=== PATIENT | male | born 1960 | race Caucasian/White ===

== ENCOUNTER → 2016-08-19 | Outpatient (CLI) | payer OTHER ==
[~2016-08-19] MED LIST: ACET-24 PO; ASPEC81 PO; ASPI81TA28 PO; CARV25TA PO; CLB200 PO; CLX20 PO; FENO48TA9 PO; FRS/40 PO; GLC/500 PO; GLIM2TAB PO; LOSA1TAB PO; MELO7.5T5 PO; ONDA8TAB12 PO; OXYSR10 PO; RXC5 PO; SPIR25TA PO; ZCRT/40 PO
--- NOTE | 2016-08-19 11:11 | DIAGNOSTIC IMAGING REPORT ---
CHEST 5 VIEWS INCLUDING OBLIQUES CLINICAL HISTORY: Abnormal chest x-ray. Pulmonary nodule. COMPARISON STUDY: 07/27/2016 FINDINGS: The heart remains enlarged. The previously described 1 cm right lower lung zone nodule, appears to correspond to the patient's right nipple shadow. There is no focal pulmonary consolidation. There is no failure. There are no pleural effusions.[ IMPRESSION: Cardiomegaly. No active disease in the chest. The recently described 1 cm right lower lung zone opacity, is felt to represent the a nipple shadow. Electronically signed by: Davin Petit M.D. 08/19/2016 11:10 AM Dictated Date/Time: 08/19/2016 11:09 AM
== END | disposition home or self-care (01) ==
LOC: C.RAD 10:36
PROVIDERS: ATTEND Family Medicine
DX: R93.8 Abnormal findings on diagnostic imaging of other specified body structures (principal)

== ENCOUNTER 2016-09-12 07:48 | Inpatient (IN) | payer OTHER ==
[2016-07-29 11:11] VITALS: BMI 37.0
--- NOTE | 2016-07-29 11:43 | PAT Medication Instructions ---
Service Date July 29, 2016. Current Home Medication List Aspirin (Aspirin Ec), 81 MG PO QAM Carvedilol (Coreg), 25 MG PO BID Citalopram (Celexa *), 20 MG PO BID Fenofibrate (Tricor), 48 MG PO QPM Furosemide (Lasix), 40 MG PO DAILY PRN for EDEMA Glimepiride (Amaryl), 2 MG PO QAM Losartan Potassium (Cozaar), 100 MG PO QPM Meloxicam (Mobic), 15 MG PO QAM Metformin Hcl (Glucophage), 500 MG PO BID Simvastatin (Zocor), 40 MG PO QPM Spironolactone (Aldactone), 12.5 MG PO QAM Medication Instructions For Your Scheduled Surgery - Hold the following medications per surgeon's instructions: Meloxicam (Mobic), 15 MG PO QAM - Hold the following medications 48 hours prior to surgery: Metformin Hcl (Glucophage), 500 MG PO BID - Hold the following medications the morning of surgery: Glimepiride (Amaryl), 2 MG PO QAM Furosemide (Lasix), 40 MG PO DAILY PRN for EDEMA Spironolactone (Aldactone), 12.5 MG PO QAM - Take the following medications the morning of surgery with a sip of water OTHERWISE NOTHING TO EAT OR DRINK AFTER MIDNIGHT: Aspirin (Aspirin Ec), 81 MG PO QAM Carvedilol (Coreg), 25 MG PO BID Citalopram (Celexa *), 20 MG PO BID - Take the following medications as scheduled the night before surgery: Carvedilol (Coreg), 25 MG PO BID Citalopram (Celexa *), 20 MG PO BID Simvastatin (Zocor), 40 MG PO QPM - Do Not Take the following medications the night before surgery: Fenofibrate (Tricor), 48 MG PO QPM Losartan Potassium (Cozaar), 100 MG PO QPM If you have any questions please call us at [phone] or [phone] or [phone]
[2016-07-29 12:12] LABS: URINE APPEARANCE CLEAR (CLEAR); URINE BILIRUBIN NEG (NEG); URINE COLOR YELLOW; URINE NITRITE NEG (NEG); URINE SPECIFIC GRAVITY 1.023 (1.000-1.030); UROBILINOGEN NEG (NEG)
[2016-07-29 12:13] LABS: BASO % 0.3 %; BASO ABS # 0.03 K/uL (0-0.2); COMPLETE YES; EOS % 3.1 %; HEMATOCRIT 41.5 % (42-52); IG% 0.2 %; LYMPH % 19.8 %; LYMPH ABS # 1.75 K/uL (1.2-3.4); MEAN CELL VOLUME 94.5 fL (80-100); MEAN CORPUSCULAR HEMOGLOBIN 32.3 pg (25-34); MEAN CORPUSCULAR HGB CONC 34.2 g/dl (32-36); MEAN PLATELET VOLUME 11.9 fL (7.4-10.4); MONO % 5.8 %; NEUT % 70.8 %; PLATELET COUNT 196 K/uL (130-400); RED BLOOD COUNT 4.39 M/uL (4.7-6.1); WHITE BLOOD COUNT 8.85 K/uL (4.8-10.8)
[2016-07-29 12:24] LABS: INR 0.9 (0.9-1.1); PARTIAL THROMBOPLASTIN RATIO 1.1; PROTHROMBIN TIME (PATIENT) 10.1 SECONDS (9.0-12.0)
[2016-07-29 12:36] LABS: MANUAL MICROSCOPIC REQUIRED? NO; REVIEW REQ? NO
[2016-07-29 12:44] LABS: ESTIMATED AVERAGE GLUCOSE 154 mg/dl; HA1C FLAG Normal (Normal)
[2016-07-29 12:57] LABS: BUN/CREATININE RATIO 25.7 (10-20); CREATININE 1.2 mg/dl (0.60-1.40); POTASSIUM 5.1 mmol/L (3.5-5.1)
--- NOTE | 2016-07-29 12:57 | DIAGNOSTIC IMAGING REPORT ---
CHEST PREADMISSION(PA/LAT) CLINICAL HISTORY: Preoperative evaluation. COMPARISON STUDY: No previous studies for comparison. FINDINGS: Lung volumes are normal. There is no pneumothorax or pleural effusion. A 1 cm nodular density projects over the right lower lung. There is mild to moderate cardiomegaly. There is no evidence of pulmonary edema. There is no consolidation to suggest pneumonia. IMPRESSION: 1. No acute cardiopulmonary findings. 2. 1 cm nodular density which projects over the right lower lung. This likely reflects a nipple shadow but follow-up PA and shallow oblique radiographs of the chest with nipple markers are recommended. 3. Mild to moderate cardiomegaly. Electronically signed by: Miguel Angel Nicole M.D. 07/29/2016 12:56 PM Dictated Date/Time: 07/29/2016 12:54 PM
[2016-07-29 13:11] LABS: CALCIUM 9.7 mg/dl (8.5-10.1)
--- NOTE | 2016-09-11 12:50 | History and Physical ---
History & Physical Date Sep 11, 2016. Chief Complaint Left knee pain History of Present Illness The patient is a 55 year old male with complaints of Additional History Hepatic Disease: No Endocrine Disorder: Yes (Type II DM) Kidney Disease: Yes (Kidney stones) Hypertension: No Heart Disease: No Bleeding Tendencies: No Infectious Diseases: No Other: Depression, Obesity Allergies Coded Allergies: NO KNOWN DRUG ALLERGIES (Verified Allergy, Unknown, NKDA, 07/29/16) Home Medications Scheduled Aspirin (Aspirin Ec), 81 MG PO QAM Carvedilol (Coreg), 25 MG PO BID Citalopram (Celexa *), 20 MG PO BID Fenofibrate (Tricor), 48 MG PO QPM Glimepiride (Amaryl), 2 MG PO QAM Losartan Potassium (Cozaar), 100 MG PO QPM Meloxicam (Mobic), 15 MG PO QAM Metformin Hcl (Glucophage), 500 MG PO BID Simvastatin (Zocor), 40 MG PO QPM Spironolactone (Aldactone), 12.5 MG PO QAM Scheduled PRN Furosemide (Lasix), 40 MG PO DAILY PRN for EDEMA Physical Examination Skin: warm/dry Eyes: normal inspection, EOMI ENT: normal ENT inspection, pharynx normal Head: normocephalic Neck: supple, no adenopathy Respiratory/Chest: lungs clear Cardiovascular: regular rate, rhythm Abdomen / GI: normal bowel sounds, non tender Extremities: normal inspection, + pertinent finding (Left knee varus aligned, medial compartment pain, ROM ~ 0-120) Addiitonal Comments: Xrays: varus aligned knee, bone on bone arthritis medial compartment, diffuse osteophytes medial and PF compartments Diagnosis Left knee arthritis Plan of Treatment Left total knee arthroplasty
[2016-09-12] VITALS (8 sets, daily range): BP systolic 115–157; BP diastolic 56–87; PULSE 70–87; TEMP 36.4–36.8; O2SAT 94–98; Ht 182.9 cm; Wt 124.0 kg
[~2016-09-12] VITALS: Ht 182.9 cm; Wt 124.0 kg
[~2016-09-12 07:48] MED LIST changes: -ACET-24 PO; +ACETAMINOPHEN 500 MG TAB PO SCH; -ASPEC81 PO; +BUPIVACAINE 0.5 % 5 MG/1 ML PF 10ML VIAL ONE; +CEFAZOLIN 3000 MG/65 ML D5W 65 ML IV SCH; -CLB200 PO; +CeleBREX 200 MG CAP PO SCH; +DEXAMETHASONE 4 MG TAB PO SCH; +FAMOTIDINE 20 MG TAB PO SCH; +GABAPENTIN 300 MG CAP PO SCH; +LACTATED RINGER'S 1000ML 1,000 ML IV SCH; +LACTATED RINGER'S 1000ML IV SCH; +METOCLOPRAMIDE HCL 10 MG TAB PO SCH; -ONDA8TAB12 PO; -OXYSR10 PO; +ROPIVACAINE 5MG/ML 30 ML 150 MG, BUPIVACAINE/EPINEPHR 0.5% MPF 30 ML, KETOROLAC TROMETH... INFIL SCH; -RXC5 PO; +TRANEXAMIC ACID INJ 1,000 MG in SODIUM CHLORIDE 0.9% 100ML 100 ML IV SCH
[2016-09-12] MEDS ORDERED: LIDOCAINE HCL 2% 2 ML VIAL (20MG/ML) ONE (09:38)
[2016-09-12] MEDS ORDERED: PROPOFOL IV EMULSION 10 MG/ML 20 ML VIAL IV ONE (09:38)
[2016-09-12] MEDS ORDERED: FENTANYL CITRATE INJ 50 MCG/1 ML 2 ML VIAL ONE (09:38)
[2016-09-12] MEDS ORDERED: MIDAZOLAM HCL 1 MG/ML 2ML VIAL ONE ×2 (09:38)
[2016-09-12] MEDS ORDERED: ORTHO JOINT ANESTHETIC ONE (09:56)
[2016-09-12] MEDS ORDERED: BACITRACIN 50000 UNIT VIAL ONE (09:56)
[2016-09-12] MEDS ORDERED: POVIDONE-IODINE OP SOLN 30 ML BTL ONE (09:56)
--- NOTE | 2016-09-12 10:13 | History & Physical Bridge Note ---
H&P Re-Evaluation Bridge Note: I have examined the patient, reviewed the History & Physical and in the interval since the performance of the History & Physical I have noted the following changes of clinical significance: No changes noted
[2016-09-12] MEDS ORDERED: ATROPINE SULFATE 0.1 MG/ML 5ML SYR IV PRN (10:30)
[2016-09-12] MEDS ORDERED: EpHEDrine SULFATE INJ 50 MG/ML AMP IV PRN (10:30)
[2016-09-12] MEDS ORDERED: ONDANSETRON INJ 2 MG/ML 2 ML VIAL IV PRN ×2 (10:30→12:15)
[2016-09-12] MEDS ORDERED: FENTANYL CITRATE INJ 50 MCG/1 ML 2 ML VIAL IV PRN (10:30)
--- NOTE | 2016-09-12 11:45 | [facility] Operative Report ---
Operative Report Operative Date Sep 12, 2016. Pre-Operative Diagnosis Left Knee Osteoarthritis Post-Operative Diagnosis same Procedure(s) Performed Patient's left knee was prepped and draped in usual sterile manner. Limb was exsanguinated with Esmarch bandage and insufflated to 350 mmHg. Longitudinal incision made some retained sutures from faceted and electrocautery and outlandish were used for hemostasis. Median parapatellar incision was made patella was everted and the results. The patient ballard visualization and the medial place the tibia was cleared of soft tissue using a Bovie and a Arriaga. Block was placed exposed. External medullary alignment is used to perform the osteotomy at the appropriate level. The bone fragment was removed. This shows an axis to the femoral canal. The flexible guidewire was placed intramedullary and the distal femoral cut was made resecting 10 mm of distal bone. The milligrams then removed and the chamfer cut guide was placed satisfy the chosen size uterus. (Removed and the notch was prepared using the appropriate guide and dissection and large loose bodies posterolaterally were noted and removed. Trial femur was placed is used to exposed the proximal tibia and the size 5 tibia was chosen size to be used. A 9 Mayra gave good repair of soft tissue tension while allowing full extension. The patella was reamed with the patellar reaming blade and a size 39 toaster size views. All trials removed joint mix was injected with irrigated with pulsatile irrigation bone was dried while cement was mixed and the final components were cemented in position. Was held in extension while cement hardened. A Betadine soaked was placed and Hemovac drain was placed after was deflated and electrocautery was obtained for hemostasis and the wound was closed using #1 Vicryl 0 Dexon and halina. Sterile dressing with Adaptic 4 x 4's and sterile Webril and the length Dani was applied. Sagar Zi's assistance was essential throughout the case and positioning prepping draping surgical exposure wound closure and dressing application. Surgeon Dr. Daniel Copy Reader Surgeon(s) Tj Al PA-C Estimated Blood Loss 20 cc Findings Osteoarthritis Specimens A: Left knee bone and tissue Disposition Recovery Room / PACU I attest to the content of the Intraoperative Record and any orders documented therein. Any exceptions are noted below.
[2016-09-12] MEDS ORDERED: ALUMINUM/MAGNESIUM/SIMETH (MAALOX MAX) 30 ML UDC PO PRN (12:15)
[2016-09-12] MEDS ORDERED: TAMSULOSIN HCL 0.4 MG CAP PO PRN (12:15)
[2016-09-12] MEDS ORDERED: MAGNESIUM HYDROXIDE SUSP 30 ML UDC PO PRN (12:15)
[2016-09-12] MEDS ORDERED: MoRPHine SULFATE 2 MG/ML CARP IV PRN ×2 (12:15→15:30)
[2016-09-12] MEDS ORDERED: METOCLOPRAMIDE HCL INJ 5 MG/ML 2 ML VIAL IV PRN (12:15)
[2016-09-12] MEDS ORDERED: ZOLPIDEM TARTRATE 5 MG TAB PO PRN (12:15)
[2016-09-12] MEDS ORDERED: OXYCODONE HCL IR 5 MG TAB (IMMEDIATE RELEASE) PO PRN (12:15)
--- NOTE | 2016-09-12 12:44 | DIAGNOSTIC IMAGING REPORT ---
LEFT KNEE 1 OR 2 VIEWS ROUTINE CLINICAL HISTORY: Postoperative evaluation. COMPARISON: None FINDINGS: Alignment of the total left knee arthroplasty is anatomic. There is no fracture or unexpected radiopaque foreign body. Drains are in place. IMPRESSION: Expected findings following total left knee arthroplasty. Electronically signed by: Miguel Angel Nicole M.D. 09/12/2016 12:42 PM Dictated Date/Time: 09/12/2016 12:42 PM
--- NOTE | 2016-09-12 12:52 | Anesthesiology Progress Note ---
Anesthesia Post Op Note Date & Time Sep 12, 2016 at 12:51 Vital Signs Pain Intensity: 0 Vital Signs Past 12 Hours Date Time Temp Pulse Resp B/P (MAP) Pulse Ox O2 Delivery O2 Flow Rate FiO2 09/12/16 12:45 36.2 68 16 133/60 97 Nasal Cannula 2 09/12/16 12:35 36.2 69 16 126/61 94 Nasal Cannula 2 09/12/16 12:25 68 16 136/65 99 Oxymask 10 09/12/16 12:15 75 16 126/82 98 Oxymask 10 09/12/16 12:09 36.1 70 16 113/57 99 Oxymask 10 09/12/16 08:37 Room Air 97 09/12/16 08:35 36.7 73 20 153/87 Notes Mental Status: alert / awake / arousable, participated in evaluation Pt Amnestic to Procedure: Yes Nausea / Vomiting: adequately controlled Pain: adequately controlled Airway Patency, RR, SpO2: stable & adequate BP & HR: stable & adequate Hydration State: stable & adequate Neuraxial Anesthesia: was administered, sensory block is resolving Anesthetic Complications: no major complications apparent
[2016-09-12] MEDS ORDERED: PHARMACY GLYCEMIC MGMT CONSULT SCH (13:22)
[2016-09-12] MEDS: TRANEXAMIC ACID INJ 1,000 MG in SODIUM CHLORIDE 0.9% 100ML 100 ML IV SCH (14:14)
[2016-09-12] MEDS ORDERED: GLUCOSE 40% GEL 15 GM TUBE PO PRN (14:15)
[2016-09-12] MEDS ORDERED: GLUCOSE 10 TABS/TUBE PO PRN (14:15)
[2016-09-12] MEDS ORDERED: GLUCAGON FOR INJ 1 MG VIAL SQ PRN (14:15)
[2016-09-12] MEDS ORDERED: DEXTROSE 50% 50 ML SYR IV PRN (14:15)
--- NOTE | 2016-09-12 14:20 | Pharmacy Progress Note ---
Glycemic Control Intl Consult Date of Service Sep 12, 2016. Scope Glycemic Pharmacist consulted by Tj Al on 09/12/16 for glycemic control and to write orders per [facility] inpatient glycemic control protocol Objective Weight (Kilograms): 124.00 Accuchecks BSG (last 24hrs): Test 09/12/16 08:28 09/12/16 12:20 Bedside Glucose 155 mg/dl (70-99) 178 mg/dl (70-99) Recent Pertinent Medications Outpatient Anti-diabetic Regimen: * glimepiride 2mg PO daily * Metformin 500mg PO BID * A1c = 7 % 07/29/16 Risk Factors for Insulin Resistance: * Steroids: Dexamethasone 8mg PO pre-operatively, then dexamethasone 10mg IV x1 dose on 09/13/16 * Infection: cefazolin perioperatively * IVF: LR --> NSS * Recent Surgery: POD #0 for left TKA * Diet: T2DM Assessment & Plan ASSESSMENT: * ADA & AACE recommend a goal blood sugar range 140-180 mg/dl for the majority of critically ill & non-critically ill patients. However, more stringent targets may be selected in individual cases. Will utilize more stringent goal of 110-140mg/dl based on patient age & comorbidities. Additionally, tighter glycemic control is warranted to facilitate wound/infection healing. * 55 y/o type 2 diabetic admitted postoperatively * BSG on admission slightly elevated (155,178mg/dL) likely secondary to holding PO meds pre-op * PO steroids POD#0 and IV steroids POD#1 will likely drive BSGs upwards * begin basal/bolus insulin in addition to PO medications using weight-based dosing PLAN FOR INPATIENT GLYCEMIC CONTROL: * Basal insulin: * Lantus SQ BID - 0 units if BSG is below 100mg/dL - 10 units if BSG is 100-140mg/dL - 20 units if BSG is above 140mg/dL * Bolus insulin: * NovoLog SQ AC and HS - goal: 110-140mg/dL - correction factor: 20mg/dL/unit (may need tightened on 09/13 with IV dexamethasone) - carb ratio: 1 unit per 6g of CHO consumed * Oral medications: * glimepiride 2mg PO daily with breakfast (hold if not eating) * metformin 500mg PO BID with meals * A1c - current * 7%- add to discharge instructions RECOMMENDATIONS FOR DISCHARGE: * Continue home regimen * Please note that the plan above was derived based on current level of insulin resistance and hospital stress. These recommendations are appropriate for inpatient admission only. Plan of care upon discharge will need to be reassessed to avoid potential outpatient hypo/hyperglycemia. Thank you.
[2016-09-12] MEDS ORDERED: MoRPHine SULFATE 4 MG/ML 1 ML CARP\\VIAL IV PRN (15:30)
[2016-09-12] MEDS ORDERED: MoRPHine SULFATE 10 MG/ML CARP/VIAL IV PRN (15:30)
[2016-09-12] MEDS: SODIUM CHLORIDE 0.9% 1000ML 1,000 ML IV SCH ×2 (15:40→22:11)
[2016-09-12] MEDS: ACETAMINOPHEN 500 MG TAB PO SCH ×2 (16:40→23:47)
[2016-09-12] MEDS: KETOROLAC TROMETHAMINE 30 MG/ML VIAL IV. SCH ×2 (16:41→22:11)
[2016-09-12] MEDS: CEFAZOLIN IV 2,000 MG in DEXTROSE 5% 50ML 50 ML IV SCH ×2 (16:41→23:46)
[2016-09-12] MEDS: INSULIN ASPART 100 UNITS/ML 3 ML PEN SC SCH ×2 (17:41→21:42)
[2016-09-12] MEDS: FERROUS GLUCONATE 324 MG TAB PO SCH (17:44)
[2016-09-12] MEDS: CITALOPRAM 20 MG TAB PO SCH (21:34)
[2016-09-12] MEDS: DOCUSATE SODIUM 100 MG CAP PO SCH (21:34)
[2016-09-12] MEDS: ASPIRIN 81 MG ECTAB PO SCH (21:37)
[2016-09-12] MEDS: LOSARTAN POTASSIUM 50 MG TAB PO SCH (21:37)
[2016-09-12] MEDS: OXYCODONE HCL 10 MG TABCR (OXYCONTIN) PO SCH (21:38)
[2016-09-12] MEDS: FENOFIBRATE 48 MG TAB PO SCH (21:38)
[2016-09-12] MEDS: SIMVASTATIN 40 MG TAB PO SCH (21:38)
[2016-09-12] MEDS: INSULIN GLARGINE SOLOSTAR 100 UNITS/ML 3 ML PEN SC SCH (21:43)
[2016-09-12] MEDS: CARVEDILOL 25 MG TAB PO SCH (21:43)
[2016-09-13] MEDS ORDERED: INSULIN ASPART 100 UNITS/ML 3 ML PEN SC SCH (02:00)
[2016-09-13 02:51] VITALS: BP 133/65; PULSE 74; TEMP 36.5; O2SAT 96
[2016-09-13] MEDS: KETOROLAC TROMETHAMINE 30 MG/ML VIAL IV. SCH ×2 (04:17→10:01)
[2016-09-13 06:02] LABS: HEMATOCRIT 35.1 % (42-52); MEAN CELL VOLUME 94.6 fL (80-100); MEAN CORPUSCULAR HEMOGLOBIN 32.6 pg (25-34); MEAN CORPUSCULAR HGB CONC 34.5 g/dl (32-36); MEAN PLATELET VOLUME 11.8 fL (7.4-10.4); PLATELET COUNT 179 K/uL (130-400); RED BLOOD COUNT 3.71 M/uL (4.7-6.1); WHITE BLOOD COUNT 15.33 K/uL (4.8-10.8)
[2016-09-13 06:37] LABS: BUN/CREATININE RATIO 25.6 (10-20); CALCIUM 8.2 mg/dl (8.5-10.1); CREATININE 1.1 mg/dl (0.60-1.40)
[2016-09-13] MEDS ORDERED: DEXAMETHASONE INJ 10 MG in SYRINGE 0 ML IV ONE (07:30)
--- NOTE | 2016-09-13 07:39 | Orthopedic Progress Note ---
Orthopedic Progress Note Date of Service Sep 13, 2016. Subjective Post OP Day: 1 Reports: feeling well Objective N/V intact, dressing C/D/I (Hemovac in place), toes mobile Date Time Temp Pulse Resp B/P (MAP) Pulse Ox O2 Delivery O2 Flow Rate FiO2 09/13/16 02:51 36.5 74 16 133/65 (87) 96 Room Air 09/12/16 23:40 Room Air 09/12/16 22:48 36.7 87 16 157/78 (104) 94 Room Air 09/12/16 19:09 36.4 86 18 123/66 (85) 96 Nasal Cannula 2.0 09/12/16 16:00 36.6 72 18 147/75 (99) 97 Nasal Cannula 2.0 09/12/16 15:40 97 Nasal Cannula 2.0 09/12/16 15:20 36.8 75 17 135/76 (95) 97 Nasal Cannula 2.0 09/12/16 13:37 76 19 115/56 (75) 97 Nasal Cannula 2.0 09/12/16 13:05 36.4 70 16 118/66 (83) 98 Nasal Cannula 2.0 09/12/16 13:05 98 Nasal Cannula 2.0 09/12/16 12:45 36.2 68 16 133/60 97 Nasal Cannula 2 09/12/16 12:35 36.2 69 16 126/61 94 Nasal Cannula 2 09/12/16 12:25 68 16 136/65 99 Oxymask 10 09/12/16 12:15 75 16 126/82 98 Oxymask 10 09/12/16 12:09 36.1 70 16 113/57 99 Oxymask 10 09/12/16 08:37 Room Air 97 09/12/16 08:35 36.7 73 20 153/87 Laboratory Results 24 Hours: Test 09/13/16 05:24 Hematocrit 35.1 % Hemoglobin 12.1 g/dL Assessment & Plan Assessment: 55 yo male stable POD #1 s/p left TKA Plan: 1. Med management 2. DVT prophylaxis- ASA, SCDs 3. PT/OT 4. D/C planning- home with OPPT
--- NOTE | 2016-09-13 07:42 | Discharge Instructions ---
Discharge Instructions Date of Service Sep 13, 2016. Admission Reason for Admission: Left Knee Osteoarthritis Discharge Discharge Diagnosis / Problem: Left knee arthritis Discharge Goals Goal(s): Decrease discomfort, Improve function Activity Recommendations Activity Limitations: as noted below Weightbearing Status: Left weightbearing (as tolerated) . Instructions / Follow-Up Instructions / Follow-Up ACTIVITY RECOMMENDATIONS: SELF CARE INSTRUCTIONS AFTER TOTAL KNEE REPLACEMENT A. You may need to continue a physical therapy program after discharge from the hospital. There are several options available to you. Your doctor will assist you in selecting the best one for you. 1. An out-patient facility 2 to 3 times a week for therapy or home therapy. 2. Continue working on all exercises taught to you in the hospital. Your goals should be to increase bending of your knee to 90 degrees and beyond and to fully straighten your knee. B. You may progress at your own pace from walking with a walker or crutches to a cane; then to no assistive devices. C. Make walking a part of your daily routine. Be up as much as comfortable with rest periods throughout the day. Rest with leg elevation is very important. Use the ice wrap frequently for the first 3-4 weeks. D. There are no restrictions on activities. You may ride in a car, shop, participate in machine fastener and all social activities. E. Wear the long elastic stockings (MIRANDA hose) 20 hours a day for 2 weeks after surgery. They can be removed several times a day for laundering and for a bath. F. You may shower, no tub baths until cleared by your doctor. SPECIAL CARE INSTRUCTIONS: VERY IMPORTANT TO READ AND REVIEW A. There are a few signs you need to watch for after you are home. Call [facility] if you notice any of the followin. Increased severe knee pain. Some pain is expected especially when you exercise. 2. Increased swelling in your leg or knee; pain or swelling of the calf muscle in either lower leg. 3. Any fluid drainage from the incision. 4. Shortness of breath or chest pain. B. Please call [facility] at if you have any concerns or questions about your operation or recovery. The doctor or his nurse will return your call promptly. C. You must take antibiotics before dental work, bladder, bowel or other surgery. Your doctor will provide you with a permanent care to carry describing this precaution. IMPORTANT: * REMEMBER TO TAKE ASPIRIN, 81 MG, TWICE DAILY FOR 4 WEEKS UNLESS OTHERWISE DIRECTED. THIS IS YOUR BLOOD THINNER. * HIGH RISK PATIENTS MAY BE PRESCRIBED A STRONGER BLOOD THINNER. THIS WILL BE PROVIDED AT DISCHARGE. * CALL IF INCREASED PAIN, REDNESS, DRAINAGE OR FEVER GREATER THAT 101. * WEAR MIRANDA HOSE 20 HOURS PER DAY FOR 2 WEEKS. Silverlon- This is a large adhesive bandage that contains silver ions. This helps your incision heal by fighting off bacteria and protecting it from the outside environment. You are permitted to shower with this dressing. This will remain on your incision for 7 days and then should be removed. Some visible blood or drainage through the dressing window is normal. If there is significant drainage or leaking noted before the 7 days notify your doctor's office immediately. Once removed, keep incision clean and dry. If there is any drainage or redness noted, please call your surgeon. FOLLOW UP VISIT: If appointment is not already scheduled: Please call [facility] to make a follow-up appointment for 2 weeks after your surgery at . Current Hospital Diet Patient's current hospital diet: Diabetes Type 2 Diet Discharge Diet Recommended Diet: Diabetes Type 2 Diet Procedures Procedures Performed: Left Total Knee Arthroplasty Pending Studies Studies pending at discharge: no Laboratory Results Hemoglobin A1c Test 07/29/16 11:46 Range/Units Estimated Average Glucose 154 mg/dl Hemoglobin A1c 7.0 H 4.5-5.6 % Medical Emergencies . Who to Call and When: Medical Emergencies: If at any time you feel your situation is an emergency, please call 911 immediately. . Non-Emergent Contact Non-Emergency issues call your: Surgeon Call Non-Emergent contact if: temperature is above 101.5, your pain is not controlled, wound has increased drainage, wound has increased redness . "Provider Documentation" section prepared by Tj Al PA-C. . VTE Core Measure Inpt VTE Proph given/why not?: Other Anticoagulation (ASA 81mg bid), T.E.D. Stockings, SCD's [place] Drug Monitoring Program Search Results: patient reviewed within database, no issues identified
[2016-09-13 07:58] VITALS: BP 150/82; PULSE 67; TEMP 36.6; O2SAT 98
[2016-09-13 08:06] VITALS: O2SAT 98
[2016-09-13] MEDS: ACETAMINOPHEN 500 MG TAB PO SCH ×3 (08:09→23:54)
[2016-09-13] MEDS: CITALOPRAM 20 MG TAB PO SCH ×2 (08:56→21:33)
[2016-09-13] MEDS: DOCUSATE SODIUM 100 MG CAP PO SCH ×2 (08:57→21:32)
[2016-09-13] MEDS: SPIRONOLACTONE 25 MG TAB PO SCH (08:57)
[2016-09-13] MEDS: FERROUS GLUCONATE 324 MG TAB PO SCH ×3 (08:58→18:10)
[2016-09-13] MEDS: MULTIVITAMIN TAB PO SCH (08:58)
[2016-09-13] MEDS: GLIMEPIRIDE 2 MG TAB PO SCH (08:59)
[2016-09-13] MEDS: CARVEDILOL 25 MG TAB PO SCH ×2 (08:59→21:32)
[2016-09-13] MEDS: METFORMIN HCL 500 MG TAB PO SCH ×2 (09:00→18:10)
[2016-09-13] MEDS: PANTOprazole SOD 40 MG TAB PO SCH (09:00)
[2016-09-13] MEDS: ASPIRIN 81 MG ECTAB PO SCH ×2 (09:01→21:33)
[2016-09-13] MEDS: OXYCODONE HCL 10 MG TABCR (OXYCONTIN) PO SCH ×2 (09:04→21:33)
[2016-09-13] MEDS: INSULIN ASPART 100 UNITS/ML 3 ML PEN SC SCH ×4 (09:09→21:41)
[2016-09-13] MEDS: INSULIN GLARGINE SOLOSTAR 100 UNITS/ML 3 ML PEN SC SCH ×2 (09:10→21:42)
[2016-09-13 11:34] VITALS: BP 152/74; PULSE 71; TEMP 36.8; O2SAT 95
--- NOTE | 2016-09-13 13:49 | Pharmacy Progress Note ---
Glycemic Control Progress Note Date of Service Sep 13, 2016. Scope Glycemic Pharmacist consulted for glycemic control to write orders per [facility] inpatient glycemic control protocol. Objective Accuchecks BSG (last 24hrs): Test 09/12/16 17:11 09/12/16 17:13 09/12/16 17:19 09/12/16 20:42 Bedside Glucose 358 mg/dl (70-99) 278 mg/dl (70-99) 293 mg/dl (70-99) 266 mg/dl (70-99) Test 09/13/16 02:24 09/13/16 05:24 09/13/16 08:04 09/13/16 12:03 Bedside Glucose 180 mg/dl (70-99) 168 mg/dl (70-99) 283 mg/dl (70-99) Random Glucose 169 mg/dl (70-99) Recent Pertinent Medications Outpatient Anti-diabetic Regimen: * glimepiride 2mg PO daily * Metformin 500mg PO BID * A1c = 7 % 07/29/16 Risk Factors for Insulin Resistance: * Steroids: Dexamethasone 8mg PO pre-operatively, then dexamethasone 10mg IV x1 dose on 09/13/16 * Recent Surgery: POD #1 for left TKA * Diet: T2DM Assessment & Plan ASSESSMENT: 09/12/16 * ADA & AACE recommend a goal blood sugar range 140-180 mg/dl for the majority of critically ill & non-critically ill patients. However, more stringent targets may be selected in individual cases. Will utilize more stringent goal of 110-140mg/dl based on patient age & comorbidities. Additionally, tighter glycemic control is warranted to facilitate wound/infection healing. * 55 y/o type 2 diabetic admitted postoperatively * BSG on admission slightly elevated (155,178mg/dL) likely secondary to holding PO meds pre-op * PO steroids POD#0 and IV steroids POD#1 will likely drive BSGs upwards * begin basal/bolus insulin in addition to PO medications using weight-based dosing 09/13/16 * Hyperglycemia postoperatively requiring a increase in correctional insulin. * Steroids now discontinued * loosen NovoLog parameters back to a stress of 2 after lunch * Lantus this PM PLAN FOR INPATIENT GLYCEMIC CONTROL: * Basal insulin: * Lantus SQ BID - 0 units if BSG is below 140mg/dL - 10 units if BSG is 140mg/dL or above * Bolus insulin: * NovoLog SQ AC and HS - goal: 100-140mg/dL - correction factor: 20mg/dL/unit - carb ratio: 1 unit per 6g of CHO consumed * Oral medications: * glimepiride 2mg PO daily with breakfast (hold if not eating) * metformin 500mg PO BID with meals * A1c - current * 7%- add to discharge instructions RECOMMENDATIONS FOR DISCHARGE: * Continue home regimen * Please note that the plan above was derived based on current level of insulin resistance and hospital stress. These recommendations are appropriate for inpatient admission only. Plan of care upon discharge will need to be reassessed to avoid potential outpatient hypo/hyperglycemia. Thank you.
[2016-09-13 15:02] VITALS: BP 156/71; PULSE 67; TEMP 36.6; O2SAT 93
[2016-09-13] MEDS: CeleBREX 200 MG CAP PO SCH (21:32)
[2016-09-13] MEDS: SIMVASTATIN 40 MG TAB PO SCH (21:32)
[2016-09-13] MEDS: LOSARTAN POTASSIUM 50 MG TAB PO SCH (21:33)
[2016-09-13] MEDS: FENOFIBRATE 48 MG TAB PO SCH (21:34)
[2016-09-13 23:15] VITALS: BP 152/81; PULSE 68; TEMP 36.7; O2SAT 95
[2016-09-14] MEDS ORDERED: INSULIN ASPART 100 UNITS/ML 3 ML PEN SC SCH (02:00)
[2016-09-14 06:38] VITALS: BP 154/77; PULSE 68; TEMP 36.3; O2SAT 96
[2016-09-14] MEDS: ACETAMINOPHEN 500 MG TAB PO SCH (07:37)
[2016-09-14] MEDS: MULTIVITAMIN TAB PO SCH (07:37)
[2016-09-14] MEDS: CeleBREX 200 MG CAP PO SCH (07:38)
[2016-09-14] MEDS: FERROUS GLUCONATE 324 MG TAB PO SCH ×2 (07:39→12:29)
[2016-09-14] MEDS: CARVEDILOL 25 MG TAB PO SCH (07:39)
[2016-09-14] MEDS: GLIMEPIRIDE 2 MG TAB PO SCH (07:39)
[2016-09-14] MEDS: METFORMIN HCL 500 MG TAB PO SCH (07:40)
[2016-09-14] MEDS: PANTOprazole SOD 40 MG TAB PO SCH (07:40)
[2016-09-14] MEDS: ASPIRIN 81 MG ECTAB PO SCH (07:41)
[2016-09-14] MEDS: INSULIN ASPART 100 UNITS/ML 3 ML PEN SC SCH ×2 (07:43→12:34)
[2016-09-14] MEDS: SPIRONOLACTONE 25 MG TAB PO SCH (07:44)
[2016-09-14] MEDS: CITALOPRAM 20 MG TAB PO SCH (07:45)
[2016-09-14] MEDS: OXYCODONE HCL 10 MG TABCR (OXYCONTIN) PO SCH (07:49)
--- NOTE | 2016-09-14 08:06 | Orthopedic Progress Note ---
Orthopedic Progress Note Date of Service Sep 14, 2016. Subjective Post OP Day: 2 Reports: feeling well Objective calves soft nontender, N/V intact, dressing C/D/I (Silverlon in place), toes mobile Date Time Temp Pulse Resp B/P (MAP) Pulse Ox O2 Delivery O2 Flow Rate FiO2 09/14/16 06:38 36.3 68 16 154/77 (102) 96 Room Air 09/13/16 23:45 Room Air 09/13/16 23:15 36.7 68 16 152/81 (104) 95 Room Air 09/13/16 16:35 Room Air 09/13/16 15:02 36.6 67 16 156/71 (99) 93 Room Air 09/13/16 11:34 36.8 71 14 152/74 (100) 95 Room Air 09/13/16 08:06 98 Room Air Assessment & Plan Assessment: 55 yo male stable POD #2 s/p left TKA Plan: 1. Med management 2. DVT prophylaxis- ASA, SCDs 3. PT/OT 4. D/C planning- home with OPPT
[2016-09-14] MEDS ORDERED: CLB200 PO (08:09)
[2016-09-14] MEDS ORDERED: ONDA8TAB12 PO (08:09)
[2016-09-14] MEDS ORDERED: OXYSR10 PO (08:09)
[2016-09-14] MEDS ORDERED: RXC5 PO (08:09)
[2016-09-14] MEDS ORDERED: ASPEC81 PO (08:09)
[2016-09-14] MEDS ORDERED: ACET-24 PO (08:09)
[2016-09-14] MEDS: DOCUSATE SODIUM 100 MG CAP PO SCH (09:00)
[2016-09-14 11:13] VITALS: BP 154/77; PULSE 68; TEMP 36.3; O2SAT 96
--- NOTE | 2016-09-18 17:30 | Discharge Summary ---
Orthopedic Discharge Summary Admission Date/Reason Sep 12, 2016 at 12:19 Left Knee Osteoarthritis. Discharge Date/Disposition Sep 14, 2016 Home Diagnosis Principal Diagnosis: Left knee arthritis Procedure(s) Performed Left total knee arthroplasty Medication Reconciliation New Medications: Ondansetron Hcl (Zofran) 8 Mg Tab 8 MG PO Q8 PRN for Nausea or Vomiting, #20 TAB Acetaminophen (Sb Non-Aspirin Extra Stre) 500 Mg Tab 1000 MG PO Q8H for 30 Days, TAB Aspirin (Aspirin EC Low Dose) 81 Mg Ectab 81 MG PO BID for 30 Days Celecoxib (Celebrex) 200 Mg Cap 200 MG PO BID, #60 CAP Oxycodone HCl (Oxycontin) 10 Mg Tabcr 10 MG PO Q12, #20 Oxycodone HCl (Oxycodone HCl) 5 Mg Tab 5-10 MG PO Q4H PRN for Pain, #60 TAB Continued Medications: Carvedilol (Coreg) 25 Mg Tab 25 MG PO BID, TAB Citalopram (Celexa *) 20 Mg Tab 20 MG PO BID, TAB Fenofibrate (Tricor) 48 Mg Tab 48 MG PO QPM, TAB Furosemide (Lasix) 40 Mg Tab 40 MG PO DAILY PRN for EDEMA, TAB Glimepiride (Amaryl) 2 Mg Tab 2 MG PO QAM, TAB Losartan Potassium (Cozaar) 25 Mg Tab 100 MG PO QPM, TAB Metformin Hcl (Glucophage) 500 Mg Tab 500 MG PO BID, TAB Simvastatin (Zocor) 40 Mg Tab 40 MG PO QPM, TAB Spironolactone (Aldactone) 25 Mg Tab 12.5 MG PO QAM, TAB Discontinued Medications: Aspirin (Aspirin Ec) 81 Mg Tab 81 MG PO QAM Meloxicam (Mobic) 7.5 Mg Tab 15 MG PO QAM, TAB Admission Physical Exam As per Admitting History & Physical. Hospital Course Pt underwent left total knee arthroplasty(TKA) without complication. He tolerated the procedure well and was discharged to the recovery room. His post- operative course was uneventful. His post-op pain was well controlled by combination of spinal anesthesia, adductor canal block, intra-op injection, IV, and oral pain medications. He was started on Aspirin for DVT prophylaxis. He also utilized SCDs for additional prophylaxis. His hemovac drain was discontinued on post-op day #2 and his dressing will remain in place for 7 days post-op. His H/H was stable and did not require transfusion. He tolerated post -op PT well. He was discharged home on post-op day #2 and will follow-up in our office in ~ 10-14 days. Discharge Instructions Please refer to the electronic Patient Visit Report (Discharge Instructions) for additional information.
== END 2016-09-14 13:47 | disposition home or self-care (01) | DRG 470 ==
LOC: C.ACU 07:48 → C.3E 12:19 → ENRESERV 12:49
PROC: 0SRD0J9 Replacement of Left Knee Joint with Synthetic Substitute, Cemented, Open Approach (ICD-10-PCS; principal; 2016-09-12 10:30)
DX: M17.12 Unilateral primary osteoarthritis, left knee (principal); M21.162 Varus deformity, not elsewhere classified, left knee; G47.33 Obstructive sleep apnea (adult) (pediatric); I11.0 Hypertensive heart disease with heart failure; I50.9 Heart failure, unspecified; E78.5 Hyperlipidemia, unspecified; I44.7 Left bundle-branch block, unspecified; E11.9 Type 2 diabetes mellitus without complications; F41.9 Anxiety disorder, unspecified; F32.9 Major depressive disorder, single episode, unspecified; E66.9 Obesity, unspecified; Z68.37 Body mass index [BMI] 37.0-37.9, adult; Z79.82 Long term (current) use of aspirin; Z79.84 Long term (current) use of oral hypoglycemic drugs; Z79.1 Long term (current) use of non-steroidal anti-inflammatories (NSAID); Z79.899 Other long term (current) drug therapy

== ENCOUNTER → 2017-04-26 | Outpatient (CLI) | payer OTHER ==
[~2017-04-26] MED LIST changes: +ACET-24 PO; -ACETAMINOPHEN 500 MG TAB PO SCH; +ASPEC81 PO; -ASPI81TA28 PO; -BUPIVACAINE 0.5 % 5 MG/1 ML PF 10ML VIAL ONE; -CEFAZOLIN 3000 MG/65 ML D5W 65 ML IV SCH; +CLB200 PO; -CeleBREX 200 MG CAP PO SCH; -DEXAMETHASONE 4 MG TAB PO SCH; -FAMOTIDINE 20 MG TAB PO SCH; -GABAPENTIN 300 MG CAP PO SCH; -LACTATED RINGER'S 1000ML 1,000 ML IV SCH; -LACTATED RINGER'S 1000ML IV SCH; -MELO7.5T5 PO; -METOCLOPRAMIDE HCL 10 MG TAB PO SCH; +OXYSR10 PO; -ROPIVACAINE 5MG/ML 30 ML 150 MG, BUPIVACAINE/EPINEPHR 0.5% MPF 30 ML, KETOROLAC TROMETH... INFIL SCH; +RXC5 PO; -TRANEXAMIC ACID INJ 1,000 MG in SODIUM CHLORIDE 0.9% 100ML 100 ML IV SCH
[2017-04-28 07:58] LABS: HEMOGLOBIN A1C 8.3 % (4.5-5.6)
== END | disposition home or self-care (01) ==
LOC: C.LAB 14:31
PROVIDERS: ATTEND Neuromusculoskeletal Medicine & OMM
DX: E11.9 Type 2 diabetes mellitus without complications (principal); J06.9 Acute upper respiratory infection, unspecified

== ENCOUNTER → 2017-07-28 | Outpatient (CLI) | payer OTHER ==
[~2017-07-28] MED LIST changes: -ASPEC81 PO; +ASPI-320 PO
[2017-07-28 11:06] LABS: BASO % 0.6 %; BASO ABS # 0.04 K/uL (0-0.2); EOS % 2.8 %; EOS ABS # 0.19 K/uL (0-0.5); HEMATOCRIT 41.5 % (42-52); HEMOGLOBIN 14.4 g/dL (14.0-18.0); IG# 0.02 K/uL (0.00-0.02); LYMPH % 22.2 %; LYMPH ABS # 1.48 K/uL (1.2-3.4); MEAN CORPUSCULAR HEMOGLOBIN 32.3 pg (25-34); MEAN CORPUSCULAR HGB CONC 34.7 g/dl (32-36); MEAN PLATELET VOLUME 11.6 fL (7.4-10.4); MONO % 10.6 %; MONO ABS # 0.71 K/uL (0.11-0.59); NEUT % 63.5 %; NEUT ABS # 4.24 K/uL (1.4-6.5); PLATELET COUNT 201 K/uL (130-400); RED CELL DISTRIBUTION WIDTH CV 13.3 % (11.5-14.5); RED CELL DISTRIBUTION WIDTH SD 45.3 fL (36.4-46.3); WHITE BLOOD COUNT 6.68 K/uL (4.8-10.8)
[2017-07-28 11:27] LABS: ALBUMIN 4.1 gm/dl (3.4-5.0); ALKALINE PHOSPHATASE 57 U/L (45-117); ALT/SGPT 30 U/L (12-78); AST/SGOT 21 U/L (15-37); BLOOD UREA NITROGEN 22 mg/dl (7-18); CARBON DIOXIDE 30 mmol/L (21-32); CHOLESTEROL 98 mg/dl (0-200); CREATININE 1.16 mg/dl (0.60-1.40); GLUCOSE 164 mg/dl (70-99); LDL CHOLESTEROL CALCULATED 48 mg/dl; POTASSIUM 4.7 mmol/L (3.5-5.1); SODIUM 141 mmol/L (136-145); TOTAL PROTEIN 7.2 gm/dl (6.4-8.2)
[2017-07-28 11:31] LABS: HEMOGLOBIN A1C 8.5 % (4.5-5.6)
== END | disposition home or self-care (01) ==
LOC: C.LAB 09:52
PROVIDERS: ATTEND Neuromusculoskeletal Medicine & OMM
DX: E11.9 Type 2 diabetes mellitus without complications (principal); E78.5 Hyperlipidemia, unspecified; I10 Essential (primary) hypertension

== ENCOUNTER → 2017-10-27 | Outpatient (CLI) | payer OTHER ==
[2017-10-27 15:00] LABS: HEMOGLOBIN A1C 7.5 % (4.5-5.6)
== END | disposition home or self-care (01) ==
LOC: C.LAB 13:37
PROVIDERS: ATTEND Neuromusculoskeletal Medicine & OMM
DX: E11.9 Type 2 diabetes mellitus without complications (principal)

== ENCOUNTER 2022-07-22 12:18 | Inpatient (IN) ==
--- NOTE | 2022-07-22 12:45 | Emergency Department Note ---
Impression & Plan Atrial fibrillation with RVR, Wide-complex tachycardia, CKD (chronic kidney disease) ED Provider Note NAME: KLAUDIA GABRIEL III AGE: 61 SEX: M : 1960 ARRIVES VIA: Walk-In INFORMANT: Patient, ED PROVIDER(S): Daryl Candelario MD CHIEF COMPLAINT: Shortness of breath MEDICAL DECISION MAKING: Patient presents due to concern for shortness of breath and exertional dyspnea. Patient was noted to be in a wide-complex tachycardia. Patient does have a known history of a left bundle branch block. IV was established blood was obtained along with an EKG. Morphology does not appear grossly unchanged after obtaining an out patient EKG through [facility]. I did speak with on-call cardiology Dr. Baez and the patient was seen and ev aluated the bedside. Patient was given adenosine IV 6 mg and appears that the patient does have an underlying A-fib. Patient has never had A-fib before. The patient was already receiving IV fluids with the patient was ordered heparin. Patient was also ordered Lopressor for rate control. The patient's blood work shows normal white count mild anemia hemoglobin 11.8 with normal platelet count. Kidney function with a creat of 1.78. Most recent was 1.57 in April 2020. Patient's troponin is not elevated but BNP is elevated. This is likely secondary to diastolic dysfunction and the A-fib with RVR. I did speak with the on-call hospitalist service Tiffani Singh PA-C and the patient was admitted by Dr. Link. Critical Care: I have personally spent 43 minutes of critical care time in direct management of this patient. This includes bedside care, interpretation of diagnostic studies, and testing, discussion with consultants, patient, and family members, and other require inpatient management activities. This 43 minutes is in excess of all separately billable procedures. Prior /Outside records reviewed: I did review an echocardiogram completed in September 2020. Patient had normal LV chamber size with moderate left ventricular systolic function is mildly reduced. EF of 45%. Grade 2 diastolic dysfunction. I did review a wellness visit from May 2020 with Lalo Ladd. Known history of type 2 diabetes hyperlipidemia hypertension anxiety Differential diagnosis: Reactive airway disease, pneumonia, pneumothorax, COPD, CHF, infections, cardiac ischemia, pulmonary embolism, musculoskeletal, gastrointestinal, as well as other pathologies. Diagnostics, as interpreted by me: ECG: Wide-complex tachycardia, rate of 122, left axis deviation with left bundle branch block pattern. Morphology appears grossly unchanged but rate is increased from comparison EKG through epic in the [employer] system from October 15, 2021 Cardiac monitoring: An order was placed for continuous cardiac monitoring. The monitor shows a rate of 122 with tachycardic and regular rhythm. Patient was placed on pulse oximetry Medical decision rules: none Imaging studies: See below I informally reviewed the patient's chest x-ray which does show likely pulmonary edema. HPI: Patient presents for feeling unwell since Friday with associated shortness of breath and dyspnea on exertion. The patient denies any leg swelling or calf pain. No history of DVT or PE no history of arrhythmia. Patient was seen in the outpatient setting referred here due to tachycardia. Patient denies any prior history of arrhythmia or A-fib. No falls or trauma. Patient does not take any blood thinners. The patient denies any recent surgeries procedures hospitalizations. No vomiting or diarrhea. PAST MEDICAL HISTORY: See Below PAST SURGICAL HISTORY: See Below SOCIAL HISTORY: See Below HOME MEDICATIONS: See Below ALLERGIES: See Below VITALS: See Below PHYSICAL EXAMINATION: GENERAL: NAD, wearing a mask, non-toxic. EYE EXAM: Normal conjunctiva. PERRL, no anisocoria and EOM's grossly intact w/o pain. NECK: Supple, no nuchal rigidity, no adenopathy, non-tender. No signs of meningismus. FROM of the neck with good chin to chest and neck extension. No stridor. LUNGS: Clear to auscultation. Normal chest wall mechanics. HEART: Tachycardic and regular, no MRG. ABDOMEN: Abdomen soft, non-tender, no masses, no rebound or guarding. BACK: No CVA TTP. SKIN: No rashes and no bruising. UPPER EXTREMITIES: Upper extremities are grossly normal. LOWER EXTREMITIES: Grossly normal, trace pretibial edema without any calf pain NEURO EXAM: A&O x3, cranial nerves II-XII grossly intact, normal speech, moves all 4 extremities. Past Med/Surg History Medical History Anxiety Chronic right shoulder pain Chronic systolic (congestive) heart failure Depression Diabetes mellitus Diabetes mellitus, type 2 Erectile dysfunction Hyperlipidemia Hypertension Left bundle branch block Obesity, unspecified Obstructive sleep apnea Osteoarthritis Pancreatitis HX CAUSED BY A MEDICATION Paroxysmal SVT (supraventricular tachycardia) Sleep apnea CPAP Spinal stenosis Surgical History H/O Spinal surgery LUMBAR LAZER PROCEDURE History of anesthesia reaction WITH LAST COLONOSCOPY-COULD FEEL PROCEDURE "WAS NOT FULLY ASLEEP" History of arthroscopy RT/LEFT KNEE History of cardiac cath "A WHILE AGO/NO STENTS" History of colonoscopy History of hernia repair History of tonsillectomy History of tooth extraction History of total knee replacement LEFT Family History Mother Family history of diabetes mellitus Myocardial infarction Grandfather (Paternal) Family history of diabetes mellitus Grandmother (Maternal) Family history of diabetes mellitus Father Prostate cancer Other Hypertension Denies family history of Ovarian cancer Breast cancer Colorectal cancer Social History Smoking Status: Never smoker Second Hand Exposure: No; Do You Dip or Chew Tobacco: No; Hx Alcohol Use: No Hx Substance Use: No Preferred Language: Bermudian Communication Ability: Effective Intelligence Senior Sergeant Required: No Beliefs That Will Affect Care: None marital status: Current Living Situation: Spouse current occupational status: employed 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 [employer] Feels Safe at Home: Yes Childhood Exposure to Second-Hand Smoke: Yes Dental Care, Regularly: Yes Physical Activity Frequency: Does not Exercise Seatbelt Use: always Sunscreen Use: No Assistive Devices: None Allergies Allergies Allergy/AdvReac Type Severity Reaction Status Date / Time lisinopril AdvReac Intermediate Vomiting Verified 07/22/22 15:15 Home Meds Home Medications Medication Instructions Recorded Confirmed dulaglutide 4.5 mg/0.5 mL 4.5 mg subcut WK 07/22/22 07/22/22 subcutaneous pen injector (Trulicity) empagliflozin 25 mg tablet 25 mg PO DAILY 07/22/22 07/22/22 (Jardiance) furosemide 40 mg tablet (Lasix) 40 mg PO 3XWK 07/22/22 07/22/22 insulin degludec 100 unit/mL (3 20 unit subcut HS 07/22/22 07/22/22 mL) subcutaneous pen (Tresiba FlexTouch U-100 insulin) rosuvastatin 40 mg tablet 40 mg PO DAILY 07/22/22 07/22/22 spironolactone 25 mg tablet 12.5 mg PO 3XWK 07/22/22 07/22/22 Previous Rx's Medication Instructions Recorded fenofibrate nanocrystallized 48 mg 48 mg PO DAILY #90 tabs 06/13/20 tablet albuterol sulfate 90 mcg/actuation 2 puff inhalation QID PRN 06/29/20 aerosol inhaler shortness of breath or wheezing #54 grams citalopram 20 mg tablet (Celexa) 20 mg PO BID #180 tabs 07/04/20 losartan 25 mg tablet 25 mg PO DAILY #90 tabs 07/12/20 carvedilol 25 mg tablet 25 mg PO BID #180 tabs 07/25/20 metformin 1,000 mg tablet 1,000 mg PO BID #180 tabs 07/25/20 diclofenac sodium 75 mg 75 mg PO BID #180 tabs 06/11/21 tablet,delayed release Results & Data (ED) Vital Signs Vital Signs - 24 hr 07/22/22 12:28 07/22/22 12:49 07/22/22 12:48 Temperature 36.7 C Temperature Source Temporal Artery Scan Pulse Rate 122 H 121 H Pulse Rate from SpO2 Sensor Respiratory Rate 18 Respiratory Effort / Characteristics Non-Labored Spontaneous Respiratory Depth Normal Respiratory Pattern Blood Pressure 90/57 L Blood Pressure Mean 68 Blood Pressure Position Sitting Pulse Oximetry 97 Oxygen Delivery Method Room Air Room Air Sepsis Recent Fever Within 48 Hours No Sepsis New/Unexplained Change in Mental Status N/A Sepsis Action Taken by Nursing No Action Required 07/22/22 12:48 07/22/22 12:48 07/22/22 12:46 Temperature Temperature Source Pulse Rate Pulse Rate from SpO2 Sensor Respiratory Rate Respiratory Effort / Characteristics Non-Labored Spontaneous Respiratory Depth Normal Respiratory Pattern Regular Blood Pressure 101/66 Blood Pressure Mean 77 Blood Pressure Position Pulse Oximetry Oxygen Delivery Method Room Air Sepsis Recent Fever Within 48 Hours Sepsis New/Unexplained Change in Mental Status Sepsis Action Taken by Nursing 07/22/22 12:46 07/22/22 13:00 07/22/22 13:00 Temperature Temperature Source Pulse Rate 122 H 122 H Pulse Rate from SpO2 Sensor 121 H 121 H Respiratory Rate 34 H 0 L Respiratory Effort / Characteristics Respiratory Depth Respiratory Pattern Blood Pressure 96/55 L Blood Pressure Mean 68 Blood Pressure Position Pulse Oximetry 93 93 Oxygen Delivery Method Sepsis Recent Fever Within 48 Hours Sepsis New/Unexplained Change in Mental Status Sepsis Action Taken by Nursing 07/22/22 13:15 07/22/22 13:15 07/22/22 13:30 Temperature Temperature Source Pulse Rate 122 H Pulse Rate from SpO2 Sensor 122 H Respiratory Rate 1 L Respiratory Effort / Characteristics Respiratory Depth Respiratory Pattern Blood Pressure 96/65 L 108/64 Blood Pressure Mean 75 78 Blood Pressure Position Pulse Oximetry 91 Oxygen Delivery Method Sepsis Recent Fever Within 48 Hours Sepsis New/Unexplained Change in Mental Status Sepsis Action Taken by Nursing 07/22/22 13:30 07/22/22 13:45 07/22/22 13:45 Temperature Temperature Source Pulse Rate 121 H 122 H Pulse Rate from SpO2 Sensor 122 H 122 H Respiratory Rate 18 10 L Respiratory Effort / Characteristics Respiratory Depth Respiratory Pattern Blood Pressure 124/78 Blood Pressure Mean 93 Blood Pressure Position Pulse Oximetry 95 95 Oxygen Delivery Method Sepsis Recent Fever Within 48 Hours Sepsis New/Unexplained Change in Mental Status Sepsis Action Taken by Nursing 07/22/22 14:00 07/22/22 14:01 07/22/22 14:01 Temperature Temperature Source Pulse Rate 122 H 122 H Pulse Rate from SpO2 Sensor 122 H 123 H Respiratory Rate 15 14 Respiratory Effort / Characteristics Respiratory Depth Respiratory Pattern Blood Pressure 93/74 L Blood Pressure Mean 80 Blood Pressure Position Pulse Oximetry 96 94 Oxygen Delivery Method Sepsis Recent Fever Within 48 Hours Sepsis New/Unexplained Change in Mental Status Sepsis Action Taken by Nursing 07/22/22 14:15 07/22/22 14:15 07/22/22 14:30 Temperature Temperature Source Pulse Rate 122 H Pulse Rate from SpO2 Sensor 122 H Respiratory Rate 20 Respiratory Effort / Characteristics Respiratory Depth Respiratory Pattern Blood Pressure 115/69 109/74 Blood Pressure Mean 84 85 Blood Pressure Position Pulse Oximetry 90 Oxygen Delivery Method Sepsis Recent Fever Within 48 Hours Sepsis New/Unexplained Change in Mental Status Sepsis Action Taken by Nursing 07/22/22 14:30 07/22/22 14:45 07/22/22 14:45 Temperature Temperature Source Pulse Rate 122 H 122 H Pulse Rate from SpO2 Sensor 122 H 122 H Respiratory Rate 19 16 Respiratory Effort / Characteristics Respiratory Depth Respiratory Pattern Blood Pressure 93/71 L Blood Pressure Mean 78 Blood Pressure Position Pulse Oximetry 92 98 Oxygen Delivery Method Sepsis Recent Fever Within 48 Hours Sepsis New/Unexplained Change in Mental Status Sepsis Action Taken by Nursing 07/22/22 15:00 Temperature Temperature Source Pulse Rate 123 H Pulse Rate from SpO2 Sensor 123 H Respiratory Rate 3 L Respiratory Effort / Characteristics Respiratory Depth Respiratory Pattern Blood Pressure Blood Pressure Mean Blood Pressure Position Pulse Oximetry 93 Oxygen Delivery Method Sepsis Recent Fever Within 48 Hours Sepsis New/Unexplained Change in Mental Status Sepsis Action Taken by [facility] Medications Current Medication List: was personally reviewed by me Laboratory Data Attestation: I reviewed the patient's lab results. 07/22/22 12:47 07/22/22 12:47 Lab Results 07/22/22 07/22/22 07/22/22 Range/Units 12:47 12:47 12:47 WBC 9.54 (4.8-10.8) K/ul RBC 3.68 L (4.70-6.10) M/uL Hgb 11.8 L (14.0-18.0) g/dl POC Hgb (14.0-18.0) g/dl Hct 36.0 L (42.0-52.0) % POC Hct (42-52) % MCV 97.8 (80.0-100.0) fL MCH 32.1 (25.0-34.0) pg MCHC 32.8 (32.0-36.0) g/dL RDW Std Deviation 49.9 H (36.4-46.3) fL RDW Coeff of Raj 13.9 (11.5-14.5) % Plt Count 175 (130-400) K/uL MPV 12.7 H (9.4-12.4) fL Immature Gran % (Auto) 0.4 % Neut % (Auto) 75.5 % Lymph % (Auto) 12.8 % [place] % (Auto) 9.7 % Eos % (Auto) 1.2 % Baso % (Auto) 0.4 % Neut # (Auto) 7.20 H (1.40-6.50) K/uL Lymph # (Auto) 1.22 (1.2-3.4) K/uL [place] # (Auto) 0.93 H (0.11-0.59) K/uL Eos # (Auto) 0.11 (0-0.50) K/uL Baso # (Auto) 0.04 (0-0.2) K/uL Immature Gran # (Auto) 0.04 (0.01-0.20) K/uL PT 11.1 (9.0-12.0) Seconds INR 1.0 (0.9-1.1) APTT 27.6 (21.0-31.0) Seconds PTT Ratio 1.0 POC Sodium (135-144) mmol/L Sodium 137 (136-145) mmol/L POC Potassium (3.3-5.0) mmol/L Potassium 4.4 (3.5-5.1) mmol/L POC Chloride (101-112) mmol/L Chloride 104 (98-107) mmol/L Carbon Dioxide 23 (21-32) mmol/L POC Total CO2 (24-31) mmol/L Anion Gap 10 (3-11) POC Anion Gap (16-25) mmol/L POC BUN (7-18) mg/dl BUN 36 H (6-23) mg/dl Creatinine 1.78 H (0.6-1.4) mg/dl POC Creatinine (0.6-1.3) mg/dl Est Cr Clr Drug Dosing Not Reportable Est GFR ( Amer) 46.0 ml/min Est GFR (Non-Af Amer) 39.7 ml/min BUN/Creatinine Ratio 20.2 H (10-20) Glucose 273 H (70-99(Fasting)) mg/dl POC Glucose (other) (70-99) mg/dl Calcium 9.0 (8.6-10.3) mg/dl POC Ioniz Calcium Aron (1.12-1.32) mmol/l Magnesium 1.7 (1.7-2.4) mg/dl Total Bilirubin 0.5 (0.2-1.0) mg/dl AST 25 (13-39) U/L ALT 28 (7-52) U/L Alkaline Phosphatase 48 (34-104) U/L Troponin I High Sens 13.2 (0-20) pg/ml B-Natriuretic Peptide (0-100) pg/ml Total Protein 6.3 (6.0-8.3) gm/dl Albumin 3.6 (3.4-5.0) gm/dl Globulin 2.7 (2.5-4.0) gm/dl Albumin/Globulin Ratio 1.3 (0.9-2) SARS-CoV-2, RNA, NAAT (NEGATIVE) 07/22/22 07/22/22 07/22/22 Range/Units 12:47 12:54 13:55 WBC (4.8-10.8) K/ul RBC (4.70-6.10) M/uL Hgb (14.0-18.0) g/dl POC Hgb 12.2 L (14.0-18.0) g/dl Hct (42.0-52.0) % POC Hct 36 L (42-52) % MCV (80.0-100.0) fL MCH (25.0-34.0) pg MCHC (32.0-36.0) g/dL RDW Std Deviation (36.4-46.3) fL RDW Coeff of Raj (11.5-14.5) % Plt Count (130-400) K/uL MPV (9.4-12.4) fL Immature Gran % (Auto) % Neut % (Auto) % Lymph % (Auto) % [place] % (Auto) % Eos % (Auto) % Baso % (Auto) % Neut # (Auto) (1.40-6.50) K/uL Lymph # (Auto) (1.2-3.4) K/uL [place] # (Auto) (0.11-0.59) K/uL Eos # (Auto) (0-0.50) K/uL Baso # (Auto) (0-0.2) K/uL Immature Gran # (Auto) (0.01-0.20) K/uL PT (9.0-12.0) Seconds INR (0.9-1.1) APTT (21.0-31.0) Seconds PTT Ratio POC Sodium 137 (135-144) mmol/L Sodium (136-145) mmol/L POC Potassium 4.3 (3.3-5.0) mmol/L Potassium (3.5-5.1) mmol/L POC Chloride 103 (101-112) mmol/L Chloride (98-107) mmol/L Carbon Dioxide (21-32) mmol/L POC Total CO2 22 L (24-31) mmol/L Anion Gap (3-11) POC Anion Gap 18.0 (16-25) mmol/L POC BUN 33 H (7-18) mg/dl BUN (6-23) mg/dl Creatinine (0.6-1.4) mg/dl POC Creatinine 1.7 H (0.6-1.3) mg/dl Est Cr Clr Drug Dosing Est GFR ( Amer) ml/min Est GFR (Non-Af Amer) ml/min BUN/Creatinine Ratio (10-20) Glucose (70-99(Fasting)) mg/dl POC Glucose (other) 271 H (70-99) mg/dl Calcium (8.6-10.3) mg/dl POC Ioniz Calcium Aron 1.07 L (1.12-1.32) mmol/l Magnesium (1.7-2.4) mg/dl Total Bilirubin (0.2-1.0) mg/dl AST (13-39) U/L ALT (7-52) U/L Alkaline Phosphatase (34-104) U/L Troponin I High Sens (0-20) pg/ml B-Natriuretic Peptide 217 H (0-100) pg/ml Total Protein (6.0-8.3) gm/dl Albumin (3.4-5.0) gm/dl Globulin (2.5-4.0) gm/dl Albumin/Globulin Ratio (0.9-2) SARS-CoV-2, RNA, NAAT NEGATIVE (NEGATIVE) Administered Medications Heparin Sodium/Dextrose (Heparin Sodium/Dextrose) 25,000 units in 500 mls @ 34 mls/hr IV .[id number] MADELINE; Protocol Stop: 08/21/22 13:44 Last Admin: 07/22/22 13:58 Dose: 1,700 units/hr, 34 mls/hr Documented By: KOJO Co-signed By: KV Discontinued Medications Adenosine (Adenosine Iv Soln 3 Mg/Ml 2 Ml Vial) 6 mg IV NOW STA Stop: 07/22/22 13:07 Last Admin: 07/22/22 13:16 Dose: 6 mg Documented By: KOJO Heparin Sodium/Dextrose (Heparin Iv Adult Wt-Based Standard *No* Bolus Protocol) 1 each IV ONE ONE; Protocol Stop: 07/22/22 13:26 Last Admin: 07/22/22 14:33 Dose: Not Given Documented By: KOJO Sodium Chloride (Nss 1000ml) 500 mls @ 999 mls/hr IV .Q31M ONE Stop: 07/22/22 13:37 Last Infusion: 07/22/22 14:01 Dose: 0 mls/hr Documented By: Admin: 07/22/22 13:17 Dose: 999 mls/hr Documented By: KOJO Imaging Data Radiologist's Impression: Chest X-Ray 07/22/22 12:48 XR chest 1V portable CLINICAL HISTORY: Dyspnea TECHNIQUE: Single frontal radiograph of the chest was obtained. Comparison: Comparison is made to chest radiograph 07/29/2016 FINDINGS: No lines and tubes are seen. Cardiomegaly is noted. Prominence and cephalization of the vasculature is seen. No evidence of pleural effusion or pneumothorax. Previously noted 1 cm nodular density in the right lower lung is no longer seen and may have represented a nipple shadow. IMPRESSION: Cardiomegaly and mild pulmonary edema. ACT 112: Negative or not required by law. Electronically signed by: Shane Ramirez M.D. 07/22/2022 1:52 PM Discharge Plan Visit Data Chief Complaint: Shortness of Breath/Dyspnea Stated Complaint: SOB ED Provider: Daryl Candelario Discharge Problem: Atrial fibrillation with RVR, Wide-complex tachycardia, CKD (chronic kidney disease) Patient Disposition: Admitted As Inpatient Discharge Instructions Interventions: ED Discharge Assessment Last Done: 07/22/22 15:15
[2022-07-22] MEDS ORDERED: ADENOSINE IV SOLN 3 MG/ML 2 ML VIAL IV STA (13:06)
[2022-07-22 13:07] LABS: iSTAT Creatinine 1.7 mg/dl (0.6-1.3); iSTAT Hemoglobin 12.2 g/dl (14.0-18.0); iSTAT Ionized Calcium 1.07 mmol/l (1.12-1.32); iSTAT Potassium 4.3 mmol/L (3.3-5.0)
[2022-07-22] MEDS ORDERED: SODIUM CHLORIDE 0.9% 1000ML 500 ML IV ONE (13:07)
[2022-07-22 13:15] LABS: Basophils # (auto) 0.04 K/uL (0-0.2); Basophils % (auto) 0.4 %; Eosinophils # (auto) 0.11 K/uL (0-0.50); Eosinophils % (auto) 1.2 %; Hemoglobin 11.8 g/dl (14.0-18.0); Immature Granulocytes # (auto) 0.04 K/uL (0.01-0.20); Immature Granulocytes % (auto) 0.4 %; Lymphocytes # (auto) 1.22 K/uL (1.2-3.4); Lymphocytes % (auto) 12.8 %; Mean Corpuscular Hemoglobin 32.1 pg (25.0-34.0); Mean Corpuscular Hgb Conc 32.8 g/dL (32.0-36.0); Mean Corpuscular Volume 97.8 fL (80.0-100.0); Mean Platelet Volume 12.7 fL (9.4-12.4); Monocytes # (auto) 0.93 K/uL (0.11-0.59); Monocytes % (auto) 9.7 %; Neutrophils % (auto) 75.5 %; Platelet Count 175 K/uL (130-400); RDW Coefficient of Variation 13.9 % (11.5-14.5); RDW Standard Deviation 49.9 fL (36.4-46.3); Red Blood Count 3.68 M/uL (4.70-6.10); White Blood Count 9.54 K/ul (4.8-10.8)
[2022-07-22] MEDS ORDERED: Heparin IV Adult Wt-Based Standard *NO* Bolus Protocol IV ONE (13:25)
[2022-07-22] MEDS ORDERED: METOPROLOL TARTRATE 1 MG/ML VIAL IV PRN (13:25)
[2022-07-22 13:30] LABS: Alanine Aminotransferase 28 U/L (7-52); Albumin Globulin Ratio 1.3 (0.9-2); Albumin Level 3.6 gm/dl (3.4-5.0); Alkaline Phosphatase 48 U/L (34-104); Anion Gap 10 (3-11); Aspartate Aminotransferase 25 U/L (13-39); BUN Creatinine Ratio 20.2 (10-20); Bilirubin,Total 0.5 mg/dl (0.2-1.0); Blood Urea Nitrogen 36 mg/dl (6-23); Carbon Dioxide 23 mmol/L (21-32); Chloride 104 mmol/L (98-107); Est GFR (Non-African American) 39.7 ml/min; Globulin 2.7 gm/dl (2.5-4.0); Glucose 273 mg/dl (70-99(Fasting)); Magnesium 1.7 mg/dl (1.7-2.4); Potassium 4.4 mmol/L (3.5-5.1); Sodium 137 mmol/L (136-145); Total Protein 6.3 gm/dl (6.0-8.3)
[2022-07-22 13:35] LABS: Troponin I High Sensitivity 13.2 pg/ml (0-20)
[2022-07-22 13:43] LABS: Partial Thromboplastin Time 27.6 Seconds (21.0-31.0); Prothrombin Time 11.1 Seconds (9.0-12.0)
--- NOTE | 2022-07-22 13:43 | Cardiology Consultation ---
Date of Consultation July 22, 2022 Assessment & Plan (1) New onset atrial fibrillation: (2) Nonischemic congestive cardiomyopathy: (3) Left bundle branch block: (4) Hypertension: Plan IMPRESSION: 61-year-old male with history of nonischemic cardiomyopathy, LVEF reduced at 45 to 49% on recent echo 06/2022 referred to the [facility] emergency department due to new onset atrial fibrillation. [id number] score of 3 (HTN, CHF, DM) making stroke risk about 3.2 % per year. PLAN: 1. Give 5 mg of IV Lopressor NOW to slow down rates, will stop home dose carvedilol (25 mg BID) and transition patient to metoprolol succinate 50 mg twice daily starting this evening. Patient will likely require higher doses- will titrate pending telemetry findings. 2. Start IV heparin for stroke prevention, will discuss DOAC vs Coumadin as clinic course progresses. 3. Update resting echocardiogram to reassess LV systolic function and wall motion. 4. Renal dysfunction noted on blood work, baseline scr around 1.2-1.3. Will hold spironolactone and Lasix at this time due to borderline hypotension. Advise caution with IV hydration given reduced LV systolic function. Repeat BMP in the morning. Case discussed with Dr. Baez. Will follow. Supervising Physician Co-Signing Physician Notes Patient was seen and personally examined. He is a 61-year-old male with known nonischemic cardiomyopathy with mild to moderate reduced ejection fraction who presents now noting having had new onset of tachyarrhythmias beginning on 07/19/2022. Patient wears a heart rate monitor watch and noted heart rates in the 140s since that time. Has noted some mild lightheadedness and fatigue. No chest pain or discomfort mild increase in lower extremity edema but no orthopnea. ER evaluation revealed chronic left bundle branch block with elevated response rate to atrial fibrillation confirmed by IV adenosine administration Exam: Heart rate 120s blood pressure 90/70, neck thick no distinct jugular venous distention lungs diminished breath sounds but no rhonchi or wheeze cardiovascular Alberto's irregular regular and tachycardic extremities 1+ edema Impression: 61-year-old male with new onset atrial fibrillation of 3 to 4 days duration with objective evidence by heart rate monitor watch. Underlying issues include nonischemic cardiomyopathy, chronic left bundle branch block Conduction abnormalities confound treatment we will begin with as above metoprolol succinate for heart rate control. Patient minimally symptomatic more importantly will require anticoagulation and initiated in ER with IV heparin with ultimate goals anticoagulation for at least 3 weeks before considering return to sinus rhythm unless blood pressure or heart rate issues preclude. KIMANI guided cardioversion may be considered . Patient relative hypotension would exclude infection etc. Echocardiogram will be reviewed Continue obstructive sleep apnea treatments History of Present Illness Reason for Consultation: New onset atrial fibrillation Requesting Physician: [facility] caleb History of Present Illness 61-year-old male with a past medical history of nonischemic cardiomyopathy and left bundle branch block presented to his PCP office today for routine appointment. However, he was having concerns regarding, chest tightness, shortness of breath and tachycardia since last Friday (07/19). An EKG was done showing a wide-complex tachycardia, long first-degree AV block with left bundle branch block (known). Heart rates were in the 120-130s. Blood pressure was soft in the 90s systolic patient was directed to the ED. Patient was given 6 mg IV adenosine- rates lowered into the 70s and rhythm revealed atrial fibrillation (new finding). Started on IV heparin drip and given 5 mg of IV Lopressor. Normally maintains on carvedilol 25 mg twice daily at home. 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 Does have obstructive sleep apnea and wears a CPAP. He also has type 2 diabetes and uses insulin. Past medical history Nonischemic cardiomyopathy, LVEF as low as 32% (05/2016), improved to 45-49% per echo 09/2020. Left bundle branch block Hypertension Hyperlipidemia with elevated triglycerides Type 2 diabetes GER, on CPAP Allergies Allergy/AdvReac Type Severity Reaction Status Date / Time No Known Allergies Allergy Verified 07/22/22 15:10 Home Medications Medication Instructions Recorded Confirmed Type fenofibrate nanocrystallized 48 mg 48 mg PO DAILY #90 tabs 06/13/20 07/22/22 Rx tablet albuterol sulfate 90 mcg/actuation 2 puff inhalation QID PRN 06/29/20 07/22/22 Rx aerosol inhaler shortness of breath or wheezing #54 grams citalopram 20 mg tablet (Celexa) 20 mg PO BID #180 tabs 07/04/20 07/22/22 Rx losartan 25 mg tablet 25 mg PO DAILY #90 tabs 07/12/20 07/22/22 Rx carvedilol 25 mg tablet 25 mg PO BID #180 tabs 07/25/20 07/22/22 Rx metformin 1,000 mg tablet 1,000 mg PO BID #180 tabs 07/25/20 07/22/22 Rx diclofenac sodium 75 mg 75 mg PO BID #180 tabs 06/11/21 07/22/22 Rx tablet,delayed release dulaglutide 4.5 mg/0.5 mL 4.5 mg subcut WK 07/22/22 07/22/22 History subcutaneous pen injector (Trulicity) empagliflozin 25 mg tablet 25 mg PO DAILY 07/22/22 07/22/22 History (Jardiance) furosemide 40 mg tablet (Lasix) 40 mg PO 3XWK 07/22/22 07/22/22 History insulin degludec 100 unit/mL (3 20 unit subcut HS 07/22/22 07/22/22 History mL) subcutaneous pen (Tresiba FlexTouch U-100 insulin) rosuvastatin 40 mg tablet 40 mg PO DAILY 07/22/22 07/22/22 History spironolactone 25 mg tablet 12.5 mg PO 3XWK 07/22/22 07/22/22 History Patient History Medical History (Updated 07/22/22 @ 14:30 by Dana Richardson PA-C) Anxiety Chronic right shoulder pain Depression Diabetes mellitus Diabetes mellitus, type 2 Erectile dysfunction Hyperlipidemia Hypertension Left bundle branch block Obesity, unspecified Obstructive sleep apnea Osteoarthritis Pancreatitis HX CAUSED BY A MEDICATION Sleep apnea CPAP Spinal stenosis Surgical History H/O Spinal surgery LUMBAR LAZER PROCEDURE History of anesthesia reaction WITH LAST COLONOSCOPY-COULD FEEL PROCEDURE "WAS NOT FULLY ASLEEP" History of arthroscopy RT/LEFT KNEE History of cardiac cath "A WHILE AGO/NO STENTS" History of colonoscopy History of hernia repair History of tonsillectomy History of tooth extraction History of total knee replacement LEFT Family History Mother Family history of diabetes mellitus Myocardial infarction Grandfather (Paternal) Family history of diabetes mellitus Grandmother (Maternal) Family history of diabetes mellitus Father Prostate cancer Other Hypertension Denies family history of Ovarian cancer Breast cancer Colorectal cancer Social History Smoking Status: Never smoker Second Hand Exposure: No; Do You Dip or Chew Tobacco: No; Hx Alcohol Use: No Hx Substance Use: No Preferred Language: Mexican Communication Ability: Effective Voip Engineer Required: No Beliefs That Will Affect Care: None marital status: Current Living Situation: Significant Other current occupational status: employed 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 Feels Safe at Home: Yes Childhood Exposure to Second-Hand Smoke: Yes Dental Care, Regularly: Yes Physical Activity Frequency: Does not Exercise Seatbelt Use: always Sunscreen Use: No Assistive Devices: CPAP and Glasses Review of Systems Review of Systems: All systems reviewed & are unremarkable except as noted in HPI & below Physical Exam Constitutional: WD/WN, vitals as above no acute distress Eyes: PERRL, conjunctivae normal, anicteric sclerae Neck: normal visual inspection and trachea midline Respiratory: normal respiratory effort, lungs clear to auscultation no cough Cardiovascular: Rate/Rhythm: + tachycardic and + irregularly irregular Heart Sounds: normal S1 and normal S2; no murmur Extremities: no edema Gastrointestinal (Abdomen): Inspection/Auscultation: abdomen normal to inspection; abdomen not distended Percussion/Palpation: abdomen soft; abdomen nontender Skin: no rashes, warm and dry Psychiatric: A+Ox3, euthymic affect Results & Data Vital Signs (Past 12 Hours) Vital Signs Temp Pulse Resp BP Pulse Ox O2 Del Method 07/22/22 12:49 121 H 07/22/22 12:28 36.7 C 122 H 18 90/57 L 97 Room Air Laboratory Results Cardiac Enzymes 07/22/22 Range/Units 12:47 AST 25 (13-39) U/L Troponin I High Sens 13.2 (0-20) pg/ml Coagulation 07/22/22 Range/Units 12:47 PT 11.1 (9.0-12.0) Seconds APTT 27.6 (21.0-31.0) Seconds CBC 07/22/22 Range/Units 12:47 WBC 9.54 (4.8-10.8) K/ul RBC 3.68 L (4.70-6.10) M/uL Hgb 11.8 L (14.0-18.0) g/dl Hct 36.0 L (42.0-52.0) % Plt Count 175 (130-400) K/uL Neut # (Auto) 7.20 H (1.40-6.50) K/uL Lymph # (Auto) 1.22 (1.2-3.4) K/uL [place] # (Auto) 0.93 H (0.11-0.59) K/uL Eos # (Auto) 0.11 (0-0.50) K/uL Baso # (Auto) 0.04 (0-0.2) K/uL Comprehensive Metabolic Panel 07/22/22 Range/Units 12:47 Sodium 137 (136-145) mmol/L Potassium 4.4 (3.5-5.1) mmol/L Chloride 104 (98-107) mmol/L Carbon Dioxide 23 (21-32) mmol/L BUN 36 H (6-23) mg/dl Creatinine 1.78 H (0.6-1.4) mg/dl Glucose 273 H (70-99(Fasting)) mg/dl Calcium 9.0 (8.6-10.3) mg/dl AST 25 (13-39) U/L ALT 28 (7-52) U/L Alkaline Phosphatase 48 (34-104) U/L Total Protein 6.3 (6.0-8.3) gm/dl Albumin 3.6 (3.4-5.0) gm/dl Intake and Output 07/21/22 07/22/22 07/22/22 22:59 06:59 14:59 Intake Total 500 / 500 Balance 500 / 500 Intake: IV 500 / 500 Sodium Chloride 0.9% 1000ML 500 500 / 500 ml @ 999 mls/hr IV .Q31M ONE Rx#:[id number] Other: Weight 120.7 kg Weight Measurement Method [facility] Patient Weight 07/23/22 06:59 Weight 120.7 kg Diagnostic Findings INPATIENT ECHO 07/22/2022 PENDING* Outpatient echo 06/2022 The examination is adequate to evaluate the referral indication. There was normal sinus rhythm during the examination. The qualitative LV ejection fraction is 45-49% (mildly reduced). The septal motion is abnormal consistent with intrventricular conduction delay. There is a moderate sized septal, anteroseptal, and anterior wall motion abnormality with hypokinesis of the segments. There is isolated basal septal hypertrophy with maximal thickness of 1.2 cm. The LV wall thickness is borderline increased (concentric). The left atrium is mildly enlarged (35-41 ml/m^2). Mild mitral regurgitation is present. Compared to last available study, there has been no interval change.
--- NOTE | 2022-07-22 13:53 | XRay Report ---
XR chest 1V portable CLINICAL HISTORY: Dyspnea TECHNIQUE: Single frontal radiograph of the chest was obtained. Comparison: Comparison is made to chest radiograph 07/29/2016 FINDINGS: No lines and tubes are seen. Cardiomegaly is noted. Prominence and cephalization of the vasculature i s seen. No evidence of pleural effusion or pneumothorax. Previously noted 1 cm nodular density in the right lower lung is no longer seen and may have represented a nipple shadow. IMPRESSION: Cardiomegaly and mild pulmonary edema. ACT 112: Negative or not required by law. Electronically signed by: Shane Ramirez M.D. 07/22/2022 1:52 PM
[2022-07-22] MEDS: HEPARIN SODIUM/DEXTROSE 25,000 UNITS/500 ML BAG IV SCH (13:58)
--- NOTE | 2022-07-22 14:13 | History & Physical Report ---
Date of Service July 22, 2022 Assessment & Plan (1) New onset atrial fibrillation: Plan: 61 y/o male with a PMH of insulin-requiring DM, GER on CPAP, HTN, chronic systolic HF, hx pSVT, LBBB, dyslipidemia, and nonischemic cardiomyopathy who presented to his PCP for routine follow-up today and was noted to be tachycardic (rate in the 120s) and SOB and borderline BP (systolic in the 90s) so referred to the ED for evaluation. In the ED, pt was given adenosine 6 mg IV x 1 dose which slowed the rate into the 70s revealing new-onset atrial fibrillation so pt was referred for admission. - Admit to PCU - Cardiology consult - appreciate input - Heparin gtt started in the ED - determine need for longer term AC such as DOAC this admission - ECHO pending - Rate control per cardio - Coreg between transitioned to metoprolol (2) Acute kidney injury superimposed on CKD: Plan: Baseline creatinine appears to be around 1.2-1.3. Today in the ED, creatinine 1.78 - Hold diuretics - Repeat BMP in AM (3) Diabetes mellitus, type 2: (4) Obstructive sleep apnea: Plan: Continue CPAP - pt brought machine from home (5) Nonischemic congestive cardiomyopathy: (6) Left bundle branch block: (7) Hypertension: Plan Pt seen and reviewed with collaborating physician, Dr. Link. Plan of care discussed and as outlined above. Code Status: Full code DVT prophylaxis: on heparin gtt Marissa Richardson PA-C History of Present Illness Chief Complaint: Shortness of breath Primary Care Provider: Sammy Morales DO This is a 61 y/o male with a PMH of insulin-requiring DM, GER on CPAP, HTN, chronic systolic HF, hx pSVT, LBBB, dyslipidemia, and nonischemic cardiomyopathy who presented to his PCP for routine follow-up today and was noted to be tachycardic and SOB so referred to the ED for evaluation. BP in the office was borderline with a systolic in the 90s. In the ED, pt was given adenosine 6 mg IV x 1 dose which slowed the rate into the 70s revealing new-onset atrial fibrillation so pt was referred for admission. Pt reports he developed SOB, mostly with any exertion, on Friday (3 days ago). This continued throughout the weekend - worse w/ exertion, better with rest. He reports chest tightness but denies chest pain, palpitations, syncope. He noted lightheadedness at times. No peripheral edema. He did try taking extra diuretic over the weekend to see if that would help with his breathing but no change. He tried his albuterol inhaler without relief. He reports a similar episode of symptoms 15-20 years ago for which no specific cause was identified on work-up. Dyspnea last a few days before resolving - no recurrence since then. He does use CPAP for GER. 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 His last ECHO 07/01/22 - LVEF 45-49%; moderate sized septal, anteroseptal, and anterior wall motion abnormality w/ hypokinesis of the segments; septal motion abnormal c/w IVCD. Borderline concentric LVH. Stable from prior study. His only recent med change was an increase in daily insulin to 20 units. Blood sugar this AM was 270. No recent vomiting, diarrhea, or other illness. Allergies Allergy/AdvReac Type Severity Reaction Status Date / Time lisinopril AdvReac Intermediate Vomiting Verified 07/22/22 15:15 Home Medications Medication Instructions Recorded Confirmed Type fenofibrate nanocrystallized 48 mg 48 mg PO DAILY #90 tabs 06/13/20 07/22/22 Rx tablet albuterol sulfate 90 mcg/actuation 2 puff inhalation QID PRN 06/29/20 07/22/22 Rx aerosol inhaler shortness of breath or wheezing #54 grams citalopram 20 mg tablet (Celexa) 20 mg PO BID #180 tabs 07/04/20 07/22/22 Rx losartan 25 mg tablet 25 mg PO DAILY #90 tabs 07/12/20 07/22/22 Rx carvedilol 25 mg tablet 25 mg PO BID #180 tabs 07/25/20 07/22/22 Rx metformin 1,000 mg tablet 1,000 mg PO BID #180 tabs 07/25/20 07/22/22 Rx diclofenac sodium 75 mg 75 mg PO BID #180 tabs 06/11/21 07/22/22 Rx tablet,delayed release dulaglutide 4.5 mg/0.5 mL 4.5 mg subcut WK 07/22/22 07/22/22 [facility] empagliflozin 25 mg tablet 25 mg PO DAILY 07/22/22 07/22/22 History (Jardiance) furosemide 40 mg tablet (Lasix) 40 mg PO 3XWK 07/22/22 07/22/22 History insulin degludec 100 unit/mL (3 20 unit subcut HS 07/22/22 07/22/22 History mL) subcutaneous pen (Tresiba FlexTouch U-100 insulin) rosuvastatin 40 mg tablet 40 mg PO DAILY 07/22/22 07/22/22 History spironolactone 25 mg tablet 12.5 mg PO 3XWK 07/22/22 07/22/22 History Past Med/Surg History Medical History Anxiety Chronic right shoulder pain Chronic systolic (congestive) heart failure Depression Diabetes mellitus Diabetes mellitus, type 2 Erectile dysfunction Hyperlipidemia Hypertension Left bundle branch block Obesity, unspecified Obstructive sleep apnea Osteoarthritis Pancreatitis HX CAUSED BY A MEDICATION Paroxysmal SVT (supraventricular tachycardia) Sleep apnea CPAP Spinal stenosis Surgical History H/O Spinal surgery LUMBAR LAZER PROCEDURE History of anesthesia reaction WITH LAST COLONOSCOPY-COULD FEEL PROCEDURE "WAS NOT FULLY ASLEEP" History of arthroscopy RT/LEFT KNEE History of cardiac cath "A WHILE AGO/NO STENTS" History of colonoscopy History of hernia repair History of tonsillectomy History of tooth extraction History of total knee replacement LEFT Family History Mother Family history of diabetes mellitus Myocardial infarction Grandfather (Paternal) Family history of diabetes mellitus Grandmother (Maternal) Family history of diabetes mellitus Father Prostate cancer Other Hypertension Denies family history of Ovarian cancer Breast cancer Colorectal cancer Social History Smoking Status: Never smoker Second Hand Exposure: No; Do You Dip or Chew Tobacco: No; Tobacco Cessation Education Requested by Patient: No Hx Alcohol Use: No Hx Substance Use: No Preferred Language: Belarusian Communication Ability: Effective Risk And Insurance Consultant Required: No Beliefs That Will Affect Care: None marital status: Current Living Situation: Spouse current occupational status: employed 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 Other Information That Helps Us Care for You: No Feels Safe at Home: Yes Safety Concerns: Feels Safe At This Time Childhood Exposure to Second-Hand Smoke: Yes Dental Care, Regularly: Yes Physical Activity Frequency: Does not Exercise Seatbelt Use: always Sunscreen Use: No Assistive Devices: None Review of Systems Review of Systems: All systems reviewed & are unremarkable except as noted in HPI & below Constitutional: no fever and no chills Eyes: no diplopia Ear, Nose, Mouth, Throat: no nasal congestion and no sore throat Respiratory: no cough and no wheezing Cardiovascular: as per Subjective / HPI Gastrointestinal: no abdominal pain, no nausea, no vomiting, no diarrhea/loose stools and no blood in stools Genitourinary: no dysuria or no hematuria Musculoskeletal: no back pain and no neck pain Integumentary: no rash Neurologic: + dizziness and + headache(s) (at times) Psychiatric: no depression and no anxiety Physical Exam Constitutional: well developed and well nourished; no acute distress Eyes: + anicteric sclerae Neck: trachea midline Respiratory: no respiratory distress and no labored breathing Auscultation: lungs clear to auscultation bilaterally; no rales, no rhonchi and no wheezes Cardiovascular: Rate/Rhythm: + tachycardic and + irregularly irregular Vessels: radial pulses present Extremities: no pedal edema Gastrointestinal (Abdomen): Inspection/Auscultation: normal bowel sounds; abdomen not distended Percussion/Palpation: abdomen soft; abdomen nontender Musculoskeletal: Head/Neck/Chest: normocephalic, head atraumatic and neck supple Skin: no jaundice Neurologic: moves all extremities; no focal motor deficits and not confused Psychiatric: A+Ox3, euthymic affect Results & Data Results & Data Vital Signs (Past 12 Hours) Vital Signs Temp Pulse Resp BP Pulse Ox O2 Del Method 07/22/22 12:48 Room Air 07/22/22 12:48 Room Air 07/22/22 12:49 121 H 07/22/22 12:28 36.7 C 122 H 18 90/57 L 97 Room Air Laboratory Results Laboratory Results - last 24 hr 07/22/22 07/22/22 07/22/22 12:47 12:47 12:47 WBC 9.54 RBC 3.68 L Hgb 11.8 L POC Hgb Hct 36.0 L POC Hct MCV 97.8 MCH 32.1 MCHC 32.8 RDW Std Deviation 49.9 H RDW Coeff of Raj 13.9 Plt Count 175 MPV 12.7 H Immature Gran % (Auto) 0.4 Neut % (Auto) 75.5 Lymph % (Auto) 12.8 Runnels % (Auto) 9.7 Eos % (Auto) 1.2 Baso % (Auto) 0.4 Neut # (Auto) 7.20 H Lymph # (Auto) 1.22 Runnels # (Auto) 0.93 H Eos # (Auto) 0.11 Baso # (Auto) 0.04 Immature Gran # (Auto) 0.04 PT 11.1 INR 1.0 APTT 27.6 PTT Ratio 1.0 POC Sodium Sodium 137 POC Potassium Potassium 4.4 POC Chloride Chloride 104 Carbon Dioxide 23 POC Total CO2 Anion Gap 10 POC Anion Gap POC BUN BUN 36 H Creatinine 1.78 H POC Creatinine Est Cr Clr Drug Dosing Not Reportable Est GFR ( Amer) 46.0 Est GFR (Non-Af Amer) 39.7 BUN/Creatinine Ratio 20.2 H Glucose 273 H POC Glucose (other) Calcium 9.0 POC Ioniz Calcium Aron Magnesium 1.7 Total Bilirubin 0.5 AST 25 ALT 28 Alkaline Phosphatase 48 Troponin I High Sens 13.2 B-Natriuretic Peptide Total Protein 6.3 Albumin 3.6 Globulin 2.7 Albumin/Globulin Ratio 1.3 07/22/22 07/22/22 12:47 12:54 WBC RBC Hgb POC Hgb 12.2 L Hct POC Hct 36 L MCV MCH MCHC RDW Std Deviation RDW Coeff of Raj Plt Count MPV Immature Gran % (Auto) Neut % (Auto) Lymph % (Auto) Runnels % (Auto) Eos % (Auto) Baso % (Auto) Neut # (Auto) Lymph # (Auto) Runnels # (Auto) Eos # (Auto) Baso # (Auto) Immature Gran # (Auto) PT INR APTT PTT Ratio POC Sodium 137 Sodium POC Potassium 4.3 Potassium POC Chloride 103 Chloride Carbon Dioxide POC Total CO2 22 L Anion Gap POC Anion Gap 18.0 POC BUN 33 H BUN Creatinine POC Creatinine 1.7 H Est Cr Clr Drug Dosing Est GFR ( Amer) Est GFR (Non-Af Amer) BUN/Creatinine Ratio Glucose POC Glucose (other) 271 H Calcium POC Ioniz Calcium Aron 1.07 L Magnesium Total Bilirubin AST ALT Alkaline Phosphatase Troponin I High Sens B-Natriuretic Peptide Pending Total Protein Albumin Globulin Albumin/Globulin Ratio Diagnostic Findings Chest X-Ray 07/22/22 12:48 XR chest 1V portable CLINICAL HISTORY: Dyspnea TECHNIQUE: Single frontal radiograph of the chest was obtained. Comparison: Comparison is made to chest radiograph 07/29/2016 FINDINGS: No lines and tubes are seen. Cardiomegaly is noted. Prominence and cephalization of the vasculature is seen. No evidence of pleural effusion or pneumothorax. Previously noted 1 cm nodular density in the right lower lung is no longer seen and may have represented a nipple shadow. IMPRESSION: Cardiomegaly and mild pulmonary edema. Medications Administered Heparin Sodium/Dextrose (Heparin Sodium/Dextrose) 25,000 units in 500 mls @ 34 mls/hr IV .[id number] [facility]; Protocol Stop: 08/21/22 13:44 Last Admin: 07/22/22 13:58 Dose: 1,700 units/hr, 34 mls/hr Documented By: KOJO Co-signed By: KV Discontinued Medications Adenosine (Adenosine Iv Soln 3 Mg/Ml 2 Ml Vial) 6 mg IV NOW STA Stop: 07/22/22 13:07 Last Admin: 07/22/22 13:16 Dose: 6 mg Documented By: KOJO Sodium Chloride (Nss 1000ml) 500 mls @ 999 mls/hr IV .Q31M ONE Stop: 07/22/22 13:37 Last Infusion: 07/22/22 14:01 Dose: 0 mls/hr Documented By: Admin: 07/22/22 13:17 Dose: 999 mls/hr Documented By: KOJO Supervising Physician Co-Signing Physician Notes I have seen and examined the patient and have discussed the case with the provider above. I agree with the assessment and plan as stated with the following exceptions. The patient is a 61-year-old man with a history of nonischemic cardiomyopathy presenting with new onset atrial fibrillation with rapid ventricular response. He reports feeling winded with exertion still, although better after adenosine and metoprolol given in the ER. He denies any caffeine intake or any significant alcohol intake. He is compliant with medications. 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 TSH is pending. He denies significant chest pressure and reports symptoms have been ongoing for the last few days. The patient had a recent adjustment in his diabetic regimen. He has been taking Trulicity 4.5 mg SQ w eekly, metformin 1000 mg p.o. twice daily, Jardiance 25 mg daily and Tresiba 10 units daily. On 07/08 they increased his Tresiba to 20 units daily with no other changes. He did see Dr. Simeon from orthopedics regarding a knee replacement surgery in early July also. He was told that his A1c needed to improve prior to this elective surgery. On 04/27/2022 his hemoglobin A1c was 13.3 up from 9.5 in January 2022 On physical exam he is obese but in no acute distress. He demonstrates no conversational dyspnea and is not hypoxic. Lungs are clear to auscultation bilaterally. Cardiovascular exam reveals S1-S2 heard with no murmurs gallops or rubs. Irregular rate and rhythm heard. No peripheral edema in extremities noted. CBC present with mild anemia with H&H of 12 and 36. Creatinine is 1.78 up from baseline around 1.3 and glucose is elevated. Chest x-ray reveals mild pulmonary edema echocardiogram reveals ejection fraction 35 to 40%. EKG reveals a wide- complex tachycardia with a rate of 122 and a QTc of 570. 1. New onset atrial fibrillation with rapid ventricular response 2. Nonischemic congestive cardiomyopathy 3. Acute on chronic CKD 4. Uncontrolled diabetes with hyperglycemia 5. Obstructive sleep apnea on CPAP 6. Prolonged QTc 7. Morbid obesity Rate was slowed down with adenosine and Lopressor in the ER. Cardiology was consulted and performed stat echocardiogram revealing EF of 35 to 40%, possibly driving the atrial fibrillation. The patient remains very symptomatic despite improved rate control. Consider cardioversion if not spontaneously converted overnight. Heparin drip was started. Defer management to cardiology. He doesn't appear grossly volume overloaded at this time. Agree with continuing to hold diuretics in the setting of DEEPA likely the result of extra doses of diuretics over the weekend by patient. Oral rehydration efforts in place. Diabetes mellitus is very uncontrolled with recent A1C >13. Repeat A1C now. Cont basal bolus insulin while holding metformin, jardiance, and Trulicity. Diabetic nurse educator to be consulted. Cont CPAP for GER. Cont celexa and avoid additional QT prolonging agents at this time. Repeat EKG in am to monitor this. Weight loss advised. DO Nikolay
[2022-07-22] MEDS ORDERED: METOPROLOL TARTRATE 1 MG/ML VIAL IV STA (15:16)
[2022-07-22] MEDS ORDERED: MAGNESIUM SULFATE / D5W 1 GM/100 ML BAG IV ONE (15:30)
[2022-07-22] MEDS ORDERED: CARBOHYDRATES FOR HYPOGLYCEMIA PO PRN (15:58)
[2022-07-22] MEDS ORDERED: POLYETHYLENE (MIRALAX) 17 GM PACK PO PRN (15:58)
[2022-07-22] MEDS ORDERED: ONDANSETRON INJ 2 MG/ML 2 ML VIAL IV PRN (15:58)
[2022-07-22] MEDS ORDERED: GLUCAGON FOR INJ 1 MG VIAL SQ PRN (15:58)
[2022-07-22] MEDS ORDERED: ACETAMINOPHEN 325 MG TAB PO PRN (15:58)
[2022-07-22] MEDS ORDERED: GLUCOSE 40% GEL 15 GM TUBE PO PRN (15:58)
[2022-07-22] MEDS ORDERED: GLUCOSE 10 TAB/TUBE PO PRN (15:58)
[2022-07-22] MEDS ORDERED: DEXTROSE 50% 50 ML SYRINGE IV PRN (15:58)
[2022-07-22] MEDS: INSULIN ASPART PER UNIT CHARGE SC SCH ×2 (16:46→21:24)
[2022-07-22 20:19] LABS: Partial Thromboplastin Ratio 1.1
[2022-07-22 21:00] LABS: Appearance Urine Clear (Clear); Bacteria Urine Automated Negative (Negative); Bilirubin Urine Negative (Negative); Blood Urine Negative (Negative); Color Urine Yellow; Epithelial Cell Urine Auto >30 /lpf (0-5); Glucose Urine UA 3+ (Negative); Ketones Urine Negative (Negative); Leukocyte Esterase Urine Negative (Negative); Nitrite Urine Negative (Negative); Protein Urine Trace (Negative); RBC Urine Automated 0-4 /hpf (0-4); Specific Gravity Urine 1.033 (1.000-1.030); Urobilinogen Urine Negative (Negative)
[2022-07-22] MEDS ORDERED: LANTUS PER UNIT CHARGE SQ SCH (21:00)
[2022-07-22] MEDS ORDERED: METOPROLOL SUCC 50MG EXT REL TAB PO SCH (21:00)
[2022-07-22 21:11] LABS: Renal Epithelial Cells Urine 0-5 /lpf (0-5)
[2022-07-22] MEDS: CITALOPRAM 20 MG TAB PO SCH (21:13)
[2022-07-23 02:27] LABS: Basophils # (auto) 0.05 K/uL (0-0.2); Basophils % (auto) 0.4 %; Eosinophils # (auto) 0.13 K/uL (0-0.50); Eosinophils % (auto) 1.1 %; Hematocrit (blood only) 35.2 % (42.0-52.0); Hemoglobin 11.6 g/dl (14.0-18.0); Immature Granulocytes # (auto) 0.05 K/uL (0.01-0.20); Immature Granulocytes % (auto) 0.4 %; Lymphocytes # (auto) 1.69 K/uL (1.2-3.4); Lymphocytes % (auto) 14.7 %; Mean Corpuscular Hemoglobin 32.2 pg (25.0-34.0); Mean Corpuscular Volume 97.8 fL (80.0-100.0); Mean Platelet Volume 12.8 fL (9.4-12.4); Monocytes # (auto) 1.01 K/uL (0.11-0.59); Monocytes % (auto) 8.8 %; Neutrophils % (auto) 74.6 %; Platelet Count 159 K/uL (130-400); RDW Coefficient of Variation 13.9 % (11.5-14.5); RDW Standard Deviation 49.5 fL (36.4-46.3); White Blood Count 11.53 K/ul (4.8-10.8)
[2022-07-23 02:31] LABS: BUN Creatinine Ratio 23.1 (10-20); Calcium 8.7 mg/dl (8.6-10.3); Creatinine Clr Calc Pharmacy 65.1 ml/min; Est GFR (Non-African American) 46.6 ml/min; Magnesium 1.8 mg/dl (1.7-2.4); Potassium 4.4 mmol/L (3.5-5.1)
[2022-07-23 03:04] LABS: Partial Thromboplastin Ratio 1.2
[2022-07-23] MEDS ORDERED: HEPARIN SOD (PORCINE) 1000 UNIT/ML IV ONE (03:45)
[2022-07-23] MEDS: HEPARIN SODIUM/DEXTROSE 25,000 UNITS/500 ML BAG IV SCH ×2 (04:43→20:02)
[2022-07-23 06:57] LABS: Estimated Average Glucose 280 mg/dl; Hemoglobin A1C 11.4 % (4.5-5.6)
--- NOTE | 2022-07-23 07:38 | Cardiology Progress Note ---
Date of Service July 23, 2022 Assessment & Plan (1) New onset atrial fibrillation: (2) Nonischemic congestive cardiomyopathy: (3) Left bundle branch block: (4) Hypertension: Plan IMPRESSION: 61-year-old male with history of nonischemic cardiomyopathy, LVEF reduced at 45 to 49% on recent echo 06/2022 referred to the [facility] emergency department due to new onset atrial fibrillation. LVEF further declined at 35-40% with mild global hypokinesis of the LV. Hypervolemic on exam- NYHA class 2-3. [id number] score of 3 (HTN, CHF, DM) making stroke risk about 3.2 % per year. PLAN: 1. Heart rates remain elevated in the 120s. Increase metoprolol to 100 mg twice daily. 2. Hold Losartan due low blood pressures 3. Continue IV heparin for stroke prevention, will discuss DOAC vs Coumadin as clinic course progresses. 4. Renal dysfunction noted on blood work (sCr 1.5 today), baseline scr around 1.2-1.3. CXR with mild pulmonary edema. Restart Lasix, will give 40 IV this am and reassess BMP in the morning. 5. NPO for possible KIMANI guided cardioversion. Case discussed with Dr. Baez. Will follow. Admission and Anticipated Discharge Date Admission Date: July 22, 2022 Supervising Physician Co-Signing Physician Notes Patient seen and examined assessment and plan as above. Medications increased to manage heart rates blood pressure marginal. We will keep n.p.o. after midnight in case need for KIMANI guided cardioversion Subjective 61-year-old male with known history nonischemic cardiomyopathy (LVEF moderately reduced at 45 to 49%) presented to [facility] emergency department from his PCP office due to new onset atrial fibrillation (presumed start last Wednesday 07/19 ) with rapid ventricular rates in the 120s to 130s. Symptomatic with shortness of breath and fatigue. Patient initially realized HR were elevated due to his "smart" watch. Rhythm confirmed by IV adenosine administration. Was started on IV heparin and given x1 dose of Lopressor 5 mg. Carvedilol stopped in favor of metoprolol succinate. Echocardiogram 07/22: showed a worsening LV systolic function of 35 to 40% with mild global hypokinesis. Mild to moderate MR. Left atrium moderately dilated. Chest x-ray: Cardiomegaly with mild pulmonary edema 07/23: EKG: Atrial fibrillation, left bundle branch block, 123 bpm Telemetry: AFIB 120-130s Upon entrance into the room patient resting on the edge of the bed. Notes slight improvement in his breathing at rest- continues to have ALVAREZ when walking to the bathroom. Feels like he is "holding onto fluid". Was coughing this morning. No chest pain. Denies palpitations. No dizziness/lightheadedness. Review of Systems Review of Systems: All systems reviewed & are unremarkable except as noted in HPI & below Physical Exam Constitutional: WD/WN, vitals as above no acute distress Eyes: PERRL, conjunctivae normal, anicteric sclerae Neck: normal visual inspection and trachea midline Respiratory: normal respiratory effort and + cough Auscultation: + rales; no rhonchi and no wheezes Cardiovascular: Rate/Rhythm: + tachycardic and + irregularly irregular Heart Sounds: normal S1 and normal S2; no murmur Extremities: + edema (+1 BLLE pitting to shins) Gastrointestinal (Abdomen): Inspection/Auscultation: abdomen normal to inspection; abdomen not distended Percussion/Palpation: abdomen soft; abdomen nontender Skin: no rashes, warm and dry Psychiatric: A+Ox3, euthymic affect Results & Data Vital Signs (Past 12 Hours) Vital Signs Temp Pulse Pulse Resp BP BP Pulse Ox 07/23/22 03:45 36.9 C 123 H 16 112/78 96 07/23/22 03:42 24 07/22/22 21:00 07/22/22 23:20 36.8 C 22 122/72 95 07/22/22 23:10 120 H 26 H 90 O2 Del Method FiO2 07/23/22 03:45 Room Air 07/23/22 03:42 21 07/22/22 21:00 CPAP 07/22/22 23:20 CPAP 07/22/22 23:10 21 Laboratory Results Cardiac Enzymes 07/22/22 07/22/22 Range/Units 12:47 12:47 AST 25 (13-39) U/L Troponin I High Sens 13.2 (0-20) pg/ml B-Natriuretic Peptide 217 H (0-100) pg/ml Coagulation 07/22/22 07/22/22 07/22/22 Range/Units 12:47 12:47 19:34 PT 11.1 (9.0-12.0) Seconds APTT 27.6 32.0 H (21.0-31.0) Seconds B-Natriuretic Peptide 217 H (0-100) pg/ml 07/23/22 Range/Units 01:38 PT (9.0-12.0) Seconds APTT 33.0 H (21.0-31.0) Seconds B-Natriuretic Peptide (0-100) pg/ml CBC 07/22/22 07/23/22 Range/Units 12:47 01:38 WBC 9.54 11.53 H (4.8-10.8) K/ul RBC 3.68 L 3.60 L (4.70-6.10) M/uL Hgb 11.8 L 11.6 L (14.0-18.0) g/dl Hct 36.0 L 35.2 L (42.0-52.0) % Plt Count 175 159 (130-400) K/uL Neut # (Auto) 7.20 H 8.60 H (1.40-6.50) K/uL Lymph # (Auto) 1.22 1.69 (1.2-3.4) K/uL Monona # (Auto) 0.93 H 1.01 H (0.11-0.59) K/uL Eos # (Auto) 0.11 0.13 (0-0.50) K/uL Baso # (Auto) 0.04 0.05 (0-0.2) K/uL Comprehensive Metabolic Panel 07/22/22 07/23/22 Range/Units 12:47 01:38 Sodium 137 137 (136-145) mmol/L Potassium 4.4 4.4 (3.5-5.1) mmol/L Chloride 104 103 (98-107) mmol/L Carbon Dioxide 23 25 (21-32) mmol/L BUN 36 H 36 H (6-23) mg/dl Creatinine 1.78 H 1.56 H (0.6-1.4) mg/dl Glucose 273 H 153 H (70-99(Fasting)) mg/dl Calcium 9.0 8.7 (8.6-10.3) mg/dl AST 25 (13-39) U/L ALT 28 (7-52) U/L Alkaline Phosphatase 48 (34-104) U/L Total Protein 6.3 (6.0-8.3) gm/dl Albumin 3.6 (3.4-5.0) gm/dl Intake and Output 07/22/22 07/23/22 07/23/22 22:59 06:59 14:59 Intake Total 1118.5 / 1940.0 321.5 / 1940.0 Output Total 200 / 200 Balance 918.5 / 1740.0 321.5 / 1740.0 Intake: IV 278.5 / 1100.0 321.5 / 1100.0 Heparin Sodium/Dextrose 25,000 178.5 / 500.0 321.5 / 500.0 units In 500 ml @ 1,900 UNITS/ HR 38 mls/hr IV .[id number] [facility] Rx #:[id number] Magnesium Sulfate / D5w 1 gm In 100 / 100 100 ml @ 50 mls/hr IV ONE ONE Rx#:[id number] Oral 840 / 840 Output: Urine 200 / 200 Other: Other Intake Source NPO # Unmeasured Voids 1 Weight 121 kg 115.9 kg Weight Measurement Method Built in [facility] Built in [facility]
[2022-07-23] MEDS: INSULIN ASPART PER UNIT CHARGE SC SCH ×4 (07:47→20:41)
[2022-07-23] MEDS: CITALOPRAM 20 MG TAB PO SCH ×2 (09:52→20:41)
[2022-07-23] MEDS: METOPROLOL SUCC 50MG EXT REL TAB PO SCH ×2 (09:53→20:43)
[2022-07-23] MEDS: FENOFIBRATE NANOCRYSTALLIZED 48 MG TABLET PO SCH (09:53)
[2022-07-23] MEDS: ROSUVASTATIN CALCIUM 20 MG TAB PO SCH (09:53)
[2022-07-23] MEDS ORDERED: FUROSEMIDE 40 MG/4 ML VIAL IV ONE (10:19)
[2022-07-23] MEDS: LANTUS PER UNIT CHARGE SQ SCH ×2 (10:59→20:42)
[2022-07-23 11:37] LABS: Partial Thromboplastin Ratio 1.6
[2022-07-23 11:50] LABS: Partial Thromboplastin Time 44.9 Seconds (21.0-31.0)
--- NOTE | 2022-07-23 15:36 | Hospitalist Progress Note ---
Date of Service July 23, 2022 Assessment & Plan (1) New onset atrial fibrillation: Plan: 61 y/o male with a PMH of insulin-requiring DM, GER on CPAP, HTN, chronic systolic HF, hx pSVT, LBBB, dyslipidemia, and nonischemic cardiomyopathy who presented to his PCP for routine follow-up today and was noted to be tachycardic (rate in the 120s) and SOB and borderline BP (systolic in the 90s) so referred to the ED for evaluation. In the ED, pt was given adenosine 6 mg IV x 1 dose which slowed the rate into the 70s revealing new-onset atrial fibrillation so pt was referred for admission. Discussed with cardiology; increased metoprolol to 100 mg twice daily. Patient was on Coreg prior to admission. - Heparin gtt started in the ED; cardiology to discuss regarding DOACs versus Coumadin as clinical course progresses. - ECHO reviewed; EF of 35 to 40% with mild concentric left ventricular hypertrophy. (2) Acute kidney injury superimposed on CKD: Plan: Baseline creatinine appears to be around 1.2-1.3. creatinine 1.78 on admission. Labs reviewed; creatinine down trended. Hold losartan for now. - Repeat BMP in AM (3) Diabetes mellitus, type 2: Plan: A1c of 11.4 On Lantus and NovoLog. (4) Obstructive sleep apnea: Plan: Continue CPAP - pt brought machine from home (5) Nonischemic congestive cardiomyopathy: (6) Left bundle branch block: Plan: Echocardiogram done; EF of 35 to 40%; mild global hypokinesis of left ventricle. (7) Hypertension: Plan: On metoprolol; changed from Coreg. Hold losartan. Plan DVT prophylaxis heparin drip Full code Disposition home after resolution after medical issues Admission and Anticipated Discharge Date Admission Date: July 22, 2022 Subjective patient seen and examined at bedside. He reports chest discomfort. Telemetry shows a flutter at a constant rate of 123 bpm. Review of Systems Review of Systems: All systems reviewed & are unremarkable except as noted in Subjective Physical Exam Physical Exam: Constitutional: WD/WN, vitals as above, NAD, sitting up in bed, pleasant, conversing easily Respiratory: normal respiratory effort, lungs clear to auscultation, no wheeze, rales, rhonchi. Normal insp/exp effort, no accessory muscle use Cardiovascular: Irregular no murmur, no edema Vessels: no JVD or carotid bruit Chest: normal inspection of chest Abdomen: normal bowel sounds, soft, nontender, no hepatosplenomegaly Musculoskeletal: no cyanosis or clubbing, extremities motor strength 5/5 Skin: no rashes, warm and dry normal turgor Neurologic: PERRL, EOMI, accommodation nl, no face palsy, no dysarthria CN's II- XI intact bilaterally and moves all extremities Psychiatric: A+Ox3, euthymic affect Lymphatic: no cervical or axillary lymphadenopathy : deferred Results & Data Results & Data Vital Signs (Past 12 Hours) Vital Signs Temp Pulse Resp BP Pulse Ox O2 Del Method FiO2 07/23/22 12:35 36.5 C 123 H 18 103/64 97 Room Air 07/23/22 09:00 Room Air 07/23/22 08:05 36.9 C 87 18 105/68 95 Room Air 07/23/22 03:45 36.9 C 123 H 16 112/78 96 Room Air 07/23/22 03:42 24 21 Laboratory Results Laboratory Results WBC 11.53 K/ul (4.8-10.8) H 07/23/22 01:38 RBC 3.60 M/uL (4.70-6.10) L 07/23/22 01:38 Hgb 11.6 g/dl (14.0-18.0) L 07/23/22 01:38 POC Hgb 12.2 g/dl (14.0-18.0) L 07/22/22 12:54 Hct 35.2 % (42.0-52.0) L 07/23/22 01:38 POC Hct 36 % (42-52) L 07/22/22 12:54 MCV 97.8 fL (80.0-100.0) 07/23/22 01:38 MCH 32.2 pg (25.0-34.0) 07/23/22 01:38 MCHC 33.0 g/dL (32.0-36.0) 07/23/22 01:38 RDW Std Deviation 49.5 fL (36.4-46.3) H 07/23/22 01:38 RDW Coeff of Raj 13.9 % (11.5-14.5) 07/23/22 01:38 Plt Count 159 K/uL (130-400) 07/23/22 01:38 MPV 12.8 fL (9.4-12.4) H 07/23/22 01:38 Immature Gran % (Auto) 0.4 % 07/23/22 01:38 Neut % (Auto) 74.6 % 07/23/22 01:38 Lymph % (Auto) 14.7 % 07/23/22 01:38 Beauregard % (Auto) 8.8 % 07/23/22 01:38 Eos % (Auto) 1.1 % 07/23/22 01:38 Baso % (Auto) 0.4 % 07/23/22 01:38 Neut # (Auto) 8.60 K/uL (1.40-6.50) H 07/23/22 01:38 Lymph # (Auto) 1.69 K/uL (1.2-3.4) 07/23/22 01:38 Beauregard # (Auto) 1.01 K/uL (0.11-0.59) H 07/23/22 01:38 Eos # (Auto) 0.13 K/uL (0-0.50) 07/23/22 01:38 Baso # (Auto) 0.05 K/uL (0-0.2) 07/23/22 01:38 Immature Gran # (Auto) 0.05 K/uL (0.01-0.20) 07/23/22 01:38 PT 11.1 Seconds (9.0-12.0) 07/22/22 12:47 INR 1.0 (0.9-1.1) 07/22/22 12:47 APTT 44.9 Seconds (21.0-31.0) H* 07/23/22 10:32 PTT Ratio 1.6 07/23/22 10:32 POC Sodium 137 mmol/L (135-144) 07/22/22 12:54 Sodium 137 mmol/L (136-145) 07/23/22 01:38 POC Potassium 4.3 mmol/L (3.3-5.0) 07/22/22 12:54 Potassium 4.4 mmol/L (3.5-5.1) 07/23/22 01:38 POC Chloride 103 mmol/L (101-112) 07/22/22 12:54 Chloride 103 mmol/L (98-107) 07/23/22 01:38 Carbon Dioxide 25 mmol/L (21-32) 07/23/22 01:38 POC Total CO2 22 mmol/L (24-31) L 07/22/22 12:54 Anion Gap 9 (3-11) 07/23/22 01:38 POC Anion Gap 18.0 mmol/L (16-25) 07/22/22 12:54 POC BUN 33 mg/dl (7-18) H 07/22/22 12:54 BUN 36 mg/dl (6-23) H 07/23/22 01:38 Creatinine 1.56 mg/dl (0.6-1.4) H 07/23/22 01:38 POC Creatinine 1.7 mg/dl (0.6-1.3) H 07/22/22 12:54 Est Cr Clr Drug Dosing 65.1 ml/min 07/23/22 01:38 Est GFR ( Amer) 54.0 ml/min 07/23/22 01:38 Est GFR (Non-Af Amer) 46.6 ml/min 07/23/22 01:38 BUN/Creatinine Ratio 23.1 (10-20) H 07/23/22 01:38 Glucose 153 mg/dl (70-99(Fasting)) H 07/23/22 01:38 POC Glucose 157 mg/dl (70-99) H 07/23/22 11:15 POC Glucose (other) 271 mg/dl (70-99) H 07/22/22 12:54 Estimat Average Glucose 280 mg/dl 07/23/22 01:38 Hemoglobin A1c 11.4 % (4.5-5.6) H 07/23/22 01:38 Calcium 8.7 mg/dl (8.6-10.3) 07/23/22 01:38 POC Ioniz Calcium Aron 1.07 mmol/l (1.12-1.32) L 07/22/22 12:54 Magnesium 1.8 mg/dl (1.7-2.4) 07/23/22 01:38 Total Bilirubin 0.5 mg/dl (0.2-1.0) 07/22/22 12:47 AST 25 U/L (13-39) 07/22/22 12:47 ALT 28 U/L (7-52) 07/22/22 12:47 Alkaline Phosphatase 48 U/L (34-104) 07/22/22 12:47 Troponin I High Sens 13.2 pg/ml (0-20) 07/22/22 12:47 B-Natriuretic Peptide 217 pg/ml (0-100) H 07/22/22 12:47 Total Protein 6.3 gm/dl (6.0-8.3) 07/22/22 12:47 Albumin 3.6 gm/dl (3.4-5.0) 07/22/22 12:47 Globulin 2.7 gm/dl (2.5-4.0) 07/22/22 12:47 Albumin/Globulin Ratio 1.3 (0.9-2) 07/22/22 12:47 TSH 1.547 uIu/ml (0.300-4.500) 07/23/22 01:38 Urine Color Yellow 07/22/22 20:15 Urine Appearance Clear (Clear) 07/22/22 20:15 Urine pH 5.0 (4.5-7.5) 07/22/22 20:15 Ur Specific [place] 1.033 (1.000-1.030) H 07/22/22 20:15 Urine Protein Trace (Negative) H 07/22/22 20:15 Urine Glucose (UA) 3+ (Negative) H 07/22/22 20:15 Urine Ketones Negative (Negative) 07/22/22 20:15 Urine Blood Negative (Negative) 07/22/22 20:15 Urine Nitrite Negative (Negative) 07/22/22 20:15 Urine Bilirubin Negative (Negative) 07/22/22 20:15 Urine Urobilinogen Negative (Negative) 07/22/22 20:15 Ur Leukocyte Esterase Negative (Negative) 07/22/22 20:15 Urine WBC (Auto) 1-5 /hpf (0-5) 07/22/22 20:15 Urine RBC (Auto) 0-4 /hpf (0-4) 07/22/22 20:15 U Hyaline Cast (Auto) 1-5 /lpf (0-5) 07/22/22 20:15 U Epithel Cells (Auto) >30 /lpf (0-5) H 07/22/22 20:15 Urine Bacteria (Auto) Negative (Negative) 07/22/22 20:15 Ur Renal Epithelial Cell 0-5 /lpf (0-5) 07/22/22 20:15 SARS-CoV-2, RNA, NAAT NEGATIVE (NEGATIVE) 07/22/22 13:55 Impressions Chest X-Ray 07/22/22 12:48 XR chest 1V portable CLINICAL HISTORY: Dyspnea TECHNIQUE: Single frontal radiograph of the chest was obtained. Comparison: Comparison is made to chest radiograph 07/29/2016 FINDINGS: No lines and tubes are seen. Cardiomegaly is noted. Prominence and cephalization of the vasculature is seen. No evidence of pleural effusion or pneumothorax. Previously noted 1 cm nodular density in the right lower lung is no longer seen and may have represented a nipple shadow. IMPRESSION: Cardiomegaly and mild pulmonary edema. ACT 112: Negative or not required by law. Electronically signed by: Shane Ramirez M.D. 07/22/2022 1:52 PM
[2022-07-24 06:24] LABS: Hemoglobin 11.6 g/dl (14.0-18.0); Mean Corpuscular Hemoglobin 32.4 pg (25.0-34.0); Mean Corpuscular Hgb Conc 34.1 g/dL (32.0-36.0); Mean Platelet Volume 12.1 fL (9.4-12.4); Platelet Count 193 K/uL (130-400); RDW Coefficient of Variation 13.8 % (11.5-14.5); RDW Standard Deviation 48.1 fL (36.4-46.3); Red Blood Count 3.58 M/uL (4.70-6.10); White Blood Count 9.77 K/ul (4.8-10.8)
[2022-07-24 06:40] LABS: BUN Creatinine Ratio 26.7 (10-20); Calcium 9.1 mg/dl (8.6-10.3); Creatinine Clr Calc Pharmacy 75.5 ml/min; Est GFR (African American) 66.7 ml/min; Est GFR (Non-African American) 57.5 ml/min; Potassium 4.9 mmol/L (3.5-5.1)
[2022-07-24 07:02] LABS: Partial Thromboplastin Ratio 1.5
[2022-07-24 07:15] LABS: Partial Thromboplastin Time 40.9 Seconds (21.0-31.0)
[2022-07-24] MEDS: INSULIN ASPART PER UNIT CHARGE SC SCH ×4 (07:55→20:22)
--- NOTE | 2022-07-24 08:00 | Cardiology Progress Note ---
Date of Service July 24, 2022 Assessment & Plan (1) New onset atrial fibrillation: (2) Nonischemic congestive cardiomyopathy: (3) Left bundle branch block: (4) Hypertension: Plan IMPRESSION: 61-year-old male with history of nonischemic cardiomyopathy, LVEF reduced at 45 to 49% on recent echo 06/2022 referred to the [facility] emergency department due to new onset atrial fibrillation. LVEF further declined at 35-40% with mild global hypokinesis of the LV. Hypervolemic on exam- NYHA class 2-3. [id number] score of 3 (HTN, CHF, DM) making stroke risk about 3.2 % per year. PLAN: 1. Heart rates remain elevated in the 110s-120s. Continue metoprolol to 100 mg twice daily. 2. Hold Losartan due low blood pressures 3. Continue IV heparin for stroke prevention, will discuss DOAC vs Coumadin as clinic course progresses. 4. Renal function improved with IV Lasix yesterday, baseline scr around 1.2- 1.3. Will give an additional 40 mg IV this afternoon and resume home dose Lasix, 40 mg PO daily tomorrow. 5. NPO for KIMANI guided cardioversion this morning. Case discussed with Dr. Baez. Will follow. Admission and Anticipated Discharge Date Admission Date: July 22, 2022 Supervising Physician Co-Signing Physician Notes Patient seen and examined. Patient referred and underwent synchronized electrical cardioversion after KIMANI guidance this morning. No contraindications to cardioversion however did not convert to sinus rhythm despite multiple attempts with maximum shock of 360 J. Maintained only brief sinus rhythm before relapsing each time Discussed options of management. Not tolerating heart rate well More dyspneic. IV furosemide given We will add IV amiodarone, reduce metoprolol succinate possible repeat cardioversion in the future. Amiodarone discussed in detail with patient we will continue telemetry at least additional 48 hours Continue IV heparin with likely conversion to Eliquis Subjective 61-year-old male with known history nonischemic cardiomyopathy (LVEF moderately reduced at 45 to 49%) presented to [facility] emergency department from his PCP office due to new onset atrial fibrillation (presumed start last Wednesday 07/19 ) with rapid ventricular rates in the 120s to 130s. Symptomatic with shortness of breath and fatigue. Patient initially realized HR were elevated due to his "smart" watch. Rhythm confirmed by IV adenosine administration. Was started on IV heparin and given x1 dose of Lopressor 5 mg. Carvedilol stopped in favor of metoprolol succinate. Echocardiogram 07/22: showed a worsening LV systolic function of 35 to 40% with mild global hypokinesis. Mild to moderate MR. Left atrium moderately dilated. Chest x-ray: Cardiomegaly with mild pulmonary edema 07/23: EKG: Atrial fibrillation, left bundle branch block, 123 bpm Telemetry: AFIB 120-130s -Metoprolol succinate increased to 100 mg twice daily. -40 mg of IV Lasix given. 07/24: EKG: A-fib with RVR, left bundle branch block, 115 bpm Telemetry: A-fib 110s I&O: +800 mL Weight: 121 kg >>114.8 kg Upon entrance into the room patient resting in bed without concern. Notes slight improvement in his breathing after recieviing the IV lasix yesterdaym but continues to feel like hes "holding onto fluid in his chest". Cough resolved. No chest pain. Denies palpitations. No dizziness/lightheadedness. Physical Exam Constitutional: WD/WN, vitals as above no acute distress Eyes: PERRL, conjunctivae normal, anicteric sclerae Neck: normal visual inspection and trachea midline Respiratory: normal respiratory effort, lungs clear to auscultation normal respiratory effort; no cough Auscultation: + rales (BL bases); no rhonchi and no wheezes Cardiovascular: Rate/Rhythm: + tachycardic and + irregularly irregular Heart Sounds: normal S1 and normal S2; no murmur Extremities: + edema (Trace BL) Gastrointestinal (Abdomen): Inspection/Auscultation: abdomen normal to inspection; abdomen not distended Percussion/Palpation: abdomen soft; abdomen nontender Skin: no rashes, warm and dry Psychiatric: A+Ox3, euthymic affect Results & Data Vital Signs (Past 12 Hours) Vital Signs Temp Pulse Pulse Resp BP BP Pulse Ox 07/24/22 02:58 37.1 C 121 H 18 105/66 91 07/24/22 00:10 109 H 07/23/22 22:56 36.8 C 118 H 19 106/73 92 07/23/22 21:40 O2 Del Method 07/24/22 02:58 CPAP 07/24/22 00:10 07/23/22 22:56 CPAP 07/23/22 21:40 Room Air Laboratory Results Coagulation 07/23/22 07/24/22 Range/Units 10:32 06:01 APTT 44.9 H* 40.9 H* (21.0-31.0) Seconds CBC 07/24/22 Range/Units 06:01 WBC 9.77 (4.8-10.8) K/ul RBC 3.58 L (4.70-6.10) M/uL Hgb 11.6 L (14.0-18.0) g/dl Hct 34.0 L (42.0-52.0) % Plt Count 193 (130-400) K/uL Comprehensive Metabolic Panel 07/24/22 Range/Units 06:01 Sodium 138 (136-145) mmol/L Potassium 4.9 (3.5-5.1) mmol/L Chloride 102 (98-107) mmol/L Carbon Dioxide 27 (21-32) mmol/L BUN 35 H (6-23) mg/dl Creatinine 1.31 (0.6-1.4) mg/dl Glucose 113 H (70-99(Fasting)) mg/dl Calcium 9.1 (8.6-10.3) mg/dl Intake and Output 07/23/22 07/24/22 07/24/22 22:59 06:59 14:59 Intake Total 813.867 / 1090.000 429.4 / 429.4 Output Total 975 / 2450 500 / 2450 Balance -161.133 / -1360.000 -500 / -1360.000 429.4 / 429.4 Intake: IV 223.867 / 500.000 429.4 / 429.4 Heparin Sodium/Dextrose 25,000 223.867 / 500.000 429.4 / 429.4 units In 500 ml @ 1,900 UNITS/ HR 38 mls/hr IV .[id number] [facility] Rx #:[id number] Oral 590 / 590 Output: Urine 975 / 2450 500 / 2450 Other: Other Intake Source NPO Weight 114.8 kg 114.8 kg Weight Measurement Method Built in [facility] Patient Weight 07/25/22 06:59 Weight 114.8 kg
--- NOTE | 2022-07-24 09:00 | Anesthesiology Consultation ---
Date of Service July 24, 2022 Assessment & Plan (1) Encounter for pre-operative examination: Chart Review Chart Review: Acceptable Risk for Surgery and Patient NOT seen in Pre Admission Testing Consults Requested none History Surgery Operation Date: 07/24/22 12:00 Proposed Procedures p Transesophageal Echo - Papo Baez MD s Cardioversion - Papo Baez MD Height/Weight Height: 6 ft Weight: 114.8 kg Allergies Allergy/AdvReac Type Severity Reaction Status Date / Time lisinopril AdvReac Intermediate Vomiting Verified 07/22/22 15:15 Medications Home Medications Medication Instructions Recorded Confirmed Last Taken fenofibrate nanocrystallized 48 mg 48 mg PO DAILY #90 tabs 06/13/20 07/22/22 07/22/22 tablet albuterol sulfate 90 mcg/actuation 2 puff inhalation QID PRN 06/29/20 07/22/22 07/22/22 aerosol inhaler shortness of breath or wheezing #54 grams citalopram 20 mg tablet (Celexa) 20 mg PO BID #180 tabs 07/04/20 07/22/22 07/22/22 08:00 losartan 25 mg tablet 25 mg PO DAILY #90 tabs 07/12/20 07/22/22 07/22/22 carvedilol 25 mg tablet 25 mg PO BID #180 tabs 07/25/20 07/22/22 07/22/22 08:00 metformin 1,000 mg tablet 1,000 mg PO BID #180 tabs 07/25/20 07/22/22 07/22/22 08:00 diclofenac sodium 75 mg 75 mg PO BID #180 tabs 06/11/21 07/22/22 07/22/22 08:00 tablet,delayed release dulaglutide 4.5 mg/0.5 mL 4.5 mg subcut WK 07/22/22 07/22/22 07/14/22 subcutaneous pen injector (Trulicity) empagliflozin 25 mg tablet 25 mg PO DAILY 07/22/22 07/22/22 07/22/22 (Jardiance) furosemide 40 mg tablet (Lasix) 40 mg PO 3XWK 07/22/22 07/22/22 07/22/22 insulin degludec 100 unit/mL (3 20 unit subcut HS 07/22/22 07/22/22 07/21/22 mL) subcutaneous pen (Tresiba FlexTouch U-100 insulin) rosuvastatin 40 mg tablet 40 mg PO DAILY 07/22/22 07/22/22 07/22/22 spironolactone 25 mg tablet 12.5 mg PO 3XWK 07/22/22 07/22/22 07/22/22 Active Medications Generic Name Dose Route Start Last Admin Trade Name Anthonyq PRN Reason Stop Dose Admin Citalopram Hydrobromide 20 mg 07/22/22 21:00 07/23/22 20:41 Citalopram 20 Mg Tab PO 08/21/22 20:59 20 mg BID MADELINE Administration Fenofibrate 48 mg 07/23/22 09:00 07/23/22 09:53 Fenofibrate Nanocrystallized 48 Mg Tablet PO 08/22/22 08:59 48 mg DAILY MADELINE Administration Heparin Sodium/Dextrose 25,000 units in 500 mls @ 38 mls/hr 07/22/22 13:45 07/24/22 07:20 Heparin Sodium/Dextrose IV 08/21/22 13:44 1,900 units/hr .[id number] MADELINE 38 mls/hr Titration Protocol 1,900 UNITS/HR Insulin Aspart 0 units 07/22/22 16:30 07/24/22 07:55 Insulin Aspart Per Unit Charge SC 08/21/22 16:29 Not Given ACHS [facility] Insulin Glargine 20 units 07/23/22 09:00 07/23/22 20:42 Lantus Per Unit Charge SQ 08/22/22 08:59 20 units BID MADELINE Administration Metoprolol Succinate 100 mg 07/23/22 09:00 07/23/22 20:43 Metoprolol Succ 50mg Ext Rel Tab PO 08/22/22 08:59 100 mg BID MADELINE Administration Rosuvastatin Calcium 40 mg 07/23/22 09:00 07/23/22 09:53 Rosuvastatin Calcium 20 Mg Tab PO 08/22/22 08:59 40 mg DAILY MADELINE Administration Past Medical History Medical History Anxiety Chronic right shoulder pain Chronic systolic (congestive) heart failure Depression Diabetes mellitus Diabetes mellitus, type 2 Erectile dysfunction Hyperlipidemia Hypertension Left bundle branch block Obesity, unspecified Obstructive sleep apnea Osteoarthritis Pancreatitis HX CAUSED BY A MEDICATION Paroxysmal SVT (supraventricular tachycardia) Sleep apnea CPAP Spinal stenosis Past Family History Family History Mother Family history of diabetes mellitus Myocardial infarction Grandfather (Paternal) Family history of diabetes mellitus Grandmother (Maternal) Family history of diabetes mellitus Father Prostate cancer Other Hypertension Denies family history of Ovarian cancer Breast cancer Colorectal cancer Past Surgical History Surgical History H/O Spinal surgery LUMBAR LAZER PROCEDURE History of anesthesia reaction WITH LAST COLONOSCOPY-COULD FEEL PROCEDURE "WAS NOT FULLY ASLEEP" History of arthroscopy RT/LEFT KNEE History of cardiac cath "A WHILE AGO/NO STENTS" History of colonoscopy History of hernia repair History of tonsillectomy History of tooth extraction History of total knee replacement LEFT Social History Smoking Status: Never smoker Do You Dip or Chew Tobacco: No Hx Alcohol Use: No Hx Substance Use: No substance use type: does not use Physical Exam Vital Signs Last Vital Signs Temp 98.8 F 07/24/22 08:09 Pulse 120 H 07/24/22 08:09 Resp 16 07/24/22 08:09 BP 116/76 07/24/22 08:09 Pulse Ox 97 07/24/22 08:09 O2 Del Method Room Air 07/24/22 08:09 FiO2 21 07/23/22 03:42 Testing Laboratory Results 07/24/22 06:01 07/24/22 06:01 PT 11.1 Seconds (9.0-12.0) 07/22/22 12:47 INR 1.0 (0.9-1.1) 07/22/22 12:47 APTT 40.9 Seconds (21.0-31.0) H* 07/24/22 06:01 Hemoglobin A1c 11.4 % (4.5-5.6) H 07/23/22 01:38 Urine Color Yellow 07/22/22 20:15 Urine Appearance Clear (Clear) 07/22/22 20:15 Urine pH 5.0 (4.5-7.5) 07/22/22 20:15 Ur Specific [place] 1.033 (1.000-1.030) H 07/22/22 20:15 Urine Protein Trace (Negative) H 07/22/22 20:15 Urine Glucose (UA) 3+ (Negative) H 07/22/22 20:15 Urine Ketones Negative (Negative) 07/22/22 20:15 Urine Nitrite Negative (Negative) 07/22/22 20:15 Ur Leukocyte Esterase Negative (Negative) 07/22/22 20:15 Urine WBC (Auto) 1-5 /hpf (0-5) 07/22/22 20:15 Urine RBC (Auto) 0-4 /hpf (0-4) 07/22/22 20:15 U Hyaline Cast (Auto) 1-5 /lpf (0-5) 07/22/22 20:15 U Epithel Cells (Auto) >30 /lpf (0-5) H 07/22/22 20:15 Urine Bacteria (Auto) Negative (Negative) 07/22/22 20:15 07/24/22 06:33 POC Glucose 121 H Electrocardiogram Date: 07/24/22 Findings: + AFIB @
[2022-07-24] MEDS: HEPARIN SODIUM/DEXTROSE 25,000 UNITS/500 ML BAG IV SCH ×2 (09:33→22:01)
[2022-07-24] MEDS ORDERED: PROPOFOL IV EMULSION 10 MG/ML 20 ML VIAL IV ONE (09:50)
[2022-07-24] MEDS ORDERED: BENZOCAINE/TETRACAIN/BUTAM 50 APPLN/5 GM CAN EXT ONE (09:58)
--- NOTE | 2022-07-24 10:22 | Anesthesiology Progress Note ---
Date of Service July 24, 2022 Anesthesia Post Procedure Vital Signs Vital Signs: Temp Pulse Pulse Resp BP BP Pulse Ox 07/24/22 09:52 99.1 F 122 H 14 120/82 93 07/24/22 08:09 98.8 F 120 H 16 116/76 97 07/24/22 02:58 98.8 F 121 H 18 105/66 91 07/24/22 00:10 109 H 07/23/22 22:56 98.2 F 118 H 19 106/73 92 07/23/22 21:40 07/23/22 18:57 98.1 F 121 H 17 122/76 94 07/23/22 16:00 97.7 F 118 H 18 97/62 L 98 07/23/22 15:58 123 H 07/23/22 12:35 97.7 F 123 H 18 103/64 97 O2 Del Method 07/24/22 09:52 Room Air 07/24/22 08:09 Room Air 07/24/22 02:58 CPAP 07/24/22 00:10 07/23/22 22:56 CPAP 07/23/22 21:40 Room Air 07/23/22 18:57 Room Air 07/23/22 16:00 Room Air 07/23/22 15:58 07/23/22 12:35 Room Air Transfer of Care Handoff Completed per policy Notes Mental Status: alert / awake / arousable and participated in evaluation Patient Amnestic to Procedure: Yes Nausea / Vomiting: adequately controlled Pain: adequately controlled Airway Patency, RR, SpO2: stable & adequate BP & HR: stable & adequate Hydration State: stable & adequate Anesthetic Complications: no major complications apparent and Pt Satisfied with anesthetic care
[2022-07-24] MEDS ORDERED: METOPROLOL TARTRATE 1 MG/ML VIAL IV ONE (10:23)
--- NOTE | 2022-07-24 10:27 | Electrocardiogram Report ---
Test Reason : Blood Pressure : / mmHG Vent. Rate : 115 BPM Atrial Rate : 111 BPM P-R Int : 000 ms QRS Dur : 162 ms QT Int : 404 ms P-R-T Axes : 000 -37 094 degrees QTc Int : 558 ms Atrial fibrillation with rapid ventricular response Indeterminate axis Left bundle branch block Abnormal ECG When compared with ECG of 23-JUL-2022 06:11, (unconfirmed) Atrial fibrillation has replaced Wide QRS tachycardia Confirmed by Gustavo Shannon ([id number] on 07/24/2022 10:27:38 AM Referred By: Sammy Morales Confirmed By:Ming Shannon
--- NOTE | 2022-07-24 10:30 | Cardioversion ---
Date of Service July 24, 2022 Electrical Cardioversion Rpt Electrical Cardioversion Report Procedure and risks explained in detail, KIMANI guided synchronized cardioversion. Informed consent was obtained. Formal timeout was performed Patient was sedated via anesthesia consultation with heart rate, blood pressure, O2 and end-tidal CO2 monitor. Transesophageal echocardiogram performed with report under separate cover no contraindications to cardioversion. Synchronized electrical cardioversion performed serially with 150 J, 200 J, 300 J and 360 J with transient return to sinus rhythm briefly after each shock then relapsed into atrial fibrillation flutter. Patient aroused post procedure having tolerated well
[2022-07-24] MEDS ORDERED: FUROSEMIDE 40 MG/4 ML VIAL IV ONE (12:00)
[2022-07-24] MEDS: FENOFIBRATE NANOCRYSTALLIZED 48 MG TABLET PO SCH (12:56)
[2022-07-24] MEDS: CITALOPRAM 20 MG TAB PO SCH ×2 (12:56→20:22)
[2022-07-24] MEDS: METOPROLOL SUCC 50MG EXT REL TAB PO SCH ×3 (12:56→20:22)
[2022-07-24] MEDS: LANTUS PER UNIT CHARGE SQ SCH ×2 (12:56→20:22)
[2022-07-24] MEDS: ROSUVASTATIN CALCIUM 20 MG TAB PO SCH (12:57)
[2022-07-24] MEDS ORDERED: STAT IV Infusion **Titration per Protocol STA (15:01)
[2022-07-24] MEDS ORDERED: AMIODARONE / D5W 150 MG/100 ML BAG IV STA (15:01)
[2022-07-24] MEDS ORDERED: AMIODARONE IV BOLUS & DRIP IV STA (15:01)
[2022-07-24] MEDS ORDERED: 0.2 MICRON FILTER SET 1 EACH IV STA (15:01)
[2022-07-24] MEDS ORDERED: AMIODARONE / D5W 360 MG/200 ML BAG IV ONE (15:11)
--- NOTE | 2022-07-24 16:53 | Electrocardiogram Report ---
Test Reason : Blood Pressure : / mmHG Vent. Rate : 122 BPM Atrial Rate : 000 BPM P-R Int : 000 ms QRS Dur : 174 ms QT Int : 400 ms P-R-T Axes : 000 -68 098 degrees QTc Int : 570 ms Wide QRS tachycardia , possibly atrial flutter Left axis deviation Left bundle branch block Abnormal ECG When compared with ECG of 27-AUG-2011 18:45, Wide QRS tachycardia has replaced Sinus rhythm Vent. rate has increased BY 41 BPM Confirmed by Gustavo Shannon ([id number]) on 07/24/2022 4:52:56 PM Referred By: Confirmed By:Ming Shannon
--- NOTE | 2022-07-24 16:53 | Electrocardiogram Report ---
Test Reason : Blood Pressure : / mmHG Vent. Rate : 123 BPM Atrial Rate : 102 BPM P-R Int : 000 ms QRS Dur : 174 ms QT Int : 394 ms P-R-T Axes : 000 -23 120 degrees QTc Int : 564 ms Wide QRS tachycardia , possibly atrial flutter Left bundle branch block Abnormal ECG When compared with ECG of 22-JUL-2022 12:42, (unconfirmed) No significant change was found Confirmed by Gustavo Shannon ([id number] on 07/24/2022 4:53:09 PM Referred By: Sammy Morales Confirmed By:Ming Shannon
--- NOTE | 2022-07-24 16:55 | Hospitalist Progress Note ---
Date of Service July 24, 2022 Assessment & Plan (1) New onset atrial fibrillation: Plan: per Dr. Terry's notes with addendum: 61 y/o male with a PMH of insulin-requiring DM, GER on CPAP, HTN, chronic systolic HF, hx pSVT, LBBB, dyslipidemia, and nonischemic cardiomyopathy who presented to his PCP for routine follow-up today and was noted to be tachycardic (rate in the 120s) and SOB and borderline BP (systolic in the 90s) so referred to the ED for evaluation. In the ED, pt was given adenosine 6 mg IV x 1 dose which slowed the rate into the 70s revealing new-onset atrial fibrillation so pt was referred for admission. Discussed with cardiology; increased metoprolol to 100 mg twice daily. Patient was on Coreg prior to admission. - Heparin gtt started in the ED; cardiology to discuss regarding DOACs versus Coumadin as clinical course progresses. - ECHO reviewed; EF of 35 to 40% with mild concentric left ventricular hypertrophy. 07/24 Status post cardioversion but unsuccessful IV amiodarone started Still metoprolol Continue IV heparin (2) Acute kidney injury superimposed on CKD: Plan: Baseline creatinine appears to be around 1.2-1.3. creatinine 1.78 on admission. Labs reviewed; creatinine down trended. Hold losartan for now. 07/24 Creatinine back to normal, 1.3 (3) Diabetes mellitus, type 2: Plan: A1c of 11.4 On Lantus and NovoLog. (4) Obstructive sleep apnea: Plan: Continue CPAP - pt brought machine from home (5) Nonischemic congestive cardiomyopathy: (6) Left bundle branch block: Plan: Echocardiogram done; EF of 35 to 40%; mild global hypokinesis of left ventricle. (7) Hypertension: Plan: On metoprolol; changed from Coreg. Hold losartan. Plan DVT prophylaxis heparin drip Full code Dispositionanticipate return to home when medically stable Admission and Anticipated Discharge Date Admission Date: July 22, 2022 Subjective Follow-up for atrial fibrillation, new onset, etc. Status post cardioversion, unfortunately unsuccessful Seen sitting up in bed, not in distress, reports mild dyspnea No chest pain No palpitations No bleeding No other symptoms Review of Systems Review of Systems: all noted and negative except for above Physical Exam Physical Exam: General- oriented x 3, not in distress, speaks in sentences with no effort or accessory muscle use Eyes- anicteric Neck- no JVD Lungs-mild rales at the bases Heart- normal rate, regular rhythm; no murmurs Abdomen- normal bowel sounds, nondistended, soft, nontender Extremities-trace pretibial edema, no calf tenderness Neuro- alert, oriented x 3; no gross focal neurologic deficits Skin- warm & dry Results & Data Results & Data Vital Signs (Past 12 Hours) Vital Signs Temp Pulse Pulse Resp BP BP Pulse Ox 07/24/22 16:08 36.8 C 87 18 102/79 91 07/24/22 16:00 130 H 07/24/22 12:00 37.0 C 123 H 18 100/65 07/24/22 14:00 37.0 C 121 H 18 132/68 90 07/24/22 13:00 37.0 C 109 H 18 119/84 89 L 07/24/22 12:36 36.7 C 116 H 20 114/69 90 07/24/22 11:30 36.8 C 123 H 18 124/63 90 07/24/22 11:15 37.0 C 120 H 18 115/72 89 L 07/24/22 11:00 37.2 C 124 H 18 111/72 90 07/24/22 10:40 37.3 C 125 H 14 109/82 93 07/24/22 09:00 109 H 07/24/22 09:00 07/24/22 10:25 37.3 C 125 H 14 129/91 95 07/24/22 09:52 37.3 C 122 H 14 120/82 93 07/24/22 08:09 37.1 C 120 H 16 116/76 97 O2 Del Method 07/24/22 16:08 Room Air 07/24/22 16:00 07/24/22 12:00 Room Air 07/24/22 14:00 Room Air 07/24/22 13:00 Room Air 07/24/22 12:36 Room Air 07/24/22 11:30 Room Air 07/24/22 11:15 Room Air 07/24/22 11:00 Room Air 07/24/22 10:40 Room Air 07/24/22 09:00 07/24/22 09:00 Room Air 07/24/22 10:25 Room Air 07/24/22 09:52 Room Air 07/24/22 08:09 Room Air all noted and reviewed including below
[2022-07-24] MEDS: AMIODARONE / D5W 360 MG/200 ML BAG IV SCH (21:06)
[2022-07-25 06:59] LABS: BUN Creatinine Ratio 28.2 (10-20); Calcium 8.8 mg/dl (8.6-10.3); Est GFR (African American) 66.7 ml/min; Est GFR (Non-African American) 57.5 ml/min; Potassium 3.8 mmol/L (3.5-5.1)
[2022-07-25 07:36] LABS: Partial Thromboplastin Ratio 1.5
--- NOTE | 2022-07-25 08:38 | Cardiology Progress Note ---
Date of Service July 25, 2022 Assessment & Plan (1) New onset atrial fibrillation: (2) Nonischemic congestive cardiomyopathy: (3) Left bundle branch block: (4) Hypertension: Plan IMPRESSION: 61-year-old male with history of nonischemic cardiomyopathy, LVEF reduced at 45 to 49% on recent echo 06/2022 referred to the [facility] emergency department due to new onset atrial fibrillation. LVEF further declined at 35-40% with mild global hypokinesis of the LV. Hypervolemic on exam- NYHA class 2-3. [id number] score of 3 (HTN, CHF, DM) making stroke risk about 3.2 % per year. Patient now appears to be able to tell a difference when he is in SR vs AFIB/Flutter. There are times where his shortness of breath is resolved and presumably when he converts to afib/flutter shortness of breath returns. PLAN: 1. Patient now maintaining NSR with PACs, STOP IV amiodarone and transition to oral amiodarone 200 mg QID. 2. Continue to hold Losartan due low blood pressures 3. Continue IV heparin for stroke prevention, consider transition to Eliquis 4. Renal function stable and at baseline, 1.3 this am. Baseline scr around 1.2-1.3. Appears hypervolemic on exam. Will given an addition 40 mg IV last this afternoon. Future considerations of addition of Aldactone. Case discussed with Dr. Baez. Will follow. Admission and Anticipated Discharge Date Admission Date: July 22, 2022 Supervising Physician Co-Signing Physician Notes Patient seen and examined. Plan as above We will change IV heparin to Eliquis as therapeutic change, reduce fluid administration Reduce metoprolol succinate to 50 mg twice per day IV furosemide 40 mg today Hold fenofibrate with the use of amiodarone Resume losartan Subjective 61-year-old male with known history nonischemic cardiomyopathy (LVEF moderately reduced at 45 to 49%) presented to [facility] emergency department from his PCP office due to new onset atrial fibrillation flutter (presumed start last Wednesday 07/19 ) with rapid ventricular rates in the 120s to 130s. Symptomatic with shortness of breath and fatigue. Patient initially realized HR were elevated due to his "smart" watch. Rhythm confirmed by IV adenosine administration. Was started on IV heparin and given x1 dose of Lopressor 5 mg. Carvedilol stopped in favor of metoprolol succinate. Echocardiogram 07/22: showed a worsening LV systolic function of 35 to 40% with mild global hypokinesis. Mild to moderate MR. Left atrium moderately dilated. Chest x-ray: Cardiomegaly with mild pulmonary edema 07/23: EKG: Atrial fibrillation, left bundle branch block, 123 bpm Telemetry: AFIB 120-130s -Metoprolol succinate increased to 100 mg twice daily. -40 mg of IV Lasix given. 07/24: EKG: A-fib with RVR, left bundle branch block, 115 bpm Telemetry: A-fib 110s Cardioversion: No evidence of left atrial appendage thrombus via KIMANI. Synchronized electrical cardioversion performed serially with 150 J, 200 J, 300 J and 360 J with transient return to sinus rhythm briefly after each shock then relapsed into atrial fibrillation flutter. IV amiodarone started. Metoprolol continued 40 mg of IV Lasix given 07/25: EKG: Atrial flutter versus sinus rhythm with a first-degree AV block and PACs with left bundle branch block, 87 bpm Telemetry: Atrial flutter vs SR, hear rates improving- averaging in the mid 80s. I&O: +500mL Weight: 121>>113 kg Upon entrance into the room patient resting in bed. Has been noticing variations in his breathing- there are times where he has no shortness of breath at all and others where he will have shortness of breath with minimal exertion. On telemetry it appears that patient is having short bursts of NSR and converting back to an atrial flutter. No chest pain or palpitations. No orthopnea or PND. Lower extremity edema resolved. No lightheadedness. Review of Systems Review of Systems: All systems reviewed & are unremarkable except as noted in HPI & below Physical Exam Constitutional: WD/WN, vitals as above no acute distress Eyes: PERRL, conjunctivae normal, anicteric sclerae Neck: normal visual inspection and trachea midline Respiratory: normal respiratory effort; no respiratory distress and no cough Auscultation: no rales, no rhonchi and no wheezes Cardiovascular: Rate/Rhythm: regular rate and + irregularly irregular Heart Sounds: normal S1 and normal S2; no murmur Extremities: + edema (Trace BL) Gastrointestinal (Abdomen): Inspection/Auscultation: abdomen normal to inspection; abdomen not distended Percussion/Palpation: abdomen soft; abdomen nontender Skin: no rashes, warm and dry Psychiatric: A+Ox3, euthymic affect Results & Data Vital Signs (Past 12 Hours) Vital Signs Temp Pulse Pulse Resp BP BP Pulse Ox 07/25/22 07:50 85 07/25/22 03:29 36.5 C 94 H 19 100/63 96 07/24/22 23:45 112 H 07/24/22 22:58 37.1 C 102 H 17 110/74 90 O2 Del Method 07/25/22 07:50 07/25/22 03:29 CPAP 07/24/22 23:45 07/24/22 22:58 CPAP Laboratory Results Comprehensive Metabolic Panel 07/25/22 Range/Units 05:41 Sodium 136 (136-145) mmol/L Potassium 3.8 D (3.5-5.1) mmol/L Chloride 100 (98-107) mmol/L Carbon Dioxide 27 (21-32) mmol/L BUN 37 H (6-23) mg/dl Creatinine 1.31 (0.6-1.4) mg/dl Glucose 104 H (70-99(Fasting)) mg/dl Calcium 8.8 (8.6-10.3) mg/dl Intake and Output 07/24/22 07/25/22 07/25/22 22:59 06:59 14:59 Intake Total 759.103 / 1659.103 150 / 1659.103 522.195 / 522.195 Output Total 1024 375 / 2049 Balance -265.897 / -390.897 -225 / -390.897 522.195 / 522.195 Intake: IV 759.103 / 1259.103 522.195 / 522.195 Amiodarone / D5w 150 mg In 100 100 / 100 ml @ 600 mls/hr IV NOW [facility] Rx#: [id number] Amiodarone / D5w 360 mg In 200 185.37 / 185.37 170.062 / 170.062 ml @ 0.5 MG/MIN 16.667 mls/hr IV .Q12H [facility] Rx#:[id number] Heparin Sodium/Dextrose 25,000 473.733 / 973.733 352.133 / 352.133 units In 500 ml @ 1,900 UNITS/ HR 38 mls/hr IV .[id number] [facility] Rx #:[id number] Oral 150 / 400 Output: Urine 1020 375 / 2049 Other: Weight 113.3 kg Weight Measurement Method Built in [facility]
[2022-07-25 08:44] LABS: Partial Thromboplastin Time 41.1 Seconds (21.0-31.0)
[2022-07-25] MEDS ORDERED: FUROSEMIDE 40 MG TAB PO SCH (09:00)
[2022-07-25] MEDS: ROSUVASTATIN CALCIUM 20 MG TAB PO SCH (09:28)
[2022-07-25] MEDS: FENOFIBRATE NANOCRYSTALLIZED 48 MG TABLET PO SCH (09:28)
[2022-07-25] MEDS: CITALOPRAM 20 MG TAB PO SCH ×2 (09:28→20:10)
[2022-07-25] MEDS: METOPROLOL SUCC 50MG EXT REL TAB PO SCH ×2 (09:28→20:10)
[2022-07-25] MEDS: LANTUS PER UNIT CHARGE SQ SCH ×2 (09:29→20:16)
[2022-07-25] MEDS: INSULIN ASPART PER UNIT CHARGE SC SCH ×4 (09:29→20:15)
[2022-07-25] MEDS: HEPARIN SODIUM/DEXTROSE 25,000 UNITS/500 ML BAG IV SCH (09:36)
[2022-07-25] MEDS: AMIODARONE / D5W 360 MG/200 ML BAG IV SCH (09:36)
--- NOTE | 2022-07-25 10:38 | Electrocardiogram Report ---
Test Reason : Blood Pressure : / mmHG Vent. Rate : 087 BPM Atrial Rate : 087 BPM P-R Int : 230 ms QRS Dur : 172 ms QT Int : 462 ms P-R-T Axes : 093 001 059 degrees QTc Int : 555 ms Sinus rhythm with 1st degree A-V block with Premature atrial complexes Left bundle branch block Abnormal ECG When compared with ECG of 24-JUL-2022 06:04, Sinus rhythm has replaced Atrial fibrillation Confirmed by Gustavo Shannon ([id number]) on 07/25/2022 10:37:58 AM Referred By: Sammy Morales Confirmed By:Ming Shannon
[2022-07-25] MEDS ORDERED: FUROSEMIDE 40 MG/4 ML VIAL IV SCH (11:15)
[2022-07-25] MEDS: AMIODARONE 200 MG TAB PO SCH ×3 (11:48→20:11)
[2022-07-25] MEDS: FUROSEMIDE 40 MG/4 ML VIAL IV SCH (14:01)
[2022-07-25 14:03] LABS: Creatinine Clr Calc Pharmacy 77.4 ml/min; Est GFR (African American) 69.2 ml/min; Est GFR (Non-African American) 59.7 ml/min
--- NOTE | 2022-07-25 17:06 | Hospitalist Progress Note ---
Date of Service July 25, 2022 Assessment & Plan (1) New onset atrial fibrillation: Plan: per Dr. Terry's notes with addendum: 61 y/o male with a PMH of insulin-requiring DM, GER on CPAP, HTN, chronic systolic HF, hx pSVT, LBBB, dyslipidemia, and nonischemic cardiomyopathy who presented to his PCP for routine follow-up today and was noted to be tachycardic (rate in the 120s) and SOB and borderline BP (systolic in the 90s) so referred to the ED for evaluation. In the ED, pt was given adenosine 6 mg IV x 1 dose which slowed the rate into the 70s revealing new-onset atrial fibrillation so pt was referred for admission. Discussed with cardiology; increased metoprolol to 100 mg twice daily. Patient was on Coreg prior to admission. - Heparin gtt started in the ED; cardiology to discuss regarding DOACs versus Coumadin as clinical course progresses. - ECHO reviewed; EF of 35 to 40% with mild concentric left ventricular hypertrophy. 07/24 Status post cardioversion but unsuccessful IV amiodarone started Still metoprolol Continue IV heparin 07/25 Remains in A-fib, heart rate controlled Amiodarone, metoprolol Transition to Eliquis Acute on chronic systolic CHF Continue Lasix 40 mg IV (2) Acute kidney injury superimposed on CKD: Plan: Baseline creatinine appears to be around 1.2-1.3. creatinine 1.78 on admission. Labs reviewed; creatinine down trended. Hold losartan for now. 07/25 Creatinine back to normal, 1.3 (3) Diabetes mellitus, type 2: Plan: A1c of 11.4 On Lantus and NovoLog. (4) Obstructive sleep apnea: Plan: Continue CPAP - pt brought machine from home (5) Nonischemic congestive cardiomyopathy: (6) Left bundle branch block: Plan: Echocardiogram done; EF of 35 to 40%; mild global hypokinesis of left ventricle. (7) Hypertension: Plan: On metoprolol; changed from Coreg. Plan DVT prophylaxis on Eliquis Full code Dispositionanticipate return to home when medically stable Admission and Anticipated Discharge Date Admission Date: July 22, 2022 Subjective ff up for a fib, etc. Seen resting in bed, sitting up, not in distress States he feels okay overall except for mild dyspnea No chest pain, palpitations, dizziness No other symptoms Review of Systems Review of Systems: all noted and negative except for above Physical Exam Physical Exam: General- oriented x 3, not in distress, speaks in sentences with no effort or accessory muscle use Eyes- anicteric Neck- no JVD Lungs- clear breath sounds bilaterally, no rales/wheezes Heart- normal rate, regular rhythm; no murmurs Abdomen- normal bowel sounds, nondistended, soft, nontender Extremities- no pretibial edema, no calf tenderness Neuro- alert, oriented x 3; no gross focal neurologic deficits Skin- warm & dry Results & Data Results & Data Vital Signs (Past 12 Hours) Vital Signs Temp Pulse Pulse Resp BP Pulse Ox O2 Del Method 07/25/22 15:52 36.9 C 101 H 18 124/58 L CPAP 07/25/22 15:26 96 H 07/25/22 11:48 36.6 C 83 18 134/66 97 Room Air 07/25/22 10:34 Room Air, CPAP 07/25/22 08:48 36.8 C 97 H 18 126/78 96 Room Air 07/25/22 07:50 85 all noted and reviewed including below
[2022-07-25] MEDS ORDERED: HEPARIN ~ STOP ORDER ONE (17:30)
[2022-07-25] MEDS: APIXABAN 5 MG TABLET PO SCH (21:12)
[2022-07-25 23:30] LABS: Magnesium 1.5 mg/dl (1.7-2.4); Potassium 3.7 mmol/L (3.5-5.1)
[2022-07-25] MEDS ORDERED: POTASSIUM CHLORIDE CRTAB 20 MEQ TABCR PO STA (23:38)
[2022-07-25] MEDS: MAGNESIUM SULFATE / D5W 1 GM/100 ML BAG IV SCH (23:55)
[2022-07-26] MEDS: MAGNESIUM SULFATE / D5W 1 GM/100 ML BAG IV SCH (01:55)
[2022-07-26 06:40] LABS: BUN Creatinine Ratio 27.7 (10-20); Calcium 8.8 mg/dl (8.6-10.3); Creatinine Clr Calc Pharmacy 70.1 ml/min; Est GFR (Non-African American) 52.6 ml/min
[2022-07-26 06:51] LABS: Partial Thromboplastin Ratio 1.2; Partial Thromboplastin Time 34.7 Seconds (21.0-31.0)
--- NOTE | 2022-07-26 07:58 | Cardiology Progress Note ---
Date of Service July 26, 2022 Assessment & Plan (1) New onset atrial fibrillation: (2) Nonischemic congestive cardiomyopathy: (3) Left bundle branch block: (4) Hypertension: Plan IMPRESSION: 61-year-old male with history of nonischemic cardiomyopathy, LVEF reduced at 45 to 49% on recent echo 06/[address] [facility] emergency department due to new onset atrial fibrillation. LVEF further declined at 30-34% with mild global hypokinesis of the LV. Hypervolemic on exam- NYHA class 2-3. [id number] score of 3 (HTN, CHF, DM) making stroke risk about 3.2 % per year. Maintaining normal sinus rhythm with the use of amiodarone PLAN: 1. Reduce amiodarone to 200 mg BID with meals- EKG tomorrow AM. 2. Remain on goal-directed medical therapy with losartan 25 mg daily and metoprolol succinate 50 mg twice daily 3. Continue Eliquis 5 mg twice daily for stroke prevention. 4. Renal function stable, 1.4 this am. Baseline scr around 1.2-1.3. STOP IV Lasix and resume oral Lasix 40 mg daily (home dose) tomorrow. Future considerations of addition of Aldactone. Case discussed with Dr. Baez. Will follow. Admission and Anticipated Discharge Date Admission Date: July 22, 2022 Supervising Physician Co-Signing Physician Notes Patient was seen and personally examined. Now maintaining sinus rhythm on amiodarone therapy. 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 Subjective 61-year-old male with known history nonischemic cardiomyopathy (LVEF moderately reduced at 45 to 49%) presented to [facility] emergency department from his PCP office due to new onset atrial fibrillation flutter (presumed start last Wednesday 07/19 ) with rapid ventricular rates in the 120s to 130s. Symptomatic with shortness of breath and fatigue. Rhythm confirmed by IV adenosine administration. Was started on IV heparin and given x1 dose of Lopressor 5 mg. Carvedilol stopped in favor of metoprolol succinate. Echocardiogram 07/22: showed a worsening LV systolic function of 35 to 40% with mild global hypokinesis. Mild to moderate MR. Left atrium moderately dilated. Chest x-ray: Cardiomegaly with mild pulmonary edema 07/23: EKG: Atrial fibrillation, left bundle branch block, 123 bpm Telemetry: AFIB 120-130s -Metoprolol succinate increased to 100 mg twice daily. -40 mg of IV Lasix given. 07/24: EKG: A-fib with RVR, left bundle branch block, 115 bpm Telemetry: A-fib 110s Cardioversion: No evidence of left atrial appendage thrombus via KIMANI, LVF 30- 35%. Synchronized electrical cardioversion performed serially with 150 J, 200 J, 300 J and 360 J with transient return to sinus rhythm briefly after each shock then relapsed into atrial fibrillation flutter. IV amiodarone started. Metoprolol continued 40 mg of IV Lasix given 07/25: Maintaining sinus rhythm on telemetry. IV amiodarone stopped in favor of oral amiodarone 200 mg 4 times daily. Metoprolol reduced to 50 mg twice daily Heparin transitioned to Eliquis Losartan resumed. Fenofibrate held due to use of amiodarone Additional 40 mg of IV Lasix given and patient was started on 40 mg of IV Lasix daily. Weight: 121>>113 kg 07/26: EKG: Sinus rhythm with sinus arrhythmia and first-degree AV block, left bundle branch block, 86 bpm. Telemetry: SR 1st degree AVB with PVCs 80-90s I&O: -289 mL Weight: 121>>114.6 kg Slight increase in serum creatinine, 1.41 (baseline 1.2-1.3) Upon entrance into the room patient resting in bed. Shortness of breath has resolved. No orthopnea or PND. Does not some overall fatigue with exertion- but states he is feeling much better. No chest pain or palpitations. No lightheadedness. Review of Systems Review of Systems: All systems reviewed & are unremarkable except as noted in HPI & below Physical Exam Constitutional: WD/WN, vitals as above no acute distress Eyes: PERRL, conjunctivae normal, anicteric sclerae Neck: normal visual inspection and trachea midline Respiratory: normal respiratory effort, lungs clear to auscultation normal respiratory effort; no respiratory distress and no cough Auscultation: no rales, no rhonchi and no wheezes Cardiovascular: Rate/Rhythm: regular rate and regular rhythm Heart Sounds: normal S1 and normal S2; no murmur Extremities: no edema Gastrointestinal (Abdomen): Inspection/Auscultation: abdomen normal to inspection Percussion/Palpation: + abdomen firm; abdomen nontender Skin: no rashes, warm and dry Psychiatric: A+Ox3, euthymic affect Results & Data Vital Signs (Past 12 Hours) Vital Signs Temp Pulse Pulse Resp BP BP Pulse Ox 07/26/22 02:51 36.3 C L 83 18 104/67 94 07/26/22 00:22 95 H 07/25/22 22:50 37.1 C 92 H 18 118/70 94 O2 Del Method 07/26/22 02:51 CPAP 07/26/22 00:22 07/25/22 22:50 CPAP Laboratory Results Coagulation 07/26/22 Range/Units 05:34 APTT 34.7 H (21.0-31.0) Seconds Comprehensive Metabolic Panel 07/25/22 07/25/22 07/26/22 Range/Units 12:00 22:30 05:34 Sodium 136 (136-145) mmol/L Potassium 3.7 4.0 (3.5-5.1) mmol/L Chloride 98 (98-107) mmol/L Carbon Dioxide 30 (21-32) mmol/L BUN 39 H (6-23) mg/dl Creatinine 1.27 1.41 H (0.6-1.4) mg/dl Glucose 155 H 110 H (70-99(Fasting)) mg/dl Calcium 8.8 (8.6-10.3) mg/dl Intake and Output 07/25/22 07/26/22 07/26/22 22:59 06:59 14:59 Intake Total 619.633 / 1496.817 200 / 1496.817 Output Total 825 / 1775 550 / 1775 Balance -205.367 / -278.183 -350 / -278.183 Intake: IV 399.633 / 1276.817 200 / 1276.817 Heparin Sodium/Dextrose 25,000 399.633 / 839.799 units In 500 ml @ 1,900 UNITS/ HR 38 mls/hr IV .[id number] [facility] Rx #:[id number] Magnesium Sulfate / D5w 1 gm In 200 / 200 100 ml @ 50 mls/hr IV Q2H [facility] Rx#:[id number] Oral 220 / 220 Output: Urine 825 / 1775 550 / 1775 Other: Weight 114.6 kg Weight Measurement Method Built in [facility]
[2022-07-26] MEDS: INSULIN ASPART PER UNIT CHARGE SC SCH ×4 (08:04→20:35)
[2022-07-26] MEDS: LANTUS PER UNIT CHARGE SQ SCH ×2 (08:05→20:43)
[2022-07-26] MEDS: CITALOPRAM 20 MG TAB PO SCH ×2 (08:09→20:29)
[2022-07-26] MEDS: METOPROLOL SUCC 50MG EXT REL TAB PO SCH ×2 (08:09→20:31)
[2022-07-26] MEDS: LOSARTAN POTASSIUM 25 MG TAB PO SCH (08:09)
[2022-07-26] MEDS: APIXABAN 5 MG TABLET PO SCH ×2 (08:09→20:30)
[2022-07-26] MEDS: ROSUVASTATIN CALCIUM 20 MG TAB PO SCH (08:09)
[2022-07-26] MEDS: AMIODARONE 200 MG TAB PO SCH ×2 (08:09→17:06)
[2022-07-26] MEDS: FUROSEMIDE 40 MG/4 ML VIAL IV SCH (08:10)
--- NOTE | 2022-07-26 11:58 | XRay Report ---
XR chest 1V portable CLINICAL HISTORY: ff up chf COMPARISON STUDY: Chest radiograph July 22, 2022. FINDINGS: There is no pneumothorax or pleural effusion. Moderate cardiomegaly is again noted. Interst itial thickening persists. Minimal hazy bibasilar opacities are present. IMPRESSION: 1. Cardiomegaly. Persistent mild pulmonary edema. 2. Mild hazy bibasilar opacities. ACT 112: Negative or not required by law. Electronically signed by: Miguel Angel Nicole M.D. 07/26/2022 11:56 AM
--- NOTE | 2022-07-26 15:27 | Electrocardiogram Report ---
Test Reason : Blood Pressure : / mmHG Vent. Rate : 086 BPM Atrial Rate : 086 BPM P-R Int : 232 ms QRS Dur : 170 ms QT Int : 478 ms P-R-T Axes : 097 -04 116 degrees QTc Int : 572 ms Sinus rhythm with marked sinus arrhythmia with 1st degree A-V block Non-specific intra-ventricular conduction block Possible Lateral infarct , age undetermined Abnormal ECG When compared with ECG of 25-JUL-2022 05:37, Premature atrial complexes are no longer Present Confirmed by Gustavo Shannon ([id number]) on 07/26/2022 3:27:30 PM Referred By: Sammy Morales Confirmed By:Ming Shannon
--- NOTE | 2022-07-26 17:12 | Hospitalist Progress Note ---
Date of Service July 26, 2022 Assessment & Plan (1) Atrial fibrillation with RVR: Plan: (1) New onset atrial fibrillation: Plan: per Dr. Terry's notes with addendum: 61 y/o male with a PMH of insulin-requiring DM, GER on CPAP, HTN, chronic systolic HF, hx pSVT, LBBB, dyslipidemia, and nonischemic cardiomyopathy who presented to his PCP for routine follow-up today and was noted to be tachycardic (rate in the 120s) and SOB and borderline BP (systolic in the 90s) so referred to the ED for evaluation. In the ED, pt was given adenosine 6 mg IV x 1 dose which slowed the rate into the 70s revealing new-onset atrial fibrillation so pt was referred for admission. Discussed with cardiology; increased metoprolol to 100 mg twice daily. Patient was on Coreg prior to admission. - Heparin gtt started in the ED; cardiology to discuss regarding DOACs versus Coumadin as clinical course progresses. - ECHO reviewed; EF of 35 to 40% with mild concentric left ventricular hypertrophy. 07/24 Status post cardioversion but unsuccessful IV amiodarone started Still metoprolol Continue IV heparin 07/25 Remains in A-fib, heart rate controlled Amiodarone, metoprolol Transition to Eliquis 07/26 rate controlled continue Amiodarone, Metoprolol on Eliquis Acute on chronic systolic CHF improving Continue Lasix 40 mg IV--> PO tomorrow (2) Acute kidney injury superimposed on CKD: Plan: Baseline creatinine appears to be around 1.2-1.3. creatinine 1.78 on admission. Labs reviewed; creatinine down trended. Hold losartan for now. 07/26 Creatinine back to normal, 1.3 (3) Diabetes mellitus, type 2: Plan: A1c of 11.4 On Lantus and NovoLog. (4) Obstructive sleep apnea: Plan: Continue CPAP - pt brought machine from home (5) Nonischemic congestive cardiomyopathy: (6) Left bundle branch block: Plan: Echocardiogram done; EF of 35 to 40%; mild global hypokinesis of left ventricle. (7) Hypertension: Plan: On metoprolol; changed from Coreg. Plan DVT prophylaxis on Eliquis Full code Dispositionanticipate return to home when medically stable Admission and Anticipated Discharge Date Admission Date: July 22, 2022 Subjective ff up for a fib, chf, etc seen resting in bed, comfortable in good spirits states he feels fine overall no chest pain, dyspnea, palpitations, dizziness no bleeding breathing is improving no other symptoms Review of Systems Review of Systems: all noted and negative except for above Physical Exam Physical Exam: General- oriented x 3, not in distress, speaks in sentences with no effort or accessory muscle use Eyes- anicteric Neck- no JVD Lungs- clear breath sounds bilaterally, no rales/wheezes Heart- normal rate, irregularly irregular rhythm; no murmurs Abdomen- normal bowel sounds, nondistended, soft, nontender Extremities- no pretibial edema, no calf tenderness Neuro- alert, oriented x 3; no gross focal neurologic deficits Skin- warm & dry Results & Data Results & Data Vital Signs (Past 12 Hours) Vital Signs Temp Pulse Pulse Resp BP Pulse Ox O2 Del Method 07/26/22 16:50 88 07/26/22 15:21 36.7 C 85 20 105/67 90 Room Air 07/26/22 11:31 36.7 C 76 16 111/71 92 Room Air 07/26/22 07:45 87 07/26/22 07:45 Nasal Cannula 07/26/22 08:00 36.6 C 87 18 124/81 91 CPAP all noted and reviewed including below
--- NOTE | 2022-07-27 07:10 | Electrocardiogram Report ---
Test Reason : Blood Pressure : / mmHG Vent. Rate : 085 BPM Atrial Rate : 085 BPM P-R Int : 224 ms QRS Dur : 182 ms QT Int : 488 ms P-R-T Axes : 065 -13 091 degrees QTc Int : 580 ms Sinus rhythm with 1st degree A-V block with Premature atrial complexes Left bundle branch block Abnormal ECG When compared with ECG of 26-JUL-2022 05:30, Premature atrial complexes are now Present Left bundle branch block has replaced Non-specific intra-ventricular conduction block Borderline criteria for Lateral infarct are no longer Present Confirmed by Gustavo Shannon ([id number]) on 07/27/2022 7:10:11 AM Referred By: Sammy Morales Confirmed By:Ming Shannon
[2022-07-27] MEDS: FUROSEMIDE 40 MG TAB PO SCH (08:00)
[2022-07-27] MEDS: CITALOPRAM 20 MG TAB PO SCH ×2 (08:00→20:45)
[2022-07-27] MEDS: APIXABAN 5 MG TABLET PO SCH ×2 (08:00→20:45)
[2022-07-27] MEDS: ROSUVASTATIN CALCIUM 20 MG TAB PO SCH (08:00)
[2022-07-27] MEDS: AMIODARONE 200 MG TAB PO SCH ×2 (08:00→17:09)
[2022-07-27] MEDS: METOPROLOL SUCC 50MG EXT REL TAB PO SCH ×2 (08:01→20:45)
[2022-07-27] MEDS: LOSARTAN POTASSIUM 25 MG TAB PO SCH (08:01)
[2022-07-27] MEDS: LANTUS PER UNIT CHARGE SQ SCH ×2 (08:13→20:48)
[2022-07-27] MEDS: INSULIN ASPART PER UNIT CHARGE SC SCH ×4 (08:13→20:36)
[2022-07-27 10:49] LABS: Basophils # (auto) 0.03 K/uL (0-0.2); Basophils % (auto) 0.4 %; Eosinophils # (auto) 0.13 K/uL (0-0.50); Eosinophils % (auto) 1.5 %; Hematocrit (blood only) 39.3 % (42.0-52.0); Hemoglobin 12.8 g/dl (14.0-18.0); Immature Granulocytes # (auto) 0.04 K/uL (0.01-0.20); Immature Granulocytes % (auto) 0.5 %; Lymphocytes # (auto) 1.21 K/uL (1.2-3.4); Lymphocytes % (auto) 14.4 %; Mean Corpuscular Hemoglobin 31.2 pg (25.0-34.0); Mean Corpuscular Hgb Conc 32.6 g/dL (32.0-36.0); Mean Corpuscular Volume 95.9 fL (80.0-100.0); Mean Platelet Volume 11.7 fL (9.4-12.4); Monocytes # (auto) 0.81 K/uL (0.11-0.59); Monocytes % (auto) 9.6 %; Neutrophils # (auto) 6.18 K/uL (1.40-6.50); Neutrophils % (auto) 73.6 %; Platelet Count 317 K/uL (130-400); RDW Coefficient of Variation 14.3 % (11.5-14.5); RDW Standard Deviation 49.9 fL (36.4-46.3)
[2022-07-27 11:09] LABS: BUN Creatinine Ratio 27.3 (10-20); Calcium 8.9 mg/dl (8.6-10.3); Creatinine Clr Calc Pharmacy 76.9 ml/min; Est GFR (African American) 68.6 ml/min; Est GFR (Non-African American) 59.2 ml/min; Magnesium 1.8 mg/dl (1.7-2.4); Potassium 3.7 mmol/L (3.5-5.1)
--- NOTE | 2022-07-27 15:32 | Cardiology Progress Note ---
Date of Service July 27, 2022 Assessment & Plan (1) New onset atrial fibrillation: (2) Nonischemic congestive cardiomyopathy: (3) Left bundle branch block: (4) Hypertension: Plan 61-year-old male with history of nonischemic cardiomyopathy, LVEF reduced at 45 to 49% on recent echo 06/2022 referred to the [facility] emergency department due to new onset atrial fibrillation. LVEF further declined at 30-34% with mild global hypokinesis of the LV. Hypervolemic on exam- NYHA class 2-3. [id number] score of 3 (HTN, CHF, DM) making stroke risk about 3.2 % per year. Maintaining normal sinus rhythm with the use of amiodarone PLAN: 1. Continue cautious use of amiodarone 200 mg BID and metoprolol succinate 100 mg BID. 2. Remain on goal-directed medical therapy with losartan 25 mg daily 3. Continue Eliquis 5 mg twice daily for stroke prevention. 4. transitioned to oral furosemide 40 mg daily as of 07/27/22. 5. 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 Admission and Anticipated Discharge Date Admission Date: July 22, 2022 Subjective Patient seen in cardiology follow up. Feels well. SOB much improved compared to beginning of hospital stay. Physical Exam Constitutional: WD/WN, vitals as above no acute distress Eyes: PERRL, conjunctivae normal, anicteric sclerae Neck: normal visual inspection and trachea midline Respiratory: normal respiratory effort, lungs clear to auscultation normal respiratory effort; no respiratory distress and no cough Auscultation: no rales, no rhonchi and no wheezes Cardiovascular: Rate/Rhythm: regular rate and regular rhythm Heart Sounds: normal S1 and normal S2; no murmur Extremities: no edema Gastrointestinal (Abdomen): Inspection/Auscultation: abdomen normal to inspection; abdomen not distended Percussion/Palpation: abdomen soft and + abdomen firm; abdomen nontender Skin: no rashes, warm and dry Psychiatric: A+Ox3, euthymic affect Results & Data Vital Signs (Past 12 Hours) Vital Signs Temp Pulse Pulse Resp BP BP Pulse Ox 07/27/22 11:28 36.7 C 80 18 114/75 91 07/27/22 07:40 84 07/27/22 07:40 07/27/22 07:34 36.8 C 75 18 126/73 92 07/27/22 03:34 36.6 C 76 22 95/61 L 90 O2 Del Method 07/27/22 11:28 Room Air 07/27/22 07:40 07/27/22 07:40 Room Air 07/27/22 07:34 Room Air 07/27/22 03:34 CPAP Laboratory Results CBC 07/27/22 Range/Units 10:20 WBC 8.40 (4.8-10.8) K/ul RBC 4.10 L (4.70-6.10) M/uL Hgb 12.8 L (14.0-18.0) g/dl Hct 39.3 L (42.0-52.0) % Plt Count 317 (130-400) K/uL Neut # (Auto) 6.18 (1.40-6.50) K/uL Lymph # (Auto) 1.21 (1.2-3.4) K/uL [place] # (Auto) 0.81 H (0.11-0.59) K/uL Eos # (Auto) 0.13 (0-0.50) K/uL Baso # (Auto) 0.03 (0-0.2) K/uL Comprehensive Metabolic Panel 07/27/22 Range/Units 10:20 Sodium 138 (136-145) mmol/L Potassium 3.7 (3.5-5.1) mmol/L Chloride 98 (98-107) mmol/L Carbon Dioxide 31 (21-32) mmol/L BUN 35 H (6-23) mg/dl Creatinine 1.28 (0.6-1.4) mg/dl Glucose 215 H (70-99(Fasting)) mg/dl Calcium 8.9 (8.6-10.3) mg/dl Intake and Output 07/27/22 07/27/22 07/27/22 06:59 14:59 22:59 Output Total 825 / 1275 Balance -825 / -735 Output: Urine 825 / 1275 Other: Weight 113.6 kg Weight Measurement Method Built in [facility] Diagnostic Findings EKG performed 07/27/22 an interpreted independently: SR at 85 bpm, with LBBB, first degree AVB IN interval 224 ms.
--- NOTE | 2022-07-27 16:42 | Discharge Summary ---
Discharge Summary Date of Service July 27, 2022 Admission HPI Per Admitting Provider This is a 61 y/o male with a PMH of insulin-requiring DM, GER on CPAP, HTN, chronic systolic HF, hx pSVT, LBBB, dyslipidemia, and nonischemic cardiomyopathy who presented to his PCP for routine follow-up today and was noted to be tachycardic and SOB so referred to the ED for evaluation. BP in the office was borderline with a systolic in the 90s. In the ED, pt was given adenosine 6 mg IV x 1 dose which slowed the rate into the 70s revealing new-onset atrial fibrillation so pt was referred for admission. Pt reports he developed SOB, mostly with any exertion, on Friday (3 days ago). This continued throughout the weekend - worse w/ exertion, better with rest. He reports chest tightness but denies chest pain, palpitations, syncope. He noted lightheadedness at times. No peripheral edema. He did try taking extra diuretic over the weekend to see if that would help with his breathing but no change. He tried his albuterol inhaler without relief. He reports a similar episode of symptoms 15-20 years ago for which no specific cause was identified on work-up. Dyspnea last a few days before resolving - no recurrence since then. He does use CPAP for GER. 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 His last ECHO 07/01/22 - LVEF 45-49%; moderate sized septal, anteroseptal, and anterior wall motion abnormality w/ hypokinesis of the segments; septal motion abnormal c/w IVCD. Borderline concentric LVH. Stable from prior study. His only recent med change was an increase in daily insulin to 20 units. Blood sugar this AM was 270. No recent vomiting, diarrhea, or other illness. Principal Dx & Hospital Course #1 = Principal Diagnosis (1) Atrial fibrillation with RVR: (1) New onset atrial fibrillation: Plan: per Dr. Terry's notes with addendum: 61 y/o male with a PMH of insulin-requiring DM, GER on CPAP, HTN, chronic systolic HF, hx pSVT, LBBB, dyslipidemia, and nonischemic cardiomyopathy who presented to his PCP for routine follow-up today and was noted to be tachycardic (rate in the 120s) and SOB and borderline BP (systolic in the 90s) so referred to the ED for evaluation. In the ED, pt was given adenosine 6 mg IV x 1 dose which slowed the rate into the 70s revealing new-onset atrial fibrillation so pt was referred for admission. Discussed with cardiology; increased metoprolol to 100 mg twice daily. Patient was on Coreg prior to admission. - Heparin gtt started in the ED; cardiology to discuss regarding DOACs versus Coumadin as clinical course progresses. - ECHO reviewed; EF of 35 to 40% with mild concentric left ventricular hypertrophy. 07/24 Status post cardioversion but unsuccessful IV amiodarone started Still metoprolol Continue IV heparin 07/25 Remains in A-fib, heart rate controlled Amiodarone, metoprolol Transition to Eliquis 07/26 rate controlled continue Amiodarone, Metoprolol on Eliquis Acute on chronic systolic CHF improving Continue Lasix 40 mg IV--> PO tomorrow (2) Acute kidney injury superimposed on CKD: Plan: Baseline creatinine appears to be around 1.2-1.3. creatinine 1.78 on admission. Labs reviewed; creatinine down trended. Hold losartan for now. 07/26 Creatinine back to normal, 1.3 (3) Diabetes mellitus, type 2: Plan: A1c of 11.4 On Lantus and NovoLog. (4) Obstructive sleep apnea: Plan: Continue CPAP - pt brought machine from home (5) Nonischemic congestive cardiomyopathy: (6) Left bundle branch block: Plan: Echocardiogram done; EF of 35 to 40%; mild global hypokinesis of left ventricle. (7) Hypertension: Plan: On metoprolol; changed from Coreg. Plan DVT prophylaxis on Eliquis Full code Dispositionanticipate return to home when medically stable Updated Medication List Medication Instructions Recorded Confirmed Type fenofibrate nanocrystallized 48 mg 48 mg PO DAILY #90 tabs 06/13/20 07/22/22 Rx tablet albuterol sulfate 90 mcg/actuation 2 puff inhalation QID PRN 06/29/20 07/22/22 Rx aerosol inhaler shortness of breath or wheezing #54 grams citalopram 20 mg tablet (Celexa) 20 mg PO BID #180 tabs 07/04/20 07/22/22 Rx losartan 25 mg tablet 25 mg PO DAILY #90 tabs 07/12/20 07/22/22 Rx carvedilol 25 mg tablet 25 mg PO BID #180 tabs 07/25/20 07/22/22 Rx metformin 1,000 mg tablet 1,000 mg PO BID #180 tabs 07/25/20 07/22/22 Rx diclofenac sodium 75 mg 75 mg PO BID #180 tabs 06/11/21 07/22/22 Rx tablet,delayed release dulaglutide 4.5 mg/0.5 mL 4.5 mg subcut WK 07/22/22 07/22/22 History subcutaneous pen injector (Trulicity) empagliflozin 25 mg tablet 25 mg PO DAILY 07/22/22 07/22/22 History (Jardiance) furosemide 40 mg tablet (Lasix) 40 mg PO 3XWK 07/22/22 07/22/22 History insulin degludec 100 unit/mL (3 20 unit subcut HS 07/22/22 07/22/22 History mL) subcutaneous pen (Tresiba FlexTouch U-100 insulin) rosuvastatin 40 mg tablet 40 mg PO DAILY 07/22/22 07/22/22 History spironolactone 25 mg tablet 12.5 mg PO 3XWK 07/22/22 07/22/22 History amiodarone 200 mg tablet 200 mg PO BIDM 30 days #60 tabs 07/27/22 Rx apixaban 5 mg tablet (Eliquis) 5 mg PO BID 30 days #60 tabs 07/27/22 Rx furosemide 40 mg tablet 40 mg PO QAM 30 days #30 tabs 07/27/22 Rx metoprolol succinate 50 mg 100 mg PO BID 30 days #120 tabs 07/27/22 Rx tablet,extended release 24 hr Hospital Stay Data Consultations 07/22/22 14:02 ED Decision to Admit Stat 07/22/22 14:58 Consult Cardiology Routine Procedures Performed Operation Date: 07/24/22 12:00 Actual Procedures p Echo Transesophageal - Papo Baez MD s Echo Doppler Complete - Papo Baez MD s Cardioversion - Papo Baez MD Pending Results Patient Have Any Pending Studies at Discharge: No Discharge Instructions Given to Patient (Per Discharging Provider) PLEASE REFER TO YOUR NEW MEDICATION LIST AND FOLLOW INSTRUCTIONS CAREFULLY. YOUR NEW MEDICATIONS INCLUDE: Amiodarone, metoprolol XL-for atrial fibrillation Losartan- for high blood pressure Eliquis- blood thinner to prevent stroke Lasix- diuretic for congestive heart failure PLEASE CALL YOUR PRIMARY CARE PHYSICIAN OR RETURN TO THE ER IF WITH WORSENING OF SYMPTOMS, INCLUDING Shortness of breath, chest pain, palpitations, dizziness, leg swelling, etc. FOLLOW UP WITH PRIMARY CARE PHYSICIAN OUTLINED ABOVE. FOLLOW-UP WITH COMBER TENDER DR. PAPO BAEZ IN 2 WEEKS. Call your Primary Care doctor if any of the following symptoms or problems start or get worse: Shortness of breath or difficulty breathing Wake up at night short of breath Chest pain Cough Swelling of your hands, feet, or legs More fatigued or tired with your normal activity Palpitations - sudden fast heart beats WEIGHT Weigh yourself every morning after using the bathroom. Use the same scale. Wear the same amount of clothing. Write your weight down on a chart. Call your Primary Care doctor if you gain more than 2-3 pounds in 1-2 days. MEDICATIONS Use this discharge instruction sheet for medication instructions. Take your medications at the time your doctor ordered. Do not skip a dose of your medicines. If you miss a dose of medicine, take it as soon as possible, but DO NOT DOUBLE A DOSE. Read your medicine information when you get home. Know all of the side effects of your medicine. If in doubt, ask your pharmacist Call your Primary Care doctor's office if you have any side effects. Be sure all of your doctors know what medicine and herbs you take (including cold, flu, and herbal medicine). Take the following with you to your follow-up doctor appointments: Weight Chart Medication List List of questions Do not drink excessive alcohol, beer or wine. . Who to Call and When: Call 911 or go to the Emergency Room if: If at any time you feel your situation is an emergency You have tightness or pain in your chest that does not go away with rest or Nitroglycerin You are very short of breath even with rest .
--- NOTE | 2022-07-27 17:10 | Hospitalist Progress Note ---
Date of Service July 27, 2022 Assessment & Plan (1) Atrial fibrillation with RVR: Plan: (1) Atrial fibrillation with RVR: Plan: (1) New onset atrial fibrillation: Plan: per Dr. Terry's notes with addendum: 61 y/o male with a PMH of insulin-requiring DM, GER on CPAP, HTN, chronic systolic HF, hx pSVT, LBBB, dyslipidemia, and nonischemic cardiomyopathy who presented to his PCP for routine follow-up today and was noted to be tachycardic (rate in the 120s) and SOB and borderline BP (systolic in the 90s) so referred to the ED for evaluation. In the ED, pt was given adenosine 6 mg IV x 1 dose which slowed the rate into the 70s revealing new-onset atrial fibrillation so pt was referred for admission. Discussed with cardiology; increased metoprolol to 100 mg twice daily. Patient was on Coreg prior to admission. - Heparin gtt started in the ED; cardiology to discuss regarding DOACs versus Coumadin as clinical course progresses. - ECHO reviewed; EF of 35 to 40% with mild concentric left ventricular hypertrophy. 07/24 Status post cardioversion but unsuccessful IV amiodarone started Still metoprolol Continue IV heparin 07/25 Remains in A-fib, heart rate controlled Amiodarone, metoprolol Transition to Eliquis 07/26 rate controlled continue Amiodarone, Metoprolol on Eliquis 07/27 rate controlled continue Amiodarone, Metoprolol on Eliquis Acute on chronic systolic CHF improving Continue Lasix 40 mg IV--> 40mg po today (2) Acute kidney injury superimposed on CKD: Plan: Baseline creatinine appears to be around 1.2-1.3. creatinine 1.78 on admission. Labs reviewed; creatinine down trended. Hold losartan for now. 07/27 Creatinine back to normal, 1.3 (3) Diabetes mellitus, type 2: Plan: A1c of 11.4 On Lantus and NovoLog. (4) Obstructive sleep apnea: Plan: Continue CPAP - pt brought machine from home (5) Nonischemic congestive cardiomyopathy: (6) Left bundle branch block: Plan: Echocardiogram done; EF of 35 to 40%; mild global hypokinesis of left ventricle. (7) Hypertension: Plan: On metoprolol; changed from Coreg. Admission and Anticipated Discharge Date Admission Date: July 22, 2022 Subjective ff up for a fib, etc seen resting in bed, comfortable in good spirits states he feels much better overall no chest pain, dyspnea, palpitations, dizziness no bleeding no other symptoms Review of Systems Review of Systems: all noted and negative except for above Physical Exam Physical Exam: General- oriented x 3, not in distress, speaks in sentences with no effort or accessory muscle use Eyes- anicteric Neck- no JVD Lungs- clear breath sounds bilaterally, no rales/wheezes Heart- normal rate, regular rhythm; no murmurs Abdomen- normal bowel sounds, nondistended, soft, nontender Extremities- trace pretibial edema, no calf tenderness Neuro- alert, oriented x 3; no gross focal neurologic deficits Skin- warm & dry Results & Data Results & Data Vital Signs (Past 12 Hours) Vital Signs Temp Pulse Pulse Resp BP BP Pulse Ox 07/27/22 16:15 36.6 C 80 18 121/72 91 07/27/22 15:48 81 07/27/22 11:28 36.7 C 80 18 114/75 91 07/27/22 07:40 84 07/27/22 07:40 07/27/22 07:34 36.8 C 75 18 126/73 92 O2 Del Method 07/27/22 16:15 Room Air 07/27/22 15:48 07/27/22 11:28 Room Air 07/27/22 07:40 07/27/22 07:40 Room Air 07/27/22 07:34 Room Air all noted and reviewed including below
[2022-07-28 06:53] LABS: Hematocrit (blood only) 36.2 % (42.0-52.0); Hemoglobin 11.8 g/dl (14.0-18.0); Mean Corpuscular Hemoglobin 31.7 pg (25.0-34.0); Mean Corpuscular Hgb Conc 32.6 g/dL (32.0-36.0); Mean Corpuscular Volume 97.3 fL (80.0-100.0); Mean Platelet Volume 11.3 fL (9.4-12.4); Platelet Count 344 K/uL (130-400); RDW Coefficient of Variation 14.3 % (11.5-14.5); RDW Standard Deviation 50.4 fL (36.4-46.3); Red Blood Count 3.72 M/uL (4.70-6.10); White Blood Count 7.99 K/ul (4.8-10.8)
[2022-07-28 07:24] LABS: Albumin Globulin Ratio 1.1 (0.9-2); Albumin Level 3.4 gm/dl (3.4-5.0); Bilirubin,Total 0.5 mg/dl (0.2-1.0); Calcium 8.9 mg/dl (8.6-10.3); Creatinine Clr Calc Pharmacy 84.9 ml/min; Est GFR (African American) 77.2 ml/min; Est GFR (Non-African American) 66.7 ml/min; Globulin 3.1 gm/dl (2.5-4.0); Potassium 3.7 mmol/L (3.5-5.1); Total Protein 6.5 gm/dl (6.0-8.3)
[2022-07-28] MEDS: INSULIN ASPART PER UNIT CHARGE SC SCH ×2 (08:14→12:07)
[2022-07-28] MEDS: LANTUS PER UNIT CHARGE SQ SCH (08:14)
[2022-07-28] MEDS: APIXABAN 5 MG TABLET PO SCH (08:20)
[2022-07-28] MEDS: AMIODARONE 200 MG TAB PO SCH (08:20)
[2022-07-28] MEDS: FUROSEMIDE 40 MG TAB PO SCH (08:21)
[2022-07-28] MEDS: ROSUVASTATIN CALCIUM 20 MG TAB PO SCH (08:21)
[2022-07-28] MEDS: CITALOPRAM 20 MG TAB PO SCH (08:21)
[2022-07-28] MEDS: METOPROLOL SUCC 50MG EXT REL TAB PO SCH (08:21)
[2022-07-28] MEDS: LOSARTAN POTASSIUM 25 MG TAB PO SCH (08:21)
--- NOTE | 2022-07-28 11:27 | Cardiology Progress Note ---
Date of Service July 28, 2022 Assessment & Plan (1) New onset atrial fibrillation: (2) Nonischemic congestive cardiomyopathy: (3) Left bundle branch block: (4) Hypertension: Plan 61-year-old male with history of nonischemic cardiomyopathy, LVEF reduced at 45 to 49% on recent echo 06/2022 referred to the [facility] emergency department due to new onset atrial fibrillation. LVEF further declined at 30-34% with mild global hypokinesis of the LV. Hypervolemic on exam- NYHA class 2-3. [id number] score of 3 (HTN, CHF, DM) making stroke risk about 3.2 % per year. Maintaining normal sinus rhythm with the use of amiodarone PLAN: 1. Continue cautious use of amiodarone 200 mg BID and metoprolol succinate 100 mg BID. 2. Remain on goal-directed medical therapy with losartan 25 mg daily 3. Continue Eliquis 5 mg twice daily for stroke prevention. 4. transitioned to oral furosemide 40 mg daily as of 07/27/22. 5. Elevated potassium noted in outpatient laboratory studies precludes use of aldosterone antagonist at this time. Stable for discharge on medication plan as noted above. 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 Will need to schedule oupt cardiology follow up before or a little after his echo. I will send a message to the office. Preop considerations for the knee to be revisited as outpatient. Admission and Anticipated Discharge Date Admission Date: July 22, 2022 Subjective Patient seen in cardiology follow up. He feels well. Denies chest discomfort and shortness of breath. Telemetry reveals SR with a LBBB and ventricular rates in the 70s to 80s. Pt notes chronic right lower extremity swelling and chronic knee pain. He has seen Dr Simeon and surgical intervention is being considered for late September,. Physical Exam Constitutional: WD/WN, vitals as above no acute distress Eyes: PERRL, conjunctivae normal, anicteric sclerae Neck: normal visual inspection and trachea midline Respiratory: normal respiratory effort, lungs clear to auscultation normal respiratory effort; no respiratory distress and no cough Auscultation: no rales, no rhonchi and no wheezes Cardiovascular: Rate/Rhythm: regular rate and regular rhythm Heart Sounds: normal S1 and normal S2; no murmur Extremities: no edema Gastrointestinal (Abdomen): Inspection/Auscultation: abdomen normal to inspection; abdomen not distended Percussion/Palpation: abdomen soft and + abdomen firm; abdomen nontender Skin: no rashes, warm and dry Psychiatric: A+Ox3, euthymic affect Results & Data Vital Signs (Past 12 Hours) Vital Signs Temp Pulse Pulse Resp BP Pulse Ox O2 Del Method 07/28/22 07:45 78 07/28/22 07:45 Nasal Cannula 07/28/22 07:25 36.8 C 81 18 114/73 94 CPAP 07/28/22 03:20 36.3 C L 75 18 102/65 90 CPAP Laboratory Results Cardiac Enzymes 07/28/22 Range/Units 06:18 AST 27 (13-39) U/L CBC 07/28/22 Range/Units 06:18 WBC 7.99 (4.8-10.8) K/ul RBC 3.72 L (4.70-6.10) M/uL Hgb 11.8 L (14.0-18.0) g/dl Hct 36.2 L (42.0-52.0) % Plt Count 344 (130-400) K/uL Comprehensive Metabolic Panel 07/28/22 Range/Units 06:18 Sodium 140 (136-145) mmol/L Potassium 3.7 (3.5-5.1) mmol/L Chloride 101 (98-107) mmol/L Carbon Dioxide 32 (21-32) mmol/L BUN 31 H (6-23) mg/dl Creatinine 1.16 (0.6-1.4) mg/dl Calcium 8.9 (8.6-10.3) mg/dl AST 27 (13-39) U/L ALT 27 (7-52) U/L Alkaline Phosphatase 56 (34-104) U/L Total Protein 6.5 (6.0-8.3) gm/dl Albumin 3.4 (3.4-5.0) gm/dl
--- NOTE | 2022-07-28 12:27 | Hospitalist Progress Note ---
Date of Service July 28, 2022 Assessment & Plan (1) Atrial fibrillation with RVR: Plan: (1) Atrial fibrillation with RVR: Plan: (1) New onset atrial fibrillation: Plan: per Dr. Terry's notes with addendum: 61 y/o male with a PMH of insulin-requiring DM, GER on CPAP, HTN, chronic systolic HF, hx pSVT, LBBB, dyslipidemia, and nonischemic cardiomyopathy who presented to his PCP for routine follow-up today and was noted to be tachycardic (rate in the 120s) and SOB and borderline BP (systolic in the 90s) so referred to the ED for evaluation. In the ED, pt was given adenosine 6 mg IV x 1 dose which slowed the rate into the 70s revealing new-onset atrial fibrillation so pt was referred for admission. - ECHO reviewed; EF of 35 to 40% with mild concentric left ventricular hypertrophy. 07/24 Status post cardioversion but unsuccessful IV amiodarone started Also placed on IV heparin Remains in A-fib, heart rate controlled Started on amiodarone, metoprolol Transitioned to Eliquis Continue amiodarone 200 mg p.o. twice daily, metoprolol milligrams p.o. twice daily Eliquis 5 mg p.o. twice daily Acute on chronic systolic CHF Resolved with IV Lasix Continue with Lasix 40 mg p.o. daily (2) Acute kidney injury superimposed on CKD: Plan: Baseline creatinine appears to be around 1.2-1.3. creatinine 1.78 on admission. 07/29 Creatinine back to normal, 1.3 (3) Diabetes mellitus, type 2: Plan: A1c of 11.4 On Lantus and NovoLog. (4) Obstructive sleep apnea: Plan: Continue CPAP - pt brought machine from home (5) Nonischemic congestive cardiomyopathy: (6) Left bundle branch block: Plan: Echocardiogram done; EF of 35 to 40%; mild global hypokinesis of left ventricle. (7) Hypertension: Plan: On metoprolol; changed from Coreg. Disposition Discharge to home Follow-up with PCP in 1 week and customer service specialist in 2 weeks plan of care discussed with patient in detail and at length all questions answered He is understanding, agreeable, comfortable with the plan of care Admission and Anticipated Discharge Date Admission Date: July 22, 2022 Subjective Follow-up for A-fib, etc. Seen resting in bed, comfortable, not in distress In good spirits States he feels fine overall no chest pain, dyspnea, palpitations, dizziness No other new symptoms States he is ready for discharge Review of Systems Review of Systems: all noted and negative except for above Physical Exam Physical Exam: General- oriented x 3, not in distress, speaks in sentences with no effort or accessory muscle use Eyes- anicteric Neck- no JVD Lungs- clear breath sounds bilaterally, no rales/wheezes Heart-irregularly irregular rhythm, normal rate Abdomen- normal bowel sounds, nondistended, soft, nontender Extremities- no pretibial edema, no calf tenderness Neuro- alert, oriented x 3; no gross focal neurologic deficits Skin- warm & dry Results & Data Results & Data Vital Signs (Past 12 Hours) Vital Signs Temp Pulse Pulse Resp BP Pulse Ox O2 Del Method 07/28/22 11:44 36.5 C 78 18 121/75 93 Room Air 07/28/22 07:45 78 07/28/22 07:45 Nasal Cannula 07/28/22 07:25 36.8 C 81 18 114/73 94 CPAP 07/28/22 03:20 36.3 C L 75 18 102/65 90 CPAP all noted and reviewed including below
--- NOTE | 2022-07-29 16:49 | Discharge Summary ---
Discharge Summary Date of Service July 29, 2022 Notes For Next Care Provider Medication Changes From Visit Amiodarone 200 mg twice daily, metoprolol XL 100 mg twice daily-for atrial fibrillation Losartan 25 mg daily- for high blood pressure Eliquis 5 mg twice daily- blood thinner to prevent stroke Lasix 40 mg daily- diuretic for congestive heart failure Admission HPI Per Admitting Provider This is a 61 y/o male with a PMH of insulin-requiring DM, GER on CPAP, HTN, chronic systolic HF, hx pSVT, LBBB, dyslipidemia, and nonischemic cardiomyopathy who presented to his PCP for routine follow-up today and was noted to be tachycardic and SOB so referred to the ED for evaluation. BP in the office was borderline with a systolic in the 90s. In the ED, pt was given adenosine 6 mg IV x 1 dose which slowed the rate into the 70s revealing new-onset atrial fibrillation so pt was referred for admission. Pt reports he developed SOB, mostly with any exertion, on Friday (3 days ago). This continued throughout the weekend - worse w/ exertion, better with rest. He reports chest tightness but denies chest pain, palpitations, syncope. He noted lightheadedness at times. No peripheral edema. He did try taking extra diuretic over the weekend to see if that would help with his breathing but no change. He tried his albuterol inhaler without relief. He reports a similar episode of symptoms 15-20 years ago for which no specific cause was identified on work-up. Dyspnea last a few days before resolving - no recurrence since then. He does use CPAP for GER. 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 His last ECHO 07/01/22 - LVEF 45-49%; moderate sized septal, anteroseptal, and anterior wall motion abnormality w/ hypokinesis of the segments; septal motion abnormal c/w IVCD. Borderline concentric LVH. Stable from prior study. His only recent med change was an increase in daily insulin to 20 units. Blood sugar this AM was 270. No recent vomiting, diarrhea, or other illness. Admission Exam Per Admitting Provider Constitutional: well developed and well nourished; no acute distress Eyes: + anicteric sclerae Neck: trachea midline Respiratory: no respiratory distress and no labored breathing Auscultation: lungs clear to auscultation bilaterally; no rales, no rhonchi and no wheezes Cardiovascular: Rate/Rhythm: + tachycardic and + irregularly irregular Vessels: radial pulses present Extremities: no pedal edema Gastrointestinal (Abdomen): Inspection/Auscultation: normal bowel sounds; abdomen not distended Percussion/Palpation: abdomen soft; abdomen nontender Musculoskeletal: Head/Neck/Chest: normocephalic, head atraumatic and neck supple Skin: no jaundice Neurologic: moves all extremities; no focal motor deficits and not confused Psychiatric: A+Ox3, euthymic affect Principal Dx & Hospital Course #1 = Principal Diagnosis (1) Atrial fibrillation with RVR: (1) Atrial fibrillation with RVR: Plan: (1) New onset atrial fibrillation: Plan: per Dr. Terry's notes with addendum: 61 y/o male with a PMH of insulin-requiring DM, GER on CPAP, HTN, chronic systolic HF, hx pSVT, LBBB, dyslipidemia, and nonischemic cardiomyopathy who presented to his PCP for routine follow-up today and was noted to be tachycardic (rate in the 120s) and SOB and borderline BP (systolic in the 90s) so referred to the ED for evaluation. In the ED, pt was given adenosine 6 mg IV x 1 dose which slowed the rate into the 70s revealing new-onset atrial fibrillation so pt was referred for admission. - ECHO reviewed; EF of 35 to 40% with mild concentric left ventricular hypertrophy. 07/24 Status post cardioversion but unsuccessful IV amiodarone started Also placed on IV heparin Remains in A-fib, heart rate controlled Started on amiodarone, metoprolol Transitioned to Eliquis Continue amiodarone 200 mg p.o. twice daily, metoprolol milligrams p.o. twice daily Eliquis 5 mg p.o. twice daily Acute on chronic systolic CHF Resolved with IV Lasix Continue with Lasix 40 mg p.o. daily (2) Acute kidney injury superimposed on CKD: Plan: Baseline creatinine appears to be around 1.2-1.3. creatinine 1.78 on admission. 07/29 Creatinine back to normal, 1.3 (3) Diabetes mellitus, type 2: Plan: A1c of 11.4 On Lantus and NovoLog. (4) Obstructive sleep apnea: Plan: Continue CPAP - pt brought machine from home (5) Nonischemic congestive cardiomyopathy: (6) Left bundle branch block: Plan: Echocardiogram done; EF of 35 to 40%; mild global hypokinesis of left ventricle. (7) Hypertension: Plan: On metoprolol; changed from Coreg. Disposition Discharge to home Follow-up with PCP in 1 week and pet groomer in 2 weeks plan of care discussed with patient in detail and at length all questions answered He is understanding, agreeable, comfortable with the plan of care Discharge Exam General- oriented x 3, not in distress, speaks in sentences with no effort or accessory muscle use Eyes- anicteric Neck- no JVD Lungs- clear breath sounds bilaterally, no rales/wheezes Heart-irregularly irregular rhythm, normal rate Abdomen- normal bowel sounds, nondistended, soft, nontender Extremities- no pretibial edema, no calf tenderness Neuro- alert, oriented x 3; no gross focal neurologic deficits Skin- warm & dry Updated Medication List Medication Instructions Recorded Confirmed Type fenofibrate nanocrystallized 48 mg 48 mg PO DAILY #90 tabs 06/13/20 07/22/22 Rx tablet albuterol sulfate 90 mcg/actuation 2 puff inhalation QID PRN 06/29/20 07/22/22 Rx aerosol inhaler shortness of breath or wheezing #54 grams citalopram 20 mg tablet (Celexa) 20 mg PO BID #180 tabs 07/04/20 07/22/22 Rx losartan 25 mg tablet 25 mg PO DAILY #90 tabs 07/12/20 07/22/22 Rx metformin 1,000 mg tablet 1,000 mg PO BID #180 tabs 07/25/20 07/22/22 Rx dulaglutide 4.5 mg/0.5 mL 4.5 mg subcut WK 07/22/22 07/22/22 History subcutaneous pen injector (Trulicity) empagliflozin 25 mg tablet 25 mg PO DAILY 07/22/22 07/22/22 History (Jardiance) insulin degludec 100 unit/mL (3 20 unit subcut HS 07/22/22 07/22/22 History mL) subcutaneous pen (Tresiba FlexTouch U-100 insulin) rosuvastatin 40 mg tablet 40 mg PO DAILY 07/22/22 07/22/22 History amiodarone 200 mg tablet 200 mg PO BIDM 30 days #60 tabs 07/27/22 Rx apixaban 5 mg tablet (Eliquis) 5 mg PO BID 30 days #60 tabs 07/27/22 Rx furosemide 40 mg tablet 40 mg PO QAM 30 days #30 tabs 07/27/22 Rx metoprolol succinate 50 mg 100 mg PO BID 30 days #120 tabs 07/27/22 Rx tablet,extended release 24 hr Hospital Stay Data Consultations 07/22/22 14:02 ED Decision to Admit Stat 07/22/22 14:58 Consult Cardiology Routine Procedures Performed Operation Date: 07/24/22 12:00 Actual Procedures p Echo Transesophageal - Papo Baez MD s Echo Doppler Complete - Papo Baez MD s Cardioversion - Papo Baez MD Pending Results Patient Have Any Pending Studies at Discharge: No Discharge Instructions Given to Patient (Per Discharging Provider) PLEASE REFER TO YOUR NEW MEDICATION LIST AND FOLLOW INSTRUCTIONS CAREFULLY. YOUR NEW MEDICATIONS INCLUDE: Amiodarone, metoprolol XL-for atrial fibrillation Losartan- for high blood pressure Eliquis- blood thinner to prevent stroke Lasix- diuretic for congestive heart failure PLEASE CALL YOUR PRIMARY CARE PHYSICIAN OR RETURN TO THE ER IF WITH WORSENING OF SYMPTOMS, INCLUDING Shortness of breath, chest pain, palpitations, dizziness, leg swelling, etc. FOLLOW UP WITH PRIMARY CARE PHYSICIAN OUTLINED ABOVE. FOLLOW-UP WITH ANIMAL TECHNICIAN DR. PAPO BAEZ IN 2 WEEKS. Call your Primary Care doctor if any of the following symptoms or problems start or get worse: Shortness of breath or difficulty breathing Wake up at night short of breath Chest pain Cough Swelling of your hands, feet, or legs More fatigued or tired with your normal activity Palpitations - sudden fast heart beats WEIGHT Weigh yourself every morning after using the bathroom. Use the same scale. Wear the same amount of clothing. Write your weight down on a chart. Call your Primary Care doctor if you gain more than 2-3 pounds in 1-2 days. MEDICATIONS Use this discharge instruction sheet for medication instructions. Take your medications at the time your doctor ordered. Do not skip a dose of your medicines. If you miss a dose of medicine, take it as soon as possible, but DO NOT DOUBLE A DOSE. Read your medicine information when you get home. Know all of the side effects of your medicine. If in doubt, ask your pharmacist Call your Primary Care doctor's office if you have any side effects. Be sure all of your doctors know what medicine and herbs you take (including cold, flu, and herbal medicine). Take the following with you to your follow-up doctor appointments: Weight Chart Medication List List of questions Do not drink excessive alcohol, beer or wine. . Who to Call and When: Call 911 or go to the Emergency Room if: If at any time you feel your situation is an emergency You have tightness or pain in your chest that does not go away with rest or Nitroglycerin You are very short of breath even with rest . Total Time Total Time Spent Total Time Spent (In Minutes): > 30 minutes
== END 2022-07-28 13:32 | disposition home health service (06) | DRG 308 ==
LOC: ED 12:18 → 2S 14:09 → SUATTDRO 14:09 → 2S 15:15
DX: I42.8 Other cardiomyopathies; N17.9 Acute kidney failure, unspecified; Z68.34 Body mass index [BMI] 34.0-34.9, adult; I48.91 Unspecified atrial fibrillation; I50.23 Acute on chronic systolic (congestive) heart failure; E78.5 Hyperlipidemia, unspecified; Z79.4 Long term (current) use of insulin; E11.22 Type 2 diabetes mellitus with diabetic chronic kidney disease; N18.9 Chronic kidney disease, unspecified; Z79.899 Other long term (current) drug therapy; Z88.1 Allergy status to other antibiotic agents; G47.33 Obstructive sleep apnea (adult) (pediatric); E66.01 Morbid (severe) obesity due to excess calories; I13.0 Hypertensive heart and chronic kidney disease with heart failure and stage 1 through stage 4 chronic kidney disease, or unspecified chronic kidney disease; I44.7 Left bundle-branch block, unspecified

== ENCOUNTER 2024-07-02 07:18 | Observation (INO) ==
--- NOTE | 2024-06-02 09:22 | PAT Medication Instructions ---
Medication Instructions Date of Service June 02, 2024 Home Medications Medication Instructions Recorded albuterol sulfate 90 mcg/actuation 2 puff inhalation QID PRN 06/29/20 aerosol inhaler shortness of breath or wheezing #54 grams citalopram 20 mg tablet (Celexa) 20 mg PO BID #180 tabs 07/04/20 metformin 1,000 mg tablet 1,000 mg PO BID #180 tabs 07/25/20 amiodarone 200 mg tablet 200 mg PO BIDM 30 days #60 tabs 07/27/22 apixaban 5 mg tablet (Eliquis) 5 mg PO BID 30 days #60 tabs 07/27/22 furosemide 40 mg tablet 40 mg PO QAM 30 days #30 tabs 07/27/22 albuterol sulfate 90 mcg/actuation aerosol inhaler 2 puff inhalation QID PRN shortness of breath or wheezing citalopram 20 mg tablet (Celexa) 20 mg PO BID metformin 1,000 mg tablet 1,000 mg PO BID dulaglutide 4.5 mg/0.5 mL subcutaneous pen injector (TrFreshdeskity) 4.5 mg subcut Q7D empagliflozin 25 mg tablet (Jardiance) 25 mg PO QAM insulin degludec 100 unit/mL (3 mL) subcutaneous pen (Tresiba FlexTouch U-100 insulin) 40 unit subcut HS rosuvastatin 40 mg tablet 40 mg PO QAM amiodarone 200 mg tablet 200 mg PO BIDM apixaban 5 mg tablet (Eliquis) 5 mg PO BID furosemide 40 mg tablet 40 mg PO QAM chromium 1 tab PO QAM copper 1 tab PO BID fenofibrate nanocrystallized 48 mg tablet 48 mg PO QAM gabapentin 300 mg capsule 300 mg PO TID losartan 25 mg tablet 25 mg PO QAM magnesium 1 tab PO HS metoprolol succinate 100 mg tablet,extended release 24 hr 100 mg PO BID pjjggritvkuc-bhqbgghw-daktmo tablet 1 tab PO QAM ASK your prescriber and surgeon apixaban 5 mg tablet (Eliquis) 5 mg PO BID (From anesthesia perspective, Apixiban/Eliquis needs to be stopped 3 days/72 hours before surgery. Please check if okay with doctor that prescribes this to you) STOP 7 days prior to surgery (if okay with prescriber) dulaglutide 4.5 mg/0.5 mL subcutaneous pen injector (Trulicity) 4.5 mg subcut Q7D STOP taking 3 days before surgery empagliflozin 25 mg tablet (Jardiance) 25 mg PO QAM STOP taking 2 weeks before surgery (or as soon as possible if surgery is within 2 weeks) chromium 1 tab PO QAM copper 1 tab PO BID STOP taking 48 hours before surgery fenofibrate nanocrystallized 48 mg tablet 48 mg PO QAM DO NOT take the morning of surgery metformin 1,000 mg tablet 1,000 mg PO BID furosemide 40 mg tablet 40 mg PO QAM losartan 25 mg tablet 25 mg PO QAM qoznzztifvha-skozgdmz-mbzpyj tablet 1 tab PO QAM Take morning of surgery With a small sip of water, OTHERWISE NOTHING TO EAT OR DRINK AFTER MIDNIGHT: albuterol sulfate 90 mcg/actuation aerosol inhaler 2 puff inhalation QID PRN shortness of breath or wheezing (use if needed; please bring rescue inhaler with you to hospital day of surgery if possible) citalopram 20 mg tablet (Celexa) 20 mg PO BID rosuvastatin 40 mg tablet 40 mg PO QAM amiodarone 200 mg tablet 200 mg PO BIDM gabapentin 300 mg capsule 300 mg PO TID metoprolol succinate 100 mg tablet,extended release 24 hr 100 mg PO BID Take evening before surgery albuterol sulfate 90 mcg/actuation aerosol inhaler 2 puff inhalation QID PRN shortness of breath or wheezing (if needed) citalopram 20 mg tablet (Celexa) 20 mg PO BID metformin 1,000 mg tablet 1,000 mg PO BID insulin degludec 100 unit/mL (3 mL) subcutaneous pen (Tresiba FlexTouch U-100 insulin) 40 unit subcut HS amiodarone 200 mg tablet 200 mg PO BIDM gabapentin 300 mg capsule 300 mg PO TID magnesium 1 tab PO HS metoprolol succinate 100 mg tablet,extended release 24 hr 100 mg PO BID Other Notes If you have any questions please call us at [phone] or [phone] or [phone] or [phone]
--- NOTE | 2024-06-08 14:21 | Anesthesiology Consultation ---
Date of Service June 08, 2024 Assessment & Plan (1) Encounter for pre-operative examination: Chart Review Chart Review: Pending: Refer to Additional Notes / Consult section (pending review of routine cardio appt 06/15/24) and Patient seen in Pre Admission Testing - Awaiting routine cardio appt 06/15/24 ([facility] cardio)- please fax preop testing to cardio (specifically CXR) for review) - Check BSG AM DOS CHF- EF 36% - Last dose of Trulicity scheduled 06/20/24- will be off Trulicity x 12 days by DOS on 07/02/24 - Patient is NOT an OPJ candidate (currently 23 hour obs) Per PAT appt on 06/08/24, no recent illness/disease exposures, illness related symptoms, or recent illness/disease positive tests. Will leave to surgeon's discretion if preop Covid testing needed History Surgery Operation Date: 07/02/24 10:00 Proposed Procedures p Right Total Knee Arthroplasty - Garcia Rosales, Height/Weight Height: 6 ft Weight: 117 kg Allergies Allergy/AdvReac Type Severity Reaction Status Date / Time lisinopril AdvReac Intermediate Vomiting Verified 05/31/24 15:30 Medications Home Medications Medication Instructions Recorded Confirmed Last Taken albuterol sulfate 90 mcg/actuation 2 puff inhalation QID PRN 06/29/20 05/31/24 07/22/22 aerosol inhaler shortness of breath or wheezing #54 grams citalopram 20 mg tablet (Celexa) 20 mg PO BID #180 tabs 07/04/20 05/31/24 07/22/22 08:00 metformin 1,000 mg tablet 1,000 mg PO BID #180 tabs 07/25/20 05/31/24 07/22/22 08:00 dulaglutide 4.5 mg/0.5 mL 4.5 mg subcut Q7D 07/22/22 05/31/24 07/14/22 subcutaneous pen injector (Trulicity) empagliflozin 25 mg tablet 25 mg PO QAM 07/22/22 05/31/24 07/22/22 (Jardiance) insulin degludec 100 unit/mL (3 40 unit subcut HS 07/22/22 05/31/24 07/21/22 mL) subcutaneous pen (Tresiba FlexTouch U-100 insulin) rosuvastatin 40 mg tablet 40 mg PO QAM 07/22/22 05/31/24 07/22/22 amiodarone 200 mg tablet 200 mg PO BIDM 30 days #60 tabs 07/27/22 05/31/24 Unknown apixaban 5 mg tablet (Eliquis) 5 mg PO BID 30 days #60 tabs 07/27/22 05/31/24 Unknown furosemide 40 mg tablet 40 mg PO QAM 30 days #30 tabs 07/27/22 05/31/24 Unknown chromium 1 tab PO QAM 05/31/24 05/31/24 Unknown copper 1 tab PO BID 05/31/24 05/31/24 Unknown fenofibrate nanocrystallized 48 mg 48 mg PO QAM 05/31/24 05/31/24 Unknown tablet gabapentin 300 mg capsule 300 mg PO TID 05/31/24 05/31/24 Unknown losartan 25 mg tablet 25 mg PO QAM 05/31/24 05/31/24 Unknown magnesium 1 tab PO HS 05/31/24 05/31/24 Unknown metoprolol succinate 100 mg 100 mg PO BID 05/31/24 05/31/24 Unknown tablet,extended release 24 hr fvdvbdybwcrt-luzltxwi-xqnace tablet 1 tab PO QAM 05/31/24 05/31/24 Unknown Past Medical History Medical History Chronic shoulder pain bilateral due torn rotator cuffs Chronic systolic (congestive) heart failure EF 36% per 06/2023 ECHO (EF has been low since 2012 when it was 25% per cardio records) Diabetes mellitus, type 2 IDDM History of anxiety History of atrial fibrillation w/RVR, cardioversion in 2022; f/u dr falcon, s on eliquis History of depression Hx of chronic kidney disease stable/no current issues Hyperlipidemia Hypertension Left bundle branch block hx Nausea and vomiting after administration of anesthetic agent "usually hits when he get to the car afterward" Nonischemic congestive cardiomyopathy Pancreatitis hx in the late 80's or early >caused by medication Paroxysmal SVT (supraventricular tachycardia) hx Sleep apnea CPAP Spinal stenosis Exercise / Class Metabolic Activity III < 4 Walking/Shop/Light housework (no chest pain or SOB with flat surface ambulation- uses for ambulation ) Past Family History Family History Mother Family history of diabetes mellitus Myocardial infarction Grandfather (Paternal) Family history of diabetes mellitus Grandmother (Maternal) Family history of diabetes mellitus Father Prostate cancer Other Hypertension Denies family history of Ovarian cancer Breast cancer Colorectal cancer Past Surgical History Surgical History H/O Spinal surgery 2012, lumbar laser procedure History of anesthesia reaction with a previous colonoscopy, "could feel everything, not fully asleep" History of arthroscopy rt and left knee History of cardiac cath 2014, [facility], no stents History of cardioversion 2022, [facility]; f/u dr. falcon, [facility] History of colonoscopy History of hernia repair History of tonsillectomy History of tooth extraction History of total knee replacement left Past Anesthesia History No Hx of Anesthesia Complications (hx of PONV and awareness with colonoscopy ) and No Family Hx of Anesthesia Complications History of PONV No Hx of Motion Sickness and History of PONV Social History Smoking Status: Never smoker Do You Dip or Chew Tobacco: No Hx Alcohol Use: Yes alcohol intake frequency: other Alcohol Intake Frequency Comment: ~1x per year Hx Substance Use: No substance use type: does not use Review of Systems Patient denies chest pain, shortness of breath, dyspnea on exertion, reflux, cough, wheezing, palpitations. No hx of seizures, stroke, SD. No hx of blood clots or blood transfusions Physical Exam Vital Signs VITALS BP 94/56 (manually- usually low 100s/50s- has not ate or drank much today due to appts- denies any dizziness, lightheadedness, near syncope; will try to get recheck BP at home; otherwise will follow up next week with cardio- patient educated to go to ED if any symptoms arise) P 83 TEMP 97.9 SP02 94% RESP 16 Constitutional no acute distress ENMT Mouth: + small oral opening; no TMJ clicking Thyromental Distance: > or= 3.5 Finger Breadths (3.5) Mallampati Class: IV Caps to top and bottom front teeth Neck + limited neck extension (significant) Respiratory normal respiratory effort; no respiratory distress Auscultation: lungs clear to auscultation bilaterally; no wheezes Cardiovascular Rate/Rhythm: regular rate and regular rhythm Heart Sounds: no murmur Vessels: no carotid bruit Heart sounds diminished throughout Musculoskeletal Spine: + pain with cervical ROM (stiffness ) Extremities: extremities normal to inspection Psychiatric Orientation: alert Lab Results Anesthesia Preop Results Results Anesthesia Widget: WBC 6.91 K/ul (4.8-10.8) 06/08/24 Hgb 13.1 g/dl (14.0-18.0) L 06/08/24 Hct 39.7 % (42.0-52.0) L 06/08/24 Plt 169 K/uL (130-400) 06/08/24 PT 11.2 Seconds (9.0-12.0) 06/08/24 PTT 28 Seconds (21-31) 06/08/24 INR 1.0 (0.9-1.1) 06/08/24 HA1c 6.7 % (4.5-5.6) H 06/08/24 Blood Type A Positive 06/08/24 Antibody Screen NEGATIVE 06/08/24 Testing Laboratory Results 06/01/24= SODIUM: 142 POTASSIUM: 5.0 CHLORIDE: 103 CO2: 27 BUN: 45 CREATININE: 1.5 (chronic and stable per comparison to 10/2023 labs) GLUCOSE: 224 GFR: 45 Electrocardiogram Date: 06/08/24 SR with 1st degree AVB at 81bpm LBBB When compared to EKG from September 11, 2022- no significant change was found per cardio Chest X-Ray Date: 06/09/24 FINDINGS: The cardiac silhouette is stably enlarged in size. Mild pulmonary vascular congestion. No focal consolidation is identified. No pleural fluid. No discernible pneumothorax. No displaced acute osseous process identified. IMPRESSION: Mild congestive changes of the cardiovascular system that are similar to previous radiographs from 2022. Echocardiogram Date: 07/01/23 EF: 36% LV Function: dysfunctional Other Findings: + LVH (moderate ) and + diastolic dysfunction LV cavity is normal size. Septal motion is abnormal consistent with LBBB. Remaining LV wall segments are moderately HK. LA moderately enlarged Mild MR. Mild TR.
[~2024-07-02 07:18] MED LIST changes: -ACET-24 PO; -ASPI-320 PO; +BUPIVACAINE 0.5 % 5 MG/1 ML PF 10ML VIAL ONE; -CARV25TA PO; -CLB200 PO; -CLX20 PO; -FENO48TA9 PO; -FRS/40 PO; -GLC/500 PO; -GLIM2TAB PO; -LOSA1TAB PO; -OXYSR10 PO; +ROPIVACAINE 0.5% 5 MG/ML 30 ML VIAL ONE; -RXC5 PO; -SPIR25TA PO; -ZCRT/40 PO
[2024-07-02] MEDS ORDERED: MIDAZOLAM HCL 1 MG/ML 2ML VIAL ONE (07:20)
[2024-07-02] MEDS ORDERED: fentaNYL citrate PF 100 MCG/2 ML VIAL ONE (07:21)
[2024-07-02] MEDS ORDERED: PROPOFOL IV EMULSION 10 MG/ML 20 ML VIAL IV ONE ×2 (07:23)
[2024-07-02] MEDS ORDERED: ONDANSETRON INJ 2 MG/ML 2 ML VIAL ONE (07:23)
[2024-07-02] MEDS ORDERED: LIDOCAINE 2% 2 ML VIAL/AMP(20MG/ML) INFIL ONE (07:23)
[2024-07-02] MEDS: ACETAMINOPHEN 500 MG TAB PO SCH ×2 (07:31→13:15)
[2024-07-02] MEDS: GABAPENTIN 300 MG CAP PO SCH ×2 (07:31→14:20)
[2024-07-02] MEDS: dexAMETHasone**PF** 10 MG/ML VIAL IV SCH (07:31)
[2024-07-02] MEDS: FAMOTIDINE 20 MG TAB PO SCH (07:31)
[2024-07-02] MEDS: LR 60ML/HR IV SCH (07:32)
[2024-07-02] MEDS: LR 500ML BOLUS, THEN 15ML/HR IV SCH (07:41)
--- OUTSIDE RECORDS SUMMARY | 2024-07-02 07:44 | External Medical Summary | Summary of Care ---
Author Name Unknown Organization [facility] Address [address] [facility] [place] [address] Phone [phone] Care Team Providers [facility] Tutor Name Role Phone AndrewRobertSammymarie Martinezlatosha Primary Care Provider Reason for Visit * Reason Comments Follow Up Encounter Details Date Type Department Care Team (Late st Contact Info) Description 06/15/2024 2:30 PM EDT Office Visit Cardiology, [facility] [address] [place] [address] Lisa Desai CRNP [address] [facility] [place] [id number] Nonischemic cardiomyopathy (HCC)*; Chronic systolic heart failure (HCC); Encounter for monitoring amiodarone therapy; HTN, goal below 130/80; LBBB (left bundle branch block); GER (obstructive sleep apnea) Allergies Active Allergy Reactions Criticality Noted Date Comments Lisinopril 04/10/2010 Headache + GI side effects documented as of this encounter (statuses as of 06/19/2024) Medications Vimagino SYSTEM W/DEVICE KITIndications:DM type 2, goal A1c below 7 Use to test blood sugar 2-4/day for Type II diabetes- 250.00 1 1 009 Active albuterol (VENTOLIN HFA) 108 (90 BASE) MCG/ACT inhaler Inhale 2 Puffs by mouth every 4 hours as needed for Cough or Wheezing. 3 Inhaler 1 017 Active Amoxicillin 500 MG Oral Capsule (Amoxil) Take 1 Capsule by mouth. Take 1 hr prior to dental procedure 021 Active CPAP every night at bedtime. Active Metoprolol Succinate ER 100 MG Oral Tablet Extended Release 24 Hour (toPROL XL)Indications:HT N, goal below 130/80,Chronic systolic heart failure (HCC) Take 1 Tablet by mouth in the morning and 1 Tablet before bedtime. 180 Tablet 3 03/05/20 24 2:35 PM EST 024 Active Rosuvastatin Calcium 40 MG Oral Tablet (Crestor)Indicati ons:Dyslipidemia, goal LDL below 70 TAKE ONE TABLET BY MOUTH EVERY MORNING. 90 Tablet 3 03/05/20 24 3:04 PM EST 024 Active Gabapentin 300 MG Oral Capsule (Neurontin)Indica tions:Spinal stenosis of lumbar region without neurogenic claudication take 3 capsules by mouth daily as directed 270 Capsule 3 06/18/19 25 12:30 PM EDT 024 Active OneTouch Ultra 2 w/Device KitIndications:Ty pe 2 diabetes mellitus with hemoglobin A1c goal of less than 7.0% (HCC) Use up to 4 times daily as directed 1 Kit 12/11/19 24 7:50 AM EDT 024 Active Spironolactone 25 MG Oral Tablet (Aldactone)Indica tions:Chronic systolic heart failure (HCC),Nonischemic cardiomyopathy (HCC) Take 1 Tablet by mouth in the morning. 90 Tablet 3 05/22/19 25 8:04 AM EDT 024 Active OneTouch UltraSoft Lancets check fasting blood sugars 2 to 4 times a day 300 Each 5 12/11/19 24 7:50 AM EDT 024 Active Fenofibrate 48 MG Oral Tablet (Tricor)Indicatio ns:Dyslipidemia, goal LDL below 70 TAKE ONE TABLET BY MOUTH IN THE MORNING 90 Tablet 2 03/09/20 24 3:48 PM EST 024 Active Dulaglutide 4.5 MG/0.5ML Subcutaneous Solution Auto-injector (PermissionTV) Inject 4.5mg under the skin once weekly 6 mL 2 05/27/19 7:26 AM EDT 024 Active Citalopram Hydrobromide 40 MG Oral Tablet (CeleXA)Indicatio ns:Adjustment disorder with depressed mood Take 1 Tablet by mouth in the morning. 90 Tablet 2 03/09/20 24 3:48 PM EST 024 Active NovoLOG FlexPen 100 UNIT/ML Subcutaneous Solution Pen-injector (insulin aspart) Inject 6 Units under the skin in the morning and 6 Units at noon and 6 Units in the evening. Inject with meals. 15 mL 11 04/19/19 25 2:03 PM EST 024 Active Insulin Glargine Solostar 100 UNIT/ML Subcutaneous Solution Pen-injector (Lantus SoloStar) Inject 40 Units under the skin every evening. 15 mL 03/11/19 8:25 AM EST 024 Active Entresto 49-51 MG Oral TabletIndications :Chronic systolic heart failure (HCC),Nonischemic cardiomyopathy (HCC) Take 1 Tablet by mouth in the morning and 1 Tablet before bedtime. Obtaining from PAP. 180 Tablet 3 04/14/19 2:22 PM EST 025 Active metFORMIN HCl 1000 MG Oral Tablet (Glucophage)Indic ations:Type 2 diabetes mellitus with hemoglobin A1c goal of less than 7.0% (HCC) TAKE ONE TABLET BY MOUTH TWICE A DAY WITH MORNING AND EVENING MEALS 180 Tablet 1 04/21/19 7:27 AM EST 025 Active OneTouch Ultra In Vitro Strip (Glucose Blood) Use as directed 4 times a day as needed for Hyperglycemia (high sugar) or Hypoglycemia (low sugar). E11.9 400 Strip 3 05/07/19 7:46 AM EST 025 Active Empagliflozin 25 MG Oral Tablet (Jardiance)Indica tions:Type 2 diabetes mellitus with hemoglobin A1c goal of less than 7.0% (HCC),Type 2 diabetes mellitus with diabetic cataract, unspecified whether detention insulin use (HCC) TAKE ONE TABLET BY MOUTH EVERY MORNING 90 Tablet 1 05/11/19 25 1:15 PM EST 025 Active Furosemide 20 MG Oral Tablet (Lasix)Indication s:Chronic systolic heart failure (HCC) Take 1 Tablet by mouth in the morning. 90 Tablet 06/03/19 25 1:58 PM EDT 025 Active Amiodarone HCl 200 MG Oral Tablet (Cordarone)Indica tions:Paroxysmal atrial fibrillation (HCC) Take 1 Tablet by mouth in the morning. 90 Tablet 3 06/05/19 25 8:20 AM EDT 025 Active Chromium 200 MCG Oral Capsule Take by mouth. Ac tive Copper Peptide Solution Use as directed. Active Magnesium 300 MG Oral Capsule Take by mouth. Ac tive Apixaban 5 MG Oral Tablet (Eliquis)Indicati ons:Chronic systolic heart failure (HCC),HTN, goal below 130/80 Take 1 Tablet by mouth in the morning and 1 Tablet before bedtime. 180 Tablet 3 025 Active Pen Big Bar 32G X 4 MM Use as directed. Use to inject insulin 4 times daily E11.9 200 Each 5 024 2024 Discontinued(R efill) Apixaban 5 MG Oral Tablet (Eliquis)Indicati ons:HTN, goal below 130/80,Chronic systolic heart failure (HCC) Take 1 Tablet by mouth in the morning and 1 Tablet before bedtime. 180 Tablet 1 05/15/19 25 10:39 AM EST 025 2024 Discontinued documented as of this encounter (statuses as of 06/19/2024) Active Problems Problem Noted Date Diagnosed Date Chronic kidney disease 06/12/2023 Post laminectomy syndrome 06/12/2023 BPH with obstruction/lower urinary tract symptom s 06/12/2023 Other intervertebral disc degeneration, lumbar r egion 06/12/2023 Type 2 diabetes mellitus with diabetic cataract 06/12/2023 Paroxysmal atrial fibrillation 07/29/2022 Recurrent major depressive disorder, in full rem ission 07/28/2022 HTN, goal below 130/80 05/15/2015 Overview: Per HTN Protocol #27. Organic erectile dysfunction 01/24/2014 Spinal stenosis of lumbar re gion without neurogenic claudication 07/11/2009 LBBB (left bundle branch block) 03/23/2009 Benign neoplasm of colon 02/24/2009 Overview (02/27/2009): adenomatous/repeat colonoscopy in 3 yrs Type 2 diabetes mellitus wit h hemoglobin A1c goal of less than 7.0% 01/05/2009 Overview (08/02/2016): 07/[address] [facility] Dyslipidemia 02/28/1998 Nonischemic cardiomyopathy Chronic systolic heart failure Overview (06/01/2016): 05/24 eF 32% also gotti grade 2. Trace pericard effusion GER (obstructive sleep apnea) Obesity, Class II, BMI 35-39.9, isolated (see ac tual BMI) documented as of this encounter (statuses as of 06/19/2024) Resolved Problems Problem Noted Date Diagnosed Date Resolved Date Chronic kidney disease 06/12/202306/18 BPH with obstruction/lower u rinary tract symptoms 06/12/2023 10/06/2023 Hyperkalemia 06/12/2023 10/06/2023 Type 2 diabetes mellitus wit h diabetic cataract 06/11/2021 07/28/2022 Type 2 diabetes mellitus wit h diabetic cataract 06/11/2021 07/28/2022 Age-related cataract of both eyes 09/18/2020 07/28/2022 Status post total left knee replacement 09/24/2016 07/28/2022 Other testicular hypofunction 01/24/2014 09/24/2021 NICM (nonischemic cardiomyopathy) 01/22/2013 06/01/2016 Acute systolic CHF (congestive heart failure) 01/23/20 13 04/26/2016 HTN, GOAL BELOW 140/80 10/28/201106/13 Overview: Per HTN Protocol #27. Severe obesity with body mas s index (BMI) of 35.0 to 39.9 with serious comorbidity 06/05/2009 Overview (12/24/2017): Per Obesity Taxonomy ICD-10 update of inactive diagnosis SLEEP APNEA, SEVERE 05/12/2009 07/29/19 23 Elevated triglycerides with high cholesterol 0 07/28/2022 HTN, GOAL BELOW 130/80 04/06/200910/30 Overview (04/06/2009): Per HTN Taxonomy. Paroxysmal SVT (supraventricular tachycardia) 03/23/19 10 07/29/2022 Type 2 diabetes mellitus wit h hemoglobin A1c goal of less than 7.0% 04/04/2008 01/05/2009 Overview (07/04/2015): Per Diabetes Taxonomy. ICD-10 update of inactive term ADVANCE DIRECTIVE INFORMATION 01/16/2008 07/28/2022 Overview (01/16/2008): No, Advance Directive brochure given to patient. Counseling for marital and partner problems 11/21/2000 06/13/2005 Overview (06/20/2015): ICD-10 update of inactive term OBESITY, UNSPECIFIED 06/08/1999 010 Overview (06/05/2009): Per Obesity Taxonomy HTN, goal below 140/90 11/03/199704/06 Overview (04/06/2009): Per HTN Taxonomy. ADJ DISORDER W/DEPRES MOOD 11/03/1997 0 07/28/2022 documented as of this encounter (statuses as of 06/19/2024) Immunizations Name Administration Dates Next Due Hepatitis B, 20+ yrs 07/26/2013,04/06/2013,02/01 Pneumococcal Polysaccharide PPV23 (Pneumovax) 07/01/2008 TDAP, Age 7 and older, IM (Adacel) 08/18/2009 documented as of this encounter Social History Tobacco Use Types Packs/Day Years Used Date Smoking Tobacco: Never Smokeless Tobacco: Never Alcohol Use Standard Drinks/Week Comments Yes 0 (1 standard drink = 0.6 oz pur e alcohol) no PHQ-2 Answer Date Recorded PHQ Adult Total Score 1 07/04/2023 Hunger Vital Sign Answer Date Recorded Within the past 12 months, y ou worried that your food would run out before you got the money to buy more. Never true 07/04/19 24 Within the past 12 months, t he food you bought just didn't last and you didn't have money to get more. Never true 07/04/2023 Childcare Answer Date Recorded Do you feel overwhelmed with taking care of a child, family member or friend? No 07/04/2023 Does your family need help f inding childcare? (Household - for ages 0-17 years) Not on file 07/04/2023 Clothing Answer Date Recorded Have you been unable to get clothing when it was really needed? No 07/04/2023 Is your family able to get c lothes or diapers when needed? (Household - for ages 0-17 years) Not on file 07/04/2023 Personal Safety Answer Date Recorded Do you feel unsafe or have concerns for your saf ety? No 07/04/2023 Do you have concerns for you r family's safety? (Household - for ages 0-17 years) Not on file 07/04/2023 Utilities Answer Date Recorded Do you have trouble paying y our heating, water, or electric bill? No 07/04/2023 Is your family able to pay t he heat, water, or electric bill? (Household - for ages 0-17 years) Not on file 07/04/2023 Does your family have access to good internet? (Household - for ages 0-17 years) Not on file 07/04/2023 Employment Status Answer Date Recorded Are you unemployed or without regular income? No 07/04/2023 Does the household have a re lar source of income? (Household - for ages 0-17 years) Not on file 07/04/2023 Social Connections Answer Date Recorded How often do you feel lonely or isolated from th ose around you? Never 07/04/2023 Financial Resource Strain Answer Date R ecorded Do you have any trouble payi ng for your medications, or do you think you might in the future? No 07/04/2023 Does your family have troubl e paying for medicine? (Household - for ages 0-17 years) Not on file 07/04/2023 Transportation Needs Answer Date Record ed READ ONLY Do you have troubl e getting a ride to medical visits or work? Never True 07/04/2023 Does your family have a hard time getting a ride to doctors visits? (Household - for ages 0-17 years) Not on file 07/04/2023 Has lack of transportation k ept you from medical appointments, meetings, work, or from getting things needed for daily living? Check all that apply. (Adult - for ages 18 years and over) Not on file 07/04/2023 Do you (or your family) have trouble finding or paying for a ride (transportation)? (Household - for ages 0-17 years) Not on file 07/04/2023 Housing Stability Answer Date Recorded Do you currently live in a s helter or have no steady place to sleep at night? No 07/04/2023 READ ONLY Do you think you a re at risk of becoming homeless? No 07/04/2023 Does your family worry about paying for your home or becoming homeless? (Household - for ages 0-17 years) Not on file 0 07/04/2023 Are you homeless or worried that you might be in the future? (Adult - for ages 18 years and over) Not on file Are you (or your family) mabel eless or worried that you might be in the future? (Household - for ages 0-17 years) Not on file Food Insecurity Answer Date Recorded Do you need food for this week? Yes 07/04/2023 Are you able to get enough f ood for your family? (Household - for ages 0-17 years) Not on file 07/04/2023 Does your family need food t his week? (Household - for ages 0-17 years) Not on file 07/04/2023 Do you always have enough fo od for your family? (Household - for ages 0-17 years) Not on file 07/04/2023 Food Insecurity Answer Date Recorded Within the past 12 months, y ou worried that your food would run out before you got the money to buy more. Never true 07/04/19 24 Within the past 12 months, t he food you bought just didn't last and you didn't have money to get more. Never true 07/04/2023 Do you need food for this week? 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 Not on file No t on file documented as of this encounter Last Filed Vital Signs Vital Sign Reading Time Taken Comments Blood Pressure 124/58 06/15/2024 2:23 PM EDT Pulse 64 06/15/2024 2:23 PM EDT Temperature - - Respiratory Rate 16 06/15/2024 2:23 PM EDT Oxygen Saturation - - Inhaled Oxygen Concentration - - Weight 117.2 kg (258 lb 6.4 oz) 06/15/2024 2:23 PM EDT Height - - Body Mass Index 35.05 06/10/2024 11:03 AM EDT documented in this encounter Patient Instructions * Patient Instructions* Lisa Desai CRNP - 06/15/2024 2:35 PM EDT documented in this encounter Progress Notes * Kathy Xiao DO - 06/15/2024 7:56 PM EDT I have reviewed the advanced practitioner's documentation on the date of service referenced in note, and I agree with, and take responsibility for the plan of care. Pt returns to EP for routine 10 month f/u due to NICM and pAF on amio and eliquis Has been having lower BP with some lightheadedness; accidentally started cutting his eliquis ratherthan entresto in half Also having some hypoglycemia Discussed needs to take full tab of eliquis Continue other cardiac medications Continue amio he is maintaining SR; TFT and LFT are good Continue CPAP EP f/u 8 months Kathy Xiao DO Department of Cardiology [facility] [place] [address] * Lisa Desai CRNP - 06/15/2024 2:21 PM EDT Subjective Taco W Stem III is a 63 year old male. Chief Complaint Patient presents with Follow Up Routine EP Follow Up Cardiac Problems: NICM EF 30% in 10/2022; 35-40% in 07/2022; but has been low since 2012 when it was 25%; last time normal was in 2009 LBBB Chronic heart failure with reduced EF, NYHA Class II pAF found in 07/2022 s/p KIMANI guided DCCV on eliquis and toprol and amiodarone started 07/2022 due to failed DCCV but then he did chemically convert to SR) [id number] (CHF, HTN, DM) 1st degree AV block HTN HLD DM II GER on CPAP HPI: 63 year old male presents for routine EP follow up. Last seen in the clini 10 months ago. Feeling well since their last visit with no acute concerns today. Having low blood sugar readings, down in the 70's. Also had some low blood pressures last week. Was seen at his PCP's office who thought maybe it was a blood pressure issue and encouraged him to cut his Entresto in half, however he has been cutting his Eliquis and half (he got them mixed up). Advised that even with lower blood pressures despite getting up and moving around he did not feel any worse lightheaded dizzy that he was going to pass out. Denies chest pain, SOB, palpitations, syncope, edema, orthopnea and PND. No change in activity tolerance. Reports compliance with medications without any untoward side effects, or difficulty with affordability. PMH: Patient Active Problem List Diagnosis Dyslipidemia Type 2 diabetes mellitus with hemoglobin A1c goal of less than 7.0% (HCC) Benign neoplasm of colon LBBB (left bundle branch block) Spinal stenosis of lumbar region without neurogenic claudication Nonischemic cardiomyopathy (HCC) Chronic systolic heart failure (HCC) GER (obstructive sleep apnea) Obesity, Class II, BMI 35-39.9, isolated (see actual BMI) Organic erectile dysfunction HTN, goal below 130/80 Recurrent major depressive disorder, in full remission (HCC) Paroxysmal atrial fibrillation (HCC) Chronic kidney disease Post laminectomy syndrome BPH with obstruction/lower urinary tract symptoms Other intervertebral disc degeneration, 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 3 Inhaler 1 Amoxicillin 500 MG Oral Capsule (Amoxil) Take 1 Capsule by mouth. Take 1 hr prior to dental procedure CPAP every night at bedtime. Metoprolol Succinate ER 100 MG Oral Tablet Extended Release 24 Hour (toPROL XL) Take 1 Tablet by mouth in the morning and 1 Tablet before bedtime. 180 Tablet 3 Rosuvastatin Calcium 40 MG Oral Tablet (Crestor) TAKE ONE TABLET BY MOUTH EVERY MORNING. 90 Tablet 3 Gabapentin 300 MG Oral Capsule (Neurontin) take 3 capsules by mouth daily as directed 270 Capsule 3 OneTouch Ultra 2 w/Device Kit Use up to 4 times daily as directed 1 Kit 0 Spironolactone 25 MG Oral Tablet (Aldactone) Take 1 Tablet by mouth in the morning. 90 Tablet 3 OneTouch UltraSoft Lancets check fasting blood sugars 2 to 4 times a day 300 Each 5 Fenofibrate 48 MG Oral Tablet (Tricor) TAKE ONE TABLET BY MOUTH IN THE MORNING 90 Tablet 2 Dulaglutide 4.5 MG/0.5ML Subcutaneous Solution Auto-injector (13[employer] Lab[employer]ocity) Inject 4.5mg under the skin once weekly 6 mL 2 Pen Big Bar 32G X 4 MM Use as directed. Use to inject insulin 4 times daily E11.9 200 Each 5 Citalopram Hydrobromide 40 MG Oral Tablet (CeleXA) Take 1 Tablet by mouth in the morning. 90 Tablet2 NovoLOG FlexPen 100 UNIT/ML Subcutaneous Solution Pen-injector (insulin aspart) Inject 6 Units under the skin in the morning and 6 Units at noon and 6 Units in the evening. Inject with meals. 15 mL 11 Insulin Glargine Solostar 100 UNIT/ML Subcutaneous Solution Pen-injector (Lantus SoloStar) Inject 40 Units under the skin every evening. 15 mL 11 Entresto 49-51 MG Oral Tablet Take 1 Tablet by mouth in the morning and 1 Tablet before bedtime. Obtaining from PAP. 180 Tablet 3 metFORMIN HCl 1000 MG Oral Tablet (Glucophage) TAKE ONE TABLET BY MOUTH TWICE A DAY WITH MORNING AND EVENING MEALS 180 Tablet 1 Southern ImplantsTouch Ultra In Vitro Strip (Glucose Blood) Use as directed 4 times a day as needed for Hyperglycemia (high sugar) or Hypoglycemia (low sugar). E11.9 400 Strip 3 Empagliflozin 25 MG Oral Tablet (Jardiance) TAKE ONE TABLET BY MOUTH EVERY MORNING 90 Tablet 1 Furosemide 20 MG Oral Tablet (Lasix) Take 1 Tablet by mouth in the morning. 90 Tablet 0 Amiodarone HCl 200 MG Oral Tablet (Cordarone) Take 1 Tablet by mouth in the morning. 90 Tablet 3 Chromium 200 MCG Oral Capsule Take by mouth. Copper Peptide Solution Use as directed. Magnesium 300 MG Oral Capsule Take by mouth. Apixaban 5 MG Oral Tablet (Eliquis) Take 1 Tablet by mouth in the morning and 1 Tablet before bedtime. 180 Tablet 3 No current facility-administered medications for this visit. Past Medical History: Diagnosis Date Benign neoplasm of colon 02/24/09 adenomatous/repeat colonoscopy in 3 yrs Chronic systolic heart failure (HCC) DM type 2, goal A1c below 7 Diabetes Type II, Controlled Dyslipidemia, goal LDL below 160 Hypercholesterolemia HTN, goal below 140/90 Hypertension, benign Nonischemic cardiomyopathy (HCC) Obesity (BMI 30-39.9) Obstructive sleep apnea Paroxysmal atrial fibrillation (HCC) 07/29/2022 Recurrent major depressive disorder, in full remission (HCC) 07/28/2022 Status post total left knee replacement 09/24/2016 Past Surgical History: Procedure Laterality Date ARTHROPLASTY KNEE TOTAL Left 09/12/2016 Dr Daniel CARDIAC CATH SCANNED RESULT 01/2013 COLONOSCOPY W/ LESION REMOVAL, SNARE 02/24/09 adenomatous/repeat colonoscopy in 3 yrs COLONOSCOPY, DIAGNOSTIC (RECTUM) 01/24/2012 COLONOSCOPY FLEXIBLE PROXIMAL DIAGNOSTIC performed by Grisel Pennington DO at [facility] NEUROSTIM PULSE GEN, W/ REPROGRAM 02/03/2024 NEUROSTIMULATOR PULSE GENERATOR/ TRANSMITTER, WITH INTRAOPERATIVE OR SUBSEQUENT PROGRAMMING performed by Jef Johnson DO at OR [facility] EXPLORATION/TREATMENT OF KNEE JOINT 1979 right IMPLANT EPIDURAL NEUROELECTRODES 02/03/2024 PERCUTANEOUS IMPLANTATION NEUROSTIMULATOR EPIDURAL performed by Jef Johnson DO at OR [facility] IMPLANT EPIDURAL NEUROELECTRODES 02/03/2024 PERCUTANEOUS IMPLANTATION NEUROSTIMULATOR EPIDURAL performed by Jef Johnson DO at OR [facility] KNEE ARTHROSCOPY, DIAGNOSTIC 1991 & Left Knee Arthroscopy LUMBAR DISC ARTHROPLAST,REMV,ADDL INTERSPCE 05/09/2011 L4-5 laser disc procedure, Dr. Faith, [place] REMOVE CATARACT, INSERT LENS PROSTH Right 09/19/2020 RIGHT EXTRACAPSULAR CATARACT REMOVAL WITH INTRAOCULAR LENS performed by Vivek Mejia MD at OR [facility] REMOVE CATARACT, INSERT LENS PROSTH Left 09/26/2020 LEFT EXTRACAPSULAR CATARACT REMOVAL WITH INTRAOCULAR LENS performed by Vivek Mejia MD at OR [facility] REMOVE TONSILS & ADENOIDS, UNDER 12 age 5 REPAIR INITIAL INGUINAL HERNIA REDUCIBLE AGE 5 OR MORE 12/03/05 right inguinal herniorrhaphy Review of patient's allergies indicates: Allergen Reactions Lisinopril Headache + GI side effects Family History Problem Relation Name Age of Onset Hypertension Mother age 63 Lung Disorder Mother Cancer Mother 73 lung cancer-survived surgery No Past Hx Father age 64 No Past Hx Brother age 43 No Past Hx Sister age40 No Past Hx Son age 19 No Past Hx Daughter age 23 Diabetes Mother onset age 64 Family Status Relation Status Mo Alive Fa Alive HBP,ger Sis Alive Bro Alive DJD Josh Alive Son Alive Bro (Not Specified) Sis (Not Specified) Son (Not Specified) Josh (Not Specified) Social History Socioeconomic History Marital status: Domestic Partner Spouse name: Not on file Number of children: 2 Years of education: Not on file Highest education level: Not on file Occupational History 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 no intercourse. +grandkids Other Topics Concern Not on file Social History Narrative Likes--motorcycle, camp. Usually helmet Social Needs Financial Resource Strain: Low Risk (07/04/2023) Financial Resource Strain Do you have any trouble paying for your medications, or do you think you might in the future? (Adult - for ages 18 years and over): No Does your family have trouble paying for medicine? (Household - for ages 0-17 years): Not on file Food Insecurity: Food Insecurity Present (07/04/2023) Food Insecurity Worried About Running Out of Food in the Last Year: Never true Ran Out of Food in the Last Year: Never true Do you need food for this week? (Adult - for ages 18 years and over): Yes Transportation Needs: No Transportation Needs (07/04/2023) Transportation Needs Do you have trouble getting a ride to medical visits or work? (Adult - for ages 18 years and over):Never True Does your family have a hard time getting a ride to doctors’ visits? (Household - for ages 0-17 years): Not on file Has lack of transportation kept you from medical appointments, meetings, work, or from getting things needed for daily living? Check all that apply. (Adult - for ages 18 years and over): Not on file Do you (or your family) have trouble finding or paying for a ride (transportation)? (Household - for ages 0-17 years): Not on file Social Connections: Socially Integrated (07/04/2023) Social Connections How often do you feel lonely or isolated from those around you? (Adult - for ages 18 years and over): Never Housing Stability: Low Risk (07/04/2023) Housing Stability Do you currently live in a chcf or have no steady place to sleep at night? (Adult - for ages 18 years and over): No Do you think you are at risk of becoming homeless? (Adult - for ages 18 years and over): No Does your family worry about paying for your home or becoming homeless? (Household - for ages 0-17 years): Not on file Are you homeless or worried that you might be in the future? (Adult - for ages 18 years and over): Not on file Are you (or your family) homeless or worried that you might be in the future? (Household - for ages0-17 years): Not on file Review of Systems Constitutional: Negative for activity change, chills, fatigue, fever and unexpected weight change. HENT: Negative for postnasal drip, rhinorrhea and sinus pressure. Eyes: Negative for visual disturbance. Respiratory: Positive for shortness of breath. Cardiovascular: Negative for chest pain, palpitations and leg swelling. Gastrointestinal: Negative for blood in stool, constipation, diarrhea, nausea and vomiting. Genitourinary: Negative for dysuria and hematuria. Musculoskeletal: Positive for back pain. Negative for gait problem. Skin: Negative for rash and wound. Neurological: Positive for light-headedness. Negative for dizziness and syncope. Objective BP 124/58 (BP Site: Left Arm, BP Position: Sitting) | Pulse 64 | Resp 16 | Wt 117.2 kg (258 lb 6.4 oz) | BMI 35.05 kg/m² | BSA 2.44 m² Physical Exam Vitals and nursing note reviewed. Constitutional: General: He is awake. Appearance: Normal appearance. He is well-developed. HENT: Head: Normocephalic and atraumatic. Eyes: General: No scleral icterus. Extraocular Movements: Extraocular movements intact. Neck: Vascular: Normal carotid pulses. No carotid bruit or JVD. Cardiovascular: Rate and Rhythm: Normal rate and regular rhythm. Pulses: Carotid pulses are 2+ on the right side and 2+ on the left side. Radial pulses are 2+ on the right side and 2+ on the left side. Posterior tibial pulses are 2+ on the right side and 2+ on the left side. Heart sounds: S1 normal and S2 normal. No murmur heard. Pulmonary: Effort: Pulmonary effort is normal. Breath sounds: Normal breath sounds. No decreased breath sounds, wheezing, rhonchi or rales. Abdominal: General: Abdomen is protuberant. Palpations: Abdomen is soft. Musculoskeletal: Cervical back: Neck supple. Right lower leg: No edema. Left lower leg: No edema. Skin: General: Skin is warm and dry. Neurological: General: No focal deficit present. Mental Status: He is alert and oriented to person, place, and time. Psychiatric: Attention and Perception: Attention normal. Mood and Affect: Mood normal. Speech: Speech normal. Behavior: Behavior normal. Behavior is cooperative. Thought Content: Thought content normal. Cognition and Memory: Cognition normal. Judgment: Judgment normal. Results ECGS: 06/08/[address] [facility] NSR, 1st Deg AV Block 81 bpm Qtc 536 ms 11/08/2022: SR 75bpm 1st degree AV block LBBB 08/06/2022: SR 87bpm 1st degree AV block LBBB 07/22/2022: Probably atypical atrial flutter 123bpm LBBB 10/15/2021: SR 98bpm LBBB 09/18/2020: SR 74bpm 1st degree AV block LBBB 06/17/2016: SR 68bpm 1st degree AV block LBBB 06/16/2015: SR 75bpm LBBB 01/03/2013: SR 94bpm Nonspecific IVCD 03/27/2011: SR 74bpm LBBB 02/09/2010: SR 75bpm LBBB 03/23/2009: SR 77bpm LBBB Echocardiogram: 07/01/23 The left ventricular cavity size is normal. The wall thickness is moderately increased in segments with normal wall motion. The septal motion is abnormal consistent with left bundle branch block. The remaining left ventricular wall segments are moderately hypokinetic. Calculated LV ejection Fraction = 36% (bi-plane method of discs). The left ventricular diastolic function is abnormal by 2-D findings. The left atrium is moderately enlarged. Mild mitral regurgitation is present. Mild tricuspid regurgitation is present. 10/14/2022: Sinus rhythm with rates in the 90s present during the echocardiogram study. The LV wall thickness is moderately increased (concentric). The septal motion is abnormal consistent with intrventricular conduction delay. The remaining left ventricular wall segments are moderately hypokinetic. The qualitative LV ejection fraction is 30-34% (moderately reduced). The left atrium is moderately enlarged. Mild mitral regurgitation is present. A small (<5 mm) circumferential pericardial effusion is noted. There is no evidence of pulmonary hypertension. Compared to the previous transthoracic study performed at [facility] on 07/22/2022 the ejection fraction was reported to be 35-40% at that time. 07/22/2022: Pt in AF with RVR EF 35-40% LVH Mild to moderate MR Mild TR LA mildly dilated 07/01/2022: There was normal sinus rhythm during the examination. The qualitative LV ejection fraction is 45-49% (mildly reduced). The septal motion is abnormal consistent with intrventricular conduction delay. There is a moderate sized septal, anteroseptal, and anterior wall motion abnormality with hypokinesis of the segments. There is isolated basal septal hypertrophy with maximal thickness of 1.2 cm. The LV wall thickness is borderline increased (concentric). The left atrium is mildly enlarged (35-41 ml/m^2). Mild mitral regurgitation is present. Compared to last available study, there has been no interval change. 12/17/2021: There was normal sinus rhythm at 90 beats per minute during the examination. The left ventricular cavity size is normal. The LV wall thickness is moderately to severely increased (concentric). The basal septum is thickened and angulated consistent with sigmoid septum. The septal motion is abnormal consistent with left bundle branch block. There is marked dyssynergy of the septum with mild hypokinesis other segments. Calculated LV ejection Fraction = 45% (bi-plane method of discs). The left ventricular diastolic function is abnormal by 2-D findings. Right ventricular wall thickness is moderately increased There is moderate thickening of the posterior mitral valve annulus and leaflet with mild restriction in mobility Mild secondary mitral regurgitation is present. Prior images are not available for review 09/11/2020: EF 45% Mild global hypokinesis with septal wall abnormality from conduction Grade 2 diastolic dysfunction Mild MR severe LA Enlargement 05/13/2016: Compared to last available study changes are noted as follows: slight increase of LV EF. Mildly dilated LV chamber size with mild concentric LVH. Severely reduced LV systolic function with severe global hypokinesis and abnormal septal wall motion consistent with LBBB pattern. Calculated LV ejection Fraction = 32% (biplane method of discs). Grade II diastolic dysfunction. Mild secondary mitral regurgitation. A trivial circumferential pericardial effusion is noted. 02/22/2013: The left ventricular cavity size is mildly enlarged. The septal motion is abnormal consistent with left bundle branch block. There is severe diffuse left ventricular hypokinesis. The qualitative LV ejection fraction is 20-24% (severely reduced). A trivial circumferential pericardial effusion is noted. In comparison to the prior study of 01/12/2013, the heart rate is decreased and the effusion is less. LV function remains severely impaired. 01/12/2013: The qualitative LV ejection fraction is 25-29% (severely reduced). Regional wall motion abnormalities as specified. Mild functional mitral regurgitation is present. A small (<5 mm) circumferential pericardial effusion is noted. Cardiac tamponade is absent. Compared to last available study changes are noted as follows: Systolic function is severely reduced. Serial imaging recommended to evaluate pericardial effusion. Recommend cardiology consultation . 04/21/2009: Technically difficult study, endocardial border is poorly deliniated in the apical views. At time of future study, use of ultrasound contrast should be considered. The left ventricular wall motion isnormal. Qualitative LV ejection Fraction = 60-65%. There is trace mitral regurgitation. There is physiologic tricuspid regurgitation Lab Work Reviewed: Latest Reference Range & Units 10/14/23 14:27 06/01/24 14:08 Triglycerides <=174 mg/dL 232 (H) Cholesterol <200 mg/dL 98 Non-HDL Cholesterol <=159 mg/dL 76 HDL Cholesterol >39 mg/dL 22 (L) LDL Cholesterol (Direct Measure) <=129 mg/dL 32 SODIUM 135 - 146 mmol/L 139 142 POTASSIUM 3.5 - 5.1 mmol/L 4.8 5.0 CHLORIDE 98 - 107 mmol/L 99 103 CO2 22 - 32 mmol/L 24 27 BUN 6 - 20 mg/dL 43 (H) 45 (H) CREATININE 0.6 - 1.2 mg/dL 1.5 (H) 1.5 (H) EGFR >=60 mL/min 53 (L) 50 (L) ANION GAP 7 - 15 mmol/L 16 (H) 12 GLUCOSE 70 - 120 mg/dL 108 224 (H) CALCIUM 8.4 - 10.2 mg/dL 10.2 10.8 (H) Magnesium 1.5 - 2.6 mg/dL 1.8 1.9 Protein 6.0 - 8.3 g/dL 6.8 6.9 Estimated Average Glucose <126 mg/dL 200 (H) 25-Hydroxy Vitamin D >19 ng/mL 46 25-HYDROXY VITAMIN D Rpt Hemoglobin A1C 4.0 - 5.6 % 8.6 (H) TSH 0.27 - 4.20 uIU/mL 2.39 TSH WITH FREE T4 IF INDICATED Rpt CBC Rpt ! WBC 4.00 - 10.80 K/uL 6.41 RBC 4.50 - 5.25 M/uL 4.19 HGB 14.0 - 16.8 g/dL 13.4 (L) HCT 40.0 - 48.4 % 41.5 MCV 82.0 - 99.5 fL 99.0 MCH 27.0 - 34.0 pg 32.0 MCHC 32.0 - 36.0 g/dL 32.3 RDW 11.5 - 15.5 % 15.2 PLT 140 - 400 K/uL 190 MPV 6.6 - 11.1 fL 11.2 Vitamin B12 232 - 1,245 pg/mL 736 Albumin 3.8 - 5.0 g/dL 4.3 4.2 AST 10 - 50 U/L 53 (H) 55 (H) ALT 10 - 50 U/L 53 (H) 74 (H) Alkaline Phosphatase 35 - 130 U/L 74 78 Bilirubin, Total <=1.2 mg/dL 0.5 0.3 Albumin / Creatinine Ratio, Urine <30 mg/g Creat Uninterpretable Albumin/Creatinine ratio due tovery low albumin and creatinine values. Albumin, Random Urine mg/dL <1.20 Creatinine, Random Urine mg/dL 34 Impression NICM EF 30% in 10/2022; 35-40% in 07/2022; but has been low since 2012 when it was 25%; last time normal was in 2009 LBBB Chronic heart failure with reduced EF, NYHA Class II pAF found in 07/2022 s/p KIMANI guided DCCV on eliquis and toprol and amiodarone started 07/2022 due to failed DCCV but then he did chemically convert to SR) [id number] 3 (CHF, HTN, DM) 1st degree AV block HTN HLD DM II GER on CPAP Plan: -HR and BP well controlled -he appears euvolemic on exam -given that his blood pressures have improved despite incidentally cutting the wrong pill in half Ihave a lower suspicion this is a hypotensive issue -I suspect his dizziness episodes maybe more driven by his low blood sugars -encouraged him to resume taking his whole tablet of apixaban and not make any other changes in medications at this point -CHF education reinforced -continue rosuvastatin, furosemide, Entresto, spironolactone, amiodarone, apixaban and metoprolol -Patient remains on amiodarone for antiarrhythmic management -Continued monitoring in regard to avoiding toxicity or signs of toxicity including the following: - liver function remains stable - TSH levels remain within normal limits - QTC Interval remains within normal limits -encouraged continued compliance with CPAP -Educated patient on caution with change in positions to minimize symptomatic orthostatic hypotension -Discussed importance of diet & exercise with the patient. -Discussed with patient subtle changes in how they are feeling or completing daily activities to contact us sooner; don't wait days or weeks. Patient care discussed and coordinated with Dr. Xiao. Please refer to Dr. Xiao's notes for further recommendations. DISPOSITION: Follow up with general Cardiology as scheduled and 8 months in EP clinic or if symptoms worsen/failto improve. All questions were answered to the patients satisfaction. Patient advised to report to ED with any and all emergencies. The patient agrees to the above plan and will call with additional questions or concerns. [facility], [address] [place] [id number] This chart was completed in part utilizing [employer] Voice Recognition Software. Grammatical errors, random word insertions, pronoun errors, and incomplete sentences are an occasional consequence of this system due to software limitations, ambient noise, and hardware issues. Any formal questions or concerns about the content, text, or information contained within the body of this dictation should be directly addressed to the provider for clarification. Cosigned by Kathy Xiao DO at 06/18/2024 11:30 PM EDT documented in this encounter Nursing Notes * Fernanda Villalta CMA - 06/15/2024 2:23 PM EDT Examination Room: 16 Name: Taco Malik III Date of : (1960). Reason for Visit: follow up Interim Hospitalization(s): denies Problems/Concerns: denies Chest Pain/SOB: ALVAREZ - longstanding [facility] Discussed: Yes [facility] is a way you can talk to your provider online through e-mail. Would you like to sign up? I can activate it for you? ALREADY ACTIVE Patient was instructed to not get up on the exam table until directed and assisted by their provider; patient is to remain seated in the chair/ wheelchair/ exam table for fall prevention and safety reasons. Patient is aware to have assistance to step down off exam table with personnel. Patient voiced full comprehension of instructions. documented in this encounter Plan of Treatment Upcoming Encounters Date Type Department Care Team (Late st Contact Info) Description 08/16/2024 1:30 PM EDT Office Visit Cardiology, [facility] [address] [place] [phone] Magda Bailey CRNP [address] [place] [phone] 09/21/2024 1:00 PM EDT Office Visit Family Practice [facility] [address] [place] [phone] Sammy Morales DO [address] [place] [phone] 04/29/2025 3:00 PM EST Office Visit Cardiology, [facility] [address] [place] [phone] Lisa Desai CRNP [address] [facility] [place] [phone] Health Maintenance Due Date Last Done Comments Cologuard 11/10/2003 Sigmoidoscopy 11/10/2003 Zoster Vaccines (1 of 2) 2008 Pneumococcal Vaccine: 50+ Years (2 of 2 - PCV) 07/01/2009 07/01/2008 DTap/Tdap Vaccines (2 - Td or Tdap) 08/19/2019 08/18/2009, 07/17/1999, 07/17/1999 Fecal Occult Blood Test 02/14/2023 02/14/2022, 02/14 Colonoscopy 06/02/2023 06/01/2018, 01/08, 01/24/2012, Additional history exists Colorectal Cancer Screening 06/02/2023 Diabetic Foot Exam 06/04/2023 06/03/2022, 0 06/11/2021, 08/15/2020, Additional history exists COVID-19 Vaccine ( season) 2023 Depression Monitoring 07/03/2024 07/04/2023 HbA1c 08/05/2024 02/06/2024, 08/0 08/2023, 04/08/2023, Additional history exists Influenza Vaccine (FLU shot) (Season Ended) 2024 Diabetic Eye Exam 11/27/2024 11/28/2023, , 10/28/2022, Additional history exists Albumin/Creatinine Ratio 06/01/2025 025, 04/08/2023, 06/03/2022, Additional history exists GFR 06/01/2025 06/01/2024, 08/08/2023, 04/19/2023, Additional history exists Lipid Panel 10/13/2028 10/14/2023, 04/10, 01/27/2021, Additional history exists Hepatitis B Vaccine Completed 07/26/2013, 04/06/2013, 02/01/2013 RETIRED - COLONOSCOPY-EVERY 5 YRS AGES 18-100 Discontinued 06/01/2018, 01/24/2012, 01/24/2012, Additional history exists HPV (Gardasil) Vaccine Aged Out No lo nger eligible based on patient's age to complete this topic MENINGOCOCCAL (MENACTRA/MENVEO) Aged Out No longer eligible based on patient's age to complete this topic Meningitis B Vaccine (Bexsero/Trumemba) Aged Out No longer eligible based on patient's age to complete this topic documented as of this encounter Medical Devices Implanted Type Area Jewelry Sorter Device Identifier Shelf Expiration Date Model / Serial / Lot Lens Intraoc 22.5 - [id number] - [id number] Implanted:Qty: 1 on 09/19/2020 by Vivek Mejia MD at OR [facility] Right: Eye BAUSCH 02/06/2025 [id number] / [id number] / [id number] Lens Intraoc 24.5 - [id number] - [id number] Implanted:Qty: 1 on 09/26/2020 by Vivek Mejia MD at OR [facility] Left: Eye BAUSCH 01/07/2025 [id number] / [id number] / [id number] Lead Kit Trial [id number] 50cm - [id number] - [id number] Implanted:Qty: 1 on 02/03/2024 by Jef Johnson DO at OR [facility] Right: Spine Lumbar [employer] : PAIN MGMT 12/17/2025 [id number] / [id number] / Lead Kit Trial [id number] 50cm - [id number] - [id number] Implanted:Qty: 1 on 02/03/2024 by Jef Johnson DO at OR [facility] Left: Spine Lumbar [employer] : PAIN MGMT 12/17/2025 [id number] 50E0 / [id number] / documented as of this encounter Visit Diagnoses Diagnosis Nonischemic cardiomyopathy (HCC)- Primary Other primary cardiomyopathies Chronic systolic heart failure (HCC) Chronic systolic heart failure Encounter for monitoring amiodarone therapy Encounter for therapeutic drug monitoring HTN, goal below 130/80 Unspecified essential hypertension LBBB (left bundle branch block) Other left bundle branch block GER (obstructive sleep apnea) Obstructive sleep apnea (adult) (pediatric) documented in this encounter Care Teams Nursing Center Tutor Relationship Specialty Start Date End Date Sammy Morales DO [address] [place] [id number] PCP - General Family Medicine 06/08/24 documented as of this encounter"
--- OUTSIDE RECORDS SUMMARY | 2024-07-02 07:44 | External Medical Summary | Summary of Care ---
Author Name Unknown Organization [facility] Address [address] [facility] [place] [address] Phone [phone] Care Team Providers Care Director Of Assisted Living Name Role Phone Andrew Sammy Mayfield DO Primary Care Provider Reason for Visit * Reason Onset Date Comments Pre-op Clearance 06/21/2024 Encounter Details Date Type Department Care Team (Late st Contact Info) Description 06/21/2024 Telephone Cardiology, [facility] [address] [place] [address] Lisa Desai CRNP [address] [facility] [place] [address] Pre-op Clearance Allergies Active Allergy Reactions Criticality Noted Date Comments Lisinopril 04/10/2010 Headache + GI side effects documented as of this encounter (statuses as of 06/21/2024) Medications CloudMade SYSTEM W/DEVICE KITIndications:DM type 2, goal A1c below 7 Use to test blood sugar 2-4/day for Type II diabetes- 250.00 1 1 04/04/19 09 Active albuterol (VENTOLIN HFA) 108 (90 BASE) MCG/ACT inhaler Inhale 2 Puffs by mouth every 4 hours as needed for Cough or Wheezing. 3 Inhaler 1 09/26/19 17 Active Amoxicillin 500 MG Oral Capsule (Amoxil) Take 1 Capsule by mouth. Take 1 hr prior to dental procedure 07/04/19 21 Active CPAP every night at bedtime. Active Metoprolol Succinate ER 100 MG Oral Tablet Extended Release 24 Hour (toPROL XL)Indications:HTN , goal below 130/80,Chronic systolic heart failure (HCC) Take 1 Tablet by mouth in the morning and 1 Tablet before bedtime. 180 Tablet 3 4 2:35 PM EST 06/09/19 24 Active Rosuvastatin Calcium 40 MG Oral Tablet (Crestor)Indicatio ns:Dyslipidemia, goal LDL below 70 TAKE ONE TABLET BY MOUTH EVERY MORNING. 90 Tablet 3 4 3:04 PM EST 06/09/19 24 Active Gabapentin 300 MG Oral Capsule (Neurontin)Indicat ions:Spinal stenosis of lumbar region without neurogenic claudication take 3 capsules by mouth daily as directed 270 Capsule 3 5 12:30 PM EDT 10/13/19 24 Active OneTouch Ultra 2 w/Device KitIndications:Typ e 2 diabetes mellitus with hemoglobin A1c goal of less than 7.0% (HCC) Use up to 4 times daily as directed 1 Kit 4 7:50 AM EDT 11/17/19 24 Active Spironolactone 25 MG Oral Tablet (Aldactone)Indicat ions:Chronic systolic heart failure (HCC),Nonischemic cardiomyopathy (HCC) Take 1 Tablet by mouth in the morning. 90 Tablet 3 5 8:04 AM EDT 12/09/19 24 Active OneTouch UltraSoft Lancets check fasting blood sugars 2 to 4 times a day 300 Each 5 4 7:50 AM EDT 12/09/19 24 Active Fenofibrate 48 MG Oral Tablet (Tricor)Indication s:Dyslipidemia, goal LDL below 70 TAKE ONE TABLET BY MOUTH IN THE MORNING 90 Tablet 2 4 3:48 PM EST 12/23/19 24 Active Dulaglutide 4.5 MG/0.5ML Subcutaneous Solution Auto-injector (RPost) Inject 4.5mg under the skin once weekly 6 mL 2 5 7:26 AM EDT 12/24/19 24 Active Citalopram Hydrobromide 40 MG Oral Tablet (CeleXA)Indication s:Adjustment disorder with depressed mood Take 1 Tablet by mouth in the morning. 90 Tablet 2 4 3:48 PM EST 03/07/20 24 Active NovoLOG FlexPen 100 UNIT/ML Subcutaneous Solution Pen-injector (insulin aspart) Inject 6 Units under the skin in the morning and 6 Units at noon and 6 Units in the evening. Inject with meals. 15 mL 11 5 2:03 PM EST 03/08/20 24 Active Insulin Glargine Solostar 100 UNIT/ML Subcutaneous Solution Pen-injector (Lantus SoloStar) Inject 40 Units under the skin every evening. 15 mL 11 5 9:35 AM EDT 03/08/20 24 Active Entresto 49-51 MG Oral TabletIndications: Chronic systolic heart failure (HCC),Nonischemic cardiomyopathy (HCC) Take 1 Tablet by mouth in the morning and 1 Tablet before bedtime. Obtaining from PAP. 180 Tablet 3 5 2:22 PM EST 04/13/19 25 Active metFORMIN HCl 1000 MG Oral Tablet (Glucophage)Indica tions:Type 2 diabetes mellitus with hemoglobin A1c goal of less than 7.0% (HCC) TAKE ONE TABLET BY MOUTH TWICE A DAY WITH MORNING AND EVENING MEALS 180 Tablet 1 5 7:27 AM EST 04/19/19 25 Active OneTouch Ultra In Vitro Strip (Glucose Blood) Use as directed 4 times a day as needed for Hyperglycemia (high sugar) or Hypoglycemia (low sugar). E11.9 400 Strip 3 5 7:46 AM EST 05/06/19 25 Active Empagliflozin 25 MG Oral Tablet (Jardiance)Indicat ions:Type 2 diabetes mellitus with hemoglobin A1c goal of less than 7.0% (HCC),Type 2 diabetes mellitus with diabetic cataract, unspecified whether long term care administrator insulin use (HCC) TAKE ONE TABLET BY MOUTH EVERY MORNING 90 Tablet 1 5 1:15 PM EST 05/06/19 25 Active Furosemide 20 MG Oral Tablet (Lasix)Indications :Chronic systolic heart failure (HCC) Take 1 Tablet by mouth in the morning. 90 Tablet 5 1:58 PM EDT 06/02/19 25 Active Amiodarone HCl 200 MG Oral Tablet (Cordarone)Indicat ions:Paroxysmal atrial fibrillation (HCC) Take 1 Tablet by mouth in the morning. 90 Tablet 3 5 8:20 AM EDT 06/03/19 25 Active Chromium 200 MCG Oral Capsule Take by mouth. Ac tive Copper Peptide Solution Use as directed. Act lowell Magnesium 300 MG Oral Capsule Take by mouth. Ac tive Apixaban 5 MG Oral Tablet (Eliquis)Indicatio ns:Chronic systolic heart failure (HCC),HTN, goal below 130/80 Take 1 Tablet by mouth in the morning and 1 Tablet before bedtime. 180 Tablet 3 06/16/19 25 Active Pen [place] 32G X 4 MM Use as directed to inject insulin 4 times daily 200 Each 5 5 4:49 PM EDT 06/17/19 25 Active documented as of this encounter (statuses as of 06/21/2024) Active Problems Problem Noted Date Diagnosed Date [...] 7.0% 01/05/2009 Overview (08/02/2016): 07/24 a1c 7.0 [facility] Dyslipidemia 02/28/1998 Nonischemic cardiomyopathy Chronic systolic heart failure Overview (06/01/2016): 05/24 eF 32% also gotti grade 2. Trace pericard effusion GER (obstructive sleep apnea) Obesity, Class II, BMI 35-39.9, isolated (see ac tual BMI) documented as of this encounter (statuses as of 06/21/2024) Resolved Problems Problem Noted Date Diagnosed Date [...] as of this encounter (statuses as of 06/21/2024) Immunizations Name Administration Dates Next Due Hepatitis [...] 07/04/2023 Does the household have a re gular source of income? 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 Successful transmission received. * Telephone Encounter - Lisa Desai CRNP - 06/21/2024 12:42 PM EDT Has been having some orthostasis, dizziness with glycemic issues just prior to his office visit butwas feeling much better when I saw him in the clinic. He can be cleared from a cardiac perspective to undergo the procedure. Given his personal history he would be moderate cardiac risk; no other additional testing is necessary. Reasonable to hold apixaban for 2-3 days prior to procedure, no bridging is necessary. Thank You, VINNY Pretty * Telephone Encounter - Catalina Sanches CMA - 06/21/2024 12:07 PM EDT [facility] calling regarding patient Right TKR on 07/02/[address] Rosales at [facility]. Patient seen 06/15 but forgot to mention surgery clearance being needed. Not addressed in office visit note. Please advise if patient is optimized for surgery or if he needs to be scheduled for pre-op appt. documented in this encounter Plan of Treatment Upcoming Encounters Date Type Department Care Team (Late st Contact Info) Description 08/16/2024 1:30 PM EDT Office Visit Cardiology, [facility] [address] [place] [phone] Magda Bailey CRNP [address] [place] [address] 09/21/2024 1:00 PM EDT Office Visit Family Practice [facility] [address] [place] [address] Sammy Morales DO [address] [place] [address] 04/29/2025 3:00 PM EST Office Visit Cardiology [facility] [address] [place] [phone] Lisa Desai, VINNY [address] [place] [address] Health Maintenance Due Date Last Done Comments [...] 06/03/2022, Additional history exists GFR 06/01/2025 06/01/2024, 08/0 08/2023, 04/19/2023, Additional history exists Lipid Panel 10/13/2028 [...] this encounter Medical Devices Implanted Type Area Supervisor Rubber Covering Device Identifier Shelf Expiration Date Model / Serial / Lot Lens Intraoc 22.5 - [id number] - [id number] Implanted:Qty: 1 on 09/19/2020 by Vivek Mejia MD at OR [facility] Right: Eye BAUSCH 02/06/2025 [id number] / [id number] / [id number] Lens Intraoc 24.5 - [id number] - [id number] Implanted:Qty: 1 on 09/26/2020 by Vivek Mejia MD at OR [facility] Left: Eye BAUSCH 01/07/2025 [id number] / [id number] / [id number] Lead Kit Trial [id number] 50cm - [id number] - [id number] Implanted:Qty: 1 on 02/03/2024 by Jef Johnson DO at OR [facility] Right: Spine Lumbar [employer] : PAIN MGMT 12/17/2025 [id number] 50E0 / [id number] / Lead Kit Trial [id number] 50cm - [id number] - [id number] Implanted:Qty: 1 on 02/03/2024 by Jef Johnson DO at OR [facility] Left: Spine Lumbar [employer] : PAIN MGMT 12/17/2025 [id number] 50E0 / [id number] / documented as of this encounter Care Teams Director Of Assisted Living Relationship Specialty Start Date End Date Sammy Morales DO [address] [facility] [place] [address] PCP - General Family Medicine 06/08/24 documented as of this encounter
--- OUTSIDE RECORDS SUMMARY | 2024-07-02 07:44 | External Medical Summary | Summary of Care ---
Author Name Unknown Organization [facility] Address [address] [place] [place] [facility] [place] [address] Phone [phone] Care Team Providers Care Table Attendant Name Role Phone Sammy Morales DO Primary Care Provider Encounter Details Date Type Department Care Team (Late st Contact Info) Description 06/08/2024 Result Scan Unspecified Department <No scans attached> Allergies Active Allergy Reactions Criticality Noted Date Comments Lisinopril 04/10/2010 Headache + GI side effects documented as of this encounter (statuses as of 06/10/2024) Medications [employer] SYSTEM W/DEVICE KITIndications:DM type 2, goal A1c [...] mouth daily as directed 270 Capsule 3 4 1:40 PM EST 10/13/19 24 Active OneTouch Ultra 2 w/Device [...] Active Dulaglutide 4.5 MG/0.5ML Subcutaneous Solution Auto-injector (Trulicity) Inject 4.5mg under the skin once weekly 6 mL 2 5 7:26 AM EDT 12/24/19 24 Active Pen [place] 32G X 4 MM Use as directed. Use to inject insulin 4 times daily E11.9 200 Each 5 02/06/20 24 Active Citalopram Hydrobromide 40 MG Oral [...] skin every evening. 15 mL 11 5 8:25 AM EST 03/08/20 24 Active Entresto 49-51 MG Oral [...] diabetes mellitus with diabetic cataract, unspecified whether meterman insulin use (HCC) TAKE ONE TABLET BY MOUTH EVERY MORNING 90 Tablet 1 5 1:15 PM EST 05/06/19 25 Active Apixaban 5 MG Oral Tablet (Eliquis)Indicatio ns:HTN, goal below 130/80,Chronic systolic heart failure (HCC) Take 1 Tablet by mouth in the morning and 1 Tablet before bedtime. 180 Tablet 1 5 10:39 AM EST 05/11/19 25 Active Furosemide 20 MG Oral Tablet (Lasix)Indications :Chronic systolic heart failure (HCC) Take 1 Tablet by mouth in the morning. 90 Tablet 5 1:58 PM EDT 06/02/19 25 Active Amiodarone HCl 200 MG Oral Tablet (Cordarone)Indicat ions:Paroxysmal atrial fibrillation (HCC) Take 1 Tablet by mouth in the morning. 90 Tablet 3 5 8:20 AM EDT 06/03/19 25 Active documented as of this encounter (statuses as of 06/10/2024) Active Problems Problem Noted Date Diagnosed Date [...] 7.0% 01/05/2009 Overview (08/02/2016): 07/24 a1c 7.0 [facility] Dyslipidemia 02/28/1998 Nonischemic cardiomyopathy Chronic systolic heart failure Overview (06/01/2016): 05/24 eF 32% also gotti grade 2. Trace pericard effusion GER (obstructive sleep apnea) Obesity, Class II, BMI 35-39.9, isolated (see ac tual BMI) documented as of this encounter (statuses as of 06/10/2024) Resolved Problems Problem Noted Date Diagnosed Date [...] as of this encounter (statuses as of 06/10/2024) Immunizations Name Administration Dates Next Due Hepatitis [...] money to buy more. 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 documented as of this encounter Plan of Treatment Upcoming Encounters Date Type Department Care Team (Late st Contact Info) Description 06/15/2024 2:30 PM EDT Office Visit Cardiology, [facility] [address] [place] [phone] Lisa Desai CRNP [address] [place], [place] [address] [address] 08/16/2024 1:30 PM EDT Office Visit Cardiology, [facility] [address] [place] [phone] Magda Bailey CRNP [address] [place] [address] 09/21/2024 1:00 PM EDT Office Visit Family Practice [facility] [address] [place] [address] Sammy Morales, DO [address] [place] [address] Health Maintenance Due Date Last Done Comments [...] 08/15/2020, Additional history exists COVID-19 Vaccine ( - 2023- season) 2023 Depression Monitoring 07/03/2024 07/04/2023 HbA1c 08/05/2024 02/06/2024, 08/0 08/2023, 04/08/2023, Additional history exists Influenza Vaccine (FLU shot) (Season Ended) 2024 Diabetic Eye Exam 11/27/2024 11/28/2023, , 10/28/2022, Additional history exists Albumin/Creatinine Ratio 06/01/20252 025, 04/08/2023, 06/03/2022, Additional history exists GFR [...] this encounter Medical Devices Implanted Type Area Surfacing Technician Device Identifier Shelf Expiration Date Model / Serial / Lot Lens Intraoc 22.5 - [id number] - [id number] Implanted:Qty: 1 on 09/19/2020 by Vivek Mejia MD at OR [facility] Right: Eye BAUSCH & LOMB 02/06/2025 [id number] / [id number] / [id number] Lens Intraoc 24.5 - [id number] - [id number] Implanted:Qty: 1 on 09/26/2020 by Vivek Mejia MD at OR [facility] Left: Eye BAUSCH & LOMB 01/07/2025 [id number] / [id number] / [id number] Lead Kit Trial [id number] 50cm - [id number] - [id number] Implanted:Qty: 1 on 02/03/2024 by Jef Johnson DO at OR [facility] Right: Spine Lumbar [employer] : PAIN MGMT 12/17/2025 [id number] 50E0 / [id number] / Lead Kit Trial [id number] 50cm - [id number] - [id number] Implanted:Qty: 1 on 02/03/2024 by Jef Johnson DO at OR [facility] Left: Spine Lumbar [employer] : PAIN MGMT 12/17/2025 [id number] 50E0 / [id number] / documented as of this encounter Procedures Procedure Name Priority Date/Time Associated Diagnosis Comments EKG SCANNED RESULT 06/08/2024 documented in this encounter Results * EKG SCANNED RESULT (06/08/2024) 06/08/2024 us No Physician Data Unknown EKG Final Result documented in this encounter Care Teams Table Attendant Relationship Specialty Start Date End Date Sammy Morales DO [address] [place] [address] PCP - General Family Medicine 06/08/24 documented as of this encounter
--- OUTSIDE RECORDS SUMMARY | 2024-07-02 07:44 | External Medical Summary | Summary of Care ---
Author Name Unknown Organization [facility] [address] [facility] [address] Phone [phone] Care Team Providers Care Carbon Rod Inserter Name Role Phone Elissa Morales DO Primary Care Provider Reason for Visit * Reason Onset Date Comments Medication Refill 06/16/2024 Encounter Details Date Type Department Care Team (Late st Contact Info) Description 06/16/2024 Refill Pharmacy, [facility] [address] [place] [address] Elissa Morales DO [address] [place] [address] Allergies Active Allergy Reactions Criticality Noted Date Comments Lisinopril 04/10/2010 Headache + GI side effects documented as of this encounter (statuses as of 06/16/2024) Medications [employer] SYSTEM W/DEVICE KITIndications:DM type 2, goal A1c [...] 24 Active Gabapentin 300 MG Oral Capsule (Neurontin)Indica tions:Spinal stenosis of lumbar region without neurogenic claudication take 3 capsules by mouth daily as directed 270 Capsule 3 4 1:40 PM EST 10/13/19 24 Active OneTouch Ultra 2 w/Device KitIndications:Ty pe 2 diabetes mellitus with hemoglobin A1c goal of less than 7.0% (HCC) Use up to 4 times daily as directed 1 Kit 4 7:50 AM EDT 11/17/19 24 Active Spironolactone 25 MG Oral Tablet (Aldactone)Indica tions:Chronic systolic heart failure (HCC),Nonischemic cardiomyopathy (HCC) Take 1 Tablet by mouth in the morning. 90 Tablet 3 5 8:04 AM EDT 12/09/19 24 Active OneTouch UltraSoft Lancets check fasting blood sugars 2 to 4 times a day 300 Each 5 4 7:50 AM EDT 12/09/19 24 Active Fenofibrate 48 MG Oral Tablet (Tricor)Indicatio ns:Dyslipidemia, goal LDL below 70 TAKE ONE TABLET BY MOUTH IN THE MORNING 90 Tablet 2 4 3:48 PM EST 12/23/19 24 Active Dulaglutide 4.5 MG/0.5ML Subcutaneous Solution Auto-injector (PaletteApp) Inject 4.5mg under the skin once weekly 6 mL 2 5 7:26 AM EDT 12/24/19 24 Active Citalopram Hydrobromide 40 MG Oral Tablet (CeleXA)Indicatio ns:Adjustment disorder with depressed mood Take 1 Tablet by mouth in the morning. 90 Tablet 2 12/31/202 4 3:48 PM EST 03/07/20 24 Active [...] 03/08/20 24 Active Entresto 49-51 MG Oral TabletIndications :Chronic [...] 25 Active Empagliflozin 25 MG Oral Tablet (Jardiance)Indica tions:Type 2 diabetes mellitus with hemoglobin A1c goal of less than 7.0% (HCC),Type 2 diabetes mellitus with diabetic cataract, unspecified whether residential insulin use (HCC) TAKE ONE TABLET BY MOUTH EVERY MORNING 90 Tablet 1 5 1:15 PM EST 05/06/19 25 Active Furosemide 20 MG Oral Tablet (Lasix)Indication [...] 180 Tablet 3 06/16/19 25 Active Pen [place] 32G X 4 MM Use as directed. Use to inject insulin 4 times daily E11.9 200 Each 5 06/17/19 25 Active Pen [place] 32G X 4 MM Use as directed. Use to inject insulin 4 times daily E11.9 200 Each 5 02/06/20 24 025 Discontin ued(Refil l) documented as of this encounter (statuses as of 06/16/2024) Active Problems Problem Noted Date Diagnosed Date [...] 7.0% 01/05/2009 Overview (08/02/2016): 07/24 a1c 7.0 [facility] Dyslipidemia 02/28/1998 Nonischemic cardiomyopathy Chronic systolic heart failure Overview (06/01/2016): 05/24 eF 32% also gotti grade 2. Trace pericard effusion GER (obstructive sleep apnea) Obesity, Class II, BMI 35-39.9, isolated (see ac tual BMI) documented as of this encounter (statuses as of 06/16/2024) Resolved Problems Problem Noted Date Diagnosed Date [...] Per HTN Taxonomy. 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 Use to inject insulin 4 times daily E11.9Authorizing Provider: ELISSA MORALES User: TERESITA CORDON documented in this encounter Plan of Treatment Upcoming Encounters Date Type Department Care Team (Late st Contact Info) Description 08/16/2024 1:30 PM EDT Office Visit Cardiology, [facility] [address] [place] [phone] Magda Bailey CRNP [address] [place] [address] 09/21/2024 1:00 PM EDT Office Visit Family Practice [facility] [address] [place] [address] Elissa Morales DO [address] [place] [address] 04/29/2025 3:00 PM EST Office Visit Cardiology, [facility] [address] [place] [phone] Lisa Desai CRNP [address] [place] [address] Health Maintenance Due Date Last Done Comments [...] this encounter Medical Devices Implanted Type Area Community Health Consultant Device Identifier Shelf Expiration Date Model / Serial / Lot Lens Intraoc 22.5 - [id number] - [id number] Implanted:Qty: 1 on 09/19/2020 by Vivek Mejia MD at OR [facility] Right: Eye BAUSCH 02/06/2025 [id number] / [id number] / [id number] Lens Intraoc 24.5 - [id number] - [id number] Implanted:Qty: 1 on 09/26/2020 by Vivek Mejia MD at OR [facility] Left: Eye BAUSCH 01/07/2025 [id number] / [id number] / [id number] Lead Kit Trial [id number] 50cm - [id number] - [id number] Implanted:Qty: 1 on 02/03/2024 by Jef Johnson DO at OR [facility] Right: Spine Lumbar [employer] : PAIN MGMT 12/17/2025 [id number] 50E0 / [id number] / Lead Kit Trial [id number] 50cm - [id number] - [id number] Implanted:Qty: 1 on 02/03/2024 by Jef Johnson DO at OR [facility] Left: Spine Lumbar [employer] : PAIN MGMT 12/17/2025 [id number] 50E0 / [id number] / documented as of this encounter Care Teams Carbon Rod Inserter Relationship Specialty Start Date End Date Elissa Morales DO [address] [place] [address] PCP - General Family Medicine 06/08/24 documented as of this encounter
--- OUTSIDE RECORDS SUMMARY | 2024-07-02 07:44 | External Medical Summary | Summary of Care ---
Author Name Unknown Organization [facility] Address [address] [place] [id number] Phone [phone] Care Team Providers Care Diet Assistant Name Role Phone Sammy Morales DO Primary Care Provider Reason for Visit * Reason Comments Return Visit Low bp and lighthead edness x 1 month. Checked bp at hospital, was around 95/55 Encounter Details Date Type Department Care Team (Late st Contact Info) Description 06/10/2024 11:00 AM EDT Office Visit Family Practice [facility] [address] [place] [address] Sangeeta Mcclellan CRNP [address] [place] [address] Positional lightheadedness*; HTN, goal below 130/80; Chronic systolic heart failure (HCC); Paroxysmal atrial fibrillation (HCC); Dyslipidemia; LBBB (left bundle branch block); Type 2 diabetes mellitus with hemoglobin A1c goal of less than 7.0% (HCC) Allergies Active Allergy Reactions Criticality Noted Date Comments Lisinopril 04/10/2010 Headache + GI side effects documented as of this encounter (statuses as of 06/10/2024) Medications [employer] SYSTEM W/DEVICE KITIndications:DM type 2, goal A1c [...] 7:26 AM EDT 12/24/19 24 Active Pen [place] 32G X 4 MM Use as directed. 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 Subjective Taco Malik III is a 63 year old male that presents for acute. History of Present Illness The patient, with a history of hypertension, CHF, dyslipidemia, LBBB, paroxysmal afib, and DM and others presents with lightheadedness, particularly upon standing, which has been ongoing for the pastyear. He initially attributed the symptoms to other causes until a recent preoperative evaluation revealed low blood pressure. The patient reports feeling fine when sitting down, but experiences lightheadedness when moving around. He also reports occasional shortness of breath, which he attributes to being out of shape due to limitations from knee and back issues. The patient denies any chest pain or leg swelling. He is currently taking blood pressure and heart medications daily. Objective BP 96/50 (BP Site: Left Arm, BP Position: Sitting, BP Cuff Size: Regular) | Pulse 59 | Ht 6' (1.829m) | Wt 255 lb 6.4 oz (115.8 kg) | SpO2 96% | BMI 34.64 kg/m² | BSA 2.43 m² Physical Exam VITALS: BP- 99/56 EXTREMITIES: No significant leg swelling Physical Exam Constitutional: Appearance: Normal appearance. HENT: Head: Normocephalic. Cardiovascular: Rate and Rhythm: Normal rate and regular rhythm. Pulmonary: Effort: Pulmonary effort is normal. Breath sounds: Normal breath sounds. Musculoskeletal: General: No swelling. Cervical back: Neck supple. Skin: General: Skin is warm. Neurological: Mental Status: He is alert and oriented to person, place, and time. Psychiatric: Mood and Affect: Mood normal. Results LABS Blood Pressure: 96/50 Assessment and Plan Assessment & Plan 1. Positional lightheadedness (Primary) Reduce Entresto 49-51 from 1 tab to 1/2 tab twice daily F/u cardiology for further med adjustment 2. HTN, goal below 130/80 3. Chronic systolic heart failure (HCC) 4. Paroxysmal atrial fibrillation (HCC) On Eliquis 5. Dyslipidemia 6. LBBB (left bundle branch block) 7. Type 2 diabetes mellitus with hemoglobin A1c goal of less than 7.0% (HCC) Wrap-Up Text in this note was generated using an SmartVault documentation service. I discussed the use of a device to record and summarize our discussion today. All persons present during the encounter consented to its use. documented in this encounter Nursing Notes * Toshia Daugherty CMA - 06/10/2024 11:03 AM EDT The patient has been properly identified by confirmation of name and date of . Chief Complaint Patient presents with Return Visit Low bp and lightheadedness x 1 month. Checked bp at hospital, was around 95/55 documented in this encounter Plan of Treatment Upcoming Encounters Date Type Department Care Team (Late st Contact Info) Description 06/15/2024 2:30 PM EDT Office Visit Cardiology, [facility] [address] [place] [phone] Lisa Desai CRNP [address] [facility] [place] [address] 08/16/2024 1:30 PM EDT Office Visit Cardiology, [facility] [address] [place] [phone] Magda Bailey CRNP [address] [place] [address] 09/21/2024 1:00 PM EDT Office Visit Family Practice [facility] [address] [place] [address] Sammy Morales DO [address] [place] [address] Health Maintenance Due Date Last Done Comments [...] Additional history exists COVID-19 Vaccine ( - season) 2023 Depression Monitoring 07/03/2024 07/04/2023 HbA1c [...] this encounter Medical Devices Implanted Type Area Label Coder Device Identifier Shelf Expiration Date Model / Serial / Lot Lens Intraoc 22.5 - [id number] - [id number] Implanted:Qty: 1 on 09/19/2020 by Vivek Mejia MD at OR [facility] Right: Eye BAUSCH & LOMB 02/06/2025 [id number] / [id number] / [id number] Lens Intraoc 24.5 - [id number] - [id number] Implanted:Qty: 1 on 09/26/2020 by Vivek Mejia MD at OR [facility] Left: Eye BAUSCH & LOMB 01/07/2025 [id number] / [id number] / [id number] Lead Kit Trial [id number] 50cm - [id number] - [id number] Implanted:Qty: 1 on 02/03/2024 by Jef Johnson DO at OR [facility] Right: Spine Lumbar [employer] : PAIN MGMT 12/17/2025 [id number] 50E0 / [id number] / Lead Kit Trial [id number] 50cm - [id number] - [id number] Implanted:Qty: 1 on 02/03/2024 by Jef Johnson DO at OR [facility] Left: Spine Lumbar [employer] : PAIN MGMT 12/17/2025 [id number] 50E0 / [id number] / documented as of this encounter Visit Diagnoses Diagnosis Positional lightheadedness- Primary Dizziness and giddiness HTN, goal below 130/80 Unspecified essential hypertension Chronic systolic heart failure (HCC) Chronic systolic heart failure Paroxysmal atrial fibrillation (HCC) Atrial fibrillation Dyslipidemia Other and unspecified hyperlipidemia LBBB (left bundle branch block) Other left bundle branch block Type 2 diabetes mellitus with hemoglobin A1c goal of less than 7.0% (HCC) documented in this encounter Care Teams Diet Assistant Relationship Specialty Start Date End Date Sammy Morales DO [address] [place] [address] PCP - General Family Medicine 06/08/24 documented as of this encounter"
--- OUTSIDE RECORDS SUMMARY | 2024-07-02 07:45 | External Medical Summary | Summary of Care ---
Author Name Unknown Organization [facility] Address [address] [facility] [facility] [address] Phone [phone] Care Team Providers Care Landscape Contractor Name Role Phone Sammy Morales DO Primary Care Provider Encounter Details Date Type Department Care Team (Late st Contact Info) Description 06/10/2024 Orders Only Family Practice [facility] [address] [place] [address] Sammy Morales DO [address] [place] [phone] Allergies Active Allergy Reactions Criticality Noted Date Comments Lisinopril 04/10/2010 Headache + GI side effects documented as of this encounter (statuses as of 06/10/2024) Medications [employer] SYSTEM W/DEVICE KITIndications:DM type 2, goal A1c [...] hemoglobin A1c goal of less than 7.0% ([facility]) Use up to 4 times daily as [...] Active Dulaglutide 4.5 MG/0.5ML Subcutaneous Solution Auto-injector (HBCS) Inject 4.5mg under the skin once weekly 6 mL 2 5 7:26 AM EDT 12/24/19 24 Active Pen [place] 32G X 4 MM Use as directed. 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 documented as of this encounter Plan of Treatment Upcoming Encounters Date Type Department Care Team (Late st Contact Info) Description 06/15/2024 2:30 PM EDT Office Visit Cardiology [facility] [address] [place] [phone] Lisa Desai CRNP [address] [place] [address] [place] [address] 08/16/2024 1:30 PM EDT Office Visit [facility] [address] [place] [phone] Magda Bailey CRNP [address] [place] [address] 09/21/2024 1:00 PM EDT Office Visit Family [facility] [address] [place] [address] Sammy Morales, [address] [place] [address] Health Maintenance Due Date Last Done Comments [...] this encounter Medical Devices Implanted Type Area Instructor Dramatic Arts Device Identifier Shelf Expiration Date Model / Serial / Lot Lens Intraoc 22.5 - [id number] - [id number] Implanted:Qty: 1 on 09/19/2020 by Vivek Mejia MD at OR [facility] Right: Eye BAUSCH & LOMB 02/06/2025 [id number] / [id number] / [id number] Lens Intraoc 24.5 - [id number] - [id number] Implanted:Qty: 1 on 09/26/2020 by Vivek Mejia MD at OR [facility] Left: Eye BAUSCH & LOMB 01/07/2025 [id number] / [id number] / [id number] Lead Kit Trial [id number] 50cm - [id number] - [id number] Implanted:Qty: 1 on 02/03/2024 by Jef Johnson DO at OR [facility] Right: Spine Lumbar [employer] : PAIN MGMT 12/17/2025 [id number] 50E0 / [id number] / Lead Kit Trial [id number] 50cm - [id number] - [id number] Implanted:Qty: 1 on 02/03/2024 by Jef Johnson DO at OR [facility] Left: Spine Lumbar [employer] : PAIN MGMT 12/17/2025 [id number] 50E0 / [id number] / documented as of this encounter Procedures Procedure Name Priority Date/Time Associated Diagnosis Comments XR CHEST 2 VIEWS Routine 06/08/2024 documented in this encounter Results * XR CHEST 2 VIEWS (06/08/2024) Anatomical Region Laterality Modality Chest Other 06/08/2024 us Garcia Rosales DO RADIOLOGY (RAD GENERAL) F inal Result documented in this encounter Care Teams Landscape Contractor Relationship Specialty Start Date End Date Sammy Morales DO [address] [place] [address] PCP - General Family Medicine 06/08/24 documented as of this encounter
--- OUTSIDE RECORDS SUMMARY | 2024-07-02 07:45 | External Medical Summary | Summary of Care ---
Author Name Unknown Organization [facility] [address] [facility] [address] Phone [phone] Care Team Providers Care County Court Judge Name Role Phone Sammy Morales DO Primary Care Provider Encounter Details Date Type Department Care Team (Late st Contact Info) Description 06/10/2024 Orders Only Family Practice [facility] [address] [place] [address] Sammy Morales DO [address] [place] [phone] Allergies Active Allergy Reactions Criticality Noted Date Comments Lisinopril 04/10/2010 Headache + GI side effects documented as of this encounter (statuses as of 06/10/2024) Medications [employer] SYSTEM W/DEVICE KITIndications:DM type 2, goal A1c [...] hemoglobin A1c goal of less than 7.0% ([facility]) Use up to 4 times daily [...] Active Dulaglutide 4.5 MG/0.5ML Subcutaneous Solution Auto-injector ([employer]) Inject 4.5mg under the skin once weekly 6 mL 2 5 7:26 AM EDT 12/24/19 24 Active Pen [place] 32G X 4 MM Use as directed. 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 file documented as of this encounter Plan of Treatment Upcoming Encounters Date Type Department Care Team (Late st Contact Info) Description 06/15/2024 2:30 PM EDT Office Visit Cardiology [facility] [address] [place] [phone] Lisa Desai CRNP [address] [place] [address] [place] [address] 08/16/2024 1:30 PM EDT Office Visit [facility] [address] [place] [phone] Magda Bailey CRNP [address] [place] [address] 09/21/2024 1:00 PM EDT Office Visit Family [facility] [address] [place] [address] Sammy Morales, [address] [place] [address] Health Maintenance Due Date Last Done Comments [...] this encounter Medical Devices Implanted Type Area Laborer [employer]oder Farm Device Identifier Shelf Expiration Date Model / Serial / Lot Lens Intraoc 22.5 - [id number] - [id number] Implanted:Qty: 1 on 09/19/2020 by Vivek Mejia MD at OR [facility] Right: Eye BAUSCH & LOMB 02/06/2025 [id number] / [id number] / [id number] Lens Intraoc 24.5 - [id number] - [id number] Implanted:Qty: 1 on 09/26/2020 by Vivek Mejia MD at OR [facility] Left: Eye BAUSCH & LOMB 01/07/2025 [id number] / [id number] / [id number] Lead Kit Trial [id number] 50cm - [id number] - [id number] Implanted:Qty: 1 on 02/03/2024 by Jef Johnson DO at OR [facility] Right: Spine Lumbar [employer] : PAIN MGMT 12/17/2025 [id number] 50E0 / [id number] / Lead Kit Trial [id number] 50cm - [id number] - [id number] Implanted:Qty: 1 on 02/03/2024 by Jef Johnson DO at OR [facility] Left: Spine Lumbar [employer] : PAIN MGMT 12/17/2025 [id number] 50E0 / [id number] / documented as of this encounter Procedures Procedure Name Priority Date/Time Associated Diagnosis Comments CHEMISTRY-OUTSIDE Routine 06/08/2024 documented in this encounter Results * (ABNORMAL) CHEMISTRY-OUTSIDE (06/08/2024) Not all results display below - see scan for full detail OUTSIDE LAB (SEE SCANNED REPORT) Comment:SEE SCAN - CBCD, PTI NR CREATININE OUTSIDE L AB (SEE SCANNED REPORT) EGFR OUTSIDE LA B (SEE SCANNED REPORT) POTASSIUM OUTSIDE LA B (SEE SCANNED REPORT) GLUCOSE OUTSIDE LA B (SEE SCANNED REPORT) HOURS FASTING OUTSID E LAB (SEE SCANNED REPORT) TRIGLYCERIDES-OUT SIDE LAB OUTSIDE LAB (SEE SCANNED REPORT) CHOLESTEROL-OUTSI DE LAB OUTSIDE LAB (SEE SCANNED REPORT) HDL-OUTSIDE LAB OUTS [facility] (SEE SCANNED REPORT) CHOL/HDL RATIO-OUTSIDE LAB OUTSIDE LA B (SEE SCANNED REPORT) LDL (CALCULATED)-OUTS [facility] OUTSIDE LAB (SEE SCANNED REPORT) LDL (DIRECT MEASURE)-OUTSIDE LAB OUTSIDE LAB (SEE SCANNED REPORT) HEMOGLOBIN, W1Y-JVZEMVV LAB OUTSIDE LAB (SEE SCANNED REPORT) PHOSPHORUS-OUTSID E LAB OUTSIDE LAB (SEE SCANNED REPORT) PTH-OUTSIDE LAB OUTS [facility] LAB (SEE SCANNED REPORT) MICROALBUMIN RATIO-OUTSIDE LAB OUTSIDE LA B (SEE SCANNED REPORT) PROTEIN, UA-OUTSIDE LAB OUTSIDE LAB (SEE SCANNED REPORT) HGB 13.1(A) 14.0 - 18.0 G/DL OUTSIDE LAB (SEE SCANNED REPORT) 06/08/2024 us Garcia Rosales DO LABORATORY Final Res ult OUTSIDE LAB (SEE SCANNED REPORT) documented in this encounter Care Teams County Court Judge Relationship Specialty Start Date End Date Sammy Morales DO [address] [place] [address] PCP - General Family Medicine 06/08/24 documented as of this encounter
--- OUTSIDE RECORDS SUMMARY | 2024-07-02 07:46 | External Medical Summary ---
Author Name Unknown Address Unknown Organization K0G:LAB[facility]ATORY [facility] [address] [place] [address] Laboratory Report Ordering Provider Test Date Status KARIN BATISTA 06/01/2024 14:39:54 Final Observation Date Value Abnormality Reference (Units ) Status HbA1C 06/01/2024 14:39:54 6.7 Above high normal 4. 0-5.6 (%) Final Performing Location LABORATORY [facility] [address] [place] [address]
[2024-07-02] MEDS ORDERED: ROCURONIUM BROMIDE 10 MG/ML 5 ML VIAL IV ONE ×2 (08:13→10:09)
[2024-07-02] MEDS ORDERED: ATROPINE SULFATE 0.1 MG/ML 10ML SYR IV PRN (08:38)
[2024-07-02] MEDS ORDERED: ePHEDrine sulfate 50 MG/ML AMP IV PRN (08:38)
[2024-07-02] MEDS ORDERED: ONDANSETRON INJ 2 MG/ML 2 ML VIAL IV PRN ×2 (08:38→12:28)
[2024-07-02] MEDS: TRANEXAMIC ACID 1,000 MG **IV Pre-op IV SCH (08:59)
--- NOTE | 2024-07-02 09:12 | History & Physical Bridge Note ---
Date of Service July 02, 2024 History & Physical Bridge Note I have examined the patient, reviewed the History & Physical and in the interval since the performance of the History & Physical I have noted the following changes of clinical significance: no changes noted
[2024-07-02] MEDS: ceFAZolin 2000MG 2,000 MG/15 ML SYR IV SCH ×2 (09:15→17:45)
[2024-07-02] MEDS ORDERED: DEXAMETHASONE SOD INJ 4 MG/ML VIAL ONE (09:40)
[2024-07-02] MEDS: ROPIV 0.5% 246mg, Ketorolac 30mg, EPINEPHrine 0.5mg in NSS INFIL SCH (09:52)
[2024-07-02] MEDS: ORTHO JOINT ANESTHETIC ONE (09:52)
[2024-07-02] MEDS ORDERED: SUGAMMADEX SODIUM 200 MG/2 ML VIAL IV ONE (09:53)
[2024-07-02] MEDS ORDERED: PHENYLEPHRINE HCL 10 MG/ML VIAL ONE (09:54)
[2024-07-02] MEDS: TRANEXAMIC ACID 1,000 MG **IV Intra-op IV SCH (10:30)
--- NOTE | 2024-07-02 10:34 | Operative Report ---
PG Post Operative Report Pre & Post Diagnosis Operation Date: 07/02/24 09:00 Pre-Op Diagnosis: Right Knee Osteoarthritis Post-Op Diagnosis: Right Knee Osteoarthritis I identified the patient and participated in the time-out.: Yes Procedure Operation Date: 07/02/24 09:00 Actual Procedures p Right Total Knee Arthroplasty(Right) - Garcia Rosales DO Surgeon Garcia Rosales DO Cane Stripper Montez Rueda PA-C Estimated Blood Loss 50 Findings Consistent with Post-Op Diagnosis Specimens Right femoral and tibial bone Description of Procedure Implants used: I used a Anjelica Persona total knee arthroplasty system with a size 7 PS standard femur, F tibia, 31 oval patella, and a size 12 CPS polyethylene bearing. All components were cemented in place with Biomet cement. Taco parra [facility] for the above procedure. He was seen in the preoperative holding area and the operative extremity was identified and signed. He was given a preoperative antibiotic, TXA,and an adductor nerve block. He was taken back to the operating room and laid on the table in supine position. He was given general anesthesia. The operative knee was then prepped and draped in sterile fashion. A timeout was done, and the patient and the operative extremity was properly identified. A midline incision was made directly over the patella. Dissection was taken down to the extensor mechanism. A medial parapatellar arthrotomy was used. The medial retinaculum was released and the fat pad was mostly excised. The knee was flexed and the ACL, PCL, and meniscus were removed. A drill was sent down the center of the femoral canal followed by an intramedullary brittani. Off that brittani a distal femoral cutting block was placed. 9 mm was resected off the distal femur at 5 of valgus. A posterior referencing AP sizing guide was then placed on the distal femur. The femur measured to be a size 7. 2 drill holes were placed in 3 of external rotation. A 4-in-1 cutting block was then impacted into place. Anterior, posterior, and chamfer cuts were then made. The proximal tibia was then exposed. An external tibial alignment guide was placed. A tibial cut guide was then anchored in place and the proximal tibia was then resected. The posterior aspect of the knee was then opened up and any additional meniscus fragments and osteophytes were removed. The tibia measured to be a size F. The tibial plate was then placed in the appropriate rotation and the tibia was drilled and punched. Trial components were then placed. I used a size 12 CPS polyethylene insert. The knee was brought through a full range of motion and felt to be stable. The peg holes for the femoral component were then drilled. The patella was then everted and 9 mm was resected off the posterior aspect of the patella. The patella measured to be a size 31 oval. 3 peg holes were then drilled. A trial patella was placed. The knee was once again brought through a full range of motion and felt to be stable. Trial components were then removed. The surrounding soft tissues were injected with 100 cc of an orthopedic pain control cocktail. All components were then cemented into place with Biomet cement. The final polyethylene insert was then snapped into place. Once cement was dry the tourniquet was deflated. Hemostasis was obtained. A dilute betadyne lavage was then done for 3 minutes. The joint was then irrigated with normal saline solution. The medial parapatellar arthrotomy was then closed with #1 Vicryl suture. The skin was closed with 2-0 Vicryl, 3-0V lock suture, and halina. A soft compressive dressing was placed. He was then transferred to a hospital bed and taken to the postanesthesia care unit in stable condition. He tolerated the procedure well. Montez Rueda PA-C, was present for the entire procedure. He was critical for patient positioning, prepping, draping, retraction exposure, wound closure and application of sterile dressing. I attest to the content of the Intraoperative Record and any orders documented therein. Any exceptions are noted below.
[2024-07-02] MEDS: fentaNYL citrate PF 100 MCG/2 ML VIAL IV PRN (11:13)
--- NOTE | 2024-07-02 11:21 | XRay Report ---
XR knee RT 1 or 2V routine CLINICAL HISTORY: Surgical Post Op COMPARISON: None FINDINGS: Right knee prosthesis shows no hardware application. There is expected soft tissue gas. Sk in halina are present. IMPRESSION: Unremarkable postoperative exam. ACT 112: Negative or not required by law. Electronically signed by: Cesar Hogan M.D. 07/02/2024 11:20 AM
[2024-07-02] MEDS ORDERED: NALOXONE HCL 0.4 MG/1 ML VIAL/CARP IV PRN (12:28)
[2024-07-02] MEDS ORDERED: bisacodyL 10 MG SUPP PR PRN (12:28)
[2024-07-02] MEDS ORDERED: HYDROmorphone INJ 0.5 MG/0.5 ML SYR IV PRN (12:28)
[2024-07-02] MEDS ORDERED: METOCLOPRAMIDE HCL INJ 5 MG/ML 2 ML VIAL IV PRN (12:28)
[2024-07-02] MEDS ORDERED: MAGNESIUM HYDROXIDE SUSP 30 ML UDC PO PRN (12:28)
[2024-07-02] MEDS ORDERED: oxyCODONE HCL IR 5 MG TAB (IMMEDIATE RELEASE) PO PRN (12:28)
[2024-07-02] MEDS ORDERED: PHARMACY GLYCEMIC MGMT CONSULT PRN (12:28)
--- NOTE | 2024-07-02 13:57 | Anesthesiology Progress Note ---
Date of Service July 02, 2024 Anesthesia Post Procedure Vital Signs Vital Signs: Temp Pulse Pulse Pulse Resp BP Pulse Ox 07/02/24 13:02 97.9 F 82 16 122/68 97 07/02/24 12:43 98.6 F 84 16 118/62 94 07/02/24 12:15 85 16 125/58 L 95 07/02/24 12:00 79 16 113/50 L 94 07/02/24 11:45 77 19 118/51 L 94 07/02/24 11:35 78 20 100/43 L 95 07/02/24 11:25 78 19 101/45 L 92 07/02/24 11:15 77 17 99/44 L 93 07/02/24 11:05 80 20 102/46 L 93 07/02/24 10:59 96.8 F L 81 20 107/50 L 93 07/02/24 07:22 98.1 F 85 20 119/68 97 O2 Del Method O2 Flow Rate 07/02/24 13:02 Nasal Cannula 2 07/02/24 12:43 Nasal Cannula 07/02/24 12:15 Nasal Cannula 2 07/02/24 12:00 Nasal Cannula 2 07/02/24 11:45 Room Air 0 07/02/24 11:35 Oxymask 4 07/02/24 11:25 Oxymask 4 07/02/24 11:15 Oxymask 4 07/02/24 11:05 Oxymask 4 07/02/24 10:59 Room Air 07/02/24 07:22 Room Air Pain Intensity Right Knee: Pain Intensity: 5 Transfer of Care Handoff Completed per policy Notes Mental Status: alert / awake / arousable and participated in evaluation Patient Amnestic to Procedure: Yes Nausea / Vomiting: adequately controlled Pain: adequately controlled Airway Patency, RR, SpO2: stable & adequate BP & HR: stable & adequate Hydration State: stable & adequate Anesthetic Complications: no major complications apparent and Pt Satisfied with anesthetic care
[2024-07-02] MEDS: KETOROLAC TROMETHAMINE 15 MG/ML VIAL IV SCH (14:02)
[2024-07-02] MEDS: INSULIN ASPART PER UNIT CHARGE SC SCH ×2 (14:07→23:56)
[2024-07-02] MEDS: LANTUS PER UNIT CHARGE SC ONE (14:08)
[2024-07-02] MEDS: NON-FORMULARY MEDICATION (Dulaglutide [Trulicity] 4.5 mg/0.5 mL pen injector) SQ SCH (14:52)
--- NOTE | 2024-07-02 15:01 | Pharmacy Report ---
Pharmacy Glycemic Short Note 2 - Date of Service July 02, 2024 - Glycemic Short BSG Results (Last 24 hours): 07/02/24 07/02/24 07/02/24 07:35 11:07 12:41 POC Glucose 227 H 250 H 297 H OUTPATIENT ANTIDIABETIC REGIMEN: * Trulicity 4.5mg SQ PANTOJA * Jardiance 25mg PO daily * metformin 1000mg POD BID * Tresiba 40 units HS * HbA1c 6.7 % (06/08/24) ASSESSMENT: * Taco is a 63 year old male admitted status post right total knee arthroplasty POD #0. Pharmacy has been consulted to assist with glycemic management while inpatient. * Preoperative BSG this AM elevated, received 10mg IV dexamethasone preoperatively and 4mg IV dexamethasone was dispensed intraoperatively. Will give a dose ~0.4units/kg of basal insulin to cover steroid induced hyperglycemia. Lantus scale tonight up to a weight based stress of 3 based on BSG. No additional steroids ordered at this time. * NovoLog initiated at a weight based stress of 3. PLAN FOR INPATIENT GLYCEMIC CONTROL: * Hold outpatient oral diabetes medications * Basal insulin * Lantus 40 units SQ now x1 * Lantus 0-30 units SQ HS based on BSG (see eMAR for additional details) * Reasses basal in AM * Bolus insulin * NovoLog per scale ACHS or Q6hrs while NPO * Goal Range: Low 110 mg/dL - High 140 mg/dL * Correction Factor: 15 mg/dL/unit * Nutritional / Prandial insulin per carb ratio of 1 unit per 5 grams CHO consumed
[2024-07-02] MEDS: AMIODARONE 200 MG TAB PO SCH (17:45)
[2024-07-02] MEDS: INSULIN HUMAN REGULAR PER UNIT 10 UNITS in SYRINGE 9.9 ML IV ONE (18:08)
[2024-07-02 20:57] VITALS: RESP 18
[2024-07-02] MEDS ORDERED: metFORMIN HCL 500 MG TAB PO SCH (21:00)
[2024-07-02] MEDS ORDERED: NON-FORMULARY MEDICATION (Insulin Degludec [Tresiba Flextouch U-100] 100 unit/mL (3 mL) in SQ SCH (21:00)
[2024-07-02] MEDS: CITALOPRAM 20 MG TAB PO SCH (21:31)
[2024-07-02] MEDS: DOCUSATE SODIUM 100 MG CAP PO SCH (21:31)
[2024-07-02] MEDS: SENNA 8.6 MG TAB PO SCH (21:31)
[2024-07-02] MEDS: METOPROLOL SUCC 50MG EXT REL TAB PO SCH (21:32)
[2024-07-02] MEDS: LANTUS PER UNIT CHARGE SC SCH (21:48)
[2024-07-03 07:49] VITALS: PULSE 68; TEMP 97.5; O2SAT 93
[2024-07-03] MEDS: LANTUS PER UNIT CHARGE SC ONE (08:06)
[2024-07-03] MEDS: APIXABAN 5 MG TABLET PO SCH (08:12)
[2024-07-03] MEDS: FUROSEMIDE 40 MG TAB PO SCH (08:13)
[2024-07-03] MEDS: ROSUVASTATIN CALCIUM 20 MG TAB PO SCH (08:13)
[2024-07-03] MEDS: LOSARTAN POTASSIUM 25 MG TAB PO SCH (08:13)
[2024-07-03] MEDS: FENOFIBRATE NANOCRYSTALLIZED 48 MG TABLET PO SCH (08:13)
[2024-07-03] MEDS: MULTIVITAMIN TAB PO SCH (08:13)
--- NOTE | 2024-07-03 08:22 | Orthopedic Progress Note ---
Date of Service July 03, 2024 Assessment & Plan (1) Status post right knee replacement: Overall he is doing very well. He is not having much pain in the right knee. He will be seen by physical therapy today for ambulation and range of motion exercises. The nursing staff can change his dressing after physical therapy. He is on Eliquis for DVT prophylaxis. He can be discharged home later today. He will follow with orthopedics in 2 weeks. Selma España was seen and examined at bedside this morning. Overall is doing very well. He is not having much pain in the right knee. He has been up and ambulating to the bathroom. He has no complaints.. Review of Systems All systems reviewed & are unremarkable except as noted in HPI & below. Physical Exam On physical exam of the right knee, the dressing is clean and dry. His leg is out full extension. He has active dorsiflexion and plantarflexion of his left ankle.. Results & Data Results & Data Laboratory Results . Diagnostic Findings Postoperative x-rays of the left knee show the prosthesis to be in anatomic alignment without any evidence of fracture, dislocation, or loosening.. PG Care Time/CCT Total # of Minutes Spent Total Time Spent with Patient: Total time spent is greater than 50% in coordination of care (as documented) at patient's floor/unit and/or counseling patient: Coding Level of Care Code 19098 Post Operative Follow-Up Diagnoses Status post right knee replacement Z96.651
--- NOTE | 2024-07-03 08:23 | Discharge Summary ---
Date of Service July 03, 2024 Principal Diagnosis Same as "Discharge Diagnosis" noted below under Discharge Instructions. Discharge Exam On physical exam of the right knee, the dressing is clean and dry. His leg is out full extension. He has active dorsiflexion and plantarflexion of his left ankle.. Discharge Data Procedures Performed Operation Date: 07/02/24 09:00 Actual Procedures p Right Total Knee Arthroplasty(Right) - Garcia Rosales DO Ordered Studies 07/02/24 05:00 US - OR guided needle placemen Routine Hospital Course (1) Status post right knee replacement: On July 02, 2024 Taco arrived at [facility] and underwent a right knee replacement without complication. He had a general anesthetic. Postoperatively, he was started on Eliquis for DVT prophylaxis and transferred to the general orthopedic floors. His hospital course was uneventful. On postop day #1, his vital signs were stable and his pain was well-controlled. He was able to participate well with physical therapy doing ambulation and range of motion exercises. He was then discharged to home. He will follow-up with orthopedics in 2 weeks. PG Care Time/CCT Total # of Minutes Spent Total Time Spent with Patient: Total time spent is greater than 50% in coordination of care (as documented) at patient's floor/unit and/or counseling patient: Discharge Plan Discharge Items Patient Disposition: Home - Self-Care Reason For Visit: Right Knee Arthritis Discharge Diagnosis: Right knee replacement Activity: Per Instructions section Non-emergency contact: Surgeon Call non-emergency contact if: your wound has increased redness and your wound has increased drainage Follow-up/Referrals: Sammy Morales DO [Primary Care Provider] - Diet: Regular Addtl Attending Provider Instructions: Activity and Therapy Recommendations: * If you are using [facility] then therapy will be provided at your home until they feel you have accomplished all of your goals. * If you are using [facility] then Physical Therapy will be provided until they feel you are ready to start Outpatient Physical Therapy. * If you are not using home therapy then Outpatient Physical Therapy should start about 3-5 days from your day of surgery. Therapy will last about 6-10 weeks * It is important not to put a pillow under your knee when you are relaxing or sleeping. It is just as important to make sure you are getting your knee perfectly straight as it is to regain your knee bend. * You were shown a series of exercises in the hospital. Do these exercises three times each day including the exercises you were shown in physical therapy. * Get up and walk several times each day. For the first four weeks, try not to stand or walk for more than one hour at a time. If you do stand or walk for more than one hour, you will not hurt anything, but your leg will likely swell. * As you feel comfortable, you may change from the walker or crutches to a cane and then to independent walking. Medications: * Narcotic You will likely be sent home from the hospital with a prescription for the narcotic pain medication that worked best throughout your stay. * Continue your Eliquis as prescribed * Aspirin Most patients will be required to take Aspirin 81mg twice a day for 6 weeks after surgery. This is obtained [id number] and a prescription is not necessary. * Other medications may be prescribed for specific circumstances. If you have any questions, please call the office at . * Resume previous home medications unless otherwise instructed TEDs/Elastic Stockings: The white elastic stockings help limit swelling and prevent blood clots from forming in your legs.~ The more you wear them, the more they work. Wear them for 2 weeks. Dressing Care: The dressing can be changed after physical therapy on postop day #1. Daily dry dressing changes for a few days, especially if the incision is still draining some. If the incision is not draining then you may leave the halina open to air. If there is a little bit of drainage or if the halina are getting stuck on your clothing then cover the incision with a dry dressing. The halina will be removed at your 2 week follow-up appointment. Showering: You may shower 5 days from the day of surgery as long as the incision is no longer draining. You may shower with the halina exposed. Let soapy water run over the halina and pat them dry. Do not scrub or soak the incision. Diet: You may resume your previous diet. Things To Watch For: * Drainage from the incision site that occurs more than one week after your surgery. * Increased redness at the incision site. * Fever above 102 degrees Fahrenheit. * Unusual chest pain or shortness of breath. * Call [facility] at with any of the above problems Follow-Up Visit: Follow-up with Dr. Rosales's office 2-3 weeks after your day of surgery. We will remove your halina and answer any questions. If you have any additional questions or concerns, Dr Rosales is usually in the office at the same time and will be available An appointment was probably scheduled when you signed-up for surgery in the office. If you have any questions call Office Instructions: More detailed instructions as well as Frequently Asked Questions were provided in a folder by our office when you signed-up for surgery. Please review these instructions when you get home. If you have any further questions or concerns, please feel free to call the office at [phone] Pending Studies at Discharge: No Stand-Alone Forms: My [facility] Khush, Smoking Cessation Medications and DC Order Prescriptions: New cefadroxil 500 mg capsule 500 mg PO BID 10 Days Qty: 20 0RF oxycodone 5 mg tablet 5 mg PO Q6H PRN (Reason: pain) Qty: 30 0RF Continued albuterol sulfate 90 mcg/actuation HFA aerosol inhaler 2 puff INH QID PRN (Reason: shortness of breath or wheezing) Qty: 54 2RF citalopram [Celexa] 20 mg tablet 20 mg PO BID Qty: 180 1RF metformin 1,000 mg tablet 1,000 mg PO BID Qty: 180 1RF rosuvastatin 40 mg tablet 40 mg PO QAM insulin degludec [Tresiba FlexTouch U-100] 100 unit/mL (3 mL) insulin pen 40 unit SUBCUT HS Jardiance 25 mg tablet 25 mg PO QAM Trulicity 4.5 mg/0.5 mL pen injector 4.5 mg SUBCUT Q7D Patient Comments: sundays furosemide 40 mg Tablet 40 mg PO QAM 30 Days Qty: 30 1RF amiodarone 200 mg Tablet 200 mg PO BIDM 30 Days Qty: 60 1RF Eliquis 5 mg Tablet 5 mg PO BID 30 Days Qty: 60 1RF metoprolol succinate 100 mg tablet extended release 24 hr 100 mg PO BID gabapentin 300 mg Capsule 300 mg PO TID Patient Comments: usually only takes BID Centrum Silver Tablet 1 tab PO QAM magnesium Tablet 1 tab PO HS chromium 1 tab PO QAM copper 1 tab PO BID losartan 25 mg tablet 25 mg PO QAM fenofibrate nanocrystallized 48 mg tablet 48 mg PO QAM Discharge Orders: Discharge Order (Routine); Ordered 07/03/24 Ordered By: Garcia Rosales Admission Data Admit Date/Time: 07/02/24 11:02 Attending Provider: Garcia Rosales Admit Provider: Garcia Rosales Primary Care Provider: Sammy Morales Other Providers: [facility]
[2024-07-03] MEDS ORDERED: EMPAGLIFLOZIN 25 MG TAB PO SCH (09:00)
[2024-07-03 10:56] VITALS: BP 122/68
== END 2024-07-03 11:15 | disposition home or self-care (01) ==
LOC: ASU 07:18 → 3E 07:18

== ENCOUNTER 2024-09-28 06:22 | Inpatient (IN) ==
--- NOTE | 2024-09-01 12:50 | PAT Medication Instructions ---
Medication Instructions Date of Service September 01, 2024 Home Medications Medication Instructions Recorded albuterol sulfate 90 mcg/actuation 2 puff inhalation QID PRN 06/29/20 aerosol inhaler shortness of breath or wheezing #54 grams citalopram 20 mg tablet (Celexa) 20 mg PO BID #180 tabs 07/04/20 metformin 1,000 mg tablet 1,000 mg PO BID #180 tabs 07/25/20 apixaban 5 mg tablet (Eliquis) 5 mg PO BID 30 days #60 tabs 07/27/22 furosemide 40 mg tablet 40 mg PO QAM 30 days #30 tabs 07/27/22 oxycodone 5 mg tablet 5 mg PO Q6H PRN pain #30 tabs 07/02/24 albuterol sulfate 90 mcg/actuation aerosol inhaler 2 puff inhalation QID PRN citalopram 20 mg tablet (Celexa) 20 mg PO BID metformin 1,000 mg tablet 1,000 mg PO BID dulaglutide 4.5 mg/0.5 mL subcutaneous pen injector (Trulicity) 4.5 mg subcut Q7D empagliflozin 25 mg tablet (Jardiance) 25 mg PO QAM insulin degludec 100 unit/mL (3 mL) subcutaneous pen (Tresiba FlexTouch U-100 insulin) 40 unit subcut HS rosuvastatin 40 mg tablet 40 mg PO QAM apixaban 5 mg tablet (Eliquis) 5 mg PO BID furosemide 40 mg tablet 40 mg PO QAM chromium 1 tab PO QAM copper 1 tab PO BID fenofibrate nanocrystallized 48 mg tablet 48 mg PO QAM gabapentin 300 mg capsule 300 mg PO TID losartan 25 mg tablet 25 mg PO QAM magnesium 1 tab PO HS metoprolol succinate 100 mg tablet,extended release 24 hr 100 mg PO BID [id number] tablet 1 tab PO QAM oxycodone 5 mg tablet 5 mg PO Q6H PRN amiodarone 200 mg tablet 200 mg PO BID cholecalciferol (vitamin D3) 125 mcg (5,000 unit) tablet (Vitamin D3) 125 mcg PO QAM colostrum, bovine 400 mg capsule,delayed release 400 mg PO QAM STOP 7 days before surgery dulaglutide 4.5 mg/0.5 mL subcutaneous pen injector (Trulicity) 4.5 mg subcut Q7D STOP 3 days before surgery empagliflozin 25 mg tablet (Jardiance) 25 mg PO QAM ASK your prescriber and surgeon apixaban 5 mg tablet (Eliquis) 5 mg PO BID STOP taking 2 weeks before surgery (or as soon as possible if surgery is within 2 weeks) chromium 1 tab PO QAM copper 1 tab PO BID colostrum, bovine 400 mg capsule,delayed release 400 mg PO QAM STOP taking 48 hours before surgery fenofibrate nanocrystallized 48 mg tablet 48 mg PO QAM DO NOT take the morning of surgery metformin 1,000 mg tablet 1,000 mg PO BID furosemide 40 mg tablet 40 mg PO QAM losartan 25 mg tablet 25 mg PO QAM [id number] tablet 1 tab PO QAM cholecalciferol (vitamin D3) 125 mcg (5,000 unit) tablet (Vitamin D3) 125 mcg PO QAM Take morning of surgery With a small sip of water, OTHERWISE NOTHING TO EAT OR DRINK AFTER MIDNIGHT: albuterol sulfate 90 mcg/actuation aerosol inhaler 2 puff inhalation QID PRN(use if needed; please bring with you to hospital day of surgery if possible) citalopram 20 mg tablet (Celexa) 20 mg PO BID rosuvastatin 40 mg tablet 40 mg PO QAM gabapentin 300 mg capsule 300 mg PO TID metoprolol succinate 100 mg tablet,extended release 24 hr 100 mg PO BID oxycodone 5 mg tablet 5 mg PO Q6H PRN(if needed) amiodarone 200 mg tablet 200 mg PO BID Take evening before surgery albuterol sulfate 90 mcg/actuation aerosol inhaler 2 puff inhalation QID PRN(if needed) citalopram 20 mg tablet (Celexa) 20 mg PO BID metformin 1,000 mg tablet 1,000 mg PO BID insulin degludec 100 unit/mL (3 mL) subcutaneous pen (Tresiba FlexTouch U-100 insulin) 40 unit subcut HS gabapentin 300 mg capsule 300 mg PO TID magnesium 1 tab PO HS metoprolol succinate 100 mg tablet,extended release 24 hr 100 mg PO BID oxycodone 5 mg tablet 5 mg PO Q6H PRN(if needed) amiodarone 200 mg tablet 200 mg PO BID Other Notes If you have any questions please call us at [phone] or [phone] or [phone] or [phone]
--- NOTE | 2024-09-08 15:15 | Anesthesiology Consultation ---
Date of Service September 08, 2024 Assessment & Plan (1) Encounter for pre-operative examination: Plan - check BSG am DOS. - awaiting surgeon ordered PCP clearance 09/21 and [facility] cardiology clearance. Chart Review Chart Review: Pending: Refer to Additional Notes / Consult section and Patient seen in Pre Admission Testing Teaching & Discussion Pre-Anesthesia Teaching/Discussion Notes: Instructed NPO after midnight before surgery, except medications with 15 cc of water. Medication instructions provided according to the PAT guidelines. History Surgery Operation Date: 09/28/24 10:05 Proposed Procedures p L2-S1 Decompression and Fusion with Spinal Cord Monitoring - Rajesh Hagen DO Height/Weight Height: 6 ft Weight: 117.6 kg Allergies Allergy/AdvReac Type Severity Reaction Status Date / Time lisinopril AdvReac Intermediate Vomiting Verified 08/31/24 12:10 Medications Home Medications Medication Instructions Recorded Confirmed Last Taken albuterol sulfate 90 mcg/actuation 2 puff inhalation QID PRN 06/29/20 08/31/24 07/22/22 aerosol inhaler shortness of breath or wheezing #54 grams citalopram 20 mg tablet (Celexa) 20 mg PO BID #180 tabs 07/04/20 08/31/24 07/02/24 05:30 metformin 1,000 mg tablet 1,000 mg PO BID #180 tabs 07/25/20 08/31/24 06/29/24 21:00 dulaglutide 4.5 mg/0.5 mL 4.5 mg subcut Q7D 07/22/22 08/31/24 06/20/24 21:00 subcutaneous pen injector (Trulicity) empagliflozin 25 mg tablet 25 mg PO QAM 07/22/22 08/31/24 06/29/24 09:00 (Jardiance) insulin degludec 100 unit/mL (3 40 unit subcut HS 07/22/22 08/31/24 07/21/22 mL) subcutaneous pen (Tresiba FlexTouch U-100 insulin) rosuvastatin 40 mg tablet 40 mg PO QAM 07/22/22 08/31/24 06/29/24 09:00 apixaban 5 mg tablet (Eliquis) 5 mg PO BID 30 days #60 tabs 07/27/22 08/31/24 06/29/24 21:00 furosemide 40 mg tablet 40 mg PO QAM 30 days #30 tabs 07/27/22 08/31/24 06/29/24 09:00 chromium 1 tab PO QAM 05/31/24 08/31/24 Unknown copper 1 tab PO BID 05/31/24 08/31/24 Unknown fenofibrate nanocrystallized 48 mg 48 mg PO QAM 05/31/24 08/31/24 06/29/24 09:00 tablet gabapentin 300 mg capsule 300 mg PO TID 05/31/24 08/31/24 06/29/24 21:00 losartan 25 mg tablet 25 mg PO QAM 05/31/24 08/31/24 06/29/24 09:00 magnesium 1 tab PO HS 05/31/24 08/31/24 06/28/24 21:00 metoprolol succinate 100 mg 100 mg PO BID 05/31/24 08/31/24 06/29/24 21:00 tablet,extended release 24 hr [id number] tablet 1 tab PO QAM 05/31/24 08/31/24 Unknown oxycodone 5 mg tablet 5 mg PO Q6H PRN pain #30 tabs 07/02/24 08/31/24 Unknown amiodarone 200 mg tablet 200 mg PO BID 08/31/24 08/31/24 Unknown cholecalciferol (vitamin D3) 125 125 mcg PO QAM 08/31/24 08/31/24 Unknown mcg (5,000 unit) tablet (Vitamin D3) colostrum, bovine 400 mg 400 mg PO QAM 08/31/24 08/31/24 Unknown capsule,delayed release Past Medical History Medical History Chronic shoulder pain bilateral due torn rotator cuffs Chronic systolic (congestive) heart failure EF 36% per 06/2023 ECHO (EF has been low since 2012 when it was 25% per cardio records) Diabetes mellitus, type 2 IDDM History of anxiety History of atrial fibrillation w/RVR, cardioversion in 2022; f/u dr falcon s on eliquis History of depression Hx of chronic kidney disease stable/no current issues Hyperlipidemia Hypertension controlled, stable per pt Left bundle branch block hx Nausea and vomiting after administration of anesthetic agent "usually hits when he get to the car afterward" Nonischemic congestive cardiomyopathy Pancreatitis hx in the late 80s or early 90s >caused by medication Paroxysmal SVT (supraventricular tachycardia) hx Sleep apnea CPAP-compliant Spinal stenosis Patient denies h/o stroke, seizures, heart attack, blood clots/DVTs or blood transfusions. Exercise / Class Metabolic Activity III < 4 Walking/Shop/Light housework (ambulates with cane, shortness of breath with usual activities ongoing for several years-denies change or worsening; denies chest discomfort ) Past Family History Family History Mother Family history of diabetes mellitus Myocardial infarction Grandfather (Paternal) Family history of diabetes mellitus Grandmother (Maternal) Family history of diabetes mellitus Father Prostate cancer Other Hypertension Denies family history of Ovarian cancer Breast cancer Colorectal cancer Past Surgical History Surgical History H/O Spinal surgery 2011, lumbar laser procedure History of anesthesia reaction with a previous colonoscopy, "could feel everything, not fully asleep" History of arthroscopy rt and left knee History of cardiac cath 2014, [facility], no stents History of cardioversion 2022, [facility]; f/u dr. falcon, s cardio History of colonoscopy (2018) History of hernia repair History of tonsillectomy History of tooth extraction History of total knee replacement left History of total right knee replacement (07/02/24) Past Anesthesia History No Family Hx of Anesthesia Complications and Other (awareness with previous procedures) History of PONV No Hx of Motion Sickness and History of PONV Social History Smoking Status: Never smoker Do You Dip or Chew Tobacco: No Hx Alcohol Use: Yes alcohol intake frequency: holidays/special occasions only Hx Substance Use: No substance use type: does not use Review of Systems Patient denies chest pain, shortness of breath, dyspnea on exertion, reflux, fever, chills, cough, wheezing, or palpitations. Physical Exam Vital Signs Vitals BP 100/62 P 88 TEMP 98.7 SP02 94% on RA RESP 17 Physical Patient resting comfortably in chair in no acute distress, alert and oriented, responding appropriately throughout visit Full cervical extension range of motion without pain TMD 3.5 finger breadths Mallampati Score 2 Dentition: intact, denies chipped or loose teeth, caps/crowns, implants or bridges Lungs: normal respiratory effort. Good air movement, clear throughout to auscultation, no adventitious breath sounds Cardiac: regular rate and rhythm, no murmurs noted Carotid arteries: negative bruit bilat Lab Results Anesthesia Preop Results Results Anesthesia Widget: PT 11.0 Seconds (9.0-12.0) 09/08/24 PTT 28 Seconds (21-31) 09/08/24 INR 1.0 (0.9-1.1) 09/08/24 Urine Color Yellow 09/08/24 Urine Appearance Clear (Clear) 09/08/24 Urine pH 5.0 (4.5-7.5) 09/08/24 Urine Specific [place] 1.021 (1.000-1.030) 09/08/24 Urine Protein Negative (Negative) 09/08/24 Urine Glucose (UA) 3+ (Negative) H 09/08/24 Urine Ketones Negative (Negative) 09/08/24 Urine Blood Negative (Negative) 09/08/24 Urine Nitrite Negative (Negative) 09/08/24 Urine Bilirubin Negative (Negative) 09/08/24 Urine Urobilinogen Negative (Negative) 09/08/24 Urine Leukocyte Esterase Negative (Negative) 09/08/24 Blood Type A Positive 09/08/24 Antibody Screen NEGATIVE 09/08/24 Testing Laboratory Results 09/04/24 WBC: 6 H/H: 13/40 PLATELETS: 189,000 SODIUM: 141 POTASSIUM: 5 CHLORIDE: 101 CO2: 23 BUN: 37 CREATININE: 1.5 GLUCOSE: 197 AST: 44 ALk phos: 78 ALT: 42 A1c: 6.2% Electrocardiogram Date: 06/08/24 Sinus rhythm with 1st degree AV block, rate 81 bpm LBBB No significant change vs 09/11/22 EKG Chest X-Ray Date: 06/08/24 Mild congestive changes of the cardiovascular system that are similar to previous radiographs from 2022. Echocardiogram Date: 07/01/23 EF 36% Septal motion is abnormal consistent with LBBB; remaining wall segments are moderately hypokinetic LV wall thickness moderately increased Moderately enlarged LA Mild mitral regurgitation Mild tricuspid regurgitation
[2024-09-28] MEDS ORDERED: DEXAMETHASONE SOD INJ 4 MG/ML VIAL ONE (07:16)
[2024-09-28] MEDS ORDERED: LIDOCAINE 2% 2 ML VIAL/AMP(20MG/ML) INFIL ONE ×2 (07:16)
[2024-09-28] MEDS ORDERED: PROPOFOL IV EMULSION 10 MG/ML 20 ML VIAL IV ONE (07:16)
[2024-09-28] MEDS ORDERED: ATROPINE SULFATE 0.1 MG/ML 10ML SYR IV PRN (07:16)
[2024-09-28] MEDS ORDERED: HYDROmorphone INJ 2 MG/ML SYR/VIAL IV PRN (07:16)
[2024-09-28] MEDS ORDERED: MIDAZOLAM HCL 1 MG/ML 2ML VIAL ONE (07:16)
[2024-09-28] MEDS ORDERED: ONDANSETRON INJ 2 MG/ML 2 ML VIAL IV PRN ×2 (07:16→12:20)
[2024-09-28] MEDS ORDERED: ONDANSETRON INJ 2 MG/ML 2 ML VIAL ONE (07:16)
[2024-09-28] MEDS ORDERED: ROCURONIUM BROMIDE 10 MG/ML 5 ML VIAL IV ONE ×3 (07:17→09:59)
[2024-09-28] MEDS: GABAPENTIN 300 MG CAP PO SCH (07:19)
[2024-09-28] MEDS: CeleBREX 200 MG CAP PO SCH (07:19)
[2024-09-28] MEDS: LR 15ML/HR IV SCH (07:19)
[2024-09-28] MEDS: LR 60ML/HR IV SCH (07:19)
[2024-09-28] MEDS: ACETAMINOPHEN 500 MG TAB PO SCH (07:20)
--- NOTE | 2024-09-28 07:35 | History & Physical Bridge Note ---
Date of Service September 28, 2024 History & Physical Bridge Note I have examined the patient, reviewed the History & Physical and in the interval since the performance of the History & Physical I have noted the following changes of clinical significance: no changes noted
--- NOTE | 2024-09-28 07:36 | History & Physical Report ---
Date of Service September 28, 2024 Assessment & Plan (1) Multilevel lumbosacral spondylosis with radiculopathy: Plan: L2-S1 decompression and fusion History of Present Illness Chief Complaint: Back and leg pain Primary Care Provider: Sammy Morales DO This is a 63-year-old male presents for chronic persistent back and leg pain after failing course of nonoperative care is here for surgical intervention. Allergies Allergy/AdvReac Type Severity Reaction Status Date / Time lisinopril AdvReac Intermediate Vomiting Verified 09/28/24 06:27 Home Medications Medication Instructions Recorded Confirmed Type albuterol sulfate 90 mcg/actuation 2 puff inhalation QID PRN 06/29/20 09/28/24 Rx aerosol inhaler shortness of breath or wheezing #54 grams citalopram 20 mg tablet (Celexa) 20 mg PO BID #180 tabs 07/04/20 09/28/24 Rx metformin 1,000 mg tablet 1,000 mg PO BID #180 tabs 07/25/20 09/28/24 Rx dulaglutide 4.5 mg/0.5 mL 4.5 mg subcut Q7D 07/22/22 09/28/24 History subcutaneous pen injector (Trulicity) empagliflozin 25 mg tablet 25 mg PO QAM 07/22/22 09/28/24 History (Jardiance) insulin degludec 100 unit/mL (3 40 unit subcut HS 07/22/22 09/28/24 History mL) subcutaneous pen (Tresiba FlexTouch U-100 insulin) rosuvastatin 40 mg tablet 40 mg PO QAM 07/22/22 09/28/24 History apixaban 5 mg tablet (Eliquis) 5 mg PO BID 30 days #60 tabs 07/27/22 09/28/24 Rx furosemide 40 mg tablet 40 mg PO QAM 30 days #30 tabs 07/27/22 09/28/24 Rx chromium 1 tab PO QAM 05/31/24 09/28/24 History copper 1 tab PO BID 05/31/24 09/28/24 History fenofibrate nanocrystallized 48 mg 48 mg PO QAM 05/31/24 09/28/24 History tablet gabapentin 300 mg capsule 300 mg PO TID 05/31/24 09/28/24 History losartan 25 mg tablet 25 mg PO QAM 05/31/24 09/28/24 History magnesium 1 tab PO HS 05/31/24 09/28/24 History metoprolol succinate 100 mg 100 mg PO BID 05/31/24 09/28/24 History tablet,extended release 24 hr swtutddxlnhs-gfqgjont-fryvjy tablet 1 tab PO QAM 05/31/24 09/28/24 History oxycodone 5 mg tablet 5 mg PO Q6H PRN pain #30 tabs 07/02/24 09/28/24 Rx amiodarone 200 mg tablet 200 mg PO BID 08/31/24 09/28/24 History cholecalciferol (vitamin D3) 125 125 mcg PO QAM 08/31/24 09/28/24 History mcg (5,000 unit) tablet (Vitamin D3) colostrum, bovine 400 mg 400 mg PO QAM 08/31/24 09/28/24 History capsule,delayed release Past Med/Surg History Problem List (Updated 09/28/24 @ 07:36 by Rajesh Hagen DO) Multilevel lumbosacral spondylosis with radiculopathy Status post right knee replacement (~06/2024) Lumbar stenosis with neurogenic claudication Lumbar radicular pain Postural kyphosis of lumbar region Lumbosacral spondylosis Encounter for pre-operative examination CKD (chronic kidney disease) (Acute) Wide-complex tachycardia (Acute) Left bundle branch block Obesity Obstructive sleep apnea (Acute) Erectile dysfunction (Acute) Chronic right shoulder pain (Acute) History of colon polyps Osteoarthritis Diabetes mellitus, type 2 Depression Anxiety Hypertension Hyperlipidemia Degenerative arthritis of left knee Medical History Chronic shoulder pain bilateral due torn rotator cuffs Chronic systolic (congestive) heart failure EF 36% per 06/2023 ECHO (EF has been low since 2013 when it was 25% per cardio records) Diabetes mellitus, type 2 IDDM History of anxiety History of atrial fibrillation w/RVR, cardioversion in 2022; f/u vanesa wu on eliquis History of depression Hx of chronic kidney disease stable/no current issues Hyperlipidemia Hypertension controlled, stable per pt Left bundle branch block hx Nausea and vomiting after administration of anesthetic agent "usually hits when he get to the car afterward" Nonischemic congestive cardiomyopathy Pancreatitis hx in the late 80's or early s >caused by medication Paroxysmal SVT (supraventricular tachycardia) hx Sleep apnea CPAP-compliant Spinal stenosis Surgical History H/O Spinal surgery 2011, lumbar laser procedure History of anesthesia reaction with a previous colonoscopy, "could feel everything, not fully asleep" History of arthroscopy rt and left knee History of cardiac cath 2014, [facility], no stents History of cardioversion 2022, [facility]; f/u dr. falcon [facility] cardio History of colonoscopy (2018) History of hernia repair History of tonsillectomy History of tooth extraction History of total knee replacement left History of total right knee replacement (07/02/24) Family History Mother Family history of diabetes mellitus Myocardial infarction Grandfather (Paternal) Family history of diabetes mellitus Grandmother (Maternal) Family history of diabetes mellitus Father Prostate cancer Other Hypertension Denies family history of Ovarian cancer Breast cancer Colorectal cancer Social History Smoking Status: Never smoker Second Hand Exposure: Yes (hx as child); Do You Dip or Chew Tobacco: No; Tobacco Cessation Education Requested by Patient: No Hx Alcohol Use: Yes Hx Substance Use: No Preferred Language: Dutch Communication Ability: Effective 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 Outside Sales 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
[2024-09-28] MEDS ORDERED: ETOMIDATE 2 MG/ML 20 ML VIAL IV ONE (07:52)
[2024-09-28] MEDS ORDERED: SUGAMMADEX SODIUM 200 MG/2 ML VIAL IV ONE (08:12)
[2024-09-28] MEDS ORDERED: PHENYLEPHRINE 100MCG/ML 5ML SYR ONE (08:13)
[2024-09-28] MEDS ORDERED: ePHEDrine sulfate 50 MG/5 ML SYR ONE (08:13)
[2024-09-28] MEDS: BUPIVACAINE/EPINEPHRINE 0.25% 1:200,000 30 ML VIAL ONE (08:15)
[2024-09-28] MEDS ORDERED: PHENYLEPHRINE HCL 10 MG/ML VIAL ONE ×2 (08:20)
[2024-09-28] MEDS: SURGICEL ABSORB HEMOSTAT 2IN X 14IN TOP ONE (08:40)
[2024-09-28] MEDS ORDERED: VASOPRESSIN 20 UNIT/ML VIAL ONE (10:56)
[2024-09-28] MEDS: ceFAZolin 330 MG/ML 1 GM VIAL ONE (11:00)
[2024-09-28] MEDS: FLOSEAL HEMOSTATIC MATRIX 10ML TOP ONE (11:00)
--- NOTE | 2024-09-28 11:19 | Operative Report ---
Post Operative Report Pre & Post Diagnosis Operation Date: 09/28/24 07:45 Pre-Op Diagnosis: #1 multilevel lumbosacral spondylosis with radiculopathy #2 lumbar disc herniation with radiculopathy #3 lumbar spinal stenosis Post-Op Diagnosis: Same I identified the patient and participated in the time-out.: Yes Procedure Operation Date: 09/28/24 07:45 Actual Procedures #1 revision lumbar decompression with bilateral medial facetectomies and foraminotomies L2-L3, L3-L4, L4-5 and L5-S1. #2 posterior spinal fusion L2-S1. #3 placement posterior segmental instrumentation L2-S1. #4 interbody fusion L2-L3, L3-L4, L4-L5 and L5-S1. #5 placement Spira by 26 mm at L2-L3, 11 x 26 mm at L3-L4, 10 x 26 mm at L4-L5 and 9 x 26 mm x 2 at L5-S1. #6 placement locally harvested morselized autograft posterior gutters. #7 placement fuse collagen sponge, with Koros in the posterior lateral gutters and os design interbody space. #9 application of versa wrap over the exposed dura. Surgeon Rajesh Hagen, DO Bargain Table Clerk Lilia Pandya Estimated Blood Loss 600 Findings See Below The patient is 6 feet tall weighing 120 kg with a BMI in excess of 36. This combined with an EBL of greater than 600 cc created significant technical difficulty with positioning exposure and the procedure itself. This had at least 50% increased operative time. And recommending a 22 modifier Specimens None Indications This is a 63-year-old male presents by manage diagnosis of failed course of nonoperative care is here for surgical invention. Description of Procedure Patient was met with identified informed consent obtained. Patient was then taken to the operative suite underwent the patient placed in a prone position on the Tavo table top of the Royal frame. All bony prominences well-padded eyes inspected to ensure no external pressure placed upon the. This point the lumbar spine was prepped and draped in normal sterile fashion. Sharp dissection with the assistance of Bovie cautery from down to and exposing the lamina transverse processes of L2 L3-L4-L5 and the sacral ala bilaterally. From a caudal to cephalad fashion revision complete laminectomy of L5, L4, L3 L2. Including bilateral medial facetectomies performed at all levels addressing severe neural compression. Pedicle screws then placed in L2 L3-L4-L5 and S1 levels bilaterally with assistance of fluoroscopy in the process brittani contoured and placed. By way the transforaminal portion of left discectomy of a 5 S1 was performed endplates curetted to subcortical bleeding bone and a 9 x 26 mm spiral cage tapped in position. Then proceeded to the right transforaminal region at L5-S1. Again discectomy performed. Endplates coated to subcortical bleeding bone and 8 seconds 9 x 26 mm spiral cage tapped into position. I then proceeded L4-L5 and by way of transforaminal approach on the right a complete discectomy was performed endplates guided to subcortical bleeding bone and a 10 x 26 mm spiral cage tapped in position. Then proceeded to L3-L4 and bilateral transforaminal approach on the right a discectomy was performed endplates guided to subcortical bony bone and a 11 x 26 mm spiral cage tapped into position. Lastly approached L2-L3 and bilateral transforaminal approach on the right a dis cectomy was performed. Endplates guided to subcortical and bone, 11 x 26 mm spiral cage tapped in position. All cages were packed with os design bone graft prior to implantation. The rods were then locked in 5 position bilaterally. The transverse processes of L2 L3-L4-L5 and the sacral ala burred to subcortical bony bone. Infuse collagen sponge combined with Koros and local autograft placed in the posterior gutters. Versa wrap placed of exposed dura. 15 round MAXWELL drain inserted. The incision was then closed with 1 Vicryl the fascia 2-0 Vicryl subcutaneously and 4-0 Monocryl for final skin closure. Steri-Strips and sterile dressing placed. Patient waken taken to PACU in stable condition. Please note Lilia Pandya was present at the entire procedure involved the patient positioning complex portion of the surgery and vascular closure. Im ordering 10 grams of Collagen Powder (HCPCS A6010 Primary Dressing) and 10 bordered super absorbent (HCPCS A6196 Secondary Dressing) to treat an incision wound that was caused by a spine procedure. The incision is approximately 2 cm(W) x 2 cm(L) down to the spinal column and epidural space 2 cm (D) in size and is a full thickness wound showing no signs of infection. Collagen comes in 1 gram packets so 10 packets were ordered. Given the size of the wound, with moderate exudate I chose to order a 10 day supply. The patient will be provided instructions for proper application of the collagen wound kit. The patient will be asked to apply the collagen powder daily and then cover it with sterile dressings dispensed. Collagen was selected as I expect the collagen to attract monocytes and fibroblasts, act as a sacrificial substrate for MMPs, and ultimately proved a matrix for tissue and vessel growth. The collagen will act as a primary dressing in this scenario. It is medically necessary for proper healing of these wounds to improve bioavailability and contact with each wound surface, this is also to help prevent infection of wounds and promote healing ultimately leading to a better healing outcome and limit the risk of infection. I attest to the content of the Intraoperative Record and any orders documented therein. Any exceptions are noted below.
--- NOTE | 2024-09-28 11:29 | Fluoroscopy Report ---
FL lumbar spine 2-3V CLINICAL HISTORY: L2-S1 DECOMPRESSION/FUSION COMPARISON STUDY: None FLUOROSCOPY TIME: 39 seconds FLUOROSCOPY IMAGES: 5 EXPOSURE DOSE: 35 mGy FINDINGS: Fluoroscopy was provided for lumbar metallic fusion. IMPRESSION: Intraoperative fluoroscopy. ACT 112: Negative or not required by law. Electronically signed by: Cesar Hogan M.D. 09/28/2024 11:28 AM
[2024-09-28] MEDS ORDERED: HYDROmorphone INJ 0.5 MG/0.5 ML SYR IV PRN (12:20)
[2024-09-28] MEDS ORDERED: ONDANSETRON 4 MG OD TAB PO PRN (12:20)
[2024-09-28] MEDS ORDERED: SOD PHOSPHATE/SOD BIPHOSPHATE ENEMA 132 ML BTL PR PRN (12:20)
[2024-09-28] MEDS ORDERED: PROMETHAZINE 12.5 MG/50.5 ML BAG IV PRN (12:20)
[2024-09-28] MEDS ORDERED: ALUMINUM/MAGNESIUM SUSP 30 ML UDC PO PRN (12:20)
[2024-09-28] MEDS ORDERED: PHARMACY GLYCEMIC MGMT CONSULT PRN (12:20)
[2024-09-28] MEDS ORDERED: DO NOT ADMINISTER FLU VACCINE PRN (12:20)
[2024-09-28] MEDS ORDERED: LORazepam 0.5 MG TAB PO PRN (12:20)
[2024-09-28] MEDS ORDERED: NALOXONE HCL 0.4 MG/1 ML VIAL/CARP IV PRN (12:20)
[2024-09-28] MEDS ORDERED: METOCLOPRAMIDE HCL INJ 5 MG/ML 2 ML VIAL IV PRN (12:20)
[2024-09-28] MEDS ORDERED: ALBUTEROL HFA 8 GM INHALER INH PRN (12:20)
[2024-09-28] MEDS ORDERED: DO NOT ADMINISTER PNEUMOCOCCAL VACCINE PRN (12:20)
[2024-09-28] MEDS ORDERED: FAMOTIDINE 20 MG TAB PO PRN (12:20)
[2024-09-28] MEDS ORDERED: ACETAMINOPHEN 1,000 MG/100 ML VIAL IV PRN (12:20)
[2024-09-28] MEDS ORDERED: HYDROmorphone INJ 1 MG/ML SYRINGE IV PRN (12:20)
[2024-09-28] MEDS ORDERED: ACETAMINOPHEN 500 MG TAB PO PRN (12:20)
[2024-09-28] MEDS ORDERED: diphenhydrAMINE Capsule 25 MG CAP PO PRN (12:20)
--- NOTE | 2024-09-28 12:41 | Anesthesiology Progress Note ---
Date of Service September 28, 2024 Anesthesia Post Procedure Vital Signs Vital Signs: Temp Pulse Resp BP Pulse Ox O2 Del Method O2 Flow Rate 09/28/24 12:05 36.8 C 80 13 127/65 96 Nasal Cannula 2 09/28/24 11:55 81 14 121/58 L 93 Room Air 09/28/24 11:45 80 18 131/65 99 Oxymask 4 09/28/24 11:35 81 16 131/65 97 Oxymask 4 09/28/24 11:29 36.0 C L 82 12 131/65 96 Oxymask 4 Pain Intensity Back: Pain Intensity: 3 Transfer of Care Handoff Completed per policy Notes Mental Status: alert / awake / arousable Patient Amnestic to Procedure: Yes Nausea / Vomiting: adequately controlled Pain: adequately controlled Airway Patency, RR, SpO2: stable & adequate BP & HR: stable & adequate Hydration State: stable & adequate Anesthetic Complications: no major complications apparent and Pt Satisfied with anesthetic care
[2024-09-28] MEDS ORDERED: CARBOHYDRATES FOR HYPOGLYCEMIA PO PRN (12:45)
[2024-09-28] MEDS ORDERED: GLUCOSE 40% GEL 15 GM TUBE PO PRN (12:45)
[2024-09-28] MEDS ORDERED: DEXTROSE 50% 50 ML SYRINGE IV PRN (12:45)
[2024-09-28] MEDS ORDERED: GLUCOSE 10 TAB/TUBE PO PRN (12:45)
[2024-09-28] MEDS ORDERED: GLUCAGON FOR INJ 1 MG VIAL SQ PRN (12:45)
--- NOTE | 2024-09-28 12:52 | Consultation ---
Date of Consultation September 28, 2024 Assessment & Plan (1) Multilevel lumbosacral spondylosis with radiculopathy: (2) Diabetes mellitus, type 2: (3) Chronic systolic (congestive) heart failure: (4) History of atrial fibrillation: (5) Hypertension: (6) Nonischemic congestive cardiomyopathy: Plan This is a 63 yr old M who has a significant PMH of Chronic HFrEF, HTN, LBBB, nonischemic cardiomyopathy, PAF, GER, Asthma, T2DM, HLD, depression with anxiety who presents for elective lumbar surgery by Dr. Hagen. #Multilevel lumbosacral spondylosis with radiculopathy #S/P L2-S1 lumbar decompression fusion, POD # [address] Hagen EBL 600ml, pre op hgb 13.2 pain/wound management per ortho activity and therapy as prescribed by ortho #Chronic HFrEF EF 36% #Nonischemic cardiomyopathy #PAF on eliquis as outpt #Chronic LBBB #HTN/HLD follows [facility] cards on metoprolol, eliquis, losartan, jardiance, lasix, amidarone, statin as outpt eliquis on hold, resume when Dr. Hagen feels hemostasis achieved euvolemic, daily weights, I and OS #T2DM, on insulin hold metformin lantus/novolog per protocol pharmacy consulted for glycemic management, appreciate their input #GER: noncompliant with cpap DVT ppx: Per primary, eliquis on hold, resume when Dr. Hagen comfortable Pt was seen and examined in collaboration with Dr. Mg, please see addendum I spent a total of 45 minutes coordinating, documenting and providing care for this patient excluding time spent in the performance of separately billed services or time spent by another provider/QHP. Thank you for this consultation. We will follow the patient with you during their hospital stay. You can reach a member of the [facility] Hospitalist Team 30/09 via hospitalist role on tiger text. Supervising Physician Co-Signing Physician Notes I have seen and discussed the case with the collaborating advanced practitioner. I agree with the above H&P. I have reviewed and confirmed the patients medical history, the findings on physical examination, and the patients diagnosis and treatment plan with Meghan DICKSON and agree with the information documented. In short, Mr. Malik is a 63 yo gentleman now s/p L2-S1 lumbar decompression fusion. Patient is doing well postoperatively no acute concerns at bedside. Holding lasix for now. Losartan with parameters. Agree to plan above. I spent a total of minutes coordinating, documenting, and providing care for this patient excluding time spent in the performance of separately billed services. All of the aforementioned completed outside of collaborating with the assigned advanced practitioner for a full treatment plan. I have reviewed the advanced practitioner's documentation, and I agree with, and take responsibility for the plan of care History of Present Illness Requesting Physician: Dr. Hagen Reason for Consultation: post op medical management Attending Physician: Rajesh Hagen, DO History of Present Illness This is a 63 yr old M who has a significant PMH of Chronic HFrEF, HTN, LBBB, nonischemic cardiomyopathy, PAF, GER, Asthma, T2DM, HLD, depression with anxiety who presents for elective lumbar surgery by Dr. Hagen. He had an L2-S1 decompression and fusion and tolerated procedure well. He had a 600ml blood loss. Pt follows with [facility] Cardiology. He has a known hx of chronic systolic CHF. His last echo was in june of 2023 which showed an EF of 36%. He is on GDMT. He also has hx of GER for which his is compliant with cpap. His last a1c in August was improved down from 8.2 to 6.2. He feels well postoperatively. He has some mild incisional back pain. He denies any fever, chills, sweats, lightheadedness, dizziness, chest pain, shortness breath, nausea, vomiting or abdominal pain. He is tolerating clear liquid diet for now. His medications were reviewed and reconciled. Allergies Allergy/AdvReac Type Severity Reaction Status Date / Time lisinopril AdvReac Intermediate Vomiting Verified 09/28/24 06:27 Home Medications Medication Instructions Recorded Confirmed Type albuterol sulfate 90 mcg/actuation 2 puff inhalation QID PRN 06/29/20 09/28/24 Rx aerosol inhaler shortness of breath or wheezing #54 grams citalopram 20 mg tablet (Celexa) 20 mg PO BID #180 tabs 07/04/20 09/28/24 Rx metformin 1,000 mg tablet 1,000 mg PO BID #180 tabs 07/25/20 09/28/24 Rx dulaglutide 4.5 mg/0.5 mL 4.5 mg subcut Q7D 07/22/22 09/28/24 History subcutaneous pen injector (Trulicity) empagliflozin 25 mg tablet 25 mg PO QAM 07/22/22 09/28/24 History (Jardiance) insulin degludec 100 unit/mL (3 40 unit subcut HS 07/22/22 09/28/24 History mL) subcutaneous pen (Tresiba FlexTouch U-100 insulin) rosuvastatin 40 mg tablet 40 mg PO QAM 07/22/22 09/28/24 History apixaban 5 mg tablet (Eliquis) 5 mg PO BID 30 days #60 tabs 07/27/22 09/28/24 Rx chromium 1 tab PO QAM 05/31/24 09/28/24 History copper 1 tab PO BID 05/31/24 09/28/24 History fenofibrate nanocrystallized 48 mg 48 mg PO QAM 05/31/24 09/28/24 History tablet losartan 25 mg tablet 25 mg PO QAM 05/31/24 09/28/24 History magnesium 1 tab PO HS 05/31/24 09/28/24 History metoprolol succinate 100 mg 100 mg PO BID 05/31/24 09/28/24 History tablet,extended release 24 hr sivejjqtqyto-xpiqfodo-lwdukg tablet 1 tab PO QAM 05/31/24 09/28/24 History oxycodone 5 mg tablet 5 mg PO Q6H PRN pain #30 tabs 07/02/24 09/28/24 Rx amiodarone 200 mg tablet 200 mg PO DAILY 08/31/24 09/28/24 History cholecalciferol (vitamin D3) 125 125 mcg PO QAM 08/31/24 09/28/24 History mcg (5,000 unit) tablet (Vitamin D3) colostrum, bovine 400 mg 400 mg PO QAM 08/31/24 09/28/24 History capsule,delayed release furosemide 20 mg tablet 20 mg PO DAILY 09/28/24 09/28/24 History oxycodone 5 mg tablet 5 mg PO Q6H PRN pain #30 tabs 09/28/24 Rx spironolactone 25 mg tablet 25 mg PO DAILY 09/28/24 09/28/24 History tramadol 50 mg tablet 50 mg PO Q6H PRN pain, moderate 09/28/24 Rx #30 tabs Patient History Medical History Nausea and vomiting after administration of anesthetic agent "usually hits when he get to the car afterward" Hyperlipidemia Hypertension controlled, stable per pt Diabetes mellitus, type 2 IDDM History of depression Hx of chronic kidney disease stable/no current issues Chronic shoulder pain bilateral due torn rotator cuffs History of atrial fibrillation w/RVR, cardioversion in 2022; f/u dr falcon yohan on eliquis History of anxiety Nonischemic congestive cardiomyopathy Paroxysmal SVT (supraventricular tachycardia) hx Chronic systolic (congestive) heart failure EF 36% per 06/2023 ECHO (EF has been low since 2012 when it was 25% per cardio records) Spinal stenosis Pancreatitis hx in the late or early >caused by medication Left bundle branch block hx Sleep apnea CPAP-compliant Surgical History History of total right knee replacement (07/02/24) History of cardioversion 2022, [facility]; f/[facility] falcon [facility] cardio History of hernia repair History of anesthesia reaction with a previous colonoscopy, "could feel everything, not fully asleep" History of total knee replacement left History of arthroscopy rt and left knee H/O Spinal surgery 2011, lumbar laser procedure History of colonoscopy (2018) History of tooth extraction History of tonsillectomy History of cardiac cath 2014, [facility], no stents Family History Mother Family history of diabetes mellitus Myocardial infarction Grandfather (Paternal) Family history of diabetes mellitus Grandmother (Maternal) Family history of diabetes mellitus Father Prostate cancer Other Hypertension Denies family history of Ovarian cancer Breast cancer Colorectal cancer Social History Smoking Status: Never smoker Second Hand Exposure: Yes (hx as child); Do You Dip or Chew Tobacco: No; Tobacco Cessation Education Requested by Patient: No Hx Alcohol Use: Yes Hx Substance Use: No Preferred Language: Mongolian Communication Ability: Effective 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: No Beliefs That Will Affect Care: None marital status: Current Living Situation: Significant Other current occupational status: employed 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 Other Information That Helps Us Care for You: No Feels Safe at Home: Yes Safety Concerns: Feels Safe At This Time Childhood Exposure to Second-Hand Smoke: Yes Dental Care, Regularly: Yes Physical Activity Frequency: Does not Exercise Seatbelt Use: always Sunscreen Use: No Assistive Devices: CPAP Review of Systems Review of Systems: All systems reviewed & are unremarkable except as noted in HPI & below Physical Exam Physical Exam: constitutional: WD/WN, vitals as above, NAD, sitting up in bed, pleasant, conversing easily Head: Normocephalic, Atraumatic Eyes: PERRL, conjunctivae normal, anicteric sclerae ENMT: external ear and nose normal, oropharynx normal Neck: trachea midline, no thyromegaly normal visual inspection Respiratory: normal respiratory effort, lungs clear to auscultation, no wheeze, rales, rhonchi. Normal insp/exp effort, no accessory muscle use Cardiovascular: RRR, no murmur, no edema Vessels: no JVD or carotid bruit Chest: normal inspection of chest Abdomen: normal bowel sounds, soft, nontender, no hepatosplenomegaly Musculoskeletal: no cyanosis or clubbing, arom x4 lumbar dressing cdi Skin: no rashes, warm and dry normal turgor Neurologic: no face palsy, no dysarthria CN's II-XI intact bilaterally and moves all extremities Psychiatric: A+Ox3, euthymic affect Results & Data Vital Signs (Past 12 Hours) Vital Signs Temp Pulse Resp BP Pulse Ox O2 Del Method O2 Flow Rate 09/28/24 12:05 36.8 C 80 13 127/65 96 Nasal Cannula 2 09/28/24 11:55 81 14 121/58 L 93 Room Air 09/28/24 11:45 80 18 131/65 99 Oxymask 4 09/28/24 11:35 81 16 131/65 97 Oxymask 4 09/28/24 11:29 36.0 C L 82 12 131/65 96 Oxymask 4 Laboratory Results I have independently reviewed and interpreted patient's admitting labs including CBC, CMP, b12, a1c, lipid panel in the [facility] records from 09/04. Diagnostic Findings Lumbar Spine X-Ray 09/28/24 07:45 FL lumbar spine 2-3V CLINICAL HISTORY: L2-S1 DECOMPRESSION/FUSION COMPARISON STUDY: None FLUOROSCOPY TIME: 39 seconds FLUOROSCOPY IMAGES: 5 EXPOSURE DOSE: 35 mGy FINDINGS: Fluoroscopy was provided for lumbar metallic fusion. IMPRESSION: Intraoperative fluoroscopy. ACT 112: Negative or not required by law. Electronically signed by: Cesar Hogan M.D. 09/28/2024 11:28 AM Medications Administered Current Inpatient Medications Acetaminophen (Acetaminophen 500 Mg Tab) 1,000 mg PO PREOP MADELINE Stop: 09/28/24 18:00 Last Admin: 09/28/24 07:20 Dose: 1,000 mg Acetaminophen (Acetaminophen 500 Mg Tab) 1,000 mg PO Q8H PRN PRN Reason: MILD Pain (1,2,3) & Pre PT Stop: 10/28/24 12:19 Al Hydrox/Mg Hydrox/Simethicone (Aluminum/Magnesium Susp 30 Ml Udc) 30 ml PO Q6H PRN PRN Reason: Dyspepsia Stop: 10/28/24 12:19 Albuterol (Albuterol Hfa 8 Gm Inhaler) 2 puffs INH QID PRN PRN Reason: shortness of breath or wheezing Stop: 10/28/24 12:19 Amiodarone HCl (Amiodarone 200 Mg Tab) 200 mg PO BID MADELINE Stop: 10/28/24 20:59 Atropine Sulfate (Atropine Sulfate 0.1 Mg/Ml 10ml Syr) 0.5 mg IV Q1M PRN PRN Reason: PACU Use-HR<40 &/or Bradycardi Stop: 09/28/24 15:16 Bisacodyl (Bisacodyl 10 Mg Supp) 10 mg FL DAILY PRN PRN Reason: Constipation Stop: 10/28/24 12:19 Celecoxib (Celebrex 200 Mg Cap) 200 mg PO PREOP MADELINE Stop: 09/28/24 18:00 Last Admin: 09/28/24 07:19 Dose: 200 mg Citalopram Hydrobromide (Citalopram 20 Mg Tab) 20 mg PO BID MADELINE Stop: 10/28/24 20:59 Diphenhydramine HCl (Diphenhydramine Capsule 25 Mg Cap) 25 mg PO Q6H PRN PRN Reason: Allergic Rhinitis/Insomnia Stop: 10/28/24 12:19 Empagliflozin (Empagliflozin 25 Mg Tab) 25 mg PO QAM MADELINE Stop: 10/29/24 08:59 Ephedrine Sulfate (Ephedrine Sulfate 50 Mg/Ml Amp) 5 mg IV Q5M PRN PRN Reason: PACU Use Only-SBP<90 mmHg Stop: 09/28/24 15:16 Famotidine (Famotidine 20 Mg Tab) 20 mg PO Q12H PRN PRN Reason: Dyspepsia Stop: 10/28/24 12:19 Fenofibrate (Fenofibrate Nanocrystallized 48 Mg Tablet) 48 mg PO QAM MADELINE Stop: 10/29/24 08:59 Furosemide (Furosemide 40 Mg Tab) 40 mg PO QAM [facility] Stop: 10/29/24 08:59 Gabapentin (Gabapentin 300 Mg Cap) 300 mg PO PREOP MADELINE Stop: 09/28/24 18:00 Last Admin: 09/28/24 07:19 Dose: 300 mg Gabapentin (Gabapentin 300 Mg Cap) 300 mg PO TID [facility] Stop: 10/28/24 13:59 Hydromorphone HCl (Hydromorphone Inj 2 Mg/Ml Syr/Vial) 0.5 mg IV Q5M PRN PRN Reason: PACU Use Only-Pain Stop: 09/28/24 15:17 Hydromorphone HCl (Hydromorphone Inj 0.5 Mg/0.5 Ml Syr) 0.5 mg IV Q3H PRN PRN Reason: MODERATE Pain(4,5,6)/Pre PT Stop: 10/12/24 12:19 Hydromorphone HCl (Hydromorphone Inj 1 Mg/Ml Syringe) 1 mg IV Q3H PRN PRN Reason: SEVERE Pain (7,8,9,10) Stop: 10/12/24 12:19 Hydroxyzine HCl (Hydroxyzine Hcl 25 Mg Tab) 25 mg PO Q8H PRN PRN Reason: Anxiety Stop: 10/28/24 12:19 Lactated Ringer's (Lr) 1,000 mls @ 15 mls/hr IV .Q24H MADELINE Stop: 09/29/24 05:59 Last Infusion: 09/28/24 07:42 Dose: Infused Lactated Ringer's (Lr) 1,000 mls @ 60 mls/hr IV .[id number] MADELINE Stop: 09/28/24 22:39 Last Admin: 09/28/24 07:19 Dose: Not Given Cefazolin Sodium (Ancef 2000mg) 2,000 mg in 15 mls @ 3.75 mls/min IV PREOP MADELINE; Protocol Stop: 09/28/24 18:00 Last Admin: 09/28/24 07:45 Dose: 3.75 mls/min Acetaminophen (Ofirmev) 1,000 mg in 100 mls @ 400 mls/hr IV Q8H PRN PRN Reason: MILD Pain (1,2,3) & Pre PT Stop: 09/29/24 12:23 Cefazolin Sodium (Ancef 2000mg) 2,000 mg in 15 mls @ 3.75 mls/min IV Q8H MADELINE; Protocol Stop: 09/29/24 01:33 Promethazine HCl (Phenergan) 12.5 mg in 50.5 mls @ 202 mls/hr IV Q6H PRN PRN Reason: Nausea And Vomiting Stop: 10/28/24 12:19 Influenza Virus Vaccine Quadrival (Do Not Administer Flu Vaccine) 1 each N/A PRN PRN PRN Reason: Notification Stop: 10/28/24 12:19 Lorazepam (Lorazepam 0.5 Mg Tab) 0.5 mg PO Q8H PRN PRN Reason: Sedation/Anxiety Stop: 10/28/24 12:19 Lorazepam (Lorazepam 2 Mg/1 Ml Vial) 0.5 mg IV Q8H PRN PRN Reason: Sedation/Anxiety Stop: 10/28/24 12:19 Losartan Potassium (Losartan Potassium 25 Mg Tab) 25 mg PO QAM MADELINE Stop: 10/29/24 08:59 Magnesium Hydroxide (Magnesium Hydroxide Susp 30 Ml Udc) 30 ml PO Q24H PRN PRN Reason: Constipation Stop: 10/28/24 12:19 Magnesium Oxide (Magnesium Oxide 400 Mg Tab) 400 mg PO HS MADELINE Stop: 10/28/24 20:59 Metoclopramide HCl (Metoclopramide Hcl Inj 5 Mg/Ml 2 Ml Vial) 10 mg IV Q6H PRN PRN Reason: Nausea &/or Vomiting Stop: 10/28/24 12:19 Metoprolol Succinate (Metoprolol Succ 50mg Ext Rel Tab) 100 mg PO BID MADELINE Stop: 10/28/24 20:59 Miscellaneous Information (Pharmacy Glycemic Mgmt Consult) 1 each N/A UD PRN PRN Reason: Consult Stop: 10/28/24 12:19 Multivitamins/Minerals (Cerovite Adv Formula Tab) 1 tab PO QAM MADELINE Stop: 10/29/24 08:59 Naloxone HCl (Naloxone Hcl 0.4 Mg/1 Ml Vial/Carp) 0.1 mg IV Q5M PRN PRN Reason: Oversedation/Resp depression Stop: 10/28/24 12:19 Ondansetron HCl (Ondansetron Inj 2 Mg/Ml 2 Ml Vial) 4 mg IV ONCE PRN PRN Reason: PACU Use Only-Nausea/Vomiting Stop: 09/28/24 15:17 Ondansetron HCl (Ondansetron Inj 2 Mg/Ml 2 Ml Vial) 4 mg IV Q6H PRN PRN Reason: Nausea &/or Vomiting Stop: 10/28/24 12:19 Ondansetron HCl (Ondansetron 4 Mg Od Tab) 4 mg PO Q6H PRN PRN Reason: Nausea Stop: 10/28/24 12:19 Oxycodone HCl (Oxycodone Hcl Ir 5 Mg Tab (Immediate Release)) 5 - 10 mg PO Q4H PRN PRN Reason: MOD/SEV Pain & Pre PT Stop: 10/12/24 12:19 Pneumococcal Polyvalent Vaccine (Do Not Administer Pneumococcal Vaccine) 1 each N/A PRN PRN PRN Reason: Notification Stop: 10/28/24 12:19 Polyethylene Glycol (Polyethylene (Miralax) 17 Gm Pack) 17 gm PO Q6 MADELINE Stop: 10/29/24 05:59 Rosuvastatin Calcium (Rosuvastatin Calcium 20 Mg Tab) 40 mg PO QAM MADELINE Stop: 10/29/24 08:59 Senna/Docusate Sodium (Docusate Sodium/Senna 50/8.6mg Tab) 2 tab PO HS MADELINE Stop: 10/28/24 20:59 Sodium Biphosphate/Sodium Phosphate (Sod Phosphate/Sod Biphosphate Enema 132 Ml Btl) 132 ml FL ONE PRN PRN Reason: Constipation Stop: 10/28/24 12:19 Tramadol HCl (Tramadol Hcl 50 Mg Tablet) 50 - 100 mg PO Q4H PRN PRN Reason: MOD/SEV Pain & Pre PT Stop: 10/28/24 12:19 Vitamin D (Cholecalciferol 125 Mcg (5,000 Units) Tab) 125 mcg PO QAM [facility] Stop: 10/29/24 08:59 ECG Additional Comments: I have independently reviewed and interpreted patient's admitting EKG which revealed: 81 bpm, sinus rhythm 1st degree avb, qtc 536ms
--- NOTE | 2024-09-28 12:52 | Pharmacy Report ---
Pharmacy Glycemic Short Note 2 - Date of Service September 28, 2024 - Glycemic Short BSG Results (Last 24 hours): 09/28/24 09/28/24 06:57 11:32 POC Glucose 143 H 222 H OUTPATIENT ANTIDIABETIC REGIMEN: * Tresiba 40 units SC HS * Metformin 1 g PO BIDM * Jardiance 25 mg PO daily * Trulicity 4.5 mg SC weekly (on Sundays) HbA1c: 6.7% (06/08/24) ASSESSMENT: * CS is a 63 year old male POD #0 s/p spinal surgery * Received dexamethasone 8 mg IV x 1 in OR * No steroids ordered postoperatively * Preop blood sugar of 143 mg/dL and postop blood sugar of 222 mg/dL * Last reported dose of Tresiba was 40 units last evening PLAN FOR INPATIENT GLYCEMIC CONTROL: * Hold outpatient oral diabetes medications * Basal insulin * Lantus 40 units SC x 1 now * Bolus insulin * NovoLog per scale ACHS or Q6hrs while NPO * Goal Range: Low 110 mg/dL - High 140 mg/dL * Correction Factor: 15 mg/dL/unit * Nutritional / Prandial insulin per carb ratio of 1 unit per 4 grams CHO consumed
[2024-09-28] MEDS: INSULIN ASPART PER UNIT CHARGE SC SCH (13:20)
[2024-09-28] MEDS: LANTUS PER UNIT CHARGE SC ONE (13:23)
[2024-09-28] MEDS ORDERED: GABAPENTIN 300 MG CAP PO SCH (14:00)
[2024-09-28] MEDS ORDERED: AMIODARONE 200 MG TAB PO SCH (21:00)
[2024-09-28] MEDS: MAGNESIUM OXIDE 400 MG TAB PO SCH (21:09)
[2024-09-28] MEDS: CITALOPRAM 20 MG TAB PO SCH (21:09)
[2024-09-28] MEDS: METOPROLOL SUCC 50MG EXT REL TAB PO SCH (21:09)
[2024-09-28] MEDS: DOCUSATE SODIUM/SENNA 50/8.6MG TAB PO SCH (21:09)
[2024-09-29] MEDS: SODIUM CHLORIDE 0.9% 500 ML IV SCH ×2 (00:54→12:59)
[2024-09-29] MEDS: INSULIN ASPART PER UNIT CHARGE SC SCH (02:23)
[2024-09-29] MEDS: POLYETHYLENE (MIRALAX) 17 GM PACK PO SCH (05:55)
[2024-09-29] MEDS: ROSUVASTATIN CALCIUM 20 MG TAB PO SCH (07:09)
[2024-09-29] MEDS: CEROVITE ADV FORMULA TAB PO SCH (07:11)
[2024-09-29] MEDS: AMIODARONE 200 MG TAB PO SCH (07:11)
[2024-09-29] MEDS: FENOFIBRATE NANOCRYSTALLIZED 48 MG TABLET PO SCH (07:12)
[2024-09-29] MEDS: CHOLECALCIFEROL 125 MCG (5,000 UNITS) TAB PO SCH (07:12)
[2024-09-29] MEDS: SPIRONOLACTONE 25 MG TAB PO SCH (07:12)
[2024-09-29] MEDS: LOSARTAN POTASSIUM 25 MG TAB PO SCH (07:13)
[2024-09-29 07:36] LABS: Hematocrit (blood only) 28.9 % (42.0-52.0); Hemoglobin 9.4 g/dl (14.0-18.0); Immature Granulocytes # (auto) 0.09 K/uL (0.01-0.20); Immature Granulocytes % (auto) 1.0 %; Mean Corpuscular Hemoglobin 31.1 pg (25.0-34.0); Mean Corpuscular Volume 95.7 fL (80.0-100.0); Platelet Count 156 K/uL (130-400); RDW Standard Deviation 54.1 fL (36.4-46.3); Red Blood Count 3.02 M/uL (4.70-6.10); White Blood Count 8.64 K/ul (4.8-10.8)
[2024-09-29 07:56] LABS: Anion Gap 5.0 (3-11); Blood Urea Nitrogen 44.0 mg/dl (6-23); Calcium 8.7 mg/dl (8.6-10.3); Carbon Dioxide 29.0 mmol/L (21-32); Chloride 104.0 mmol/L (98-107); Creatinine Clr Calc Pharmacy 64.2 ml/min; Glucose 125.0 mg/dl (70-99(Fasting)); Potassium 5.0 mmol/L (3.5-5.1); Sodium 138.0 mmol/L (136-145)
--- NOTE | 2024-09-29 08:30 | Orthopedic Progress Note ---
Date of Service September 29, 2024 Assessment & Plan (1) Multilevel lumbosacral spondylosis with radiculopathy: Plan: At this time initiate physical therapy monitor his MAXWELL output hopefully discharge home in the next few days. Admission and Anticipated Discharge Date Admission Date: September 28, 2024 Subjective Patient's back pain is controlled. Denies any leg pain. Was up on his chair yesterday. Physical Exam Physical Exam: Patient appears comfortable. Has good strength testing. Results & Data Vital Signs (Past 12 Hours) Vital Signs Temp Pulse Resp BP Pulse Ox O2 Del Method 09/29/24 07:41 36.6 C 75 20 106/66 95 Room Air 09/29/24 07:38 36.5 C 76 20 107/68 96 Room Air 09/29/24 03:52 36.9 C 75 18 100/59 L 96 Room Air 09/29/24 00:36 36.6 C 84 18 95/59 L 96 Room Air 09/28/24 21:00 Room Air, CPAP 09/28/24 20:59 75 106/54 L Queries Orthopedic Spine Obesity: Yes
[2024-09-29] MEDS ORDERED: FUROSEMIDE 40 MG TAB PO SCH (09:00)
[2024-09-29] MEDS ORDERED: EMPAGLIFLOZIN 25 MG TAB PO SCH (09:00)
[2024-09-29] MEDS: LANTUS PER UNIT CHARGE SC ONE (11:49)
--- NOTE | 2024-09-29 12:39 | Hospitalist Progress Note ---
Date of Service September 29, 2024 Assessment & Plan (1) Multilevel lumbosacral spondylosis with radiculopathy: (2) S/P spinal surgery: (3) Acute blood loss anemia: (4) Postoperative hypotension: (5) Chronic HFrEF (heart failure with reduced ejection fraction): (6) Stage 3a chronic kidney disease (CKD): Plan Pt is a 63y/o M with PMHx significant for chronic HFrEF, HTN, LBBB, nonischemic cardiomyopathy, PAF anticoagulated on Eliquis, GER, asthma, T2DM, HLD, CKD stage IIIa and depression with anxiety who is being seen in consultation for routine postoperative medical management after undergoing elective lumbar surgery performed by Dr. Hagen on 09/28/24. #Multilevel lumbosacral spondylosis with radiculopathy #S/p L2-S1 lumbar decompression and fusion performed by Dr. Hagen, POD #1 Per primary service for pain control/wound care/anticoagulation/activities Continue incentive spirometry, PT/OT when appropriate as per primary service #Acute blood loss anemia Preop Hgb 13.1 --> Hgb downtrended to 9.4 today ISO expected surgical blood loss (EBL = 500mL), likely dilutional component contributing as well No indication to transfuse at this time; continue to monitor #Postoperative hypotension Likely multifactorial ISO acute blood loss anemia, preop NPO status Will give gentle IVF w/ 500cc NSS x 1 bag for now -Judicious IVF use ISO HFrEF Losartan, Lasix and Aldactone placed on hold --> BP slowly improving, will resume meds as tolerated #Chronic HFrEF: LVEF 36% as of 06/2023 TTE #Nonischemic cardiomyopathy #Chronic LBBB #PAF F/w [facility] cards Continue BB, Jardiance, amiodarone Losartan, diuretics on hold as per above; appears euvolemic on exam today -Weight stable, continue close I&Os Eliquis currently on hold --> resume as per primary service #HLD Continue statin #CKD stage IIIa Cr appears stable Baseline Cr ~1.5 per outpatient chart review Continue to monitor renal fx, avoid nephrotoxic agents as able #Insulin-requiring T2DM Metformin on hold while inpt Lantus/NovoLog per protocol -BSG elevated overnight but now improved Pharmacy consulted for glycemic management --> appreciate their input #GER Noncompliant w/ CPAP CPAP use encouraged DVT Prophylaxis: As per primary service, Daren on hold Disposition: Routine d/c planning as per primary service We will continue to follow the patient with you during their hospital stay. You can reach a member of the [place] [facility] Hospitalist Team 30/09 via [employer]. Patient seen in collaboration with Dr. Martinez. Please see addendum. I spent a total of 36 minutes coordinating, documenting, and providing care for this patient excluding time spent in the performance of separately billed services or time spent by another provider/QHP. This included personally reviewing all current laboratories and imaging studies, medical reconciliation, outpatient chart review and discussion with specialists. This chart was completed in part utilizing Speech Voice Recognition Software. Grammatical errors, random word insertions, pronoun errors, and incomplete sentences are an occasional consequence of this system due to software limitations, ambient noise, and hardware issues. Any formal questions or concerns about the content, text, or information contained within the body of this dictation should be directly addressed to the provider for clarification. Admission and Anticipated Discharge Date Admission Date: September 28, 2024 Supervising Physician Co-Signing Physician Notes Pt seen and examined at bedside as a f/u of medical mx s/p lumbar spine repair. Pt w/ post op hypotension and today DEEPA is noted. will c/w gentle ivf x 1 bag and repeat labs in AM. Hold losartan, lasix and aldactone/other nephrotoxics. I have seen and examined the patient and have discussed the case with the provider above. I agree with the assessment and plan as stated. Time spent independently: 10 min Subjective Pt seen and examined in room N383-2. Reports adequate pain control. No BM yet postoperatively. Tolerating diet w/o issue. Denies any chest pain, SOB or abd pain. Review of Systems Review of Systems: At least ten systems reviewed and negative, except as noted in the subjective section. Physical Exam Physical Exam: General: WD/WN, sitting up in chair at bedside, appears comfortable, A&Ox3, conversing appropriately, pleasant HEENT: Normocephalic, atraumatic, external ear and nose normal, oropharynx appears moist Respiratory: Normal respiratory effort, CTAB, no accessory muscle use Cardiovascular: Regular rate, rhythm, normal peripheral pulses, no BLE edema Abdomen/GI: Normal bowel sounds, soft, nontender to palpation in all quadrants Extremities/MSK: No cyanosis or clubbing, surgical dressing on low mid back C/D/I, MAXWELL drain x 1 w/ serosanguineous output Neurologic: No overt focal deficits, CN's II-XI not formally tested but appear grossly intact bilaterally Results & Data Results & Data Vital Signs (Past 12 Hours) Vital Signs Temp Pulse Resp BP Pulse Ox O2 Del Method 09/29/24 11:56 36.9 C 76 18 102/64 96 Room Air 09/29/24 07:41 36.6 C 75 20 106/66 95 Room Air 09/29/24 07:38 36.5 C 76 20 107/68 96 Room Air 09/29/24 03:52 36.9 C 75 18 100/59 L 96 Room Air 09/29/24 00:36 36.6 C 84 18 95/59 L 96 Room Air Laboratory Results Short CBC 09/29/24 Range/Units 07:02 WBC 8.64 (4.8-10.8) K/ul Hgb 9.4 L (14.0-18.0) g/dl Hct 28.9 L (42.0-52.0) % Plt Count 156 (130-400) K/uL BMP 09/28/24 09/29/24 20:49 07:02 Sodium 138 Potassium 5.0 Chloride 104 Carbon Dioxide 29 BUN 44 H Creatinine 1.54 H Glucose 310 H* 125 H Calcium 8.7
--- NOTE | 2024-09-29 13:07 | Pharmacy Report ---
Pharmacy Glycemic Short Note 2 - Date of Service September 29, 2024 - Glycemic Short BSG Results (Last 24 hours): 09/28/24 09/28/24 09/28/24 16:26 20:19 20:22 Glucose POC Glucose 266 H 352 H* 303 H* 09/28/24 09/28/24 09/29/24 20:23 20:49 02:06 Glucose 310 H* POC Glucose 406 H* 186 H 09/29/24 09/29/24 09/29/24 07:02 07:43 11:20 Glucose 125 H POC Glucose 148 H 257 H OUTPATIENT ANTIDIABETIC REGIMEN: * Tresiba 40 units SC HS * Metformin 1 g PO BIDM * Jardiance 25 mg PO daily * Trulicity 4.5 mg SC weekly (on Sundays) HbA1c: 6.7% (06/08/24) ASSESSMENT: 09/29/24: * Blood sugars elevated postoperatively w/ reasonably controlled fasting blood sugar this AM (148 mg/dL) * Plan to maintain aggressive Novolog parameters, but will decrease basal in light of steroid discontinuation 09/28/24: * CS is a 63 year old male POD #0 s/p spinal surgery * Received dexamethasone 8 mg IV x 1 in OR * No steroids ordered postoperatively * Preop blood sugar of 143 mg/dL and postop blood sugar of 222 mg/dL * Last reported dose of Tresiba was 40 units last evening PLAN FOR INPATIENT GLYCEMIC CONTROL: * Hold outpatient oral diabetes medications * Basal insulin * Lantus 30 units SC x 1 w/ lunch * Reassess in AM * Bolus insulin * NovoLog per scale ACHS or Q6hrs while NPO * Goal Range: Low 110 mg/dL - High 140 mg/dL * Correction Factor: 20 mg/dL/unit * Nutritional / Prandial insulin per carb ratio of 1 unit per 4 grams CHO consumed
--- NOTE | 2024-09-30 07:14 | Hospitalist Progress Note ---
Date of Service September 30, 2024 Assessment & Plan (1) Multilevel lumbosacral spondylosis with radiculopathy: (2) S/P spinal surgery: (3) Acute blood loss anemia: (4) Postoperative hypotension: (5) Chronic HFrEF (heart failure with reduced ejection fraction): (6) Stage 3a chronic kidney disease (CKD): Plan Pt is a 63y/o M with PMHx significant for chronic HFrEF, HTN, LBBB, nonischemic cardiomyopathy, PAF anticoagulated on Eliquis, GER, asthma, T2DM, HLD, CKD stage IIIa and depression with anxiety who is being seen in consultation for routine postoperative medical management after undergoing elective lumbar surgery performed by Dr. Hagen on 09/28/24. #Multilevel lumbosacral spondylosis with radiculopathy #S/p L2-S1 lumbar decompression and fusion performed by Dr. Hagen, POD #2 Per primary service for pain control/wound care/anticoagulation/activities Continue incentive spirometry, PT/OT when appropriate as per primary service #Acute blood loss anemia Preop Hgb 13.1 --> Hgb downtrended to 9.4 on 09/29; Hgb stabilized at 9.3 today ISO expected surgical blood loss (EBL = 500mL), likely dilutional component contributing as well No indication to transfuse at this time; continue to monitor #Postoperative hypotension Likely multifactorial ISO acute blood loss anemia, preop NPO status S/p 500cc NSS on 09/29 --> BP still soft but pt remains asymptomatic in this regard Will hold off on additional IVF for now; judicious IVF use ISO HFrEF Losartan, Lasix and Aldactone on hold --> Continue to monitor BP, will resume meds as able #Chronic HFrEF: LVEF 36% as of 06/2023 TTE #Nonischemic cardiomyopathy #Chronic LBBB #PAF F/w [facility]MC cards Continue BB, Jardiance, amiodarone Losartan, diuretics on hold as per above; appears euvolemic on exam today -Weight stable, continue close I&Os Eliquis currently on hold --> resume as per primary service #HLD Continue statin #CKD stage IIIa Cr remains stable Baseline Cr ~1.5 per outpatient chart review Continue to monitor renal fx, avoid nephrotoxic agents as able #Insulin-requiring T2DM Metformin on hold while inpt Lantus/NovoLog per protocol Pharmacy consulted for glycemic management --> appreciate their input; follow BSG checks ACHS #GER Noncompliant w/ CPAP CPAP use encouraged DVT Prophylaxis: As per primary service, Daren on hold Disposition: Routine d/c planning as per primary service We will continue to follow the patient with you during their hospital stay. You can reach a [facility] via [employer]. Patient seen in collaboration with Dr. Martinez. Please see addendum. I spent a total of 34 minutes coordinating, documenting, and providing care for this patient excluding time spent in the performance of separately billed services or time spent by another provider/QHP. This included personally reviewing all current laboratories and imaging studies, medical reconciliation, outpatient chart review and discussion with specialists. This chart was completed in part utilizing Speech Voice Recognition Software. Grammatical errors, random word insertions, pronoun errors, and incomplete sentences are an occasional consequence of this system due to software limitations, ambient noise, and hardware issues. Any formal questions or concerns about the content, text, or information contained within the body of this dictation should be directly addressed to the provider for clarification. Admission and Anticipated Discharge Date Admission Date: September 28, 2024 Supervising Physician Co-Signing Physician Notes pt not seen personally. Subjective Patient seen and examined in room N383-2. Pain remains well-controlled. No BM yet postoperatively but passing gas. Review of Systems Review of Systems: At least ten systems reviewed and negative, except as noted in the subjective section. Physical Exam Physical Exam: General: WD/WN, sitting up in bed, appears comfortable, A&Ox3, conversing appropriately, pleasant HEENT: Normocephalic, atraumatic, external ear and nose normal, oropharynx appears moist Respiratory: Normal respiratory effort, CTAB, no accessory muscle use Cardiovascular: Regular rate, rhythm, normal peripheral pulses, no BLE edema Abdomen/GI: Normal bowel sounds, soft, nontender to palpation in all quadrants Extremities/MSK: No cyanosis or clubbing, surgical dressing on low mid back C/D/I, MAXWELL drain x 1 w/ serosanguineous output Neurologic: No overt focal deficits, CN's II-XI not formally tested but appear grossly intact bilaterally Results & Data Results & Data Vital Signs (Past 12 Hours) Vital Signs Temp Pulse Resp BP Pulse Ox O2 Del Method 07/24/25 07:02 36.6 C 79 16 106/65 95 Room Air 09/29/24 19:42 36.8 C 81 18 106/65 96 Room Air 09/29/24 19:35 Room Air, CPAP Laboratory Results Short CBC 09/30/24 Range/Units 06:56 WBC 6.92 (4.8-10.8) K/ul Hgb 9.3 L (14.0-18.0) g/dl Hct 29.8 L (42.0-52.0) % Plt Count 154 (130-400) K/uL BMP 09/30/24 06:56 Sodium 137 Potassium 4.6 Chloride 102 Carbon Dioxide 30 BUN 38 H Creatinine 1.29 Glucose 127 H Calcium 8.8
[2024-09-30 07:53] LABS: Hematocrit (blood only) 29.8 % (42.0-52.0); Hemoglobin 9.3 g/dl (14.0-18.0); Immature Granulocytes # (auto) 0.06 K/uL (0.01-0.20); Immature Granulocytes % (auto) 0.9 %; Mean Corpuscular Hemoglobin 30.5 pg (25.0-34.0); Mean Corpuscular Volume 97.7 fL (80.0-100.0); Platelet Count 154 K/uL (130-400); RDW Standard Deviation 55.4 fL (36.4-46.3); Red Blood Count 3.05 M/uL (4.70-6.10); White Blood Count 6.92 K/ul (4.8-10.8)
--- NOTE | 2024-09-30 08:11 | Orthopedic Progress Note ---
Date of Service September 30, 2024 Assessment & Plan (1) Multilevel lumbosacral spondylosis with radiculopathy: Plan: We will continue physical therapy today. Monitor his MAXWELL output. Possible discharge home tomorrow. Admission and Anticipated Discharge Date Admission Date: September 28, 2024 Subjective Back pain is controlled. Patient is tolerating physical therapy. Physical Exam Physical Exam: Patient is currently in bed. Is comfortable. Good strength testing. Results & Data Vital Signs (Past 12 Hours) Vital Signs Temp Pulse Resp BP Pulse Ox O2 Del Method 09/30/24 07:02 36.6 C 79 16 106/65 95 Room Air Queries Orthopedic Spine Acute Posthemorrhagic Anemia: Yes Obesity: Yes
[2024-09-30 08:15] LABS: Anion Gap 5.0 (3-11); Blood Urea Nitrogen 38.0 mg/dl (6-23); Calcium 8.8 mg/dl (8.6-10.3); Carbon Dioxide 30.0 mmol/L (21-32); Chloride 102.0 mmol/L (98-107); Creatinine Clr Calc Pharmacy 76.5 ml/min; Glucose 127.0 mg/dl (70-99(Fasting)); Magnesium 1.6 mg/dl (1.7-2.4); Potassium 4.6 mmol/L (3.5-5.1); Sodium 137.0 mmol/L (136-145)
[2024-09-30] MEDS ORDERED: FUROSEMIDE 20 MG TAB PO SCH (09:00)
[2024-09-30] MEDS: LANTUS PER UNIT CHARGE SC ONE (16:58)
[2024-09-30] MEDS: MAGNESIUM OXIDE 400 MG TAB PO SCH (20:37)
--- NOTE | 2024-10-01 07:30 | Hospitalist Progress Note ---
Date of Service October 01, 2024 Assessment & Plan (1) Multilevel lumbosacral spondylosis with radiculopathy: (2) S/P spinal surgery: (3) Acute blood loss anemia: (4) Postoperative hypotension: (5) Chronic HFrEF (heart failure with reduced ejection fraction): (6) Stage 3a chronic kidney disease (CKD): Plan Pt is a 63y/o M with PMHx significant for chronic HFrEF, HTN, LBBB, nonischemic cardiomyopathy, PAF anticoagulated on Eliquis, GER, asthma, T2DM, HLD, CKD stage IIIa and depression with anxiety who is being seen in consultation for routine postoperative medical management after undergoing elective lumbar surgery performed by Dr. Hagen on 09/28/24. #Multilevel lumbosacral spondylosis with radiculopathy #S/p L2-S1 lumbar decompression and fusion performed by Dr. Hagen, POD #3 Per primary service for pain control/wound care/anticoagulation/activities Continue incentive spirometry, PT/OT when appropriate as per primary service #Acute blood loss anemia Preop Hgb 13.1 --> Hgb downtrended to 9.4 on 09/29; Hgb stabilized at 9.1 today ISO expected surgical blood loss (EBL = 500mL), likely dilutional component contributing as well No indication to transfuse at this time -D/w pt regarding repeat CBC in ~1wk w/ PCP to monitor postop anemia --> PCP appt arranged w/ our nurse navigatorGaby #Postoperative hypotension -- improved Likely multifactorial ISO acute blood loss anemia, preop NPO status S/p 500cc NSS on 09/29 --> BP still soft but stabilizing -Primary service planning for d/c today -D/w pt to hold Losartan until PCP f/u appt; advised to monitor BP at home -Can resume Lasix, Aldactone on d/c #Chronic HFrEF: LVEF 36% as of 06/2023 TTE #Nonischemic cardiomyopathy #Chronic LBBB #PAF F/w GMC cards Continue BB, Jardiance, amiodarone Eliquis resumed as per primary service #HLD Continue statin #CKD stage IIIa Cr remains stable Baseline Cr ~1.5 per outpatient chart review #Insulin-requiring T2DM Home regimen on hold while inpt --> can resume on d/c Lantus/NovoLog per protocol Pharmacy consulted for glycemic management --> appreciate their input #GER Noncompliant w/ CPAP CPAP use encouraged DVT Prophylaxis: As per primary service Disposition: Routine d/c planning as per primary service --> pt being d/c'd home today Patient seen in collaboration with Dr. Martinez. Please see addendum. I spent a total of 38 minutes coordinating, documenting, and providing care for this patient excluding time spent in the performance of separately billed services or time spent by another provider/QHP. This included personally reviewing all current laboratories and imaging studies, medical reconciliation, outpatient chart review and discussion with specialists. This chart was completed in part utilizing Speech Voice Recognition Software. Grammatical errors, random word insertions, pronoun errors, and incomplete sentences are an occasional consequence of this system due to software limitations, ambient noise, and hardware issues. Any formal questions or concerns about the content, text, or information contained within the body of this dictation should be directly addressed to the provider for clarification. Admission and Anticipated Discharge Date Admission Date: September 28, 2024 Supervising Physician Co-Signing Physician Notes Pt seen and examined at bedside as a f/u of medical mx s/p lumbar spine repair. Pt w/ post op hypotension and ensuing DEEPA. Now both resolved, Cr still minimally elevated, c/t hold losartan until further PCP eval within a week time of discharge . I have seen and examined the patient and have discussed the case with the provider above. I agree with the assessment and plan as stated. Time spent independently: 10 min Subjective Patient seen and examined in room N383-2. Planning for discharge today.Pain remains well-controlled postoperatively. Passing gas. Review of Systems Review of Systems: At least ten systems reviewed and negative, except as noted in the subjective section. Physical Exam Physical Exam: General: WD/WN, sitting up in bed, appears comfortable, A&Ox3, conversing appropriately, very pleasant HEENT: Normocephalic, atraumatic, external ear and nose normal, oropharynx appears moist Respiratory: Normal respiratory effort, CTAB, no accessory muscle use Cardiovascular: Regular rate, rhythm, normal peripheral pulses, no BLE edema Abdomen/GI: Normal bowel sounds, soft, nontender to palpation in all quadrants Extremities/MSK: No cyanosis or clubbing, surgical dressing on low mid back C/D/I Neurologic: No overt focal deficits, CN's II-XI not formally tested but appear grossly intact bilaterally Results & Data Results & Data Vital Signs (Past 12 Hours) Vital Signs Pulse BP O2 Del Method 09/30/24 20:41 90 136/74 09/30/24 19:45 Room Air, CPAP Laboratory Results Short CBC 10/01/24 Range/Units 07:15 WBC 5.70 (4.8-10.8) K/ul Hgb 9.1 L (14.0-18.0) g/dl Hct 28.4 L (42.0-52.0) % Plt Count 156 (130-400) K/uL BMP 10/01/24 07:15 Sodium 138 Potassium 4.8 Chloride 103 Carbon Dioxide 29 BUN 37 H Creatinine 1.42 H Glucose 153 H Calcium 8.8
[2024-10-01 07:38] LABS: Hematocrit (blood only) 28.4 % (42.0-52.0); Hemoglobin 9.1 g/dl (14.0-18.0); Mean Corpuscular Hemoglobin 31.0 pg (25.0-34.0); Mean Corpuscular Volume 96.6 fL (80.0-100.0); Platelet Count 156 K/uL (130-400); RDW Standard Deviation 56.2 fL (36.4-46.3); Red Blood Count 2.94 M/uL (4.70-6.10); White Blood Count 5.70 K/ul (4.8-10.8)
[2024-10-01 07:42] VITALS: PULSE 79; RESP 17
[2024-10-01 07:54] LABS: Anion Gap 6.0 (3-11); Blood Urea Nitrogen 37.0 mg/dl (6-23); Calcium 8.8 mg/dl (8.6-10.3); Carbon Dioxide 29.0 mmol/L (21-32); Chloride 103.0 mmol/L (98-107); Creatinine Clr Calc Pharmacy 69.7 ml/min; Glucose 153.0 mg/dl (70-99(Fasting)); Magnesium 1.6 mg/dl (1.7-2.4); Potassium 4.8 mmol/L (3.5-5.1); Sodium 138.0 mmol/L (136-145)
--- NOTE | 2024-10-01 08:06 | Discharge Summary ---
Date of Service October 01, 2024 Admission HPI Per Admitting Provider This is a 63-year-old male presents for chronic persistent back and leg pain after failing course of nonoperative care is here for surgical intervention. Admission Exam (Per Admitting) Constitutional WD/WN, vitals as above Eyes PERRL, conjunctivae normal, anicteric sclerae ENMT external ear and nose normal, oropharynx normal Neck normal visual inspection Respiratory normal respiratory effort Cardiovascular Extremities: normal capillary refill Gastrointestinal (Abdomen) Inspection/Auscultation: abdomen normal to inspection Musculoskeletal no cyanosis or clubbing, extremities motor strength 5/5 Extremities: extremities normal to inspection Gait: normal gait Skin no rashes, warm and dry Neurologic normal touch/pain/proprioception and moves all extremities Psychiatric A+Ox3, euthymic affect Eye Contact: good eye contact Discharge Data Consultations 09/28/24 12:20 Consult Hospitalist Routine Procedures Performed Operation Date: 09/28/24 07:45 Actual Procedures p L2-S1 Decompression and Fusion(Not Applicable) - Rajesh Hagen DO Hospital Course (1) Multilevel lumbosacral spondylosis with radiculopathy: Taco is being discharged home on postoperative day 3 status post L2-S1 decompression and fusion. He has had an uneventful hospital course. Ambulating 125 feet with physical therapy. Pain is controlled. H&H this morning is 9.1 and 28.4 respectively. No other complaints. Discharge Instructions ACTIVITY RECOMMENDATIONS: SELF CARE INSTRUCTIONS AFTER THORACIC/LUMBAR FUSIONS 1. You may walk to your tolerance. It is good exercise for your legs and back. Expect some back and intermittent leg aches and pains. 2. You may perform "counter-top" level activities (make a sandwich, ventura with a project, etc.). 3. No bending or lifting of more than 10 pounds or back twisting of any nature (roll like a log when turning in bed). 4. You may ride in a car for 20-30 minutes at a time. No driving until after your first visit with your doctor. 5. Frequent changes of position and restricting sitting to 30 minutes at a time will help limit the amount of back spasms and stiffness you may experience. 6. You may discontinue the use of ambulatory aids (cane, crutches, etc.) once your strength and confidence allow. 7. You may music minister the shower and let water strike your incision when you arrive home at least once daily. Do not take a tub bath, sit in a hot tub or go into a swimming pool until after your first recheck in the office. 8. You may resume previous diet. SPECIAL CARE INSTRUCTIONS: VERY IMPORTANT TO READ AND REVIEW A. Your surgical incision has been closed with a cosmetic suture under the skin that will dissolve in about 6 weeks. In 14 days, you can use a pair of clean scissors and cut the suture that is left outside of the skin at the ends of your incision. 1. The small skin tapes can be removed 7 days after surgery if they have not fallen off by that point. 2. You may keep the wound open to air as much as possible to promote healing after post-op day number 5 unless told otherwise by your doctor. 3. If you think the wound looks like it is becoming infected (redness or worsening drainage) and/or you are experiencing fever, chill or worsening back pain and muscle spasms, contact the office so that we may evaluate you as soon as possible. B. Complications are uncommon, but please contact us if you have any signs or symptoms of: 1. wound infection (fever higher than 102.5 degrees F, redness, separation of wound, drainage, or increasing pain from the incision) 2. blood clots in legs (pain, swelling, redness and warmth in legs) 3. urinary tract infection (fever higher than 102.5 degrees F, burning upon urination or increased frequency of urination) 4. nerve problems (inability to walk on your toes or heels, numbness, loss of bowel or bladder control) 5. any other symptoms that concern you C. Please call the office at if you have any concerns or questions about your operation or recovery. D. No smoking! Smoking drastically decreases the chance of a solid fusion. E. Do not take any anti-inflammatory medications (Indocin, Advil, Motrin, Aspirin, Naprosyn, etc.) as these may inhibit the chance of a solid fusion. Tylenol is okay to take for pain. MANAGING PAIN AFTER SPINAL SURGERY 1. Narcotic medication is intended for short-term use and will be provided for surgical pain. Surgical pain usually lasts for a period of 4-6 weeks. Narcotic medication includes Percocet, Vicodin, Darvocet, Tylenol #3 or Lortab. 2. Longer-term pain is more appropriately treated with non-narcotic medication such as Tylenol ES. 3. Muscle spasm is not appropriately treated with narcotics. Muscle relaxers such as Soma, Flexeril or Skelaxin can be used along with Tylenol ES. 4. Remember that we all live with some "aches and pains". This is not unusual or uncommon after an injury or as we get older. a. Back pain is expected and may include muscle spasms for 4 to 6 weeks after surgery. The pain should gradually improve. If the pain worsens for no apparent reason, please contact the office. b. Intermittent leg pain may also be experienced and should not be concerned about unless it worsens for no apparent reason. If so, please contact the office. 5. We will provide appropriate medication within the normal guidelines of their prescribed use. We will also be very cautious and aware of potential abuse and extended duration of patients' medication needs. a. Pain medications are for your comfort and to assist with sleep and rest so that the tissue can heal. They are not provided in order to return to normal activity and should not be used through the day. To do so or worsening pain at night can result from ongoing tissue damage and development of tolerance to the prescribed medicine. 6. Please allow 2-3 days to process refills. Prescriptions will not be mailed but must be picked up at the office. FOLLOW UP VISIT: Keep your scheduled follow-up appointment. Any questions, please call the office at .
[2024-10-01] MEDS: MAGNESIUM HYDROXIDE SUSP 30 ML UDC PO PRN (08:31)
[2024-10-01 11:53] VITALS: BP 126/74; TEMP 98.8; O2SAT 94
[2024-10-01] MEDS ORDERED: LANTUS PER UNIT CHARGE SC SCH (21:00)
== END 2024-10-01 13:56 | disposition home or self-care (01) | DRG 427 ==
LOC: ASU 06:22 → 3N 11:25